=== PATIENT | female | born 1975 | race Caucasian/White ===

== ENCOUNTER 2016-08-11 12:37 | Emergency (ER) | payer MEDICAID ==
[2016-08-11] MEDS ORDERED: ACETAMINOPHEN 325 MG TABLET PO STA (14:15)
[2016-08-11] MEDS ORDERED: IBUPROFEN 600 MG TABLET PO STA (14:15)
[2016-08-11] MEDS ORDERED: IBUPROFEN 600 MG TABLET PO ONE (14:29)
[2016-08-11] MEDS ORDERED: ACETAMINOPHEN 325 MG TABLET PO ONE (14:30)
== END 2016-08-11 15:07 | disposition home or self-care (01) ==
DX: S63.502A Unspecified sprain of left wrist, initial encounter (principal); W01.0XXA Fall on same level from slipping, tripping and stumbling without subsequent striking against object, initial encounter; Y92.410 Unspecified street and highway as the place of occurrence of the external cause; M06.9 Rheumatoid arthritis, unspecified
CPT/HCPCS: 73110; 81025; 99283; A9270

== ENCOUNTER 2016-10-05 17:31 | Emergency (ER) | payer MEDICAID ==
[2016-10-05 18:01] LABS: BILIRUBIN,URINE NEGATIVE (NEGATIVE); PH,URINE 5.5 PH (5.0-7.5)
[2016-10-05 18:06] LABS: HCG UR QUAL POSITIVE; UA CHARGE (STRIP ONLY) YES; UR CULTURE IF IND NOT INDICATED
--- NOTE | 2016-10-05 18:50 | ED Physician Documentation ---
PD HPI FEMALE - Stated complaint Stated Complaint: ABD PX - Chief complaint Chief Complaint: Abd Pain - History obtained from History obtained from: Patient - History of Present Illness Timing - onset: Today Timing - duration: Days Timing - details: Abrupt onset, Still present, Waxing and waning Associated symptoms: Pelvic pain (left sided, sharp and aching) Contributing factors: (new diagnosed with home test today.) OB-[employer] History: G (3), P (2) Similar symptoms before: Has not had sx before Recently seen: Not recently seen Review of Systems Constitutional: denies: Fever, Chills Nose: denies: Rhinorrhea / runny nose, Congestion Throat: denies: Sore throat Respiratory: denies: Cough GI: denies: Nausea, Vomiting, Diarrhea : reports: Irregular menses (last normal period was July, then very light in end of August. Usually regular.). denies: Dysuria, Frequency, Discharge Neurologic: denies: Generalized weakness, Focal weakness, Numbness, Near syncope PD PAST MEDICAL HISTORY - Past Medical History Cardiovascular: None Respiratory: None Neuro: None Endocrine/Autoimmune: None Psych: Anxiety, Post traumatic stress disorder Musculoskeletal: Rheumatoid arthritis - Past Surgical History Past Surgical History: Yes General: Cholecystectomy /[employer]: section - Present Medications Home Medications: Ambulatory Orders Medication Instructions Recorded Confirmed Clonazepam [Klonopin] 1 mg BID 02/26/16 08/11/16 Gabapentin 600 mg QID 02/26/16 08/11/16 Acetaminophen [Tylenol] 650 mg PO Q6H PRN #100 tablet 08/11/16 Ibuprofen [Motrin] 600 mg PO TID #30 tab 08/11/16 - Allergies Allergies/Adverse Reactions: Allergies Allergy/AdvReac Type Severity Reaction Status Date / Time ketorolac tromethamine * Allergy Itching Verified 02/26/16 19:01 [From Toradol] prednisone Allergy Respiratory Verified 02/26/16 19:01 acetaminophen [From Vicodin] AdvReac Itching Verified 02/26/16 19:01 hydrocodone bitartrate * AdvReac Itching Verified 02/26/16 19:01 [From Vicodin] - Social History Does the pt smoke?: No Smoking Status: Never smoker Does the pt drink ETOH?: No Does the pt have substance abuse?: No - Immunizations Immunizations are current?: Yes - POLST Patient has POLST: No PD ED PE NORMAL - Vitals Vital signs reviewed: Yes - General General: Alert and oriented X 3, No acute distress, Well developed/nourished - Neck Neck: Supple, no meningeal sign, No adenopathy - Cardiac Cardiac: RRR, No murmur - Respiratory Respiratory: Clear bilaterally - Abdomen Abdomen: Normal bowel sounds, Soft, Non distended, No organomegaly, Other (mild tenderness left lower abdomen without guarding nor percussion tenderness. ) - Female Female : Deferred - Back Back: No CVA TTP - Derm Derm: Normal color, Warm and dry - Extremities Extremities: No edema, No calf tenderness / cord - Neuro Neuro: Alert and oriented X 3, No motor deficit, Normal speech Results - Vitals Vitals: Oxygen O2 Source Room air - Labs Labs: Laboratory Tests 10/05/16 10/05/16 10/05/16 17:41 19:30 19:30 WBC 8.3 RBC 3.96 L Hgb 9.0 L Hct 29.4 L MCV 74.2 L MCH 22.7 L MCHC 30.6 L RDW 18.1 H Plt Count 203 MPV 10.9 H Neut # 5.1 Lymph # 2.6 [place] # 0.5 Eos # 0.1 Baso # 0.0 Absolute Nucleated RBC 0.00 Nucleated RBCs 0.0 HCG, Quant 95.66 Urine Color YELLOW Urine Clarity CLEAR Urine pH 5.5 Ur Specific [place] 1.025 Urine Protein NEGATIVE Urine Glucose (UA) NEGATIVE Urine Ketones NEGATIVE Urine Occult Blood NEGATIVE Urine Nitrite NEGATIVE Urine Bilirubin NEGATIVE Urine Urobilinogen 0.2 (NORMAL) Ur Leukocyte Esterase NEGATIVE Ur Microscopic Review NOT INDICATED Urine Culture Comments NOT INDICATED Urine HCG, Qual POSITIVE Blood Type 10/05/16 19:30 WBC RBC Hgb Hct MCV MCH MCHC RDW Plt Count MPV Neut # Lymph # [place] # Eos # Baso # Absolute Nucleated RBC Nucleated RBCs HCG, Quant Urine Color Urine Clarity Urine pH Ur Specific [place] Urine Protein Urine Glucose (UA) Urine Ketones Urine Occult Blood Urine Nitrite Urine Bilirubin Urine Urobilinogen Ur Leukocyte Esterase Ur Microscopic Review Urine Culture Comments Urine HCG, Qual Blood Type O POSITIVE - Rads (name of study) OB U/S with transvaginal Radiology: Prelim report reviewed, Discussed with rads (2 cm cystic structure left ovary, consider corpus luteal cyst vs ectopic, trace simple free fluid in pelvis.) PD MEDICAL DECISION MAKING - ED course Complexity details: reviewed results, considered differential (very low quant without IUP, so could be just early or misplaced. There is cystic structure left ovary - corpus luteum maybe but ectopic could not be excluded. ), d/w patient, d/w life consultant (Dr. Bucio - repeat quant and exam in 2-3 days, call for appt. ) Departure - Departure Disposition: Home, Self Care Clinical Impression: Pelvic pain, Early stage of Condition: Stable Record reviewed to determine appropriate education?: Yes Instructions: ED Abdominal Pain Rule Out Ectopic Follow-Up: Katie Hernandez, [Provider Admit Priv/Credential] - Comments: [facility], call tomorrow for appt for or Thu. Ibuprofen or Naproxen twice daily and add Tylenol or pain med as needed. Drink lots of fluids. Recheck in 2-3 days for exam and repeat blood test for the HCG. There is concern for tubal but not clear at this time due to too early on in the . Discharge Date/Time: 10/05/16 22:00
[2016-10-05] MEDS ORDERED: ACETAMINOPHEN 325 MG TABLET PO ONE (19:16)
[2016-10-05] MEDS: ACETAMINOPHEN 325 MG TABLET PO STA (19:18)
[2016-10-05 19:47] LABS: BASOPHILS % (AUTO) 0.6 %; EOSINOPHILS # (AUTO) 0.1 10^3/uL (0.0-0.7); EOSINOPHILS % (AUTO) 1.5 %; HCT - HEMATOCRIT 29.4 % (37.0-47.0); LYMPHOCYTES # (AUTO) 2.6 10^3/uL (1.5-3.5); LYMPHOCYTES % (AUTO) 30.9 %; MEAN CORPUSCULAR HEMOGLOBIN 22.7 pg (27.0-31.0); MEAN CORPUSCULAR HGB CONC 30.6 g/dL (32.0-36.0); MEAN CORPUSCULAR VOLUME 74.2 fL (81.0-99.0); MEAN PLATELET VOLUME 10.9 fL (7.9-10.8); MONOCYTES # (AUTO) 0.5 10^3/uL (0.0-1.0); MONOCYTES % (AUTO) 6.4 %; NEUTROPHILS # (AUTO) 5.1 10^3/uL (1.5-6.6); NEUTROPHILS % (AUTO) 60.6 %; RED BLOOD COUNT 3.96 10^6/uL (4.20-5.40); RED CELL DISTRIBUTION WIDTH 18.1 % (12.0-15.0); UNCORRECTED WHITE BLOOD COUNT 8.3 x10^3/uL; WHITE BLOOD COUNT 8.3 x10^3/uL (4.8-10.8)
--- NOTE | 2016-10-05 21:30 | Ultrasound Preliminary Report ---
Exam: US OB First Trimester IMPRESSION: 1. There is no evidence of intrauterine gestation. 2. At the lateral margin of the left ovary, there is a rounded hypoechoic focus measuring 2.0 cm in d iameter. Differential considerations include ectopic or corpus luteal cyst. Short-term inte rval repeat beta-hCG and close follow-up recommended as indicated. 3. There is a small amount of simple appearing free fluid within the pelvis. [facility] The above findings were discussed with Dr. Woods by Dr. Richie Araya at 21:26 hrs on 10/05/16. SITE ID: [id number]
--- NOTE | 2016-10-05 21:32 | Ultrasound Report ---
REVISED: THIS REPORT WAS ORIGINALLY SIGNED ON 10/05/2016 @ 2132 ORDERS LINKED ON 10/22/2016 EXAM: FIRST TRIMESTER OBSTETRIC ULTRASOUND (Less than 11 weeks) EXAM DATE: 10/05/2016 08:49 PM. CLINICAL HISTORY: LLQ pain and early . LMP: Unknown. COMPARISONS: None. TECHNIQUE: Transvaginal ultrasound examination with static image documentation. CLINICAL DATES: ASSESSMENT: Gestational Sac: No evidence of intrauterine gestational sac. MATERNAL STRUCTURES: Uterus: Anteverted. Unremarkable. Cervix: Closed. Right Ovary: 2.7 x 1.5 x 2.1 cm, volume 5 cc. Unremarkable. Left Ovary: 3.4 x 2.1 x 2.6 cm, volume 9 cc. The lateral margin of the left ovary, there is a rounded hypoechoic focus measuring 2.0 cm in diameter. It demonstrates peripheral vascularity. Free Fluid: There is a small amount of simple-appearing free fluid within the pelvis.. Other: None. IMPRESSION: 1. There is no evidence of intrauterine gestation. 2. At the lateral margin of the left ovary, there is a rounded hypoechoic focus measuring 2.0 cm in diameter. Differential considerations include ectopic or corpus luteal cyst. Short-term interval repeat beta-hCG and close follow-up recommended as indicated. 3. There is a small amount of simple appearing free fluid within the pelvis. [facility] The above findings were discussed with Dr. Woods by Dr. Richie Araya at 21:26 hrs on 10/05/16. Referring Provider Line: [phone] SITE ID: [id number]
[2016-10-05 21:41] VITALS: BP 136/77
[2016-10-05] MEDS ORDERED: oxyCOD/ACETAMIN 5 MG/325 MG TABLET PO ONE (21:42)
[2016-10-05] MEDS ORDERED: IBUPROFEN 600 MG TABLET PO ONE (21:42)
[2016-10-05] MEDS ORDERED: oxyCODONE/ACET 5/325 Prepack 4 PO ONE (21:42)
[2016-10-05] MEDS: oxyCOD/ACETAMIN 5 MG/325 MG TABLET PO STA (21:49)
[2016-10-05] MEDS: IBUPROFEN 600 MG TABLET PO STA (21:49)
[2016-10-05] MEDS: oxyCODONE/ACET 5/325 Prepack 4 PO STA (22:06)
== END 2016-10-05 22:00 | disposition home or self-care (01) ==
LOC: ED 17:31
DX: R10.2 Pelvic and perineal pain (principal); O26.891 Other specified pregnancy related conditions, first trimester; Z3A.00 Weeks of gestation of pregnancy not specified; M06.9 Rheumatoid arthritis, unspecified
CPT/HCPCS: 36415; 76801; 76817; 81001; 81003; 81025; 84144; 84702; 85025; 86900; 86901; 87086; 99283

== ENCOUNTER 2016-10-09 14:35 | Outpatient (CLI) | payer MEDICAID ==
[2016-10-09 15:38] LABS: HEMOGLOBIN A1C 0.47 g/dL
[2016-10-09 16:24] LABS: THYROID STIMULATING HORMONE 1.27 uIU/mL (0.34-5.60)
== END 2016-10-09 14:36 | disposition home or self-care (01) ==
LOC: LAB 14:35
PROVIDERS: ATTEND Obstetrics & Gynecology
DX: O24.011 Pre-existing type 1 diabetes mellitus, in pregnancy, first trimester (principal); Z32.01 Encounter for pregnancy test, result positive
CPT/HCPCS: 36415; 82947; 83036; 84439; 84443; 84481; 84702

== ENCOUNTER 2016-10-16 09:21 | Outpatient (CLI) | payer MEDICAID | END 2016-10-16 09:22 | disposition home or self-care (01) | DX: Z32.01 Encounter for pregnancy test, result positive (principal) ==

== ENCOUNTER 2016-10-21 20:15 | Emergency (ER) | payer MEDICAID ==
[2016-10-21] MEDS ORDERED: SODIUM CHLORIDE 0.9% 1,000 ML IV ONE (20:23)
[2016-10-21] MEDS ORDERED: diphenhydrAMINE INJ 50 MG/ML VIAL IVP STA (20:23)
[2016-10-21 20:30] LABS: BILIRUBIN,URINE NEGATIVE (NEGATIVE)
[2016-10-21 20:31] LABS: UA w/ MICROSCOPIC CHARGE YES
[2016-10-21] MEDS ORDERED: diphenhydrAMINE INJ 50 MG/ML VIAL ONE (20:31)
--- NOTE | 2016-10-21 20:43 | ED Physician Documentation ---
PD HPI NVD - Stated complaint Stated Complaint: FEELS SICK - Chief complaint Chief Complaint: Abd Pain - History of Present Illness Timing - onset: How many hours ago (2) Timing - details: Abrupt onset Associated symptoms: Abdominal pain. No: Hematuria, Vaginal bleeding, Vaginal dc Contributing factors: Other () Worsened by: Eating Similar symptoms before: Work up / diagnostics, Treatment, Follow up Recently seen: Clinic - Additonal information Additional information: Patient is a 41 year old female, approximately 6 weeks by dates who is presenting to the emergency department for nausea and vomiting. Patient states that she had not been feeling well for the last few days, but for the last two hours patient has not been able to keep anything down. patient was seen in the emergency department on 10/05/16 and at that time she was found to have a beta of 95, and no IUP, but a possible ovarian cyst. Patient has been trending her beta as an outpatient but has not had a follow up ultrasound. Patient states that she has mild left sided continual pain. Review of Systems Constitutional: denies: Fever, Chills Eyes: denies: Loss of vision, Photophobia Ears: denies: Ear pain, Drainage/discharge Throat: denies: Dental pain / toothache, Sore throat Cardiac: denies: Chest pain / pressure Respiratory: denies: Dyspnea, Cough GI: reports: Abdominal Pain, Nausea, Vomiting : denies: Dysuria, Frequency, Hesitancy Skin: denies: Rash, Lesions, Abrasion (s) Musculoskeletal: denies: Neck pain, Back pain, Extremity pain, Joint pain Neurologic: denies: Generalized weakness, Focal weakness, Numbness Immunocompromised: denies: Immunocompromised PD PAST MEDICAL HISTORY - Past Medical History Cardiovascular: None Respiratory: None Neuro: None Endocrine/Autoimmune: None Psych: Anxiety, Post traumatic stress disorder Musculoskeletal: Rheumatoid arthritis - Past Surgical History Past Surgical History: Yes General: Cholecystectomy /[employer]: section - Present Medications Home Medications: Ambulatory Orders Medication Instructions Recorded Confirmed Clonazepam [Klonopin] 1 mg BID 02/26/16 08/11/16 Gabapentin 600 mg QID 02/26/16 08/11/16 Acetaminophen [Tylenol] 650 mg PO Q6H PRN #100 tablet 08/11/16 Ibuprofen [Motrin] 600 mg PO TID #30 tab 08/11/16 Doxylamine/Pyridoxine HCl 1 each PO TID #15 tab 10/21/16 [Oh Dr 10-10 mg Tablet] Nitrofurantoin Monohyd/M-Cryst 100 mg PO BID 5 Days 10/21/16 [Macrobid 100 mg Capsule] - Allergies Allergies/Adverse Reactions: Allergies Allergy/AdvReac Type Severity Reaction Status Date / Time ketorolac tromethamine * Allergy Itching Verified 02/26/16 19:01 [From Toradol] prednisone Allergy Respiratory Verified 02/26/16 19:01 acetaminophen [From Vicodin] AdvReac Itching Verified 02/26/16 19:01 hydrocodone bitartrate * AdvReac Itching Verified 02/26/16 19:01 [From Vicodin] - Social History Does the pt smoke?: No Smoking Status: Never smoker Does the pt drink ETOH?: No Does the pt have substance abuse?: No - Immunizations Immunizations are current?: Yes - POLST Patient has POLST: No PD ED PE NORMAL - Vitals Vital signs reviewed: Yes - General General: Alert and oriented X 3, No acute distress - HEENT HEENT: Atraumatic, PERRL, Pharynx benign - Neck Neck: Supple, no meningeal sign, No JVD - Cardiac Cardiac: RRR, No murmur - Respiratory Respiratory: No respiratory distress - Derm Derm: Normal color, Warm and dry - Extremities Extremities: No deformity, No tenderness to palpate, No edema, No calf tenderness / cord - Neuro Neuro: No motor deficit, No sensory deficit, Normal speech - Psych Psych: Normal mood, Normal affect PD ED PE EXPANDED - HEENT HEENT: Dry mucous membranes - Abdomen Abdomen: Tender to palpation, LLQ. No: Distended, Rebound, Guarding Results - Vitals Vitals: Vital Signs - 24 hr 10/21/16 10/21/16 10/21/16 20:17 21:36 22:51 Temperature 36.7 C Heart Rate 78 73 74 Respiratory 17 20 16 Rate Blood Pressure 129/79 111/61 118/60 O2 Saturation 100 100 98 Oxygen O2 Source Room air - Labs Labs: Laboratory Tests 10/21/16 10/21/16 10/21/16 20:24 20:40 20:40 WBC 7.9 RBC 3.89 L Hgb 9.0 L Hct 28.4 L MCV 73.1 L MCH 23.1 L MCHC 31.6 L RDW 18.4 H Plt Count 209 MPV 9.9 Neut # 5.1 Lymph # 2.1 [place] # 0.6 Eos # 0.1 Baso # 0.0 Absolute Nucleated RBC 0.00 Nucleated RBCs 0.0 Sodium 137 Potassium 3.8 Chloride 106 Carbon Dioxide 23 Anion Gap 8.0 BUN 12 Creatinine 0.7 Estimated GFR (MDRD) 93 Glucose 128 H Calcium 9.4 Total Bilirubin 0.3 AST 16 ALT 13 Alkaline Phosphatase 54 Total Protein 7.4 Albumin 4.1 Globulin 3.3 Albumin/Globulin Ratio 1.2 Lipase 30 HCG, Quant Urine Color YELLOW Urine Clarity HAZY Urine pH 6.0 Ur Specific [place] >=1.030 H Urine Protein NEGATIVE Urine Glucose (UA) NEGATIVE Urine Ketones TRACE Urine Occult Blood NEGATIVE Urine Nitrite NEGATIVE Urine Bilirubin NEGATIVE Urine Urobilinogen 1 (NORMAL) Ur Leukocyte Esterase NEGATIVE Urine RBC 0-5 Urine WBC 0-3 Ur Squamous Epith Cells MANY Squamous H Urine Bacteria Moderate H Ur Microscopic Review INDICATED Urine Culture Comments NOT INDICATED 10/21/16 20:40 WBC RBC Hgb Hct MCV MCH MCHC RDW Plt Count MPV Neut # Lymph # [place] # Eos # Baso # Absolute Nucleated RBC Nucleated RBCs Sodium Potassium Chloride Carbon Dioxide Anion Gap BUN Creatinine Estimated GFR (MDRD) Glucose Calcium Total Bilirubin AST ALT Alkaline Phosphatase Total Protein Albumin Globulin Albumin/Globulin Ratio Lipase HCG, Quant 98034.00 Urine Color Urine Clarity Urine pH Ur Specific [place] Urine Protein Urine Glucose (UA) Urine Ketones Urine Occult Blood Urine Nitrite Urine Bilirubin Urine Urobilinogen Ur Leukocyte Esterase Urine RBC Urine WBC Ur Squamous Epith Cells Urine Bacteria Ur Microscopic Review Urine Culture Comments - Rads (name of study) pelvic ultrasound Radiology: Final report received (viable IUP, cyst or free fluid in left adenexa ) PD MEDICAL DECISION MAKING - ED course Complexity details: reviewed old records, reviewed results, re-evaluated patient , considered differential, d/w patient ED course: Patient was seen and examined at bedside. IV access was gained and labs were drawn. Urine was collected. Imaging was ordered. Patient was treated with ns bolus and benadryl. Patient was sent for imaging. When patient returned she was treated with tylenol for pain. Imaging was reviewed and showed a intrauterine gestational tract. Patient was also found to have bacteria in her urine so was treated with macrobid. patient was made aware of her findings and given detailed discharge and return instructions. Patient required no further work up and was stable for discharge with outpatient follow up. Departure - Departure Disposition: 01 Home, Self Care Clinical Impression: Vomiting affecting Condition: Good Instructions: ED Diet Vomiting Diarrhea Follow-Up: Katie Hernandez DO [Primary Care Provider] - Tomorrow Prescriptions: Doxylamine/Pyridoxine HCl [Diclegis Dr 10-10 mg Tablet] 1 each PO TID #15 tab Nitrofurantoin Monohyd/M-Cryst [Macrobid 100 mg Capsule] 100 mg PO BID 5 Days Comments: Your ultrasound today revealed an intrauterine . there is still a small fluid collection or cyst near your left ovary. While it is unlikely that it is a heterotrophic it is a possibility. You should continue to follow up with Dr. Hernandez. You were found to have some bacteria in the urine so you will be treated with macrobid twice a day for five days. For the nausea and vomiting you should try gingers, a smiple diet and dicliges. If that doesn' t work you can also take benadryl. You should return to the emergency department for vaginal bleeding, syncope, new worsening or uncontrollable symptoms. Discharge Date/Time: 10/21/16 22:53
[2016-10-21 20:57] LABS: UR CULTURE IF IND NOT INDICATED; WBC,URINE 0-3 /HPF (0-5)
[2016-10-21 21:24] LABS: BASOPHILS % (AUTO) 0.5 %; EOSINOPHILS # (AUTO) 0.1 10^3/uL (0.0-0.7); EOSINOPHILS % (AUTO) 1.1 %; HCT - HEMATOCRIT 28.4 % (37.0-47.0); LYMPHOCYTES # (AUTO) 2.1 10^3/uL (1.5-3.5); LYMPHOCYTES % (AUTO) 26.5 %; MEAN CORPUSCULAR HEMOGLOBIN 23.1 pg (27.0-31.0); MEAN CORPUSCULAR HGB CONC 31.6 g/dL (32.0-36.0); MEAN CORPUSCULAR VOLUME 73.1 fL (81.0-99.0); MEAN PLATELET VOLUME 9.9 fL (7.9-10.8); MONOCYTES # (AUTO) 0.6 10^3/uL (0.0-1.0); MONOCYTES % (AUTO) 7.2 %; NEUTROPHILS # (AUTO) 5.1 10^3/uL (1.5-6.6); NEUTROPHILS % (AUTO) 64.7 %; RED BLOOD COUNT 3.89 10^6/uL (4.20-5.40); RED CELL DISTRIBUTION WIDTH 18.4 % (12.0-15.0); UNCORRECTED WHITE BLOOD COUNT 7.9 x10^3/uL; WHITE BLOOD COUNT 7.9 x10^3/uL (4.8-10.8)
[2016-10-21] MEDS ORDERED: ACETAMINOPHEN 500 MG TABLET PO STA (21:39)
[2016-10-21] MEDS ORDERED: ACETAMINOPHEN 500 MG TABLET PO ONE (21:45)
[2016-10-21 22:23] LABS: ALBUMIN/GLOBULIN RATIO 1.2 (1.0-2.2); BILIRUBIN,TOTAL 0.3 mg/dL (0.2-1.0); CALCIUM 9.4 mg/dL (8.5-10.3); CREATININE 0.7 mg/dL (0.4-1.0); POTASSIUM 3.8 mmol/L (3.5-5.0); TOTAL PROTEIN 7.4 g/dL (6.7-8.2)
--- NOTE | 2016-10-21 22:24 | Ultrasound Preliminary Report ---
Exam: US OB First Trimester IMPRESSION: 1. Single viable intrauterine at EGA 6 weeks 3 days with MONY 06/13/2017 based on crown-rump length. Small linda-gestational bleed measuring 5 x 2 mm. 2. The bilateral ovaries are not well seen. Cystic structure in the left adnexa measuring 2.2 x 1.2 x 1.4 cm, could represent a dominant follicle in the left ovary versus small free fluid. [facility] SITE ID: [id number]
--- NOTE | 2016-10-21 22:26 | Ultrasound Report ---
EXAM: FIRST TRIMESTER OBSTETRIC ULTRASOUND (Less than 11 weeks) EXAM DATE: 10/21/2016 09:46 PM. CLINICAL HISTORY: Prior ultrasound showed mass, no intrauterine . LMP: Unknown. COMPARISONS: Pelvic ultrasound 10/05/2016. TECHNIQUE: Transabdominal and transvaginal ultrasound examination with static image documentation. Li mited transvaginal exam. Patient refused long-term through the exam. ASSESSMENT: Gestational Sac: Single intrauterine. Mean gestational sac diameter: 15 mm = 6 weeks 2 days, MONY 05/19. Embryo: CRL (crown-rump length) 5 mm = 6 weeks 3 days. Cardiac activity: 121 beats per minute. Yolk sac: 3.3 mm. There appears to be a perigestational bleed measuring 5 x 2 mm. MATERNAL STRUCTURES: Uterus: Anteverted. Unremarkable. Cervix: Closed. The ovaries are not well seen. Cystic structure in the left adnexa measuring 2.2 x 1.2 x 1.4 cm , cou ld represent a dominant follicle in the left ovary versus small free fluid. Other: None. IMPRESSION: 1. Single viable intrauterine at EGA 6 weeks 3 days with MONY 06/13/2017 based on crown-rump length. Small linda-gestational bleed measuring 5 x 2 mm. 2. The bilateral ovaries are not well seen. Cystic structure in the left adnexa measuring 2.2 x 1.2 x 1.4 cm, could represent a dominant follicle in the left ovary versus small free fluid. [facility] Referring Provider Line: [phone] SITE ID: [id number]
--- NOTE | 2016-10-21 22:26 | Ultrasound Report ---
EXAM: FIRST TRIMESTER OBSTETRIC ULTRASOUND (Less than 11 weeks) EXAM DATE: 10/21/2016 09:46 PM. CLINICAL HISTORY: Prior ultrasound showed mass, no intrauterine . LMP: Unknown. COMPARISONS: Pelvic ultrasound 10/05/2016. TECHNIQUE: Transabdominal and transvaginal ultrasound examination with static image documentation. Li mited transvaginal exam. Patient refused half-way through the exam. ASSESSMENT: Gestational Sac: Single intrauterine. Mean gestational sac diameter: 15 mm = 6 weeks 2 days, MONY 05/19. Embryo: CRL (crown-rump length) 5 mm = 6 weeks 3 days. Cardiac activity: 121 beats per minute. Yolk sac: 3.3 mm. There appears to be a perigestational bleed measuring 5 x 2 mm. MATERNAL STRUCTURES: Uterus: Anteverted. Unremarkable. Cervix: Closed. The ovaries are not well seen. Cystic structure in the left adnexa measuring 2.2 x 1.2 x 1.4 cm , cou ld represent a dominant follicle in the left ovary versus small free fluid. Other: None. IMPRESSION: 1. Single viable intrauterine at EGA 6 weeks 3 days with MONY 06/13/2017 based on crown-rump length. Small linda-gestational bleed measuring 5 x 2 mm. 2. The bilateral ovaries are not well seen. Cystic structure in the left adnexa measuring 2.2 x 1.2 x 1.4 cm, could represent a dominant follicle in the left ovary versus small free fluid. [facility] Referring Provider Line: [phone] SITE ID: [id number]
[2016-10-21] MEDS ORDERED: NITROFURANTOIN MACRO 100 MG CAPSULE PO STA (22:29)
[2016-10-21] MEDS ORDERED: NITROFURANTOIN MACRO 100 MG CAPSULE PO ONE (22:39)
[2016-10-21 22:52] VITALS: BP 118/60
== END 2016-10-21 22:53 | disposition home or self-care (01) ==
LOC: ED 20:15
DX: O21.0 Mild hyperemesis gravidarum (principal); Z3A.01 Less than 8 weeks gestation of pregnancy
CPT/HCPCS: 36415; 76801; 76830; 80053; 81001; 83690; 84702; 85025; 96361; 96374; 99284; A9270; 81003; 87086

== ENCOUNTER 2016-10-24 08:00 | Outpatient (CLI) | payer MEDICAID | END 2016-10-24 08:01 | disposition home or self-care (01) | LOC: LAB.R 08:00 | PROVIDERS: ATTEND Obstetrics & Gynecology | DX: Z36 Encounter for antenatal screening of mother (principal) | CPT/HCPCS: 80306 ==

== ENCOUNTER 2016-11-06 13:02 | Outpatient (CLI) | payer MEDICAID ==
--- NOTE | 2016-11-06 16:34 | Ultrasound Report ---
FOLLOWUP OBSTETRICAL ULTRASOUND FIRST TRIMESTER: 11/06/2016 CLINICAL HISTORY: Only a transabdominal ultrasound was ordered. The patient had pain previously with a transvaginal scan. TECHNIQUE: Transabdominal pelvic ultrasound performed for global evaluation. Real-time scanning perfo rmed and static images obtained. FINDINGS: The preceding ultrasound was done on 10/21/2016. There was a single viable intrauterine pr egnancy at that time measuring 6 weeks 3 days with an EDC of 06/13/2017. Also, on the preceding ultra sound, was a small perigestational sac hematoma. Transabdominal ultrasound demonstrates a single gestational sac within the uterus with a crown-rump l ength of 19.8 mm indicating a gestational age of 8 weeks 3 days. EDC today by ultrasound is 8. The present gestational age is only 2 days less than expected as calculated from preceding ultraso und exam. This degree of growth is within normal limits. The gestational sac has a mean sac diameter of 31 mm. This is consistent with an 8 week 1 day gestati onal age. The embryo shows normal cardiac activity with a heart rate of 169 beats per minute. A normal yolk sac is seen in association with the fetus measuring 4 mm. On the transabdominal scan, fe mimi anatomy cannot be seen optimally. Recommend patient be followed carefully. Suggest a repeat ultra sound at 12-13 weeks for nuchal measurements. Tiny subchorionic hematomas are seen adjacent to the gestational sac. The inferior one measures 1.6 c m by 0.4 cm by 1.7 cm. The right lateral one measures 0.5 cm by 1.1 cm by 0.3 cm. The maternal right ovary measures 2.1 cm by 1.6 cm by 1.7 cm for a volume of 2.9 cubic centimeters. T he maternal left ovary measures 3.8 cm by 1.9 cm by 2.3 cm for a volume of 8.6 cubic centimeters. The re is a small cyst within the left ovary measuring 1.3 cm by 1.3 cm by 1.7 cm. IMPRESSION: 1. SINGLE GESTATIONAL SAC IS NOTED WITHIN THE UTERUS WITH A SINGLE VIABLE FETUS WITHIN IT. GEST ATIONAL AGE TODAY IS 8 WEEKS 3 DAYS. THIS IS 2 DAYS LESS ADVANCED THAN EXPECTED CALCULATED FROM [facility] ECEDING ULTRASOUND. THIS IS WITHIN NORMAL LIMITS IN REGARDS TO GROWTH. 2. ANATOMY CANNOT BE SEEN OPTIMALLY TODAY BECAUSE ONLY A TRANSABDOMINAL SCAN WAS DONE PER PATIE NT'S REQUEST. RECOMMEND A REPEAT ULTRASOUND IN APPROXIMATELY 4-5 WEEKS FOR FURTHER EVALUATION INCLUDI NG NUCHAL MEASUREMENTS. 3. TWO TINY SUBCHORIONIC BLEEDS ARE NOTED. 4. SMALL MATERNAL LEFT OVARIAN CYST IS SEEN WITH A MAXIMUM DIAMETER OF 1.7 CM. JOB #: [id number] EXT JOB #:[id number]
== END 2016-11-06 13:03 | disposition home or self-care (01) ==
LOC: DI 13:02
PROVIDERS: ATTEND Obstetrics & Gynecology
DX: O36.5110 Maternal care for known or suspected placental insufficiency, first trimester, not applicable or unspecified (principal); O20.9 Hemorrhage in early pregnancy, unspecified; Z3A.08 8 weeks gestation of pregnancy
CPT/HCPCS: 76801

== ENCOUNTER 2017-02-14 10:00 | Outpatient (CLI) | payer MEDICAID ==
[2017-02-14 10:19] VITALS: BP 114/74
[2017-02-14 11:48] LABS: HEMOGLOBIN A1C 0.35 g/dL
[2017-02-14 11:57] LABS: BILIRUBIN,URINE NEGATIVE (NEGATIVE)
[2017-02-14 11:59] LABS: UA CHARGE (STRIP ONLY) YES; UR CULTURE IF IND NOT INDICATED
== END 2017-02-14 12:05 | disposition home or self-care (01) ==
LOC: WFO 10:00 → FBP 10:06 → WFO 12:05
PROVIDERS: ATTEND Obstetrics & Gynecology
DX: O99.89 Other specified diseases and conditions complicating pregnancy, childbirth and the puerperium (principal); R10.9 Unspecified abdominal pain; Z3A.23 23 weeks gestation of pregnancy
CPT/HCPCS: 80306; 81001; 81003; 82731; 82947; 83036; 87086; 99215

== ENCOUNTER 2017-03-01 15:59 | Outpatient (CLI) | payer MEDICAID | END 2017-03-01 16:00 | disposition critical access hospital (66) | LOC: EMS 15:59 | PROVIDERS: ATTEND Surgery | DX: O99.89 Other specified diseases and conditions complicating pregnancy, childbirth and the puerperium (principal); R10.9 Unspecified abdominal pain; R11.2 Nausea with vomiting, unspecified | CPT/HCPCS: A0425; A0427 ==

== ENCOUNTER 2017-03-01 16:31 | Outpatient (CLI) | payer MEDICAID ==
[2017-03-01] MEDS ORDERED: LACTATED RINGERS 1,000 ML IV ONE (16:43)
[2017-03-01] MEDS ORDERED: SODIUM CHLORIDE FLUSH 0.9% 10 ML SYRINGE IVP ONE ×2 (16:49→17:21)
[2017-03-01] MEDS ORDERED: ONDANSETRON 4 MG/2 ML VIAL IVP PRN (16:57)
[2017-03-01] MEDS ORDERED: SODIUM CHLORIDE FLUSH 0.9% 10 ML SYRINGE IVP PRN (16:58)
[2017-03-01] MEDS ORDERED: LACTATED RINGERS 1,000 ML IV SCH (17:00)
[2017-03-01] MEDS ORDERED: LACTATED RINGERS 500 ML IV ONE (17:00)
[2017-03-01 17:16] LABS: BILIRUBIN,URINE NEGATIVE (NEGATIVE)
[2017-03-01 17:24] LABS: UR CULTURE IF IND NOT INDICATED; WBC,URINE 0-3 /HPF (0-5)
[2017-03-01] MEDS ORDERED: NIFEdipine ER 30 MG TABLET PO ONE (17:37)
[2017-03-01] MEDS ORDERED: raNITIdine INJ 50 MG in SODIUM CHLORIDE 0.9% 50 ML IV SCH (18:00)
[2017-03-01] MEDS ORDERED: HYDROcod/ACETAM 5/325 MG TABLET PO PRN (18:15)
[2017-03-01 18:34] VITALS: BP 118/67
[2017-03-01 18:37] LABS: BASOPHILS % (AUTO) 0.4 %; EOSINOPHILS % (AUTO) 0.4 %; HCT - HEMATOCRIT 29.5 % (37.0-47.0); HGB - HEMOGLOBIN 9.2 g/dL (12.0-16.0); LYMPHOCYTES # (AUTO) 2.3 10^3/uL (1.5-3.5); LYMPHOCYTES % (AUTO) 18.9 %; MEAN CORPUSCULAR HEMOGLOBIN 26.9 pg (27.0-31.0); MEAN CORPUSCULAR HGB CONC 31.1 g/dL (32.0-36.0); MEAN CORPUSCULAR VOLUME 86.3 fL (81.0-99.0); MEAN PLATELET VOLUME 10.5 fL (7.9-10.8); MONOCYTES # (AUTO) 0.5 10^3/uL (0.0-1.0); MONOCYTES % (AUTO) 4.2 %; NEUTROPHILS # (AUTO) 9.1 10^3/uL (1.5-6.6); NEUTROPHILS % (AUTO) 76.1 %; RED BLOOD COUNT 3.42 10^6/uL (4.20-5.40); RED CELL DISTRIBUTION WIDTH 18.7 % (12.0-15.0)
[2017-03-01 18:48] LABS: ALBUMIN/GLOBULIN RATIO 0.8 (1.0-2.2); BILIRUBIN,TOTAL 0.2 mg/dL (0.2-1.0); CALCIUM 8.9 mg/dL (8.5-10.3); CREATININE 0.7 mg/dL (0.4-1.0)
[2017-03-01 19:00] LABS: HEMOGLOBIN A1C 0.33 g/dL
[2017-03-01] MEDS ORDERED: FLU VACCINE TS 2017-2018 45 MCG/0.5 ML SYRINGE IM ONE (19:00)
[2017-03-01] MEDS ORDERED: SODIUM CHLORIDE FLUSH 0.9% 10 ML SYRINGE IVP SCH (22:00)
== END 2017-03-01 19:25 | disposition home or self-care (01) ==
LOC: WFO 16:31 → FBP 16:31 → WFO 19:25
PROVIDERS: ATTEND Obstetrics & Gynecology
DX: O47.02 False labor before 37 completed weeks of gestation, second trimester (principal); Z3A.25 25 weeks gestation of pregnancy
CPT/HCPCS: 36415; 80053; 81001; 82731; 83036; 85025; 86762; 86780; 86900; 86901; 87340; 87389; 87491; 87591; 96374; 96375; 99214; A9270; J7120; 87086

== ENCOUNTER 2017-03-30 03:34 | Outpatient (CLI) | payer MEDICAID ==
[2017-03-30 04:03] VITALS: BP 136/68
[2017-03-30 04:26] LABS: BILIRUBIN,URINE NEGATIVE (NEGATIVE)
[2017-03-30 04:38] LABS: UA CHARGE (STRIP ONLY) YES; UR CULTURE IF IND NOT INDICATED
== END 2017-03-30 05:35 | disposition home or self-care (01) ==
LOC: WFO 03:34 → FBP 03:35 → WFO 05:35
PROVIDERS: ATTEND Obstetrics & Gynecology
DX: O47.03 False labor before 37 completed weeks of gestation, third trimester (principal); Z3A.29 29 weeks gestation of pregnancy; O24.419 Gestational diabetes mellitus in pregnancy, unspecified control; O09.523 Supervision of elderly multigravida, third trimester
CPT/HCPCS: 81001; 81003; 82731; 87086; 99213

== ENCOUNTER 2017-04-16 12:48 | Outpatient (CLI) | payer MEDICAID ==
[2017-04-16] MEDS ORDERED: ONDANSETRON ODT 4 MG TABLET TL PRN (14:06)
[2017-04-16 15:01] LABS: ALBUMIN/GLOBULIN RATIO 0.8 (1.0-2.2); BILIRUBIN,TOTAL 0.5 mg/dL (0.2-1.0); CREATININE 0.8 mg/dL (0.4-1.0); POTASSIUM 4.5 mmol/L (3.5-5.0); TOTAL PROTEIN 7.2 g/dL (6.7-8.2)
[2017-04-16] MEDS ORDERED: SODIUM CHLORIDE FLUSH 0.9% 10 ML SYRINGE IVP ONE (15:16)
[2017-04-16 15:36] LABS: BILIRUBIN,URINE NEGATIVE (NEGATIVE)
[2017-04-16 15:56] LABS: WBC,URINE 0-3 /HPF (0-5)
[2017-04-16 15:57] LABS: UR CULTURE IF IND NOT INDICATED
[2017-04-16 17:18] VITALS: BP 117/66
--- NOTE | 2017-04-16 18:06 | HISTORY & PHYSICAL EXAMINATION ---
DATE OF ADMISSION: 04/16/2017 DIAGNOSES: 1. Abrupt onset of Upper abdominal Midline / Uterine pain. 2. Vaginal bleeding. 3. Type 2 diabetes. 4. Prior sections x2. 5. Status post Suzette-en-Y gastric bypass w additional surgeries due to bowel obstruction. 6. History of preeclampsia The patient is a 41-year-old 4, para 2-0-1-2 woman who is now cared for at [facility] high risk clinic with Dr. Stone. At roughly 10 o'clock this morning she had an abrupt onset of fundal uterine pain accompanied by vaginal bleeding. She called [facility] and was instructed her to go immediately to the closest facility. She reports a periodic severe spastic pain in the upper abdomen that she interpreted as uterine contractions. The pain was accompanied by nausea but no emesis. She underwent gastric bypass surgery, Suzette-en-Y in 2004 at the [facility]. Post surgery she is had several bouts of bowel obstruction and secondary surgeries. During 1 of these bouts she became septic. She notes a hard mass under her midline bypass scar. She had a bowel movement at 8 AM Prior to The onset of upper abdominal pain. Currently she reports no flatus. She reports A small amount of vaginal bleeding. . She does not suspect leakage of membranes. She reports no foul discharge or pelvic pressure. She states the baby was thought to be transverse. The patient originally began care at the [facility] and transferred due to a higher risk status to [facility]. Dating is confirmed by 6-week, 3-day crown rump length that was measured on 21 October to yield a delivery date of 13 June. The patient had 2 sections, 1 at 36 weeks and another repeat at 36 weeks, both to produce female . Indications for was severe preeclampsia. Obstetrical Problems include Type 2 diabetes, Severe anemia and mild growth restricted fetus fetus. She states that her diabetes is in good control with her last hemoglobin A1c at 5.5 three weeks ago. Ultrasound on 20 March showed the fetus at the 12th percentile growth. She has a history of preeclampsia and on oral nifedipine. Currently she does not have symptoms suggestive of preeclampsia. She does have profound anemia and is been recommended to have iron infusion therapy. PAST SURGICAL HISTORY: 1. as noted above. 2. Bariatric surgery -- Patient had a Suzette-en-Y gastric bypass in 2004 that led to 2 other surgeries for bowel obstruction. During 1 of these surgeries she became septic. Original surgery occurred at [facility]. 3. Abdominal wall hernia repairs. ALLERGIES: SENSITIVE TO PREDNISONE AND LOVENOX. MEDICATIONS: vitamins with iron. Nifedipine. SOCIAL HISTORY: Single mom, unemployed. Daughter at home. Denies drug, tobacco or alcohol use. FAMILY HISTORY: Breast cancer, colon cancer, easy bleeding tendencies. REVIEW OF SYSTEMS: CONSTITUTIONAL: The patient denies recent fevers, chills, or illness. HEENT: Negative. CARDIAC: Negative. LUNGS: Negative; no recent asthma attacks. GI: gastric bypass surgery As noted above. GENITOURINARY: Reference HPI and records, [facility] records on request. MUSCULOSKELETAL: Negative. NEUROLOGIC: Negative. PSYCHIATRIC: The patient has prior history of drug use. Currently denies and willing to undergo urine toxicology. PHYSICAL EXAMINATION: GENERAL: Patient lying on stretcher, alert, oriented, uncomfortable. VITAL SIGNS: Posted. HEENT: Poor dentition, multiple missing teeth and decay. Supple neck. No thyromegaly. LUNGS: Clear to Auscultation in all lobes. CARDIAC: Regular rapid beat, 2/6 systolic flow murmur. ABDOMEN: Minimal distention No organomegaly. No CVA tenderness. Midline upper abdominal laparotomy scar with a 4 x 5 x 6 cm mass underlying it, Tenderness noted under the laparotomy scar and at the apex of the uterus UTERUS: Appropriate for dates. Tense. Tenderness towards the fundus. EXTERNAL GENITALIA: No lesions, VAGINA: No blood or discharge. CERVIX: 1 cm noneffaced -2 station. No cervical motion tenderness EXTREMITIES: Nonedematous. Moves all 4 extremities well. NEUROLOGIC: Check grossly intact. Patellar reflexes 2+ and equal. Ultrasound preliminary reportsingle viable intrauterine with heart rate of 144. Posterior placenta without evidence of abruption or previa. Estimated weight 1447 g. Cervix long and 3.6 cm and closed. HEENA 11.5 Laboratory data Urine toxicology negative for drugs of abuse. Unable to obtain appropriate blood samples for CBC due to sclerotic veins. 4 attempts were made including attempts by anesthesia. ASSESSMENT: This is a that has symptoms suspect for abruption and/or labor. Extended observation does not record any cervical change and therefore labor was ruled out. delivery with a cervical length of 3.6 is unlikely. Suspect that the fetus is falling off the growth curve secondary to poor nutritional status due to gastric bypass, severe maternal anemia, poor dentition and advanced maternal age. Patient lives on [address] with meager personal resources and there is a transportation barrier to [place]. Critical Aspects of her care have been personally neglected. Patient may want to consider relocation to the [facility] where the appropriate levels of care are more accessible. Her upper abdominal pain most likely represents a GI event such as intermittent torsion, incarceration or bowel spasm. She is at high risk for obstruction and some of her symptoms are suggestive. Patient has mild abdominal bloating a palpable mass under the bypass scar and absense of flatus. Flat plate x-ray and CT scan are not recommended in . Patient should have an MRI to investigate the status of her small bowel and bypass. If obstruction is found we cannot operate to relieve it on [facility]. Patient is best served by evaluation at a tertiary center that includes GI subspecialty surgeons, Maternal - medicine and Level 3 care. PLAN: Discussed situation with Dr. Stone her maternal- medicine physician and it is concluded that she requires a surgical evaluation. Discussed case with Dr. Mireles, general surgeon on-call and we both conclude that evaluation is best done at a tertiary center for patient safety. Currently we cannot draw labs start an IV or resuscitate this patient because of the status of her veins cut down or central line would be necessary. Patient is in stable condition and will drive in a friend's POV to [place] emergency room for further evaluation. Dr. Stone is on-call at [facility] for obstetrics and was apprised of the patient's intentions. Prior to leaving patient received a single dose of betamethasone 12.5 mg IM. Regardless of outcome she is advised to see Dr. Stone next week in the office to continue discussions for IV iron therapy. Patient is very interested in tubal ligation given that this is an unintended And a great deal more difficult than she anticipated. Please send copies of this dictation to Dr. Stone at [facility], Dr. Iqbal, Dr. Katie Bello. [facility] emergency room And Dia Sharpe Note to Jass: This was a very high risk and complex patient. 65 minutes of [id number] time in critical patient evaluation and examination was spent, An additional 45 minutes was spent in patient education and counseling, an additional 15 minutes was spent in coordinating care. JOB #: [id number] EXT JOB #:[id number] JESSICA
[2017-04-16] MEDS ORDERED: SIMETHICONE CHEW 80 MG TABLET PO SCH (19:00)
--- NOTE | 2017-04-17 12:42 | Ultrasound Report ---
OB FOLLOWUP: 04/16/2017 CLINICAL INDICATION: Bleeding, pain. TECHNIQUE: Real-time scanning was performed with patient registration representative static images obtained. LAST MENSTRUAL PERIOD 09/08/2016 Clinical Age 31 weeks 3 days US Age 30 weeks 0 days EFW Hadlock 1447 EFW% Hadlock -- Heart Rate 144 bpm EDC 06/15/2017 US EDC 06/25/2017 BPD Hadlock 30 weeks 0 days; Mean mm 75 HC Hadlock 31 weeks 2 days; Mean mm 285 AC Hadlock 29 weeks 5 days; Mean mm 255 FL Hadlock 29 weeks 3 days; Mean mm 56 Presentation breech Placental Location posterior Cervical Length 3.6 cm Amniotic Fluid 11.5 cm FINDINGS: There is a single viable intrauterine gestation, in breech presentation. heart rate is 144 BPM. The placenta is posterior, without evidence of previa or abruption. Amniotic fluid volume is normal, with an HEENA of 11.5. By size, the fetus measures 30 weeks 0 days (31 weeks 3 days by initial sonogram). Estimated weight by Hadlock method is 1447 grams. The cervix measures 3.6 cm, and is closed. IMPRESSION: SINGLE VIABLE INTRAUTERINE GESTATION, WITH EXPECTED GROWTH FROM INITIAL SONOGRAM. NO EVIDENCE OF PLACENTA PREVIA OR PLACENTAL ABRUPTION. NORMAL HEENA. ESTIMATED WEIGHT OF 1447 GRAMS. MTDD
== END 2017-04-16 20:30 | disposition home or self-care (01) ==
LOC: WFO 12:48 → FBP 12:49 → WFO 20:30
PROVIDERS: ATTEND Obstetrics & Gynecology
DX: O99.89 Other specified diseases and conditions complicating pregnancy, childbirth and the puerperium (principal); R10.10 Upper abdominal pain, unspecified; R14.0 Abdominal distension (gaseous); R22.2 Localized swelling, mass and lump, trunk; O46.93 Antepartum hemorrhage, unspecified, third trimester; O99.013 Anemia complicating pregnancy, third trimester; D64.9 Anemia, unspecified; O36.5930 Maternal care for other known or suspected poor fetal growth, third trimester, not applicable or unspecified; O99.413 Diseases of the circulatory system complicating pregnancy, third trimester; I87.8 Other specified disorders of veins; O09.523 Supervision of elderly multigravida, third trimester; O99.613 Diseases of the digestive system complicating pregnancy, third trimester; K02.9 Dental caries, unspecified; O26.893 Other specified pregnancy related conditions, third trimester; O24.113 Pre-existing type 2 diabetes mellitus, in pregnancy, third trimester; E11.9 Type 2 diabetes mellitus without complications; O34.219 Maternal care for unspecified type scar from previous cesarean delivery; Z98.84 Bariatric surgery status; Z3A.31 31 weeks gestation of pregnancy; Z87.898 Personal history of other specified conditions
CPT/HCPCS: 76816; 80053; 80306; 81001; 96372; 99214; A9270; Q0162; 80048; 85025; 87086

== ENCOUNTER 2017-04-20 08:00 | Outpatient (CLI) | payer MEDICAID | END 2017-04-20 23:59 | disposition home or self-care (01) | LOC: LAB.R 08:00 | PROVIDERS: ATTEND Obstetrics & Gynecology | DX: O09.299 Supervision of pregnancy with other poor reproductive or obstetric history, unspecified trimester (principal); O26.893 Other specified pregnancy related conditions, third trimester | CPT/HCPCS: 84156 ==

== ENCOUNTER 2017-04-21 16:05 | Outpatient (CLI) | payer MEDICAID ==
[2017-04-21 17:09] VITALS: BP 125/81
[2017-04-21] MEDS ORDERED: BETAMETHASONE 30 MG/5 ML VIAL IM SCH (18:03)
[2017-04-21] MEDS ORDERED: ACETAMINOPHEN 500 MG TABLET PO PRN (18:04)
== END 2017-04-21 18:33 | disposition home or self-care (01) ==
LOC: WFO 16:05 → FBP 16:12 → WFO 18:33
PROVIDERS: ATTEND Obstetrics & Gynecology
DX: O24.419 Gestational diabetes mellitus in pregnancy, unspecified control (principal); Z3A.32 32 weeks gestation of pregnancy; O34.219 Maternal care for unspecified type scar from previous cesarean delivery; Z98.84 Bariatric surgery status
CPT/HCPCS: 59025; 96372; A9270

== ENCOUNTER 2017-05-18 21:07 | Outpatient (CLI) | payer MEDICAID | END 2017-05-18 21:08 | disposition short-term general hospital (02) | LOC: EMS 21:07 | PROVIDERS: ATTEND Surgery | DX: O26.93 Pregnancy related conditions, unspecified, third trimester (principal) | CPT/HCPCS: A0425; A0429 ==

== ENCOUNTER 2017-08-14 20:46 | Outpatient (CLI) | payer MEDICAID | END 2017-08-14 20:47 | disposition home or self-care (01) | LOC: EMS 20:46 | PROVIDERS: ATTEND Surgery | DX: F41.9 Anxiety disorder, unspecified (principal) | CPT/HCPCS: A0425; A0429 ==

== ENCOUNTER 2017-08-14 21:04 | Emergency (ER) | payer MEDICAID ==
--- NOTE | 2017-08-14 21:21 | ED Physician Documentation ---
History of Present Illness - Stated complaint Stated Complaint: NAUSEA/ANXIETY - Chief complaint Chief Complaint: Heent - History obtained from History obtained from: Patient - History of Present Illness Timing: How many hours ago (2) Improved by: no ameliorating factors Worsened by: no exacerbating factors - Additonal information Additional information: c/o nausea, vomiting, anxiety, "I'm freaking out" (per patient). this started 2 hours ago. She had all of her teeth extracted 2 days ago and has been taking pain medication for this, also has zofran at home. Tonight she developed nausea and vomiting, and she says she typically gets anxious when she has n/v. took zofran without adequate relief Review of Systems Constitutional: denies: Fever Throat: reports: Other (post-operative pain related to all teeth extracted 2 days ago, but this has not been worsening) GI: reports: Nausea, Vomiting. 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 - Present Medications Home Medications: Ambulatory Orders Medication Instructions Recorded Confirmed Clindamycin [Cleocin] 300 mg PO Q6H 08/14/17 08/14/17 Ibuprofen [Motrin] 800 mg PO TID 08/14/17 08/14/17 Sertraline [Zoloft] 50 mg PO DAILY 08/14/17 08/14/17 oxyCODONE/ACET 5/325 [Percocet 5 1 each PO Q4-6H 08/14/17 08/14/17 mg/325 mg] Amox/Clav 875/125 [Augmentin] 1 each PO Q12H #14 tablet 08/15/17 Lorazepam [Ativan] 1 mg PO Q6HR PRN #14 tablet 08/15/17 Promethazine [Phenergan] 25 mg PO Q6H PRN #14 tablet 08/15/17 - Allergies Allergies/Adverse Reactions: Allergies Allergy/AdvReac Type Severity Reaction Status Date / Time ketorolac tromethamine * Allergy Itching Verified 08/14/17 21:09 [From Toradol] prednisone Allergy Respiratory Verified 08/14/17 21:09 hydrocodone bitartrate * AdvReac Itching Verified 08/14/17 21:09 [From Vicodin] - Social History Does the pt smoke?: No Smoking Status: Never smoker Does the pt drink ETOH?: No Does the pt have substance abuse?: No - Immunizations Immunizations are current?: Yes - POLST Patient has POLST: No PD ED PE NORMAL - Vitals Vital signs reviewed: Yes - General General: Alert and oriented X 3, Well developed/nourished, Other (very anxious and vomiting at times during H+P) - HEENT HEENT: Moist mucous membranes, Other (edentulous. there are gingival sutures in place that are intact and without discharge or erythema) - Neck Neck: Supple, no meningeal sign - Cardiac Cardiac: RRR, No murmur - Abdomen Abdomen: Soft, Non tender PD ED PE EXPANDED - Psych Psych: Tearful, Anxious Results - Vitals Vitals: Oxygen O2 Source Room air - Labs Labs: Laboratory Tests 08/14/17 08/14/17 23:25 23:25 WBC 11.0 H RBC 3.99 L Hgb 12.6 Hct 36.7 L MCV 91.9 MCH 31.6 H MCHC 34.3 RDW 13.3 Plt Count 162 MPV 10.3 Neut # 9.0 H Lymph # 1.4 L [place] # 0.4 Eos # 0.1 Baso # 0.0 Absolute Nucleated RBC 0.01 Nucleated RBC % 0.1 Sodium 135 Potassium 4.6 Chloride 103 Carbon Dioxide 22 Anion Gap 10.0 BUN 28 H Creatinine 0.9 Estimated GFR (MDRD) 69 L Glucose 108 H Calcium 9.2 Total Bilirubin 0.8 AST 24 ALT 22 Alkaline Phosphatase 40 L Total Protein 7.5 Albumin 4.4 Globulin 3.1 Albumin/Globulin Ratio 1.4 Lipase 14 L PD MEDICAL DECISION MAKING - ED course Complexity details: reviewed results, re-evaluated patient, considered differential, d/w patient ED course: reported improvement in symptoms after IV fluids, IV ativan, and IV zofran, although still some anxiety and nausea. Given another dose of IV ativan and a dose of IV phenergan with good results. Departure - Departure Disposition: 01 Home, Self Care Clinical Impression: Anxiety Vomiting Qualifiers: Vomiting type: unspecified Vomiting Intractability: non-intractable Nausea presence: with nausea Qualified Code(s): R11.2 - Nausea with vomiting, unspecified Condition: Good Instructions: ED Panic Attack, ED Nausea Vomiting Prescriptions: Lorazepam [Ativan] 1 mg PO Q6HR PRN #14 tablet PRN Reason: Anxiety Amox/Clav 875/125 [Augmentin] 1 each PO Q12H #14 tablet Promethazine [Phenergan] 25 mg PO Q6H PRN #14 tablet PRN Reason: Nausea / Vomiting Comments: Take the augmentin (antibiotic) INSTEAD of the Clindamycin. Contact your oral surgeon in the next 1-2 days to discuss follow-up recommendations Discharge Date/Time: 08/15/17 00:59
[2017-08-14] MEDS ORDERED: ONDANSETRON 4 MG/2 ML VIAL IVP STA (21:30)
[2017-08-14] MEDS ORDERED: LORazepam 2 MG/ML VIAL IVP STA ×2 (21:30→21:56)
[2017-08-14] MEDS ORDERED: SODIUM CHLORIDE 0.9% 1,000 ML IV STA (21:30)
[2017-08-14 23:32] LABS: BASOPHILS % (AUTO) 0.2 %; EOSINOPHILS # (AUTO) 0.1 10^3/uL (0.0-0.7); EOSINOPHILS % (AUTO) 0.5 %; HGB - HEMOGLOBIN 12.6 g/dL (12.0-16.0); LYMPHOCYTES # (AUTO) 1.4 10^3/uL (1.5-3.5); MEAN CORPUSCULAR HEMOGLOBIN 31.6 pg (27.0-31.0); MEAN CORPUSCULAR HGB CONC 34.3 g/dL (32.0-36.0); MEAN CORPUSCULAR VOLUME 91.9 fL (81.0-99.0); MEAN PLATELET VOLUME 10.3 fL (7.9-10.8); MONOCYTES # (AUTO) 0.4 10^3/uL (0.0-1.0); NEUTROPHILS % (AUTO) 82.3 %; PLT - PLATELET COUNT 162 10^3/uL (130-450); RED BLOOD COUNT 3.99 10^6/uL (4.20-5.40); RED CELL DISTRIBUTION WIDTH 13.3 % (12.0-15.0)
[2017-08-14 23:47] VITALS: BP 135/76
[2017-08-14 23:47] LABS: ALBUMIN 4.4 g/dL (3.2-5.5); ALBUMIN/GLOBULIN RATIO 1.4 (1.0-2.2); BILIRUBIN,TOTAL 0.8 mg/dL (0.2-1.0); CALCIUM 9.2 mg/dL (8.5-10.3); CREATININE 0.9 mg/dL (0.4-1.0); TOTAL PROTEIN 7.5 g/dL (6.7-8.2)
[2017-08-15] MEDS ORDERED: oxyCODONE 5 MG TABLET PO STA (00:03)
[2017-08-15] MEDS ORDERED: PROMETHAZINE INJ 12.5 MG in SODIUM CHLORIDE 0.9% 50 ML IV STA (00:03)
[2017-08-15] MEDS ORDERED: LORazepam 2 MG/ML VIAL IVP STA (00:03)
== END 2017-08-15 00:59 | disposition home or self-care (01) ==
LOC: EDUNIT# → ED 21:04
DX: F41.9 Anxiety disorder, unspecified (principal); R11.2 Nausea with vomiting, unspecified
CPT/HCPCS: 36415; 80053; 83690; 85025; 96361; 96365; 96375; 96376; 99283; 99284; A9270; J2060; J7040

== ENCOUNTER 2018-01-03 18:08 | Outpatient (CLI) | payer MEDICAID | END 2018-01-03 18:09 | disposition critical access hospital (66) | LOC: EMS 18:08 | PROVIDERS: ATTEND Surgery | DX: R11.2 Nausea with vomiting, unspecified (principal); R10.9 Unspecified abdominal pain | CPT/HCPCS: A0425; A0427; A0999 ==

== ENCOUNTER 2018-01-03 18:26 | Emergency (ER) | payer MEDICAID, OTHER ==
[2018-01-03] MEDS ORDERED: SODIUM CHLORIDE 0.9% 1,000 ML IV ONE ×2 (19:05)
[2018-01-03] MEDS ORDERED: PROMETHAZINE INJ 25 MG in SODIUM CHLORIDE 0.9% 50 ML IV STA (19:06)
--- NOTE | 2018-01-03 19:09 | ED Physician Documentation ---
History of Present Illness - Stated complaint Stated Complaint: N/V/FLANK PAIN - Chief complaint Chief Complaint: Abd Pain - History obtained from History obtained from: Patient, EMS - History of Present Illness Timing: Yesterday Pain level max: 9 Pain level now: 8 - Additonal information Additional information: Patient is a 42-year-old female who presents to the emergency department after falling off of a stepladder in her kitchen yesterday falling backwards striking her head on the countertop. No loss of consciousness but has had continued vomiting since that time. Is also complaining of neck and back pain. Worse with movement, better with rest. Tried to take Phenergan at home but threw it up. Unable to tolerate any pain medication secondary to vomiting. An IV was started with EMS and IV fluids as well as Zofran are given. Nausea improved. No numbness or tingling. Denies any possibility of Review of Systems Ten Systems: 10 systems reviewed and negative Constitutional: denies: Fever, Chills Ears: denies: Ear pain Nose: denies: Rhinorrhea / runny nose, Congestion Throat: denies: Sore throat Cardiac: denies: Chest pain / pressure Respiratory: denies: Cough GI: reports: Nausea, Vomiting. denies: Abdominal Pain, Diarrhea Skin: denies: Rash Musculoskeletal: reports: Neck pain, Back pain (L flank) Neurologic: reports: Headache. 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 - Present Medications Home Medications: Ambulatory Orders Medication Instructions Recorded Confirmed Promethazine [Phenergan] 25 mg PO Q6H PRN #14 tablet 08/15/17 Ondansetron Odt [Zofran] 4 mg TL Q6H PRN #10 tablet 01/03/18 Oxycodone HCl/Acetaminophen 1 - 2 each PO Q6H PRN #14 tablet 01/03/18 [Percocet 5-325 mg Tablet] - Allergies Allergies/Adverse Reactions: Allergies Allergy/AdvReac Type Severity Reaction Status Date / Time ketorolac tromethamine * Allergy Itching Verified 01/03/18 18:31 [From Toradol] prednisone Allergy Respiratory Verified 01/03/18 18:31 hydrocodone bitartrate * AdvReac Itching Verified 01/03/18 18:31 [From Vicodin] - Social History Does the pt smoke?: No Smoking Status: Never smoker Does the pt drink ETOH?: No Does the pt have substance abuse?: No - Immunizations Immunizations are current?: Yes - POLST Patient has POLST: No PD ED PE NORMAL - Vitals Vital signs reviewed: Yes - General General: Alert and oriented X 3, No acute distress, Well developed/nourished - HEENT HEENT: Atraumatic (No scalp hematomas or palpable skull fractures), PERRL, Ears normal, Moist mucous membranes, Pharynx benign, Dentition benign - Neck Neck: Supple, no meningeal sign, Other (No step-off or deformity. Mild mid cervical spine tenderness) - Cardiac Cardiac: RRR, Strong equal pulses - Respiratory Respiratory: No respiratory distress, Clear bilaterally - Abdomen Abdomen: Soft, Non tender, Non distended - Back Back: No spinal TTP, Other (Tender palpation paraspinal left low lumbar. No midline tenderness palpation or percussion. No step-off or deformity) - Derm Derm: Warm and dry - Extremities Extremities: No edema, No calf tenderness / cord - Neuro Neuro: Alert and oriented X 3, rehabilitation tech 2-12 intact, No motor deficit, No sensory deficit, Normal speech Eye Opening: Spontaneous Motor: Obeys Commands Verbal: Oriented GCS Score: 15 - Psych Psych: Normal mood, Normal affect Results - Vitals Vitals: Vital Signs - 24 hr 01/03/18 01/03/18 18:28 20:07 Temperature 36.6 C Heart Rate 79 63 Respiratory 16 16 Rate Blood Pressure 116/85 H 113/75 O2 Saturation 96 99 Oxygen O2 Source Room air - Labs Labs: Laboratory Tests 01/03/18 01/03/18 01/03/18 14:30 14:30 19:10 WBC 6.4 RBC 4.09 L Hgb 12.7 Hct 36.9 L MCV 90.3 MCH 31.0 MCHC 34.4 RDW 12.9 Plt Count 161 MPV 11.4 H Neut # (Auto) 3.9 Lymph # (Auto) 2.0 [place] # (Auto) 0.4 Eos # (Auto) 0.1 Baso # (Auto) 0.0 Absolute Nucleated RBC 0.00 Nucleated RBC % 0.0 Sodium 138 Potassium 4.1 Chloride 110 Carbon Dioxide 20 L Anion Gap 8.0 BUN 23 H Creatinine 0.8 Estimated GFR (MDRD) 79 L Glucose 143 H Calcium 8.7 Total Bilirubin 0.4 AST 16 ALT 16 Alkaline Phosphatase 36 L Total Protein 6.8 Albumin 3.9 Globulin 2.9 Albumin/Globulin Ratio 1.3 Lipase 55 H Urine Color YELLOW Urine Clarity CLEAR Urine pH 6.0 Ur Specific [place] 1.025 Urine Protein NEGATIVE Urine Glucose (UA) NEGATIVE Urine Ketones NEGATIVE Urine Occult Blood NEGATIVE Urine Nitrite NEGATIVE Urine Bilirubin NEGATIVE Urine Urobilinogen 0.2 (NORMAL) Ur Leukocyte Esterase NEGATIVE Ur Microscopic Review NOT INDICATED Urine Culture Comments NOT INDICATED Urine HCG, Qual NEGATIVE - Rads (name of study) Head CT Radiology: Prelim report reviewed, EMP read contemporaneously, See rad report ( No acute abnormality) Cervical spine CT Radiology: Prelim report reviewed, EMP read contemporaneously, See rad report ( Normal) PD MEDICAL DECISION MAKING - ED course Complexity details: reviewed results, re-evaluated patient, considered differential, d/w patient ED course: Patient is seen in the emergency department has continued vomiting after head injury. Nausea and vomiting controlled with medication. Given IV fluids. Pain well controlled as well. No evidence of spinal injury. No intracranial hemorrhage or skull fracture. Patient counseled regarding signs and symptoms for which I believe and urgent re-evaluation would be necessary. Patient with good understanding of and agreement to plan and is comfortable going home at this time This document was made in part using voice recognition software. While efforts are made to proofread this document, sound alike and grammatical errors may occur. Tolerating p.o. without difficulty and ambulating well - Sepsis Event Vital Signs: Vital Signs - 24 hr 01/03/18 01/03/18 18:28 20:07 Temperature 36.6 C Heart Rate 79 63 Respiratory 16 16 Rate Blood Pressure 116/85 H 113/75 O2 Saturation 96 99 Oxygen O2 Source Room air Departure - Departure Disposition: 01 Home, Self Care Clinical Impression: Closed head injury Qualifiers: Encounter type: initial encounter Qualified Code(s): S09.90XA - Unspecified injury of head, initial encounter Lumbar strain Qualifiers: Encounter type: initial encounter Qualified Code(s): S39.012A - Strain of muscle, fascia and tendon of lower back, initial encounter Condition: Good Instructions: ED Head Injury Closed Follow-Up: your,doctor in 3 days. [Other] Prescriptions: Ondansetron Odt [Zofran] 4 mg TL Q6H PRN #10 tablet PRN Reason: Nausea / Vomiting Oxycodone HCl/Acetaminophen [Percocet 5-325 mg Tablet] 1 - 2 each PO Q6H PRN # 14 tablet PRN Reason: pain Comments: Return if you worsen. This should improve over the next 2-3 days. Follow-up with your doctor for further care. Do not drink alcohol or drive while on narcotic pain medicine. Note that many narcotic pain relievers also contain tylenol/acetaminophen. Please ensure that your total dose of acetaminophen from all sources does not exceed 3 grams (3000mg) per day. You may constipated on this medication, take a stool softener such as "Colace" twice a day while you are on it. Also recommend a mxqm-avg-qwaegnr laxative such as senna or MiraLAX any day that you do not have a bowel movement. If you received narcotic pain medication in the emergency department, do not drive or operate machinery for the next 24 hours. Discharge Date/Time: 01/03/18 21:07
[2018-01-03 19:17] LABS: BILIRUBIN,URINE NEGATIVE (NEGATIVE); GLUCOSE, URINE (UA) NEGATIVE (NEGATIVE); KETONES,URINE (UA) NEGATIVE (NEGATIVE); LEUKOCYTE ESTERASE, URINE NEGATIVE (NEGATIVE); NITRITE,URINE NEGATIVE (NEGATIVE); OCCULT BLOOD,URINE NEGATIVE (NEGATIVE); PROTEIN,URINE NEGATIVE (NEGATIVE); UROBILINOGEN,URINE 0.2 (NORMAL) E.U./dL (NORMAL)
[2018-01-03 19:20] LABS: CLARITY,URINE CLEAR (CLEAR); HCG UR QUAL NEGATIVE
[2018-01-03] MEDS ORDERED: MORPHINE 2 MG/ML SYRINGE IVP STA (19:25)
[2018-01-03 19:36] LABS: BASOPHILS % (AUTO) 0.4 %; EOSINOPHILS # (AUTO) 0.1 10^3/uL (0.0-0.7); EOSINOPHILS % (AUTO) 1.2 %; HGB - HEMOGLOBIN 12.7 g/dL (12.0-16.0); LYMPHOCYTES % (AUTO) 31.6 %; MEAN CORPUSCULAR HGB CONC 34.4 g/dL (32.0-36.0); MEAN CORPUSCULAR VOLUME 90.3 fL (81.0-99.0); MEAN PLATELET VOLUME 11.4 fL (7.9-10.8); MONOCYTES # (AUTO) 0.4 10^3/uL (0.0-1.0); MONOCYTES % (AUTO) 6.1 %; NEUTROPHILS # (AUTO) 3.9 10^3/uL (1.5-6.6); NEUTROPHILS % (AUTO) 60.7 %; PLT - PLATELET COUNT 161 10^3/uL (130-450); RED BLOOD COUNT 4.09 10^6/uL (4.20-5.40); RED CELL DISTRIBUTION WIDTH 12.9 % (12.0-15.0); WHITE BLOOD COUNT 6.4 x10^3/uL (4.8-10.8)
[2018-01-03 19:46] LABS: ALBUMIN 3.9 g/dL (3.2-5.5); ALBUMIN/GLOBULIN RATIO 1.3 (1.0-2.2); BILIRUBIN,TOTAL 0.4 mg/dL (0.2-1.0); CALCIUM 8.7 mg/dL (8.5-10.3); CREATININE 0.8 mg/dL (0.4-1.0); TOTAL PROTEIN 6.8 g/dL (6.7-8.2)
[2018-01-03 20:09] VITALS: BP 113/75
--- NOTE | 2018-01-03 20:14 | CT Report ---
Procedure Date: 01/03/2018 Accession Number: [id number] / [id number] Procedure: CT - Head W/O CPT Code: FULL RESULT: EXAM: CT HEAD EXAM DATE: 01/03/2018 07:47 PM. CLINICAL HISTORY: Fall yesterday. Headache. Vomiting. COMPARISON: None. TECHNIQUE: Multiaxial CT images were obtained from the foramen magnum to the vertex. Reformats: Coronal. IV contrast: None. In accordance with CT protocol optimization, one or more of the following dose reduction techniques were utilized for this exam: automated exposure control, adjustment of mA and/or KV based on patient size, or use of iterative reconstructive technique. FINDINGS: Parenchyma: No intraparenchymal hemorrhage. No evidence of mass, midline shift, or CT findings of infarction. Mueller-white differentiation is distinct. Extraaxial Spaces: Normal for age. No subdural or epidural collections identified. Ventricles: Normal in size and position. Sinuses and Orbits: Imaged paranasal sinuses, orbits, and mastoids show no significant abnormality. Bones: No evidence of fracture or calvarial defect. Other: None. IMPRESSION: Normal head CT. RADIA
--- NOTE | 2018-01-03 20:17 | CT Report ---
Procedure Date: 01/03/2018 Accession Number: [id number] / [id number] Procedure: CT - Cervical Spine W/O CPT Code: FULL RESULT: EXAM: CT CERVICAL SPINE WITHOUT CONTRAST DATE: 01/03/2018 07:48 PM. HISTORY: Fall yesterday. Headache. Neck pain. COMPARISONS: None. TECHNIQUE: Thin-section axial images were acquired of the cervical spine without contrast. Post-processing: Coronal and sagittal reformats. Other: None. In accordance with CT protocol optimization, one or more of the following dose reduction techniques were utilized for this exam: automated exposure control, adjustment of mA and/or KV based on patient size, or use of iterative reconstructive technique. FINDINGS: Alignment: No scoliosis or spondylolisthesis. Bones: No traumatic or destructive bony abnormalities. Incomplete posterior ring of C1, a normal variant. Interspace Levels/Facets: C1-C2: Unremarkable. C2-C3: Unremarkable. C3-C4: Unremarkable. C4-C5: Unremarkable. C5-C6: Unremarkable. C6-C7: Unremarkable. C7-T1: Unremarkable. Musculature: Normal. No fatty atrophy. Other: The paravertebral and prevertebral soft tissues are unremarkable. The lung apices are clear. IMPRESSION: Normal cervical spine CT. RADIA
[2018-01-03] MEDS ORDERED: oxyCODONE 5 MG TABLET PO STA (20:53)
== END 2018-01-03 21:07 | disposition home or self-care (01) ==
LOC: EDUNIT# → ED 18:26
DX: S09.90XA Unspecified injury of head, initial encounter (principal); S39.012A Strain of muscle, fascia and tendon of lower back, initial encounter; R11.2 Nausea with vomiting, unspecified; W11.XXXA Fall on and from ladder, initial encounter; Y92.000 Kitchen of unspecified non-institutional (private) residence as the place of occurrence of the external cause
CPT/HCPCS: 36415; 70450; 72125; 80053; 81003; 81025; 83690; 85025; 96361; 96365; 96375; 99283; 99284; A9270; J2270; J7040; 81001; 87086

== ENCOUNTER 2018-02-04 08:43 | Emergency (ER) | payer MEDICAID ==
--- NOTE | 2018-02-04 10:25 | XRAY Report ---
Reason: fall last night/pain Procedure Date: 02/04/2018 Accession Number: [id number] / [id number] Procedure: XR - Knee 3 View RT CPT Code: FULL RESULT: EXAM: RIGHT KNEE RADIOGRAPHY EXAM DATE: 02/04/2018 10:13 AM. CLINICAL HISTORY: Fall last night/pain. COMPARISON: None. TECHNIQUE: 3 views. FINDINGS: Bones: No fracture or focal osseous lesion. Joints: No effusion or significant degenerative change. No subluxation. Soft Tissues: No focal abnormality. IMPRESSION: Normal knee radiography for age. RADIA
--- NOTE | 2018-02-04 10:48 | ED Physician Documentation ---
PD HPI LOWER EXT INJURY - Stated complaint Stated Complaint: R LEG INJ - Chief complaint Chief Complaint: Ext Problem - History obtained from History obtained from: Patient - History of Present Illness PD HPI LOW EXT INJURY LOCATION: Right, Knee Type of injury: Fall Where injury occurred: Home Timing - onset: Last night Timing - details: Abrupt onset, Still present Improved by: Rest, Immobilization Worsened by: Moving, Palpating Associated symptoms: Swelling. 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 She has pain on the medial aspect of the knee and the posterior aspect of the knee and some swelling and abrasion. She states that the knee struck the steps directly on the upper calf on the medial aspect. Review of Systems Constitutional: denies: Fever Eyes: denies: Decreased vision Ears: denies: Ear pain Nose: denies: Congestion Respiratory: denies: Cough GI: denies: Vomiting : denies: Dysuria Musculoskeletal: reports: Extremity pain, Joint pain, Joint swelling, Pain with weight bearing. 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 - Present Medications Home Medications: Ambulatory Orders Medication Instructions Recorded Confirmed Promethazine [Phenergan] 25 mg PO Q6H PRN #14 tablet 08/15/17 Ondansetron Odt [Zofran] 4 mg TL Q6H PRN #10 tablet 01/03/18 Oxycodone HCl/Acetaminophen 1 - 2 each PO Q6H PRN #14 tablet 01/03/18 [Percocet 5-325 mg Tablet] oxyCODONE/ACET 5/325 [Percocet 5 1 - 2 each PO Q4-6H PRN #15 tablet 02/04/18 mg/325 mg] - Allergies Allergies/Adverse Reactions: Allergies Allergy/AdvReac Type Severity Reaction Status Date / Time ketorolac tromethamine * Allergy Itching Verified 01/03/18 18:31 [From Toradol] prednisone Allergy Respiratory Verified 01/03/18 18:31 hydrocodone bitartrate * AdvReac Itching Verified 01/03/18 18:31 [From Vicodin] - Social History Does the pt smoke?: No Smoking Status: Never smoker Does the pt drink ETOH?: No Does the pt have substance abuse?: No - Immunizations Immunizations are current?: Yes - POLST Patient has POLST: No PD ED PE NORMAL - Vitals Vital signs reviewed: Yes (hypertensive ) - General General: Alert and oriented X 3, No acute distress, Well developed/nourished - HEENT HEENT: Atraumatic, PERRL, EOMI - Respiratory Respiratory: No respiratory distress - Derm Derm: Normal color, Warm and dry, No rash - Extremities Extremities: No deformity, No edema, Other (There is point tenderness to the medial joint line and this opens with varus forces. The lateral joint is stable as is the ACL) - Neuro Neuro: Alert and oriented X 3, No motor deficit, No sensory deficit, Normal speech Eye Opening: Spontaneous Motor: Obeys Commands Verbal: Oriented GCS Score: 15 - Psych Psych: Normal mood, Normal affect Results - Vitals Vitals: Vital Signs - 24 hr 02/04/18 08:48 Temperature 36.4 C L Heart Rate 80 Respiratory 14 Rate Blood Pressure 144/93 H O2 Saturation 96 Oxygen O2 Source Room air - Rads (name of study) right knee Radiology: Prelim report reviewed (Impression: Normal knee radiography for age.), EMP read indepedently, See rad report PD MEDICAL DECISION MAKING - ED course Complexity details: reviewed results, re-evaluated patient, considered differential, d/w patient ED course: 42-year-old female with [place] the [place] has a medial collateral ligament sprain of the right knee. She is placed into a knee immobilizer. - Sepsis Event Vital Signs: Vital Signs - 24 hr 02/04/18 08:48 Temperature 36.4 C L Heart Rate 80 Respiratory 14 Rate Blood Pressure 144/93 H O2 Saturation 96 Oxygen O2 Source Room air Departure - Departure Disposition: 01 Home, Self Care Clinical Impression: Knee MCL sprain Qualifiers: Encounter type: initial encounter Laterality: right Qualified Code(s): S83.411A - Sprain of medial collateral ligament of right knee, initial encounter Condition: Stable Instructions: ED Sprain Knee Collateral Ligaments Follow-Up: [facility] [Provider Group] Prescriptions: oxyCODONE/ACET 5/325 [Percocet 5 mg/325 mg] 1 - 2 each PO Q4-6H PRN #15 tablet PRN Reason: Pain
[2018-02-04 11:23] VITALS: BP 141/94
== END 2018-02-04 11:23 | disposition home or self-care (01) ==
LOC: ED 08:43
DX: S83.411A Sprain of medial collateral ligament of right knee, initial encounter (principal); W10.8XXA Fall (on) (from) other stairs and steps, initial encounter; S80.211A Abrasion, right knee, initial encounter; Y93.89 Activity, other specified; Y92.39 Other specified sports and athletic area as the place of occurrence of the external cause
CPT/HCPCS: 99283

== ENCOUNTER 2018-05-21 21:10 | Emergency (ER) | payer MEDICAID ==
[2018-05-21 21:16] VITALS: BP 134/75
--- NOTE | 2018-05-21 21:31 | ED Physician Documentation ---
PD HPI LOWER EXT INJURY - Stated complaint Stated Complaint: LEG PX - Chief complaint Chief Complaint: Trauma Ext - History obtained from History obtained from: Patient - History of Present Illness PD HPI LOW EXT INJURY LOCATION: Right, Knee Type of injury: Fall Where injury occurred: Home Timing - onset: Yesterday Timing - duration: Days (1) Timing - details: Abrupt onset, Still present Improved by: Rest, Ice, Immobilization Worsened by: Moving, Palpating Associated symptoms: Swelling. No: Weakness, Numbness Contributing factors: No: Anticoagulated Similar symptoms before: Diagnosis (ACL tear) Recently seen: Not recently seen - Additional information Additional information: 42-year-old female status post gastric bypass has fallen in her home off of the stool while she was preparing a [place] for her 1-year-old son. She felt backward twisted her knee and landed directly on her kneecap. She had a knee immobilizer from a prior injury in January and she placed at the immobilizer back on. In the middle of the night she got up to go to the bathroom and found that the compression of the knee immobilizer was worsening her pain and she removed it. She has been getting around in her home by hopping and grabbing onto things. She has a lot of pain if she tries to bear weight. Enough pain to make her nauseous. Review of Systems Constitutional: denies: Fever Eyes: denies: Decreased vision Ears: denies: Ear pain Nose: denies: Congestion Throat: denies: Sore throat Respiratory: denies: Dyspnea, Cough GI: reports: Nausea. denies: Abdominal Pain, Vomiting, Constipation : denies: Dysuria, Frequency Skin: denies: Rash Musculoskeletal: reports: Extremity pain, Joint pain, Joint swelling, Pain with weight bearing. 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 - Present Medications Home Medications: Ambulatory Orders Medication Instructions Recorded Confirmed Promethazine [Phenergan] 25 mg PO Q6H PRN #14 tablet 08/15/17 Ondansetron Odt [Zofran] 4 mg TL Q6H PRN #10 tablet 01/03/18 Oxycodone HCl/Acetaminophen 1 - 2 each PO Q6H PRN #14 tablet 01/03/18 [Percocet 5-325 mg Tablet] oxyCODONE/ACET 5/325 [Percocet 5 1 - 2 each PO Q4-6H PRN #15 tablet 02/04/18 mg/325 mg] - Allergies Allergies/Adverse Reactions: Allergies Allergy/AdvReac Type Severity Reaction Status Date / Time ketorolac tromethamine * Allergy Itching Verified 05/21/18 21:16 [From Toradol] prednisone Allergy Respiratory Verified 05/21/18 21:16 hydrocodone bitartrate * AdvReac Itching Verified 05/21/18 21:16 [From Vicodin] - Social History Does the pt smoke?: No Smoking Status: Never smoker Does the pt drink ETOH?: No Does the pt have substance abuse?: No - Immunizations Immunizations are current?: Yes - POLST Patient has POLST: No PD ED PE NORMAL - Vitals Vital signs reviewed: Yes (hypertensive mild ) - General General: Alert and oriented X 3, No acute distress, Well developed/nourished - HEENT HEENT: Atraumatic, PERRL, EOMI - Respiratory Respiratory: No respiratory distress - Derm Derm: Normal color, Warm and dry, No rash - Extremities Extremities: No deformity, No edema, Other (There is marked tenderness to the right knee with any palpation. The patient is splinting and exam is not accurate for interrogation of the ligaments. ) - Neuro Neuro: Alert and oriented X 3, home aide 2-12 intact, No motor deficit, No sensory deficit, Normal speech Eye Opening: Spontaneous Motor: Obeys Commands Verbal: Oriented GCS Score: 15 - Psych Psych: Normal mood, Normal affect Results - Vitals Vitals: Vital Signs - 24 hr 05/21/18 21:13 Temperature 36.4 C L Heart Rate 66 Respiratory 16 Rate Blood Pressure 134/75 H O2 Saturation 99 Oxygen O2 Source Room air - Rads (name of study) right knee Radiology: Prelim report reviewed (Impression: 1. No acute fracture or dislocation seen.), EMP read indepedently, See rad report PD MEDICAL DECISION MAKING - ED course Complexity details: reviewed results, re-evaluated patient, considered differential, d/w patient ED course: 42-year-old female with a prior ACL tear has fallen and sprained her knee again. I am unable to perform an adequate examination secondary to splinting and the patient will need follow-up with orthopedics. She is placed back into her splint and we will provide some pain medication and crutches. Departure - Departure Disposition: 01 Home, Self Care Clinical Impression: Sprain of right knee Qualifiers: Encounter type: initial encounter Involved ligament of knee: unspecified ligament Qualified Code(s): S83.91XA - Sprain of unspecified site of right knee, initial encounter Condition: Stable Instructions: ED Sprain Knee Follow-Up: [facility] [Provider Group]
--- NOTE | 2018-05-21 22:20 | XRAY Report ---
Reason: fall patellar contusion knee pain Procedure Date: 05/21/2018 Accession Number: [id number] / [id number] Procedure: XR - Knee 4 View RT CPT Code: FULL RESULT: EXAM: RIGHT KNEE RADIOGRAPHY EXAM DATE: 05/21/2018 09:34 PM. CLINICAL HISTORY: Fall patellar contusion knee pain. COMPARISON: KNEE 3 VIEW RT 02/04/2018 9:53 AM. TECHNIQUE: 4 views. FINDINGS: Bones: No fracture seen. Joints: No dislocation. Joint spaces appear intact. No joint effusion seen. Soft Tissues: Minimal soft tissue swelling. IMPRESSION: 1. No acute fracture or dislocation seen. [facility]
[2018-05-21] MEDS ORDERED: oxyCODONE/ACET 5/325 Prepack 4 PO STA (22:35)
== END 2018-05-21 22:43 | disposition home or self-care (01) ==
LOC: ED 21:10
DX: S83.91XA Sprain of unspecified site of right knee, initial encounter (principal); W07.XXXA Fall from chair, initial encounter; Y92.009 Unspecified place in unspecified non-institutional (private) residence as the place of occurrence of the external cause
CPT/HCPCS: 99283

== ENCOUNTER 2018-06-05 23:06 | Emergency (ER) | payer MEDICAID ==
--- NOTE | 2018-06-06 00:06 | ED Physician Documentation ---
PD HPI Fall - Stated complaint Stated Complaint: GLF/COCCYX & NECK PX - Chief complaint Chief Complaint: Trauma Ch/Bk - History obtained from History obtained from: Patient - History of Present Illness Mechanism of injury: Slipped Fall distance: Standing position Where injury occurred: Home Timing - onset: How many days ago (2) Injury(ies) location: Neck, Back Pain level max: 8 Pain level now: 6 Quality of pain: Pain Associated symptoms: Neck pain. No: LOC, Weakness, Paresthesias Similar symptoms before: Has not had sx before Recently seen: Not recently seen - Additional information Additional information: fell going down stairs 2 nights ago, missed last step and fell flat on buttocks, c/o neck and low back pain that has gradually worsened Review of Systems : denies: Unable to Void, Incontinent Musculoskeletal: reports: Neck pain, Back pain Neurologic: denies: Focal weakness, Numbness PD PAST MEDICAL HISTORY - Past Medical History Cardiovascular: None Respiratory: None Neuro: None Endocrine/Autoimmune: None HEENT: None Psych: Anxiety, Post traumatic stress disorder Musculoskeletal: Rheumatoid arthritis - Past Surgical History Past Surgical History: Yes 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, 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 - Present Medications Home Medications: Ambulatory Orders Medication Instructions Recorded Confirmed Promethazine [Phenergan] 25 mg PO Q6H PRN #14 tablet 08/15/17 Ondansetron Odt [Zofran] 4 mg TL Q6H PRN #10 tablet 01/03/18 Oxycodone HCl/Acetaminophen 1 - 2 each PO Q6H PRN #14 tablet 01/03/18 [Percocet 5-325 mg Tablet] oxyCODONE/ACET 5/325 [Percocet 5 1 - 2 each PO Q4-6H PRN #15 tablet 02/04/18 mg/325 mg] Oxycodone HCl/Acetaminophen 1 - 2 each PO Q6H PRN #14 tablet 05/21/18 [Percocet 5-325 mg Tablet] Cyclobenzaprine [Flexeril] 10 mg PO TID PRN #20 tablet 06/06/18 Oxycodone HCl/Acetaminophen 1 - 2 each PO Q6H PRN #14 tablet 06/06/18 [Percocet 5-325 mg Tablet] - Allergies Allergies/Adverse Reactions: Allergies Allergy/AdvReac Type Severity Reaction Status Date / Time ketorolac tromethamine * Allergy Itching Verified 06/05/18 23:16 [From Toradol] prednisone Allergy Respiratory Verified 06/05/18 23:16 hydrocodone bitartrate * AdvReac Itching Verified 06/05/18 23:16 [From Vicodin] - Social History Does the pt smoke?: No Smoking Status: Never smoker Does the pt drink ETOH?: No Does the pt have substance abuse?: No - Immunizations Immunizations are current?: Yes - POLST Patient has POLST: No PD ED PE NORMAL - Vitals Vital signs reviewed: Yes - General General: Alert and oriented X 3, No acute distress (at rest, appears to be in pain with movement of neck, low back), Well developed/nourished - Neck Neck: Supple, no meningeal sign, Other (left paracervical tenderness without step-off) - Back Back: No spinal TTP (midline lumbar and upper sacral tenderness without deformity or step-off) - Neuro Neuro: No motor deficit, No sensory deficit Results - Vitals Vitals: Vital Signs - 24 hr 06/05/18 06/06/18 23:13 02:08 Temperature 36.2 C L Heart Rate 66 68 Respiratory 18 16 Rate Blood Pressure 119/84 H 121/77 O2 Saturation 99 99 Oxygen O2 Source Room air PD MEDICAL DECISION MAKING - ED course Complexity details: reviewed results, re-evaluated patient, considered differential, d/w patient Departure - Departure Disposition: 01 Home, Self Care Clinical Impression: Back strain Qualifiers: Encounter type: initial encounter Qualified Code(s): S39.012A - Strain of muscle, fascia and tendon of lower back, initial encounter Cervical strain Qualifiers: Encounter type: initial encounter Qualified Code(s): S16.1XXA - Strain of muscle, fascia and tendon at neck level, initial encounter Condition: Good Instructions: ED Low Back Pain Injury, ED Sprain Strain Neck Prescriptions: Cyclobenzaprine [Flexeril] 10 mg PO TID PRN #20 tablet PRN Reason: Spasms Oxycodone HCl/Acetaminophen [Percocet 5-325 mg Tablet] 1 - 2 each PO Q6H PRN #14 tablet PRN Reason: pain Discharge Date/Time: 06/06/18 02:11
[2018-06-06] MEDS ORDERED: oxyCODONE 5 MG TABLET PO STA (00:31)
--- NOTE | 2018-06-06 01:21 | XRAY Report ---
Reason: fall, low back pain Procedure Date: 06/06/2018 Accession Number: [id number] / [id number] Procedure: XR - Lumbar Spine 2 View CPT Code: FULL RESULT: EXAM: LUMBAR AND SACRAL COCCYGEAL SPINE RADIOGRAPHY EXAM DATE: 06/06/2018 12:42 AM. CLINICAL HISTORY: Fall, low back pain. COMPARISONS: SACRUM/COCCYX 06/06/2018 12:42 AM. TECHNIQUE: 3 views each of the lumbar and sacrococcygeal spine. FINDINGS: Alignment: No acute malalignment. Minimal dextroscoliosis of the mid lumbar spine. Bones: Five [id number] lumbar vertebral bodies are present. No fractures or bone lesions. Disks: Normal. Disk heights are maintained. Facets: No degenerative changes. Sacroiliac Joints: Unremarkable. Soft Tissues: Post cholecystectomy. The visualized bowel gas pattern is normal. IMPRESSION: Negative lumbar and sacrococcygeal spine radiography. [facility]
--- NOTE | 2018-06-06 01:21 | XRAY Report ---
Reason: fall, low back pain Procedure Date: 06/06/2018 Accession Number: [id number] / [id number] Procedure: XR - Sacrum/Coccyx CPT Code: FULL RESULT: EXAM: LUMBAR AND SACRAL COCCYGEAL SPINE RADIOGRAPHY EXAM DATE: 06/06/2018 12:42 AM. CLINICAL HISTORY: Fall, low back pain. COMPARISONS: SACRUM/COCCYX 06/06/2018 12:42 AM. TECHNIQUE: 3 views each of the lumbar and sacrococcygeal spine. FINDINGS: Alignment: No acute malalignment. Minimal dextroscoliosis of the mid lumbar spine. Bones: Five [id number] lumbar vertebral bodies are present. No fractures or bone lesions. Disks: Normal. Disk heights are maintained. Facets: No degenerative changes. Sacroiliac Joints: Unremarkable. Soft Tissues: Post cholecystectomy. The visualized bowel gas pattern is normal. IMPRESSION: Negative lumbar and sacrococcygeal spine radiography. [facility]
--- NOTE | 2018-06-06 01:22 | XRAY Report ---
Reason: fall, neck pain Procedure Date: 06/06/2018 Accession Number: [id number] / [id number] Procedure: XR - Cervical Spine 2 View CPT Code: FULL RESULT: EXAM: CERVICAL SPINE RADIOGRAPHY EXAM DATE: 06/06/2018 12:42 AM. CLINICAL HISTORY: Fall, neck pain. COMPARISONS: CERVICAL SPINE W/O 01/03/2018 7:36 PM. TECHNIQUE: 3 views. FINDINGS: Alignment: Normal. No spondylolisthesis or scoliosis. Bones: The cervical vertebral bodies and posterior elements are well visualized from the skull base through C7-T1. No fractures or bone lesions. Disks: Normal. Disk heights are maintained. Facets: No degenerative disease. Soft Tissues: Normal. No prevertebral soft tissue swelling. The visualized lung apices are clear. IMPRESSION: Normal cervical spine radiography. [facility]
[2018-06-06] MEDS ORDERED: CYCLOBENZAPRINE 10 MG TABLET PO STA (02:01)
[2018-06-06 02:09] VITALS: BP 121/77
== END 2018-06-06 02:11 | disposition home or self-care (01) ==
LOC: ED 23:06
DX: S39.012A Strain of muscle, fascia and tendon of lower back, initial encounter (principal); S16.1XXA Strain of muscle, fascia and tendon at neck level, initial encounter; W10.9XXA Fall (on) (from) unspecified stairs and steps, initial encounter; Y92.009 Unspecified place in unspecified non-institutional (private) residence as the place of occurrence of the external cause
CPT/HCPCS: 72040; 72100; 72220; 99283; A9270

== ENCOUNTER 2020-01-12 11:45 | Outpatient (CLI) | payer MEDICAID | END 2020-01-12 11:46 | disposition critical access hospital (66) | LOC: EMS 11:45 | PROVIDERS: ATTEND Surgery | DX: R29.810 Facial weakness (principal); R53.1 Weakness; R20.0 Anesthesia of skin; R47.9 Unspecified speech disturbances; H53.8 Other visual disturbances; R07.9 Chest pain, unspecified | CPT/HCPCS: A0425; A0427; A0999 ==

== ENCOUNTER 2020-01-12 11:57 | Observation (INO) | payer MEDICAID ==
--- NOTE | 2020-01-12 12:21 | ED Physician Documentation ---
PD HPI FOCAL NEURO - Stated complaint Stated Complaint: CODE STROKE - History obtained from History obtained from: Patient, EMS - History of Present Illness Timing - onset: Enter time (1114), Today Timing - duration: Minutes Timing - details: Abrupt onset, Still present Severity of deficit: Severe Weakness: Face, Arm, Hand, Leg, Foot, Left Numbness: Face, Arm, Hand, Leg, Foot, Left Associated symptoms: Nausea / vomiting Baseline status: positive: A&OX3, ambulatory, indep Similar symptoms before: Diagnosis (complicated migraine) Recently seen: Not recently seen - Additional information Additional information: 44-year-old female was at home on a video chat with her mother in the line when she was noticed to have a left facial droop. Her symptoms progressed she developed left hemiparesis and difficulty speaking 911 was called and the patient is brought to the emergency department as a code stroke. Her last normal was 11:15 AM today. The patient indicates he has had this happen to her previously she recalls a 3- day stay at [facility] where she had undulation of her symptoms for 3 days and was treated for complicated migraine. Review of Systems Constitutional: reports: Sweats. denies: Fever, Chills, Myalgias Eyes: reports: Decreased vision Ears: denies: Ear pain Nose: denies: Rhinorrhea / runny nose, Reviewed and negative Throat: denies: Sore throat Cardiac: denies: Chest pain / pressure, Palpitations Respiratory: denies: Dyspnea, Cough GI: reports: Nausea, Vomiting. denies: Abdominal Pain : denies: Dysuria, Frequency Skin: denies: Rash Musculoskeletal: reports: Neck pain. denies: Back pain, Extremity pain Neurologic: reports: Focal weakness, Numbness, Difficulty speaking, Headache. 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, 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 - Present Medications Home Medications: Ambulatory Orders Medication Instructions Recorded Confirmed Clonazepam 0 mg 01/12/20 Gabapentin 0 mg 01/12/20 Ibuprofen [Motrin] 0 mg 01/12/20 Mirtazapine 0 mg 01/12/20 - Allergies Allergies/Adverse Reactions: Allergies Allergy/AdvReac Type Severity Reaction Status Date / Time ketorolac tromethamine * Allergy Itching Verified 01/12/20 12:42 [From Toradol] prednisone Allergy Respiratory Verified 01/12/20 12:42 hydrocodone bitartrate * AdvReac Itching Verified 01/12/20 12:42 [From Vicodin] - Social History Does the pt smoke?: No Smoking Status: Never smoker Does the pt drink ETOH?: No Does the pt have substance abuse?: No - Immunizations Immunizations are current?: Yes - POLST Patient has POLST: No PD ED PE NORMAL - Vitals Vital signs reviewed: Yes (hypertensive ) - General General: Well developed/nourished, Other (dysarthric female with left facial droop is emotional on arrival. ) - HEENT HEENT: Atraumatic, PERRL, EOMI, Other (There is facial asymetry and dry mucous membranes ) - Neck Neck: Supple, no meningeal sign, No bony TTP - Cardiac Cardiac: RRR, No murmur - Respiratory Respiratory: No respiratory distress, Clear bilaterally - Abdomen Abdomen: Soft, Non tender - Back Back: No CVA TTP, No spinal TTP - Derm Derm: Normal color, Warm and dry, No rash - Extremities Extremities: No deformity, No edema, Other (There is spasm of the left upper and lower ext and she is not able to hold ext in extension) - Neuro Neuro: Alert and oriented X 3, Other (Speech is dysarthric and there is a left hemiparesis with a left visual field defect.) Eye Opening: Spontaneous Motor: Obeys Commands Verbal: Oriented GCS Score: 15 - Psych Psych: Normal affect, Other (Mood is anxious) NIHSS - Time Time: 12:00 - Level of Consciousness Level of consciousness: (0) Alert, Keenly responsive LOC Questions: (0) Answers both Q's correct LOC Commands: (0) Performs both correctly - Gaze Best Gaze: (0) Normal - Visual Visual: (2) Complete Hemianopia - Facial Palsy Facial Palsy: (1) Minor paralysis - Motor Arms (both separate) Motor Arm (right): (0) No drift Motor Arm (left): (2) Some effort against gravity - Motor Legs (both separate) Motor Leg (right): (0) No drift Motor Leg (left): (2) Some effort against gravity - Limb Ataxia Limb Ataxia: (2) Present in 2 limbs - Sensory Sensory: (1) Lrdg-mf-duytqnqx loss - Best Language Best Language: (0) No aphasia - Dysarthria Dysarthria: (1) Hjzm-to-ukipncaq dysarthria - Extinction and Inattention (formally neg Extinction and inattention: (0) No abnormality - Total Score/Results Total Score/Result: 11 Results - Vitals Vitals: Vital Signs - 24 hr 01/12/20 01/12/20 01/12/20 11:57 13:33 14:00 Temperature 37.6 C H Heart Rate 91 119 H 80 Respiratory 16 13 15 Rate Blood Pressure 135/110 H 153/90 H 102/65 O2 Saturation 97 100 100 01/12/20 16:10 Temperature Heart Rate 86 Respiratory 16 Rate Blood Pressure 108/78 O2 Saturation 100 Oxygen O2 Source Room air - EKG (time done) 1216 Rate: Rate (enter#) (92) Rhythm: NSR Ischemia: Q waves Compare to prior EKG: Old EKG unavailable Computer interpretation: Agree with computer - Labs Labs: Laboratory Tests 01/12/20 01/12/20 12:25 12:25 WBC 6.4 RBC 4.00 L Hgb 10.5 L Hct 33.5 L MCV 83.8 MCH 26.3 L MCHC 31.3 L RDW 14.8 Plt Count 212 MPV 11.1 H Neut # (Auto) 4.4 Lymph # (Auto) 1.3 L Warrick # (Auto) 0.5 Eos # (Auto) 0.2 Baso # (Auto) 0.0 Absolute Nucleated RBC 0.00 Nucleated RBC % 0.0 Sodium 136 Potassium 4.2 Chloride 103 Carbon Dioxide 28 Anion Gap 5.0 L BUN 14 Creatinine 0.8 Estimated GFR (MDRD) 79 L Glucose 151 H Calcium 8.5 Total Bilirubin 0.5 AST 14 ALT 13 Alkaline Phosphatase 131 H Total Protein 7.0 Albumin 3.3 Globulin 3.7 Albumin/Globulin Ratio 0.9 L Lipase 30 - Rads (name of study) CT angio head Radiology: Prelim report reviewed (Impression: No acute intracranial finding. No branch occlusion or hemodynamically significant stenosis of the major intracranial circulation.), EMP read indepedently, See rad report CT angio neck Radiology: Prelim report reviewed (Impression: No large vessel occlusion, vascular stenosis, vascular dissection or aneurysm.), EMP read indepedently, See rad report PD MEDICAL DECISION MAKING - ED course Complexity details: reviewed old records, reviewed results, re-evaluated patient, considered differential, d/w patient, d/w operations consultant (Dr. Flowers Neurology at [facility] recommends admission to observation and repeat treatment for migraine. ) ED course: 44-year-old female with a prior history of complicated migraine has had another complicated migraine today she presented as a stroke to the left side. She had visual field cut she had weakness and numbness densely. She was administered Compazine and Benadryl as well as saline and she had improvement. She was able to talk normally and get up to the bedside camode. Hours later symptoms have returned less than prior. The patient has not had resolution of her symptoms and she recalls this is similar to what happened to her in June 2018 at [facility] when she was admitted for 3 days. She states that she had improvement in her symptoms and the symptoms worsened again and then improved again e ventually she resolved. She has had MRI done and she does not recall specifics of any of the medications that helped but he does state that she has had Compazine she is had Reglan previously she has a problem with restless legs and takes 900 mg of gabapentin for this. I have consulted Dr. Mcguire at the [facility] neuropsych incidences and he is recommended admission to the observation and repeat treatment of migraine and potentially MRI. He welcomes further consultation as needed. Dr. Coley is consulted in the case and graciously agrees to admit the patient to the hospital for observation and continued treatment Departure - Departure Disposition: ED Place in Observation Clinical Impression: Migraine, hemiplegic, intractable Qualifiers: Status migrainosus presence: without status migrainosus Qualified Code(s): G43.419 - Hemiplegic migraine, intractable, without status migrainosus
[2020-01-12 12:31] LABS: BASOPHILS % (AUTO) 0.5 %; EOSINOPHILS # (AUTO) 0.2 10^3/uL (0.0-0.7); EOSINOPHILS % (AUTO) 2.3 %; HGB - HEMOGLOBIN 10.5 g/dL (12.0-16.0); LYMPHOCYTES # (AUTO) 1.3 10^3/uL (1.5-3.5); LYMPHOCYTES % (AUTO) 20.7 %; MEAN CORPUSCULAR HEMOGLOBIN 26.3 pg (27.0-31.0); MEAN CORPUSCULAR HGB CONC 31.3 g/dL (32.0-36.0); MEAN CORPUSCULAR VOLUME 83.8 fL (81.0-99.0); MEAN PLATELET VOLUME 11.1 fL (7.9-10.8); MONOCYTES # (AUTO) 0.5 10^3/uL (0.0-1.0); MONOCYTES % (AUTO) 7.8 %; NEUTROPHILS # (AUTO) 4.4 10^3/uL (1.5-6.6); NEUTROPHILS % (AUTO) 68.2 %; PLT - PLATELET COUNT 212 10^3/uL (130-450); RED CELL DISTRIBUTION WIDTH 14.8 % (12.0-15.0); WHITE BLOOD COUNT 6.4 x10^3/uL (4.8-10.8)
--- NOTE | 2020-01-12 12:32 | CT Report ---
PROCEDURE: ANGIO HEAD W/WO INDICATIONS: Left-sided weakness CONTRAST: IV CONTRAST: Optiray 320 ml: 80 PO CONTRAST: *NO PO CONTRAST TECHNIQUE: Precontrast 4.5 mm thick angled axial sections acquired from the foramen magnum to the vertex. Afte r the administration of intravenous contrast, 1 mm thick sections acquired through the [place] of [place] is. Postcontrast 4.5 mm thick sections then re-acquired from the foramen magnum to the vertex. 3-di mensional ncvzuol-nbhrqjuux-aeinlscxmi (MIP) and/or volume rendering reformats were acquired of the c entral intracranial vasculature. For radiation dose reduction, the following was used: automated ex posure control, adjustment of mA and/or kV according to patient size. COMPARISON: Head CT 01/03/2018 FINDINGS: Image quality: Excellent. No acute intracranial hemorrhage, abnormal extra axial fluid collection, mass effect, or midline shif t. Normal ventricular caliber position. The basilar cisterns are patent. No loss of ortiz-white matter differentiation to serve as CT evidence of acute large territory infarct. The intracranial internal carotid arteries are normal in size and flow. The flow within the paired a nterior cerebral arteries is normal and symmetric. The flow within the middle cerebral arteries is n ormal and symmetric. The anterior communicating artery is seen. No aneurysms are seen. Visualized portions of the vertebral arteries demonstrate normal caliber, and join to form a normal a ppearing basilar artery. Flow within the posterior cerebral arteries is normal and symmetric. No an eurysms are seen. IMPRESSION: No acute intracranial finding. No branch occlusion or hemodynamically significant stenosis of the major intracranial circulation. Findings were discussed with Dr. Romero Nelson at 12:25 PM PST on January 12, 2020. Reviewed by: David Michelle MD on 01/12/2020 12:31 PM PDT Approved by: David Michlele MD on 01/12/2020 12:31 PM PDT Station ID: [id number]
--- NOTE | 2020-01-12 12:34 | CT Report ---
PROCEDURE: ANGIO NECK W INDICATIONS: L sided facial droop, L neck pain CONTRAST: IV CONTRAST: Optiray 320 ml: 80 PO CONTRAST: *NO PO CONTRAST TECHNIQUE: After the administration of intravenous contrast, 1.5 mm axial sections acquired from the aortic arch to the [place] of [place]. Coronal 3-D maximum intensity projection (MIP) and/or volume rendering ref ormats were then performed. For radiation dose reduction, the following was used: automated exposur e control, adjustment of mA and/or kV according to patient size. COMPARISON: None. FINDINGS: Image quality: Limited by motion artifact. Carotid system: The great vessels demonstrate a conventional anatomy as they arise from the aortic a rch. The origins of the common carotid arteries appear patent. The common carotid arteries demonstr ate normal calibers and courses. The bifurcation regions appear normal bilaterally. The internal ca rotid arteries demonstrate normal caliber and course. Posterior circulation: The origins of the vertebral arteries appear patent. The more superior porti ons of the vertebral arteries demonstrate normal course and caliber. They join to form a normal appe aring basilar artery. Soft tissues: Visualized neck soft tissues demonstrate no suspicious abnormalities. Prominent bilate ral level 5 and right level 1 lymph nodes are noted which do not meet pathologic size criteria. The t hyroid gland is normal in size. Bones: No suspicious bony lesions. Visualized cervical spine appears normally aligned. IMPRESSION: No large vessel occlusion, vascular stenosis, vascular dissection or aneurysm. The estimate of stenosis included in the report of the imaging study was calculated using the NASCET method Reviewed by: Idania Cifuentes MD, PhD on 01/12/2020 12:33 PM PDT Approved by: Idania Cifuentes MD, PhD on 01/12/2020 12:33 PM PDT Station ID: [id number]
[2020-01-12] MEDS ORDERED: ONDANSETRON 4 MG/2 ML VIAL ONE (12:35)
[2020-01-12] MEDS ORDERED: SODIUM CHLORIDE 0.9% 1,000 ML IV STA ×3 (12:40→17:33)
[2020-01-12] MEDS ORDERED: PROCHLORPERAZINE 10 MG/2 ML VIAL IVP STA ×2 (12:42→17:32)
[2020-01-12] MEDS ORDERED: diphenhydrAMINE INJ 50 MG/ML VIAL IVP STA ×2 (12:42→17:33)
[2020-01-12 12:44] LABS: ALBUMIN 3.3 g/dL (3.2-5.5); ALBUMIN/GLOBULIN RATIO 0.9 (1.0-2.2); BILIRUBIN,TOTAL 0.5 mg/dL (0.2-1.0); CALCIUM 8.5 mg/dL (8.5-10.3); CREATININE 0.8 mg/dL (0.4-1.0)
[2020-01-12] MEDS ORDERED: ONDANSETRON 4 MG/2 ML VIAL IVP STA (12:45)
[2020-01-12] MEDS ORDERED: IOVERSOL 320 100 ML VIAL IVP ONE (12:52)
[2020-01-12] MEDS ORDERED: METOCLOPRAMIDE 10 MG/2 ML VIAL IVP STA (17:33)
[2020-01-12] MEDS ORDERED: GABAPENTIN 100 MG CAPSULE PO STA (17:35)
[2020-01-12] MEDS ORDERED: GABAPENTIN 300 MG CAPSULE PO STA (17:48)
[2020-01-12 18:08] LABS: BILIRUBIN,URINE NEGATIVE (NEGATIVE); GLUCOSE, URINE (UA) NEGATIVE (NEGATIVE); KETONES,URINE (UA) NEGATIVE (NEGATIVE); LEUKOCYTE ESTERASE, URINE NEGATIVE (NEGATIVE); NITRITE,URINE NEGATIVE (NEGATIVE); OCCULT BLOOD,URINE NEGATIVE (NEGATIVE); PH,URINE 5.5 PH (5.0-7.5); PROTEIN,URINE NEGATIVE (NEGATIVE); UROBILINOGEN,URINE 0.2 (NORMAL) E.U./dL (NORMAL)
[2020-01-12 18:45] LABS: CLARITY,URINE CLEAR (CLEAR)
[2020-01-12 18:46] LABS: HCG UR QUAL NEGATIVE
--- NOTE | 2020-01-12 19:31 | HISTORY & PHYSICAL EXAMINATION ---
Chief Complaint - Chief Complaint Chief Complaint: left-sided numbness History of Present Illness - Admitted From Admitted From:: [facility] ED - History Obtained From Records Reviewed: yes History obtained from: patient - History of Present Illness HPI Comment/Other: Patient is a 44-year-old female who presented to the ED with complaint of left- sided numbness, weakness and dysarthria. Her symptoms started around 11 AM. She reports a prior occurrence about 2 years ago. She also complains of left- sided headache and photophobia. She denied chest pain, dyspnea, abdominal pain, fever or chills. She was nauseous but no vomiting. She has history of complicated migraines which in the past have presented with stroke-like symptoms including numbness, weakness and visual field cuts. Last episode she recalls was in June 2018 during which she was admitted to [facility] for 3-day stay. She was given Compazine and Benadryl as well as IV hydration in the ED and has symptoms improved. However a few hours later they returned. They then subsequently improved and resolved completely. The skin of the head and neck were unremarkable. Dr. Mcguire at the [facility] was consulted by the ED physician Dr. Nelson. He advised observation and repeat treatment of migraine. Consequently the patient is being admitted. At bedside the patient is alert and oriented x3. She does not seem to be in any significant discomfort but complains of being anxious. Rest of her history is unremarkable. 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 paternal uncle: pancreatic cancer Living arrangement: At home Social History Notes: She denies using tobacco products, alcohol or illicit substances. - POLST Patient has POLST: No POLST Status: Full Code Meds/Allgy - Home Medications Home Medications: Ambulatory Orders Medication Instructions Recorded Confirmed Clonazepam 0 mg 01/12/20 Gabapentin 0 mg 01/12/20 Ibuprofen [Motrin] 0 mg 01/12/20 Mirtazapine 0 mg 01/12/20 - Allergies Allergies/Adverse Reactions: Allergies Allergy/AdvReac Type Severity Reaction Status Date / Time ketorolac tromethamine * Allergy Itching Verified 01/12/20 12:42 [From Toradol] prednisone Allergy Respiratory Verified 01/12/20 12:42 hydrocodone bitartrate * AdvReac Itching Verified 01/12/20 12:42 [From Vicodin] Review of Systems - Constitutional Constitutional: denies: Fatigue, Fever - Eyes Eyes: denies: Pain, Vision loss, Dipolpia - Ears, Nose & Throat Ears, Nose & Throat: denies: Ear pain - Cardiovascular Cariovascular: denies: Irregular heart rate, Palpitations, Chest pain, Edema, Lightheadedness - Respiratory Respiratory: denies: Cough, Sputum production, SOB at rest - Gastrointestinal Gastrointestinal: reports: Nausea. denies: Abdominal pain, Abdominal distention, Constipation, Vomiting - Genitourinary Genitourinary: denies: Dysuria, Frequency, Urgency, Hematuria - Musculoskeletal Musculoskeletal: denies: Muscle pain, Back pain, Muscle aches - Integumentary Integumentary: denies: Rash, Pruritis - Neurological Neurological: reports: Headache. denies: General weakness, Focal weakness, Numbness - Psychiatric Psychiatric: reports: Anxiety - Endocrine Endocrine: denies: Polyuria, Polydypsia - Hematologic/Lymphatic Hematologic/Lymphatic: denies: Anemia, Bruising, Petechiae Prior Level of Functionality: Patient is independent of activities of daily living Exam - Vital Signs Vital Signs: Vital Signs x48h Temp Pulse Pulse Resp BP BP Pulse Ox 01/12/20 18:39 37.1 C 79 16 108/65 100 01/12/20 17:30 82 16 112/72 01/12/20 17:00 84 19 109/74 01/12/20 16:30 86 18 106/70 100 01/12/20 16:10 86 16 108/78 01/12/20 14:00 80 15 102/65 01/12/20 13:33 119 H 13 153/90 H 01/12/20 11:57 37.6 C H 91 16 135/110 H 97 - Physical Exam General Appearance: positive: Alert, Mild distress Eyes Bilateral: positive: PERRL, EOMI ENT: positive: No signs of dehydration Neck: positive: No JVD, Trachea midline Respiratory: positive: No respiratory distress, Breath sounds nml Cardiovascular: positive: Regular rate & rhythm, No murmur Abdomen: positive: Non-tender, No organomegaly, Nml bowel sounds, No distention. negative: Guarding, Rebound Back: positive: Nml inspection Skin: positive: Color nml, Warm, Dry. negative: Diaphoresis Extremities: positive: Non-tender, Full ROM, Nml appearance, No pedal edema Neurologic/Psychiatric: positive: Oriented x3, Mood/affect nml Conclusion/Plan - Problem List (1) Migraine, hemiplegic, intractable Conclusion/Plan: Patient given gabapentin 900 mg p.o. in the afternoon. Will give another 300 at midnight. Zofran, Benadryl, ibuprofen ordered PRN. Patient declined Imitrex. Qualifiers: Status migrainosus presence: without status migrainosus Qualified Code(s): G43.419 - Hemiplegic migraine, intractable, without status migrainosus (2) Anxiety Conclusion/Plan: Ativan ordered PRN. - Lab Results Fish Bones: 01/12/20 12:25 01/12/20 12:25 Core Measures - Anticipated LOS I expect patient to be DC'd or transferred within 96 hours.: Yes - DVT/VTE - Prophylaxis VTE/DVT Device ordered at admit?: Yes
[2020-01-12] MEDS ORDERED: SODIUM CHLORIDE FLUSH 0.9% 10 ML SYRINGE IVP PRN (19:57)
[2020-01-12] MEDS ORDERED: LORazepam 2 MG/ML VIAL IVP PRN (20:06)
[2020-01-12] MEDS ORDERED: METOCLOPRAMIDE 10 MG/2 ML VIAL IVP PRN (20:09)
[2020-01-12] MEDS ORDERED: diphenhydrAMINE INJ 50 MG/ML VIAL IVP PRN (20:29)
[2020-01-12] MEDS ORDERED: GABAPENTIN 100 MG CAPSULE PO ONE (23:45)
[2020-01-13] MEDS: ONDANSETRON 4 MG/2 ML VIAL IVP PRN ×2 (00:15→13:57)
[2020-01-13] MEDS: SODIUM CHLORIDE FLUSH 0.9% 10 ML SYRINGE IVP SCH ×3 (00:16→16:38)
[2020-01-13] MEDS ORDERED: GABAPENTIN 100 MG CAPSULE PO ONE (00:20)
[2020-01-13] MEDS: IBUPROFEN 400 MG TABLET PO PRN ×2 (00:23→16:37)
[2020-01-13 05:02] LABS: BASOPHILS % (AUTO) 0.5 %; EOSINOPHILS # (AUTO) 0.1 10^3/uL (0.0-0.7); EOSINOPHILS % (AUTO) 3.2 %; LYMPHOCYTES # (AUTO) 1.2 10^3/uL (1.5-3.5); LYMPHOCYTES % (AUTO) 31.1 %; MEAN CORPUSCULAR HEMOGLOBIN 25.5 pg (27.0-31.0); MEAN PLATELET VOLUME 11.8 fL (7.9-10.8); MONOCYTES # (AUTO) 0.4 10^3/uL (0.0-1.0); MONOCYTES % (AUTO) 9.5 %; NEUTROPHILS # (AUTO) 2.1 10^3/uL (1.5-6.6); NEUTROPHILS % (AUTO) 55.4 %; PLT - PLATELET COUNT 194 10^3/uL (130-450); RED BLOOD COUNT 3.53 10^6/uL (4.20-5.40); RED CELL DISTRIBUTION WIDTH 14.9 % (12.0-15.0); WHITE BLOOD COUNT 3.8 x10^3/uL (4.8-10.8)
[2020-01-13 05:09] LABS: CALCIUM 8.5 mg/dL (8.5-10.3); CREATININE 0.7 mg/dL (0.4-1.0)
--- NOTE | 2020-01-13 13:34 | PHARMACY PROGRESS NOTE ---
- Best Possible Medication History Admit Date and Time: 01/12/20 1749 Processed by: Pharmacy Medication History completed: Yes Patient Interview: Pt unable to participate Secondary Source(s): Pharmacy records, Insurance records As the person ultimately responsible for medication therapy, providers are able to order a medication from an existing home medication list in [facility] via the "Reconcile Routine" prior to Confirmation of that medication by support technician. Such practice is discouraged except when the physician, in their clinical judgment, deems that a medical need exists for a medication without regard to previous use.
[2020-01-13] MEDS ORDERED: clonazePAM 0.5 MG TABLET PO PRN (15:01)
--- NOTE | 2020-01-13 15:07 | PROVIDER PROGRESS NOTE ---
Subjective - Prog Note Date Prog Note Date: 01/13/20 Prog Note Time: 15:03 (late entry , seen x 2 earlier) - Subjective Subjective: early this morning patient groggy having received IV benadryl, No dysarthria, tired appearing no word finding difficulty, Eyes tracked evenly during conversation, but when EOMs formally checked she did not follow Had eaten breakfast and conversed but could not protrude aguila, barely puffed cheeks Rechecked later in day, articulate and fluid in covnversation, eyes track evenly, does not follow EoM;s for fomal exam, barely shows teeth to check symetry, barely pffs chheks, Rapid alternating moviements Very slowly does accoumplish on left. L grep 2/5 Assisted to commode. On E stengt exam, dorseflex 2/5, hip flex 2/5, yet was able to change position to sitting, transferred to commode and could pull her own underpants up using left hand (inconsistent exam Current Medications - Current Medications Current Medications: Active Medications Generic Name Dose Route Start Last Admin Trade Name Freq PRN Reason Stop Dose Admin Clonazepam 0.5 mg 01/13/20 15:01 Klonopin PO BID PRN Anxiety Diphenhydramine HCl 25 mg 01/12/20 20:29 Benadryl Inj IVP Q6H PRN Allergy Symptoms Ibuprofen 400 mg 01/12/20 20:10 01/13/20 00:23 Motrin PO 400 mg Q6HR PRN Administration PAIN Metoclopramide HCl 5 mg 01/12/20 20:09 Reglan Inj IVP Q6HR PRN Nausea / Vomiting Ondansetron HCl 4 mg 01/12/20 19:57 01/13/20 13:57 Zofran Inj IVP 4 mg Q4HR PRN Administration Nausea / Vomiting Sodium Chloride 10 ml 01/12/20 19:57 01/13/20 14:07 Normal Saline Flush 0.9% IVP 10 ml PRN PRN Administration NEEDED PER PROVIDER ORDERS Sodium Chloride 10 ml 01/13/20 01:00 01/13/20 13:57 Normal Saline Flush 0.9% IVP 10 ml 0100,0900,1700 KENDAL Administration Gabapentin 600 mg PO TID 01/12/20 Ibuprofen [Motrin] 0 mg 01/12/20 Mirtazapine 15 mg PO DAILY 01/12/20 clonazePAM [Clonazepam] 0.5 - 1 mg PO BID PRN 01/13/20 Objective - Vital Signs/Intake & Output Vital Signs: Vital Signs x48h Temp Pulse BP Pulse Ox 01/13/20 13:00 86 113/72 100 01/13/20 08:29 36.7 C 75 104/73 96 Intake & Output: Intake & Output 01/10/20 01/11/20 01/12/20 01/13/20 23:59 23:59 23:59 23:59 Intake Total 3000 620 Balance 3000 620 - Lab Results Fish Bones: 01/13/20 04:30 01/13/20 04:30 Other Labs: Lab Results x24hrs 01/13/20 01/13/20 01/12/20 Range/Units 04:30 04:30 17:55 WBC 3.8 L (4.8-10.8) x10^3/uL RBC 3.53 L (4.20-5.40) 10^6/uL Hgb 9.0 L (12.0-16.0) g/dL Hct 30.0 L (37.0-47.0) % MCV 85.0 (81.0-99.0) fL MCH 25.5 L (27.0-31.0) pg MCHC 30.0 L (32.0-36.0) g/dL RDW 14.9 (12.0-15.0) % Plt Count 194 (130-450) 10^3/uL MPV 11.8 H (7.9-10.8) fL Neut # (Auto) 2.1 (1.5-6.6) 10^3/uL Lymph # (Auto) 1.2 L (1.5-3.5) 10^3/uL Stark # (Auto) 0.4 (0.0-1.0) 10^3/uL Eos # (Auto) 0.1 (0.0-0.7) 10^3/uL Baso # (Auto) 0.0 (0.0-0.1) 10^3/uL Absolute Nucleated RBC 0.00 x10^3/uL Nucleated RBC % 0.0 /100WBC Sodium 138 (135-145) mmol/L Potassium 3.9 (3.5-5.0) mmol/L Chloride 105 (101-111) mmol/L Carbon Dioxide 24 (21-32) mmol/L Anion Gap 9.0 (6-13) BUN 15 (6-20) mg/dL Creatinine 0.7 (0.4-1.0) mg/dL Estimated GFR (MDRD) 92 (>89) Glucose 112 H (70-100) mg/dL Calcium 8.5 (8.5-10.3) mg/dL Urine Color YELLOW Urine Clarity CLEAR (CLEAR) Urine pH 5.5 (5.0-7.5) PH Ur Specific [place] 1.015 (1.002-1.030) Urine Protein NEGATIVE (NEGATIVE) mg/dL Urine Glucose (UA) NEGATIVE (NEGATIVE) mg/dL Urine Ketones NEGATIVE (NEGATIVE) mg/dL Urine Occult Blood NEGATIVE (NEGATIVE) Urine Nitrite NEGATIVE (NEGATIVE) Urine Bilirubin NEGATIVE (NEGATIVE) Urine Urobilinogen 0.2 (NORMAL) (NORMAL) E.U./dL Ur Leukocyte Esterase NEGATIVE (NEGATIVE) Ur Microscopic Review NOT INDICATED Urine Culture Comments NOT INDICATED Urine HCG, Qual NEGATIVE Assessment/Plan - Problem List (1) Migraine, hemiplegic Impression: Conclusion/Plan: Patient neuro exam inconsistent as noted will d/c iv ativan resume home oral prn clonazepam 0.5 bid contacting the [facility] neurolog[facility]; (per Uptodate, triptans not recommended for aborting, ? verapamil rec'd (but her base BP is too low); checking w/ neuro as typical time course, Patient given gabapentin 900 mg p.o. in the afternoon. Will give another 300 at midnight. Zofran, Benadryl, ibuprofen ordered PRN. Patient declined Imitrex. Qualifiers: Status migrainosus presence: without status migrainosus Qualified Code(s): G43.419 - Hemiplegic migraine, intractable, without status migrainosus (2) Anxiety Conclusion/Plan: Pt notes she sees her primary provider in [facility] monthly for anxiety sedate w/ iv ativan, could not work with PT change to po home clonzaepam
--- NOTE | 2020-01-13 15:55 | Discharge Plan ---
Discharge Plan Problem Reviewed?: Yes Disposition: Home, Self Care Diet: Regular Activity Restrictions: take it easy a few days Shower Restrictions: No Driving Restrictions: No Health Concerns: Likely complex migraine You came to the ED with the onset of Left sided numbness, dysfunction, weakness Left facial droop and difficult speech (dysarthria) You do not have risk factors for stroke, but due to symptoms you had a CT angiogram of head and neck which showed no concerning findings. YOur vital signs were unremarkable Your labs were unremarkable In the ED after discussion with [facility] neurology, there was suspician this could be hemiplegic migraine which you were diagnosed with at [facility] 3 yrs ago, and you were admitted for observation and management of migraine symptoms Those symptoms were much improved today with articulate speech, and return of normal use and movement of your left side The neurologist today at [facility] noted that the diagnosis of hemiplegic migraine is very uncommon, and more often starts in youth, that "complex migraine" is more likely diagnosis Routine medical management for migraine ok Low dose NSAID if needed, if needed zofran which you have at home, can continue your if needed caffeine / ergot combination if needed continue your home dose of clonazepam and your outpatient visits with your primary provider in [facility] for anxiety Continue your home dose of Mirtazapine if you were taking it for mood/sleep (it did not come up on the medication list Imaging CTA head No acute intracranial finding, No branch occlusion no hemodynamically significant stenosis of the major intracranial circulation CTA Neck; No large vessel occclusion, no vascular stenosis, no vascular dissection or aneurysm No Smoking: If you smoke, Please STOP! Call for help.
[2020-01-13 17:28] VITALS: BP 115/70
--- NOTE | 2020-01-13 20:20 | DISCHARGE SUMMARY ---
Physician: ABELINO Madrigal DATE OF ADMISSION: 01/12/2020 DATE OF DISCHARGE: 01/13/2020 PRIMARY CARE PROVIDER: Marylou Lu in [place]. PROCEDURES THIS ADMISSION: None. CONSULTATIONS: None. PRIMARY ADMISSION DIAGNOSES 1. Hemiplegic migraine. 2. Anxiety. DISCHARGE DIAGNOSES 1. Likely complex migraine. 2. Anxiety. 3. Possible panic attack. DIAGNOSTIC STUDIES 1. CTA of the neck on 01/12. Impression: No large vessel occlusion, vascular stenosis, vascular dissection or aneurysm. 2. CTA of the brain 01/12. Impression: No acute intracranial findings. No branch occlusion or hemodynamically significant stenosis of the major intracranial circulation. LABORATORY DIAGNOSTICS: Unremarkable BMP. Unremarkable CBC, urinalysis also unremarkable. BRIEF HOSPITAL COURSE BY PROBLEM: Complex migraine. Patient is a 44-year-old female who presented to the emergency room late at night on 01/11; She developed a left facial droop while on a video chat and the symptoms progressed to a left hemiparesis and dysarthria along with what she described as a deep inner burning sensation. She notes that she had a similar event 3 years ago at [facility] where symptoms were ultimately attributed to what she reports was diagnosed a hemiplegic migraine. She does not have DM, hypertension, tobacco use or known hyperlipidemia as stroke risk factors. There was low suspician for TIA when discussed with neurology. She does have a migraine history and usually uses caffeine/ergot combination. MRI was not pursued during this presentation. In the emergency room, a CTA of the head and neck demonstrated no acute vascular stenosis or other acute problem. The ER spoke with Neurology at [facility] who suggested this was a hemiplegic migraine. Patient was managed conservatively with treatment for migraine with Benadryl and NSAIDs. The next morning, she did have significant improvement in her symptoms. She was articulate and fluid in conversation. There was some inconsistency in her exam the morning of discharge (e.g. left lower extremity dorsi/plantar flexion, hip flexion 1-2/5 but was able to use the lower extremity and bear weight to get up to the commode, with minimal assist and although she demonstrated weakness and inability to use her upper extremity on the left 1-2/5 on formal exam, once she was lying on her right side, she had free movement of her LUE when talking/ gesticulating. There were some other exam components which were also inconsistent/that she could not perform when asked in formal exam, but was doing without difficulty with ADL's. She does note that she has significant stressors in the home right now (e.g. one child's father is recently out of incarceration). Patient was discharged home with symptoms completely resolved. Before discharge, discussed with neurology at [facility] again who indicated hemiplegic migraine is actually quite rare, with genetic predisposition and that this more likley represented complex migraine. DISCHARGE MEDICATIONS The patient will continue on her home medications of: 1. Mirtazapine 15 mg once daily at bedtime. 2. Gabapentin 300 mg 3 times daily. 3. Clonazepam 1 mg twice daily as needed for anxiety 4. She also can use p.r.n. ibuprofen 200 mg every 6 hours if needed for headache. 5. prn Zofran 4 mg if needed q 6 hrs (has at home.) DISCHARGE PHYSICAL EXAMINATION VITAL SIGNS: Afebrile, heart rate 77 to 84; blood pressure 101-115 over 55-70, that is her baseline; 100% on room air with normal respirations 18-20. GENERAL: She is a very pleasant woman who at the time of discharge is articulate in conversation with no word-finding difficulty, animated and forthcoming with her history. NEUROLOGIC: Cranial nerves 2-12 are intact. Extraocular movements are intact. Neurologically her strength is equal bilaterally. She moves freely. She is up to commode without difficulty. There is no motor deficit. CHEST: Clear to auscultation. HEART: Regular S1, S2, with no appreciable extra sounds. ABDOMEN: Soft and benign. EXTREMITIES: Free of edema. SKIN: Warm and dry with no bruising or bleeding. cc requested for Marylou Lu NP, of [place] TD: 01/13/2020 19:26 MTDSanam
== END 2020-01-13 17:45 | disposition home or self-care (01) ==
LOC: EDUNIT# → ED 11:57 → SUATTDRO 11:57 → MS2 17:49
PROVIDERS: ADMIT Internal Medicine; ATTEND Nurse Practitioner
DX: G43.819 Other migraine, intractable, without status migrainosus (principal); F41.9 Anxiety disorder, unspecified; F43.10 Post-traumatic stress disorder, unspecified
CPT/HCPCS: 36415; 70496; 70498; 80048; 80053; 81003; 81025; 83690; 85025; 93005; 96361; 96374; 96375; 96376; 97161; 99284; 99285; A9270; G0378; J1200; J2060; J2765; Q9967; 81001; 87086

== ENCOUNTER 2021-02-18 02:17 | Outpatient (CLI) | payer MEDICAID | END 2021-02-18 02:18 | disposition critical access hospital (66) | LOC: EMS 02:17 | DX: R40.4 Transient alteration of awareness (principal) | CPT/HCPCS: A0425; A0433; A0999 ==

== ENCOUNTER 2021-02-18 02:30 | Inpatient (IN) | payer MEDICAID ==
--- NOTE | 2021-02-18 02:47 | ED Physician Documentation ---
PD HPI ALTERED MENTAL STATUS - Stated complaint Stated Complaint: UNRESPONSIVE - Chief complaint Chief Complaint: Neuro - History obtained from History obtained from: EMS - History of Present Illness Timing - onset: Today Timing - details: Abrupt onset, Still present, Still present in ED Quality / character: Unresponsive Associated symptoms: Other (last seen normal about one hour prior to being found unresponsive). No: Fever, Headache, Stiff neck, Dyspnea, Cough, NVD, Urinary sx, General weakness, Focal weakness, Seizure activity, Syncope Contributing factors: Diabetic (diet controlled) Basline status: Alert and oriented X 3, Ambulatory, Independent Treatment CAT HOOKER: Accucheck (495) Similar symptoms before: Diagnosis (code stroke with complicated migraine.) Recently seen: Not recently seen - Additional information Additional information: 45-year-old female found on her couch by her daughter unresponsive had been seen about an hour previously acting normally. When the daughter was unable to get her to respond she went to the neighbors the neighbor was unable to get the patient to respond and they called 911. Medics arrived to find the pouch patie nt unresponsive and she was intubated and transported to the emergency department. Review of Systems Unable to obtain: Unresponsive, Intubated PD PAST MEDICAL HISTORY - Past Medical History Cardiovascular: None Respiratory: None Neuro: Migraines Endocrine/Autoimmune: Type 2 diabetes HEENT: None Psych: Anxiety, Post traumatic stress disorder Musculoskeletal: Rheumatoid arthritis - Past Surgical History Past Surgical History: Yes General: Cholecystectomy, Gastric surgery /HEALTH INFORMATION MANAGEMENT DIRECTOR: section, 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 - Present Medications Home Medications: Ambulatory Orders Medication Instructions Recorded Confirmed clonazePAM [Clonazepam] 0.5 - 1 mg PO BID PRN 01/13/20 02/18/21 Gabapentin 600 mg PO TID 02/18/21 - Allergies Allergies/Adverse Reactions: Allergies Allergy/AdvReac Type Severity Reaction Status Date / Time ketorolac tromethamine * Allergy Itching Verified 02/18/21 02:37 [From Toradol] prednisone Allergy Respiratory Verified 02/18/21 02:37 hydrocodone bitartrate * AdvReac Itching Verified 02/18/21 02:37 [From Vicodin] - Social History Does the pt smoke?: No Smoking Status: Never smoker Does the pt drink ETOH?: No Does the pt have substance abuse?: No - Immunizations Immunizations are current?: Yes - POLST Patient has POLST: No POLST Status: Full Code PD ED PE NORMAL - Vitals Vital signs reviewed: Yes - General General: No acute distress, Well developed/nourished, Other (motionless and unresponsive to painful stimuli) - HEENT HEENT: Atraumatic, PERRL, EOMI - Neck Neck: Supple, no meningeal sign, No bony TTP - Cardiac Cardiac: No murmur, Other (tachy) - Respiratory Respiratory: Clear bilaterally, Other (equal breath sounds bilat with bag valve through ET. ) - Abdomen Abdomen: Soft, Non distended, No organomegaly - Derm Derm: Normal color, Warm and dry, No rash - Extremities Extremities: No deformity, No edema - Neuro Neuro: Other (unresponsive to painful stimuli. pupils constricted and minimally reactive. ) Eye Opening: None Motor: None Verbal: None GCS Score: 3 Results - Vitals Vitals: Vital Signs - 24 hr 02/18/21 02/18/21 02/18/21 02:38 02:42 02:48 Temperature 34.7 C L 32.7 C L Heart Rate 122 H 73 73 Respiratory 20 20 Rate Blood Pressure 136/112 H 100/84 H 98/76 O2 Saturation 100 99 100 02/18/21 02/18/21 02/18/21 02:55 02:56 03:35 Temperature 33.6 C L 33.4 C L Heart Rate 74 80 Respiratory 20 18 Rate Blood Pressure 102/73 103/74 112/78 O2 Saturation 98 99 02/18/21 02/18/21 02/18/21 03:37 03:55 03:56 Temperature 33.2 C L Heart Rate 84 79 Respiratory 16 Rate Blood Pressure 111/79 O2 Saturation 100 02/18/21 02/18/21 04:15 04:30 Temperature 33.1 C L 33.2 C L Heart Rate 94 Respiratory 18 26 H Rate Blood Pressure 112/76 141/109 H O2 Saturation 98 100 Oxygen O2 Source Mechanical ventilator - Labs Labs: Laboratory Tests 02/18/21 02/18/21 02/18/21 02:42 02:42 02:42 WBC 7.8 RBC 3.71 L Hgb 9.5 L Hct 31.8 L MCV 85.7 MCH 25.6 L MCHC 29.9 L RDW 15.3 H Plt Count 241 MPV 12.0 H Neut # (Auto) 5.3 Lymph # (Auto) 2.1 Adams # (Auto) 0.2 Eos # (Auto) 0.1 Baso # (Auto) 0.0 Absolute Nucleated RBC 0.00 Nucleated RBC % 0.0 Bld Gas Analysis Time Sample Site ABG pH ABG pCO2 ABG pO2 ABG HCO3 ABG Total CO2 ABG O2 Saturation ABG Base Excess Alejandro Test Respiration Rate O2 Delivery Device Vent Mode FiO2 Tidal Volume PEEP Sodium Potassium Chloride Carbon Dioxide Anion Gap BUN Creatinine Estimated GFR (MDRD) Glucose Lactic Acid 4.3 H* Calcium Iron TIBC % Saturation Transferrin Total Bilirubin AST ALT Alkaline Phosphatase Total Creatine Kinase Total Protein Albumin Globulin Albumin/Globulin Ratio Lipase Urine Color Urine Clarity Urine pH Ur Specific [place] Urine Protein Urine Glucose (UA) Urine Ketones Urine Occult Blood Urine Nitrite Urine Bilirubin Urine Urobilinogen Ur Leukocyte Esterase Urine RBC Urine WBC Ur Squamous Epith Cells Amorphous Sediment Urine Bacteria Ur Microscopic Review Urine Culture Comments Urine HCG, Qual Nasal Adenovirus (PCR) Nasal B. parapertussis DNA (PCR) Nasal Coronavir 229E PCR Nasal Coronavir HKU1 PCR Nasal Coronavir NL63 PCR Nasal Coronavir OC43 PCR Nasal Enterovir/Rhinovir PCR Nasal Influenza B PCR Nasal Influenza A PCR Nasal Parainfluen 1 PCR Nasal Parainfluen 2 PCR Nasal Parainfluen 3 PCR Nasal Parainfluen 4 PCR Nasal RSV (PCR) Nasal B.pertussis DNA PCR Nasal C.pneumoniae (PCR) Jamie Human Metapneumo PCR Nasal M.pneumoniae (PCR) Nasal SARS-CoV-2 (PCR) Urine Opiates Screen Ur Oxycodone Screen Urine Methadone Screen Ur Propoxyphene Screen Ur Barbiturates Screen Ur Tricyclics Screen Ur Phencyclidine Scrn Ur Amphetamine Screen U Methamphetamines Scrn U Benzodiazepines Scrn Urine Cocaine Screen U Cannabinoids Screen Ethyl Alcohol < 5.0 02/18/21 02/18/21 02/18/21 02:42 02:42 02:45 WBC RBC Hgb Hct MCV MCH MCHC RDW Plt Count MPV Neut # (Auto) Lymph # (Auto) Adams # (Auto) Eos # (Auto) Baso # (Auto) Absolute Nucleated RBC Nucleated RBC % Bld Gas Analysis Time Sample Site ABG pH ABG pCO2 ABG pO2 ABG HCO3 ABG Total CO2 ABG O2 Saturation ABG Base Excess Alejandro Test Respiration Rate O2 Delivery Device Vent Mode FiO2 Tidal Volume PEEP Sodium 134 L Potassium 4.3 Chloride 99 L Carbon Dioxide 21 Anion Gap 14.0 H BUN 17 Creatinine 1.3 H Estimated GFR (MDRD) 45 L Glucose 424 H Lactic Acid Calcium 8.5 Iron 35 TIBC 519 H % Saturation 7 L Transferrin 371 Total Bilirubin 0.5 AST 103 H ALT 33 Alkaline Phosphatase 74 Total Creatine Kinase 120 Total Protein 6.9 Albumin 3.6 Globulin 3.3 Albumin/Globulin Ratio 1.1 Lipase 41 Urine Color YELLOW Urine Clarity SL. CLOUDY Urine pH 5.5 Ur Specific [place] >=1.030 H Urine Protein 100 H Urine Glucose (UA) >=1000 H Urine Ketones NEGATIVE Urine Occult Blood TRACE-INTA Urine Nitrite NEGATIVE Urine Bilirubin NEGATIVE Urine Urobilinogen 2 H Ur Leukocyte Esterase SMALL H Urine RBC 6-10 H Urine WBC >25 H Ur Squamous Epith Cells MOD Squamous H Amorphous Sediment Few Urine Bacteria Few Ur Microscopic Review INDICATED Urine Culture Comments NOT INDICATED Urine HCG, Qual NEGATIVE Nasal Adenovirus (PCR) Nasal B. parapertussis DNA (PCR) Nasal Coronavir 229E PCR Nasal Coronavir HKU1 PCR Nasal Coronavir NL63 PCR Nasal Coronavir OC43 PCR Nasal Enterovir/Rhinovir PCR Nasal Influenza B PCR Nasal Influenza A PCR Nasal Parainfluen 1 PCR Nasal Parainfluen 2 PCR Nasal Parainfluen 3 PCR Nasal Parainfluen 4 PCR Nasal RSV (PCR) Nasal B.pertussis DNA PCR Nasal C.pneumoniae (PCR) Jamie Human Metapneumo PCR Nasal M.pneumoniae (PCR) Nasal SARS-CoV-2 (PCR) Urine Opiates Screen NEGATIVE Ur Oxycodone Screen NEGATIVE Urine Methadone Screen NEGATIVE Ur Propoxyphene Screen NEGATIVE Ur Barbiturates Screen NEGATIVE Ur Tricyclics Screen NEGATIVE Ur Phencyclidine Scrn NEGATIVE Ur Amphetamine Screen POSITIVE H U Methamphetamines Scrn POSITIVE H U Benzodiazepines Scrn NEGATIVE Urine Cocaine Screen NEGATIVE U Cannabinoids Screen POSITIVE H Ethyl Alcohol 02/18/21 02/18/21 02:47 03:25 WBC RBC Hgb Hct MCV MCH MCHC RDW Plt Count MPV Neut # (Auto) Lymph # (Auto) Adams # (Auto) Eos # (Auto) Baso # (Auto) Absolute Nucleated RBC Nucleated RBC % Bld Gas Analysis Time 0330 Sample Site LEFT RADIAL ABG pH 7.32 L ABG pCO2 45 ABG pO2 163 H* ABG HCO3 22.8 ABG Total CO2 24.2 ABG O2 Saturation 99 H ABG Base Excess -3.2 L Alejandro Test POSITIVE Respiration Rate 20 O2 Delivery Device VENTILATOR Vent Mode SIMV FiO2 50.00 Tidal Volume 370 PEEP 5 Sodium Potassium Chloride Carbon Dioxide Anion Gap BUN Creatinine Estimated GFR (MDRD) Glucose Lactic Acid Calcium Iron TIBC % Saturation Transferrin Total Bilirubin AST ALT Alkaline Phosphatase Total Creatine Kinase Total Protein Albumin Globulin Albumin/Globulin Ratio Lipase Urine Color Urine Clarity Urine pH Ur Specific [place] Urine Protein Urine Glucose (UA) Urine Ketones Urine Occult Blood Urine Nitrite Urine Bilirubin Urine Urobilinogen Ur Leukocyte Esterase Urine RBC Urine WBC Ur Squamous Epith Cells Amorphous Sediment Urine Bacteria Ur Microscopic Review Urine Culture Comments Urine HCG, Qual Nasal Adenovirus (PCR) NOT DETECTED Nasal B. parapertussis DNA (PCR) NOT DETECTED Nasal Coronavir 229E PCR NOT DETECTED Nasal Coronavir HKU1 PCR NOT DETECTED Nasal Coronavir NL63 PCR NOT DETECTED Nasal Coronavir OC43 PCR NOT DETECTED Nasal Enterovir/Rhinovir PCR NOT DETECTED Nasal Influenza B PCR NOT DETECTED Nasal Influenza A PCR NOT DETECTED Nasal Parainfluen 1 PCR NOT DETECTED Nasal Parainfluen 2 PCR NOT DETECTED Nasal Parainfluen 3 PCR NOT DETECTED Nasal Parainfluen 4 PCR NOT DETECTED Nasal RSV (PCR) NOT DETECTED Nasal B.pertussis DNA PCR NOT DETECTED Nasal C.pneumoniae (PCR) NOT DETECTED Jamie Human Metapneumo PCR NOT DETECTED Nasal M.pneumoniae (PCR) NOT DETECTED Nasal SARS-CoV-2 (PCR) NOT DETECTED Urine Opiates Screen Ur Oxycodone Screen Urine Methadone Screen Ur Propoxyphene Screen Ur Barbiturates Screen Ur Tricyclics Screen Ur Phencyclidine Scrn Ur Amphetamine Screen U Methamphetamines Scrn U Benzodiazepines Scrn Urine Cocaine Screen U Cannabinoids Screen Ethyl Alcohol - Rads (name of study) head Radiology: Prelim report reviewed (Impression: 1. There is no acute intracranial abnormality.), EMP read indepedently, See rad report chest Radiology: Prelim report reviewed, EMP read indepedently, See rad report CTA head Radiology: Prelim report reviewed (Impression: 1. Stable CT angiography of the head without anatomic variants as described above.), EMP read indepedently, See rad report CTAneck Radiology: Prelim report reviewed (Impression: 1. There is no significant stenosis or vascular occlusion in the neck.), EMP read indepedently, See rad report Procedures - IVC sono (time) 0245 Bedside IVC sono: Other (unable to image IVC) PD MEDICAL DECISION MAKING - ED course Complexity details: reviewed results, re-evaluated patient, considered tipe clarke, d/w taxation consultant (Dr. Chiang recomends CTA head and neck and fluids. ) ED course: 45-year-old female with a history of diet-controlled diabetes was found unconscious by her daughter and unresponsive. She is unresponsive enough that paramedics intubated her in route to the hospital. She arrives to the hospital intubated and unresponsive. She has a prior history of complicated migraine and the thought was possible strokelike symptoms and a CT of the head was obtained the neurologist was consulted and CTA of the head and neck were obtained at his request. While we are waiting for this the patient is administered a 2 mg dose of Narcan and she responds to this with eye-opening and bucking on the tube.She did have a urine tox screen which was positive for amphetamine and methamphetamine and the presumption is she has obtained tainted methamphetamine tainted potentially with fentanyl.The patient was making no effort to breathe on her own prior to administration of Narcan and I have consulted our hospitalist who recommends that we sedate the patient and keep her on the ventilator for potential extubation in the morning. Departure - Departure Disposition: [facility] DC/Xfer Clinical Impression: Overdose of opiate or related narcotic Qualifiers: Encounter type: initial encounter Injury intent: undetermined intent Qualified Code(s): T40.604A - Poisoning by unspecified narcotics, undetermined, initial encounter
[2021-02-18 02:50] LABS: BASOPHILS % (AUTO) 0.4 %; EOSINOPHILS # (AUTO) 0.1 10^3/uL (0.0-0.7); EOSINOPHILS % (AUTO) 0.8 %; HCT - HEMATOCRIT 31.8 % (37.0-47.0); HGB - HEMOGLOBIN 9.5 g/dL (12.0-16.0); LYMPHOCYTES # (AUTO) 2.1 10^3/uL (1.5-3.5); LYMPHOCYTES % (AUTO) 26.6 %; MEAN CORPUSCULAR HEMOGLOBIN 25.6 pg (27.0-31.0); MEAN CORPUSCULAR HGB CONC 29.9 g/dL (32.0-36.0); MEAN CORPUSCULAR VOLUME 85.7 fL (81.0-99.0); MONOCYTES # (AUTO) 0.2 10^3/uL (0.0-1.0); MONOCYTES % (AUTO) 3.1 %; NEUTROPHILS # (AUTO) 5.3 10^3/uL (1.5-6.6); NEUTROPHILS % (AUTO) 68.3 %; PLT - PLATELET COUNT 241 10^3/uL (130-450); RED BLOOD COUNT 3.71 10^6/uL (4.20-5.40); RED CELL DISTRIBUTION WIDTH 15.3 % (12.0-15.0); WHITE BLOOD COUNT 7.8 x10^3/uL (4.8-10.8)
[2021-02-18 02:50] LABS: MUDS CUTOFF CONCENTRATIONS CUTOFF CONC BELOW:
[2021-02-18 02:52] LABS: BILIRUBIN,URINE NEGATIVE (NEGATIVE); GLUCOSE, URINE (UA) >=1000 mg/dL (NEGATIVE); KETONES,URINE (UA) NEGATIVE (NEGATIVE); LEUKOCYTE ESTERASE, URINE SMALL (NEGATIVE); NITRITE,URINE NEGATIVE (NEGATIVE); OCCULT BLOOD,URINE TRACE-INTA (NEGATIVE); PH,URINE 5.5 PH (5.0-7.5); PROTEIN,URINE 100 mg/dL (NEGATIVE); UROBILINOGEN,URINE 2 E.U./dL (NORMAL)
[2021-02-18 02:56] LABS: CLARITY,URINE SL. CLOUDY (CLEAR); HCG UR QUAL NEGATIVE
[2021-02-18] MEDS ORDERED: PROCHLORPERAZINE 10 MG/2 ML VIAL IVP STA (03:04)
[2021-02-18] MEDS ORDERED: diphenhydrAMINE INJ 50 MG/ML VIAL IVP STA (03:05)
[2021-02-18 03:07] LABS: WBC,URINE >25 /HPF (0-5)
[2021-02-18 03:08] LABS: AMORPHOUS SEDIMENT,UR Few /LPF; BACTERIA,URINE Few /HPF (None Seen); COCAINE SCREEN URINE NEGATIVE (NEGATIVE); METHAMPHETAMINES SCREEN, URINE POSITIVE (NEGATIVE); OPIATE SCREEN, URINE NEGATIVE (NEGATIVE); SQUAMOUS EPITHELIAL CELL,UR MOD Squamous (<= Few); THC CANNABINOID SCREEN, URINE POSITIVE (NEGATIVE)
[2021-02-18 03:09] LABS: AMPHETAMINE SCREEN,URINE POSITIVE (NEGATIVE); BARBITURATE SCREEN,UR NEGATIVE (NEGATIVE); BENZODIAZEPINES SCREEN, URINE NEGATIVE (NEGATIVE); METHADONE SCREEN, URINE NEGATIVE (NEGATIVE); OXYCODONE SCREEN, URINE NEGATIVE (NEGATIVE); PROPOXYPHENE SCREEN, URINE NEGATIVE (NEGATIVE); TRICYCLIC ANTIDEPRESSANT,URINE NEGATIVE (NEGATIVE)
[2021-02-18] MEDS ORDERED: cefTRIAXone 1 GM in SODIUM CHLORIDE 0.9% MINIBAG 100 ML IV STA (03:29)
[2021-02-18 03:30] LABS: ABG HCO3 22.8 mmol/L (22.0-26.0); ABG PCO2 45 mmHg (34-45); ABG PH 7.32 (7.35-7.45)
[2021-02-18 03:31] LABS: ABG BASE EXCESS -3.2 mmol/L (-2.0-3.0); ABG OXYGEN SATURATION 99 % (94-98); ABG TCO2 24.2 MMOL/L (21.0-29.0); ALLEN TEST POSITIVE
[2021-02-18 03:33] LABS: ABG MODE OF VENTILATION SIMV; ABG PO2 163 mmHg (80-100); ABG RESPIRATORY RATE 20 b/min
[2021-02-18] MEDS ORDERED: SODIUM CHLORIDE 0.9% 1,000 ML IV STA ×2 (03:41)
[2021-02-18] MEDS ORDERED: cefTRIAXone 1 GM VIAL ONE (03:48)
[2021-02-18] MEDS ORDERED: IOVERSOL 320 100 ML VIAL IVP ONE ×2 (03:48→04:18)
[2021-02-18 03:55] LABS: B. PARAPERTUSSIS- RESP PCR PAN NOT DETECTED; B. PERTUSSIS- RESP PCR PANEL NOT DETECTED; C. PNEUMONIAE- RESP PCR PANEL NOT DETECTED; CORONAVIRUS 229E-RESP PCR NOT DETECTED; CORONAVIRUS HKU1-RESP PCR NOT DETECTED; CORONAVIRUS NL63-RESP PCR NOT DETECTED; CORONAVIRUS OC43-RESP PCR NOT DETECTED; HUMAN METAPNEUMOVIRUS NOT DETECTED; INFLUENZA A- RESP PCR PANEL NOT DETECTED; INFLUENZA B - RESP PCR PANEL NOT DETECTED; M. PNEUMONIAE- RESP PCR PANEL NOT DETECTED; PARAINFLUENZA VIRUS 1 NOT DETECTED; PARAINFLUENZA VIRUS 2 NOT DETECTED; PARAINFLUENZA VIRUS 3 NOT DETECTED; PARAINFLUENZA VIRUS 4 NOT DETECTED; RHINOVIRUS/ENTEROVIRUS NOT DETECTED; RSV- RESP PCR PANEL NOT DETECTED; SARS-CoV-2 -RESP PCR PANEL NOT DETECTED
[2021-02-18] MEDS ORDERED: NALOXONE 0.4 MG/ML VIAL IVP ONE (03:57)
[2021-02-18] MEDS ORDERED: ACETAMINOPHEN 325 MG TABLET PO PRN (04:34)
[2021-02-18] MEDS ORDERED: ONDANSETRON 4 MG/2 ML VIAL IVP PRN (04:34)
[2021-02-18] MEDS ORDERED: PROPOFOL 500 MG/50 ML 500 MG/50 ML VIAL IV STA (04:37)
--- NOTE | 2021-02-18 04:39 | HISTORY & PHYSICAL EXAMINATION ---
Chief Complaint - Chief Complaint Chief Complaint: Found down History of Present Illness - Admitted From Admitted From:: Home - History Obtained From Records Reviewed: Yes History obtained from: ER Physician, EMR Exam Limitations: Patient is intubated and unable to provide a history. - History of Present Illness HPI Comment/Other: This is a 45-year-old female with a past medical history significant for diabetes, and complicated migraine who presents today after being found down at home. History is obtained from the emergency department physician as the patient is unable to provide a history due to her being intubated. The patient was reportedly in her usual state of health yesterday evening when her daughter tried to get a hold of her but she was unable to the daughter contacted the patient's neighbors who were unable to get to her and so they called 911 for further evaluation. Upon EMS arrival, they found the patient unresponsive and she was intubated for airway protection. A blood glucose was checked and it was elevated at 495. The patient is reportedly not on insulin. In the emergency department, she was noted to be hypothermic with a temperature of 32.7 C. Her heart rates were in the 70s and she was normotensive. Labs were significant for a lactic acid of 4.3 and a creatinine of 1.3. Her urine toxicology was positive for amphetamines, methamphetamines, and cannabinoids. Her alcohol level was less than 5. She underwent a CT of the head as well as a CTA of the head and neck which showed no acute abnormalities. She was given a dose of Narcan and it appeared that she responded to this as she she became a little more alert and was bucking the vent. She was ultimately sedated further for her safety and medicine was consulted for admission. 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 I am unable to update this given she is intubated. Social History Notes: Review of prior records state that she denies tobacco use, alcohol, illicit drugs. Her urine toxicology today is positive for amphetamines, methamphetamines, cannabinoids. - POLST Patient has POLST: No POLST Status: Full Code Meds/Allgy - Home Medications Home Medications: Ambulatory Orders Medication Instructions Recorded Confirmed clonazePAM [Clonazepam] 0.5 - 1 mg PO BID PRN 01/13/20 02/18/21 Gabapentin 600 mg PO TID 02/18/21 - Allergies Allergies/Adverse Reactions: Allergies Allergy/AdvReac Type Severity Reaction Status Date / Time ketorolac tromethamine * Allergy Itching Verified 02/18/21 02:37 [From Toradol] prednisone Allergy Respiratory Verified 02/18/21 02:37 hydrocodone bitartrate * AdvReac Itching Verified 02/18/21 02:37 [From Vicodin] Review of Systems - All Other Systems All Other Systems: reports: Other (Unable to obtain as she is intubated.) Prior Level of Functionality: It appears that she is independent with ADLs at baseline. Exam - Vital Signs Reviewed Vital Signs: Yes Vital Signs: Vital Signs x48h Temp Pulse Resp BP Pulse Ox 02/18/21 04:30 33.2 C L 94 26 H 141/109 H 100 02/18/21 04:15 33.1 C L 18 112/76 98 02/18/21 03:56 79 16 111/79 100 02/18/21 03:55 33.2 C L 02/18/21 03:37 84 02/18/21 03:35 33.4 C L 80 18 112/78 99 02/18/21 02:56 103/74 02/18/21 02:55 33.6 C L 74 20 102/73 98 02/18/21 02:48 32.7 C L 73 20 98/76 100 02/18/21 02:42 73 20 100/84 H 99 02/18/21 02:38 34.7 C L 122 H 136/112 H 100 - Physical Exam General Appearance: positive: Other (She appears comfortable and sedated on the ventilator.) Eyes Bilateral: positive: Conjunctivae nml, Other (Pupils dilated about 3 mm and sluggishly reactive to light.) ENT: positive: ENT inspection nml, Other (ET tube in place.) Neck: positive: Nml inspection Respiratory: positive: No respiratory distress, Rhonchi. negative: Wheezes, Rales Cardiovascular: positive: Regular rate & rhythm. negative: Tachycardia, Systolic murmur Abdomen: positive: Non-tender, No distention. negative: Tenderness Skin: positive: Warm, Dry Extremities: positive: No pedal edema Neurologic/Psychiatric: positive: Other (Unable to assess neurologic status as she is sedated.) Conclusion/Plan - Problem List (1) Drug overdose Conclusion/Plan: Suspect this is the cause of her unresponsiveness. Her urine toxicology is positive for amphetamines, methamphetamines, and cannabinoids. She did appear to respond to Narcan in the emergency department which would suggest opiates. The concern is if the methamphetamine may have been laced with opiates. At this time, we will keep her on propofol overnight with the plan to wean in the a.m. to assess her neurologic status. We will trial another dose of Narcan at that time if she is still not back to her baseline. I am hopeful that she will be able to be extubated at some point today. Social work consult has been placed. Qualifiers: Encounter type: initial encounter (2) On mechanically assisted ventilation Conclusion/Plan: She is intubated for airway protection alone. Her vent settings are minimal. Continue ventilator management as per protocol. I am hopeful she can be extubated later today. We will keep her on propofol for sedation. (3) Elevated lactic acid level Conclusion/Plan: Her lactic acid was elevated at 4.3 which I suspect is likely due to hypovolemia. There currently is no evidence of infection. Her x-ray shows no infiltrate and the initial urinalysis we have was a dirty catch. We will recheck lactic acid after she received IV fluids and continue IV hydration with lactated Ringer's. (4) Hypothermia Conclusion/Plan: She was hypothermic on her arrival to the emergency department. The etiology of this is not clear. She was not hypoglycemic. This may potentially be related to the overdose or environmental exposure as it is not clear where she was found. TSH has been ordered to evaluate for hypothyroidism. We will place her on a azam hugger for rewarming. Qualifiers: Encounter type: initial encounter Qualified Code(s): T68.XXXA - Hypothermia, initial encounter (5) Type 2 diabetes mellitus with hyperglycemia Conclusion/Plan: Her blood glucose initially over 400 but is now decreased to 188. She is reportedly not on insulin at home. We will check an A1c and keep her n.p.o. We will check a blood glucose every [address] her on sliding scale. We will add Lantus if necessary. 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 Do not believe that this is the cause of her acute presentation. CTA head and neck have been unremarkable. Qualifiers: Status migrainosus presence: without status migrainosus - Lab Results Lab results reviewed: Yes Fish Bones: 02/18/21 02:42 02/18/21 02:42 - Diagnostic Imaging Results Diagnostic Imaging Results: positive: Prelim report reviewed Core Measures - Anticipated LOS I expect patient to be DC'd or transferred within 96 hours.: Yes - Issues Hospital Issues and Management Plan: 45-year-old female found down suspect secondary to drug overdose who is now intubated. She will be placed in intensive care unit and monitored until she can be extubated. - DVT/VTE - Prophylaxis VTE/DVT Device ordered at admit?: Yes VTE/DVT Prophylaxis med ordered at admit?: Yes
[2021-02-18] MEDS: PROPOFOL 500 MG/50 ML 500 MG/50 ML VIAL IV SCH ×3 (04:52→21:12)
[2021-02-18 05:38] LABS: ALBUMIN 3.6 g/dL (3.2-5.5); ALBUMIN/GLOBULIN RATIO 1.1 (1.0-2.2); BILIRUBIN,TOTAL 0.5 mg/dL (0.2-1.0); CALCIUM 8.5 mg/dL (8.5-10.3); CREATININE 1.3 mg/dL (0.4-1.0); POTASSIUM 4.3 mmol/L (3.5-5.0); TOTAL PROTEIN 6.9 g/dL (6.7-8.2)
[2021-02-18 05:43] LABS: % IRON SATURATION 7 % (20-50); CK- CREATINE KINASE 120 IU/L (22-269); IRON 35 ug/dL (28-170); TOTAL IRON BINDING CAPACITY 519 ug/dL (250-450); TRANSFERRIN 371 mg/dL (192-382)
[2021-02-18 05:51] LABS: THYROID STIMULATING HORMONE 5.65 uIU/mL (0.34-5.60)
[2021-02-18 06:02] LABS: FOLATE 16.41 ng/mL (5.90 - >24.8)
[2021-02-18] MEDS: LACTATED RINGERS 1,000 ML IV SCH ×2 (06:13→18:09)
[2021-02-18] MEDS: SODIUM CHLORIDE FLUSH 0.9% 10 ML SYRINGE IVP PRN ×2 (06:15→21:12)
--- NOTE | 2021-02-18 08:08 | CT Report ---
PROCEDURE: HEAD WO INDICATIONS: Unresponsive TECHNIQUE: Noncontrast 4.5 mm thick angled axial sections acquired from the foramen magnum to the vertex. For r adiation dose reduction, the following was used: automated exposure control, adjustment of mA and/or kV according to patient size. COMPARISON: 01/12/2020 CTA head and neck FINDINGS: Image quality: Excellent. CSF spaces: Basal cisterns are patent. No extra-axial fluid collections. Ventricles are normal in size and shape. Brain: No midline shift. No intracranial masses or hemorrhage. Mueller-white matter interface is norm al. Skull and face: Calvarium and visualized facial bones are intact, without suspicious lesions. Sinuses: Visualized sinuses and mastoids are clear. IMPRESSION: No acute intracranial abnormality. No significant change from preliminary report. Reviewed by: David Michelle MD on 02/18/2021 8:07 AM PDT Approved by: David Michelle MD on 02/18/2021 8:07 AM PDT Station ID: [id number]
--- NOTE | 2021-02-18 08:09 | XRAY Report ---
PROCEDURE: Chest 1 View X-Ray INDICATIONS: Unresponsive; intubation TECHNIQUE: One view of the chest was acquired. COMPARISON: None FINDINGS: Surgical changes and devices: Endotracheal tube is in low position extending into the proximal right mainstem bronchus. Lungs and pleura: No pleural effusions or pneumothorax. Increased pulmonary vascular congestion. Min imal streaky linear opacity at the left lung base likely due to subsegmental atelectasis. Mediastinum: Mediastinal contours appear normal. Heart size is normal. Bones and chest wall: No suspicious bony lesions. Overlying soft tissues appear unremarkable. IMPRESSION: Low position of endotracheal tube. Retraction recommended, by approximately 2-3 cm. No significant ch batsheav from pulmonary report. Reviewed by: David Michelle MD on 02/18/2021 8:08 AM PDT Approved by: David Michelle MD on 02/18/2021 8:08 AM PDT Station ID: [id number]
[2021-02-18] MEDS: ENOXAPARIN 40 MG/0.4 ML SYRINGE SUBQ SCH (08:14)
--- NOTE | 2021-02-18 08:14 | CT Report ---
PROCEDURE: ANGIO HEAD W/WO INDICATIONS: Unresponsive CONTRAST: IV CONTRAST: Optiray 320 ml: 100 PO CONTRAST: *NO PO CONTRAST TECHNIQUE: Precontrast 4.5 mm thick angled axial sections acquired from the foramen magnum to the vertex. Afte r the administration of intravenous contrast, 1 mm thick sections acquired through the [place] is. Postcontrast 4.5 mm thick sections then re-acquired from the foramen magnum to the vertex. 3-di mensional sjsfujq-rpijxbvzs-dpniqugtws (MIP) and/or volume rendering reformats were acquired of the c entral intracranial vasculature. For radiation dose reduction, the following was used: automated ex posure control, adjustment of mA and/or kV according to patient size. COMPARISON: 01/12/2020 CT angiogram FINDINGS: Image quality: Excellent. Anterior circulation: Intracranial internal carotid arteries are normal in size and flow. Hypoplasti c left anterior cerebral artery as seen on prior study. The flow within the middle cerebral arteries is normal and symmetric. The anterior communicating artery is seen. No aneurysms are seen. Posterior circulation: Visualized portions of the vertebral arteries demonstrate normal caliber, and join to form a normal appearing basilar artery. Normal variant origin of the right SENIOR INTERNAL AUDITOR again noted. Flow within the posterior cerebral arteries is otherwise normal and symmetric. No aneurysms ar e seen. CSF spaces: Ventricles are normal in size and shape. Basal cisterns are patent. No extra-axial flu id collections. Brain: No midline shift. No intracranial bleeds or masses. Mueller-white matter interface appears int act. Skull and face: Calvarium and facial bones appear intact, without suspicious lesions. Sinuses: Visualized sinuses and mastoids are clear. IMPRESSION: No hemodynamically significant stenosis or occlusion of the major intracranial arterial circulation. No findings of intracranial aneurysm. Anatomic variants as described above. No significant change from pulmonary report. Reviewed by: David Michelle MD on 02/18/2021 8:12 AM PDT Approved by: David Michelle MD on 02/18/2021 8:12 AM PDT Station ID: [id number]
[2021-02-18] MEDS: SODIUM CHLORIDE FLUSH 0.9% 10 ML SYRINGE IVP SCH ×2 (08:15→18:32)
--- NOTE | 2021-02-18 08:16 | CT Report ---
PROCEDURE: ANGIO NECK W INDICATIONS: Unresponsive CONTRAST: IV CONTRAST: Optiray 320 ml: 100 PO CONTRAST: *NO PO CONTRAST TECHNIQUE: After the administration of intravenous contrast, 1.5 mm axial sections acquired from the aortic arch to the [place]. Coronal 3-D maximum intensity projection (MIP) and/or volume rendering ref ormats were then performed. For radiation dose reduction, the following was used: automated exposur e control, adjustment of mA and/or kV according to patient size. COMPARISON: CT angiogram of the neck 01/12/2020 FINDINGS: Image quality: Excellent. Carotid system: The great vessels demonstrate a conventional anatomy as they arise from the aortic a rch. The origins of the common carotid arteries appear patent. The common carotid arteries demonstr ate normal calibers and courses. The bifurcation regions appear normal bilaterally. The internal ca rotid arteries demonstrate normal caliber and course. Posterior circulation: The origins of the vertebral arteries appear patent. The more superior porti ons of the vertebral arteries demonstrate normal course and caliber. They join to form a normal appe aring basilar artery. Soft tissues: Endotracheal tube extends into the right mainstem bronchus. This finding was seen on pr eceding chest radiograph. Subsegmental bilateral atelectasis in the posterior/dependent lungs. Bones: No suspicious bony lesions. Visualized cervical spine appears normally aligned. IMPRESSION: No significant stenosis or vascular occlusion in the neck. No significant change from preliminary report. The estimate of stenosis included in the report of the imaging study was calculated using the NASCET method. CLINICAL RECOMMENDATION STATEMENTS: In patients <35 years with an ITN detected on CT, MRI, or extrathyroidal ultrasound, the Committee re commends further evaluation with dedicated thyroid ultrasound if the nodule is "e1 cm and has no susp icious imaging features, and if the patient has normal life expectancy. In patients "e35 years with an ITN detected on CT, MRI, or extrathyroidal ultrasound, the Committee r ecommends further evaluation with dedicated thyroid ultrasound if the nodule is "e1.5 cm and has no s uspicious imaging features, and if the patient has normal life expectancy. (ACR, 2014) Reviewed by: David Michelle MD on 02/18/2021 8:15 AM PDT Approved by: David Michelle MD on 02/18/2021 8:15 AM PDT Station ID: [id number]
[2021-02-18] MEDS ORDERED: CYANOCOBALAMIN 1,000 MCG/ML VIAL IM ONE (11:15)
[2021-02-18] MEDS: INSULIN REGULAR HUMAN 300 UNIT/3 ML VIAL SUBQ SCH ×2 (11:28→18:32)
[2021-02-18 13:14] LABS: ESTIMATED AVERAGE GLUCOSE 143 mg/dL (70-100); HEMOGLOBIN A1c% 6.6 % (4.27-6.07)
--- NOTE | 2021-02-18 14:28 | PROVIDER PROGRESS NOTE ---
Hospitalist Cross-cover Note - Cross-Cover Note Cross-Cover Note: Patient admitted by my colleague earlier this morning with suspected drug overdose and respiratory suppression intubated in the field for airway protection. Patient has been off propofol since this morning, but still continues to be overly lethargic and with bradypnea. Unable to extubate this afternoon, continue to follow.
[2021-02-18] MEDS ORDERED: DEXTROSE 50% ABBOJECT 25 GM/50 ML SYRINGE IVP ONE (18:14)
[2021-02-18] MEDS: DEXTROSE 5% 1,000 ML IV SCH (20:20)
--- NOTE | 2021-02-18 22:38 | XRAY Report ---
PROCEDURE: Chest 1 View X-Ray INDICATIONS: fever, on vent, eval for aspiration pneumonia TECHNIQUE: One view of the chest was acquired. COMPARISON: CXR and lung apices on CT angiogram neck earlier today. FINDINGS: Surgical changes and devices: Tracheal tube in the mid trachea. This has been pulled back compared ea rlier today. Cystectomy clips. Lungs and pleura: No pleural effusions or pneumothorax. Lungs appear clear. No consolidation. Lung volumes are within normal limits. Mediastinum: Mediastinal contours appear normal. Heart size is at the upper limits of normal. There is decreased but likely due to technique. Bones and chest wall: No suspicious bony lesions. Overlying soft tissues appear unremarkable. IMPRESSION: No consolidation demonstrated. Endotracheal tube in the mid trachea is in the expected position. Reviewed by: Nelson Patterson MD on 02/18/2021 10:37 PM PDT Approved by: Nelson Patterson MD on 02/18/2021 10:37 PM PDT Station ID: [id number]
[2021-02-18 23:34] LABS: BILIRUBIN,URINE NEGATIVE (NEGATIVE); GLUCOSE, URINE (UA) NEGATIVE (NEGATIVE); KETONES,URINE (UA) >=80 mg/dL (NEGATIVE); LEUKOCYTE ESTERASE, URINE TRACE (NEGATIVE); NITRITE,URINE NEGATIVE (NEGATIVE); OCCULT BLOOD,URINE TRACE-INTA (NEGATIVE); PROTEIN,URINE NEGATIVE (NEGATIVE); UROBILINOGEN,URINE 1 (NORMAL) E.U./dL (NORMAL)
[2021-02-18 23:38] LABS: CLARITY,URINE CLEAR (CLEAR)
[2021-02-18 23:41] LABS: BACTERIA,URINE Rare /HPF (None Seen); RBC,URINE 0-5 /HPF (0-5); SQUAMOUS EPITHELIAL CELL,UR FEW Squamous (<= Few)
[2021-02-19] MEDS: DEXTROSE 5% 1,000 ML IV SCH ×3 (00:13→21:51)
[2021-02-19] MEDS: INSULIN REGULAR HUMAN 300 UNIT/3 ML VIAL SUBQ SCH ×4 (00:13→19:56)
[2021-02-19] MEDS: SODIUM CHLORIDE FLUSH 0.9% 10 ML SYRINGE IVP SCH ×3 (00:16→19:57)
[2021-02-19] MEDS: LACTATED RINGERS 1,000 ML IV SCH (01:30)
[2021-02-19] MEDS: PROPOFOL 500 MG/50 ML 500 MG/50 ML VIAL IV SCH ×5 (02:10→14:18)
[2021-02-19] MEDS: ACETAMINOPHEN 1,000 MG/100 ML 100 ML IV PRN ×2 (02:14→20:47)
[2021-02-19 05:24] LABS: BASOPHILS % (AUTO) 0.3 %; EOSINOPHILS % (AUTO) 0.4 %; HGB - HEMOGLOBIN 9.3 g/dL (12.0-16.0); LYMPHOCYTES % (AUTO) 27.8 %; MEAN CORPUSCULAR HEMOGLOBIN 25.7 pg (27.0-31.0); MEAN CORPUSCULAR VOLUME 82.9 fL (81.0-99.0); MEAN PLATELET VOLUME 12.1 fL (7.9-10.8); MONOCYTES # (AUTO) 0.5 10^3/uL (0.0-1.0); MONOCYTES % (AUTO) 7.5 %; NEUTROPHILS # (AUTO) 4.6 10^3/uL (1.5-6.6); NEUTROPHILS % (AUTO) 63.7 %; PLT - PLATELET COUNT 204 10^3/uL (130-450); RED BLOOD COUNT 3.62 10^6/uL (4.20-5.40); RED CELL DISTRIBUTION WIDTH 15.8 % (12.0-15.0); WHITE BLOOD COUNT 7.2 x10^3/uL (4.8-10.8)
[2021-02-19 05:43] LABS: CALCIUM 8.5 mg/dL (8.5-10.3); CREATININE 0.7 mg/dL (0.4-1.0); MAGNESIUM 1.5 mg/dL (1.7-2.8); PHOSPHORUS 3.3 mg/dL (2.5-4.6); POTASSIUM 3.1 mmol/L (3.5-5.0)
[2021-02-19] MEDS: POTASSIUM CHLOR 10 MEQ/100 ML 10 MEQ/100 ML BAG IV SCH ×4 (06:58→11:23)
[2021-02-19] MEDS ORDERED: MAGNESIUM SULFATE 2 GRAM 2 GM/50 ML BAG IV ONE (07:00)
[2021-02-19] MEDS: ENOXAPARIN 40 MG/0.4 ML SYRINGE SUBQ SCH (09:01)
--- NOTE | 2021-02-19 18:20 | PHARMACY PROGRESS NOTE ---
- Best Possible Medication History Admit Date and Time: 02/18/21 0434 Processed by: Pharmacy Medication History completed: Yes Patient Interview: Completed Secondary Source(s): Pharmacy records, Insurance records As the person ultimately responsible for medication therapy, providers are able to order a medication from an existing home medication list in [facility] via the "Reconcile Routine" prior to Confirmation of that medication by youth support worker. Such practice is discouraged except when the physician, in their clinical judgment, deems that a medical need exists for a medication without regard to previous use.
--- NOTE | 2021-02-19 18:24 | PROVIDER PROGRESS NOTE ---
Assessment/Plan - Problem List (1) Acute respiratory failure Assessment/Plan: Patient intubated prior to admission with suspected drug overdose but not certain as only methamphetamines and marijuana found in U tox, neither of which would typically explain these symptoms. Patient was intubated up until approximately 4 PM this afternoon at which point she was awake and alert and showed good signs of tolerating extubation. Patient was extubated under controlled environment and responded well, able to speak and follow commands and maintain good airway with good oxygen saturation and normal vitals. Continue observation and consider suicidality risk screening tomorrow and if cleared then possible discharge tomorrow - Current Meds Current Meds: Current Medications Generic Name Dose Route Start Last Admin Trade Name Freq PRN Reason Stop Dose Admin Enoxaparin Sodium 40 mg 02/18/21 09:00 02/19/21 09:01 Enoxaparin 40 Mg/0.4 Ml Syringe SUBQ 40 mg DAILY KENDAL Administration Propofol 500 mg in 50 mls @ 6.102 mls/hr 02/18/21 05:00 02/19/21 16:01 Diprivan IV 0 mcg/kg/min .Q8H12M KENDAL 0 mls/hr Titration Protocol 10 MCG/KG/MIN Dextrose 1,000 mls @ 100 mls/hr 02/18/21 19:00 02/19/21 10:35 D5w IV 100 mls/hr .Q10H KENDAL Administration Acetaminophen 100 mls @ 400 mls/hr 02/18/21 22:06 02/19/21 03:10 Ofirmev IV Infused Q6HR PRN Infusion Pain or Fever > 38C (100.4F) Insulin Human Regular 1 - 9 unit 02/18/21 12:00 02/19/21 14:19 Insulin Regular Human 300 Unit/3 Ml Vial SUBQ Not Given Q6HR KENDAL Protocol Sodium Chloride 10 ml 02/18/21 09:00 02/19/21 09:01 Sodium Chloride Flush 0.9% 10 Ml Syringe IVP 10 ml 0100,0900,1700 KENDAL Administration Sodium Chloride 10 ml 02/18/21 04:34 02/18/21 21:12 Sodium Chloride Flush 0.9% 10 Ml Syringe IVP 10 ml PRN PRN Administration NEEDED PER PROVIDER ORDERS - Lab Result Fish Bone Diagrams: 02/19/21 04:50 02/19/21 04:50 - Additional Planning Condition/Complexity: Improved My Orders: My Active Orders 02/19/21 12:13 Initiate NonViolent Restraint [RC] .PerProtocol Plan Discussed with:: Patient, Family Time Spent: 31-60 minutes Subjective - Subjective Patient Reports: Feeling Better Objective Vital Signs: Vital Signs - 24 hr 02/18/21 02/18/21 02/18/21 19:00 19:20 20:00 Temperature 38.2 C H Heart Rate 74 Heart Rate [ 81 67 Monitoring electrodes] Respiratory 16 16 Rate Blood Pressure 130/79 112/76 [Right Brachial artery] O2 Saturation 100 100 02/18/21 02/18/21 02/18/21 21:00 21:45 22:00 Temperature Heart Rate 73 Heart Rate [ 66 74 Monitoring electrodes] Respiratory 16 16 Rate Blood Pressure 132/86 H 145/85 H [Right Brachial artery] O2 Saturation 100 100 02/18/21 02/18/21 02/19/21 23:00 23:40 00:00 Temperature 38.1 C H Heart Rate 79 Heart Rate [ 93 80 Monitoring electrodes] Respiratory 18 15 Rate Blood Pressure 144/81 H 142/95 H [Right Brachial artery] O2 Saturation 100 100 02/19/21 02/19/21 02/19/21 01:00 01:40 02:00 Temperature Heart Rate 67 Heart Rate [ 70 70 Monitoring electrodes] Respiratory 16 16 Rate Blood Pressure 146/89 H 137/92 H [Right Brachial artery] O2 Saturation 100 100 02/19/21 02/19/21 02/19/21 03:00 03:40 04:00 Temperature 37.8 C Heart Rate 67 Heart Rate [ 69 68 Monitoring electrodes] Respiratory 16 16 Rate Blood Pressure 128/83 H 142/72 H [Right Brachial artery] O2 Saturation 100 100 02/19/21 02/19/21 02/19/21 05:00 05:45 06:00 Temperature 37.4 C 37.6 C Heart Rate 69 Heart Rate [ 58 L 67 Monitoring electrodes] Respiratory 16 16 Rate Blood Pressure 154/91 H 135/87 H [Right Brachial artery] O2 Saturation 100 100 02/19/21 02/19/21 02/19/21 07:00 08:00 09:00 Temperature 37.6 C 37.5 C Heart Rate Heart Rate [ 70 60 66 Monitoring electrodes] Respiratory 16 16 15 Rate Blood Pressure 158/87 H 158/87 H 147/73 H [Right Brachial artery] O2 Saturation 100 100 100 02/19/21 02/19/21 02/19/21 10:00 11:00 12:00 Temperature 37.5 C 37.5 C Heart Rate Heart Rate [ 66 69 63 Monitoring electrodes] Respiratory 15 16 16 Rate Blood Pressure 147/73 H 117/77 135/78 H [Right Brachial artery] O2 Saturation 100 100 100 02/19/21 02/19/21 02/19/21 13:00 14:00 15:00 Temperature 37.6 C 37.5 C 37.4 C Heart Rate Heart Rate [ 69 65 69 Monitoring electrodes] Respiratory 16 16 26 H Rate Blood Pressure 127/78 130/88 H 126/80 [Right Brachial artery] O2 Saturation 100 100 100 02/19/21 02/19/21 02/19/21 15:35 16:00 17:00 Temperature 37.5 C 37.6 C Heart Rate 84 Heart Rate [ 65 77 Monitoring electrodes] Respiratory 16 18 Rate Blood Pressure 141/87 H 131/95 H [Right Brachial artery] O2 Saturation 100 100 02/19/21 18:00 Temperature 37.4 C Heart Rate Heart Rate [ 80 Monitoring electrodes] Respiratory 12 Rate Blood Pressure 139/91 H [Right Brachial artery] O2 Saturation Oxygen O2 Source Nasal cannula I&O (Last 24 Hrs): Intake and Output Totals x24h 02/17/21 02/18/21 02/19/21 23:59 23:59 23:59 Intake Total 3152.295 2479.500 Output Total 1879 5745 Balance 1273.295 -3265.500 General: Alert HEENT: Atraumatic Neck: Supple Lymphatic: no adenopathy Neuro: Alert, CN 2-12 Grossly Intact Cardiovascular: Regular rate, Normal S1, Normal S2 Respiratory: No respiratory distress, Breath sounds nml - Results Results: Laboratory Results WBC 7.2 x10^3/uL (4.8-10.8) 02/19/21 04:50 RBC 3.62 10^6/uL (4.20-5.40) L 02/19/21 04:50 Hgb 9.3 g/dL (12.0-16.0) L 02/19/21 04:50 Hct 30.0 % (37.0-47.0) L 02/19/21 04:50 MCV 82.9 fL (81.0-99.0) 02/19/21 04:50 MCH 25.7 pg (27.0-31.0) L 02/19/21 04:50 MCHC 31.0 g/dL (32.0-36.0) L 02/19/21 04:50 RDW 15.8 % (12.0-15.0) H 02/19/21 04:50 Plt Count 204 10^3/uL (130-450) 02/19/21 04:50 MPV 12.1 fL (7.9-10.8) H 02/19/21 04:50 Neut # (Auto) 4.6 10^3/uL (1.5-6.6) 02/19/21 04:50 Lymph # (Auto) 2.0 10^3/uL (1.5-3.5) 02/19/21 04:50 Schuyler # (Auto) 0.5 10^3/uL (0.0-1.0) 02/19/21 04:50 Eos # (Auto) 0.0 10^3/uL (0.0-0.7) 02/19/21 04:50 Baso # (Auto) 0.0 10^3/uL (0.0-0.1) 02/19/21 04:50 Absolute Nucleated RBC 0.00 x10^3/uL 02/19/21 04:50 Nucleated RBC % 0.0 /100WBC 02/19/21 04:50 Bld Gas Analysis Time 0330 02/18/21 03:25 Sample Site LEFT RADIAL 02/18/21 03:25 ABG pH 7.32 (7.35-7.45) L 02/18/21 03:25 ABG pCO2 45 mmHg (34-45) 02/18/21 03:25 ABG pO2 163 mmHg (80-100) H* 02/18/21 03:25 ABG HCO3 22.8 mmol/L (22.0-26.0) 02/18/21 03:25 ABG Total CO2 24.2 MMOL/L (21.0-29.0) 02/18/21 03:25 ABG O2 Saturation 99 % (94-98) H 02/18/21 03:25 ABG Base Excess -3.2 mmol/L (-2.0-3.0) L 02/18/21 03:25 Alejandro Test POSITIVE 02/18/21 03:25 Respiration Rate 20 b/min 02/18/21 03:25 O2 Delivery Device VENTILATOR 02/18/21 03:25 Vent Mode SIMV 02/18/21 03:25 FiO2 50.00 02/18/21 03:25 Tidal Volume 370 mL 02/18/21 03:25 PEEP 5 cmH2O 02/18/21 03:25 Sodium 137 mmol/L (135-145) 02/19/21 04:50 Potassium 3.1 mmol/L (3.5-5.0) L 02/19/21 04:50 Chloride 103 mmol/L (101-111) 02/19/21 04:50 Carbon Dioxide 23 mmol/L (21-32) 02/19/21 04:50 Anion Gap 11.0 (6-13) 02/19/21 04:50 BUN 8 mg/dL (6-20) 02/19/21 04:50 Creatinine 0.7 mg/dL (0.4-1.0) 02/19/21 04:50 Estimated GFR (MDRD) 91 (>89) 02/19/21 04:50 Glucose 128 mg/dL (70-100) H 02/19/21 04:50 Estimat Average Glucose 143 mg/dL (70-100) H 02/18/21 02:42 Hemoglobin A1c % 6.6 % (4.27-6.07) H 02/18/21 02:42 Lactic Acid 2.4 mmol/L (0.5-2.2) H 02/18/21 07:46 Calcium 8.5 mg/dL (8.5-10.3) 02/19/21 04:50 Phosphorus 3.3 mg/dL (2.5-4.6) 02/19/21 04:50 Magnesium 1.5 mg/dL (1.7-2.8) L 02/19/21 04:50 Iron 35 ug/dL (28-170) 02/18/21 02:42 TIBC 519 ug/dL (250-450) H 02/18/21 02:42 % Saturation 7 % (20-50) L 02/18/21 02:42 Transferrin 371 mg/dL (192-382) 02/18/21 02:42 Ferritin 7.0 ng/mL (11.0-306.8) L 02/18/21 02:42 Total Bilirubin 0.5 mg/dL (0.2-1.0) 02/18/21 02:42 AST 103 IU/L (10-42) H 02/18/21 02:42 ALT 33 IU/L (10-60) 02/18/21 02:42 Alkaline Phosphatase 74 IU/L (42-121) 02/18/21 02:42 Ammonia 30.0 umol/L (7-35) 02/18/21 07:46 Total Creatine Kinase 120 IU/L (22-269) 02/18/21 02:42 Total Protein 6.9 g/dL (6.7-8.2) 02/18/21 02:42 Albumin 3.6 g/dL (3.2-5.5) 02/18/21 02:42 Globulin 3.3 g/dL (2.1-4.2) 02/18/21 02:42 Albumin/Globulin Ratio 1.1 (1.0-2.2) 02/18/21 02:42 Lipase 41 U/L (22-51) 02/18/21 02:42 Vitamin B12 185 pg/mL (180-914) 02/18/21 02:42 Folate 16.41 ng/mL (5.90 - >24.8) 02/18/21 02:42 TSH 5.65 uIU/mL (0.34-5.60) H 02/18/21 02:42 Urine Color YELLOW 02/18/21 23:20 Urine Clarity CLEAR (CLEAR) 02/18/21 23:20 Urine pH 6.0 PH (5.0-7.5) 02/18/21 23:20 Ur Specific [place] 1.020 (1.002-1.030) 02/18/21 23:20 Urine Protein NEGATIVE mg/dL (NEGATIVE) 02/18/21 23:20 Urine Glucose (UA) NEGATIVE mg/dL (NEGATIVE) 02/18/21 23:20 Urine Ketones >=80 mg/dL (NEGATIVE) H 02/18/21 23:20 Urine Occult Blood TRACE-INTA (NEGATIVE) 02/18/21 23:20 Urine Nitrite NEGATIVE (NEGATIVE) 02/18/21 23:20 Urine Bilirubin NEGATIVE (NEGATIVE) 02/18/21 23:20 Urine Urobilinogen 1 (NORMAL) E.U./dL (NORMAL) 02/18/21 23:20 Ur Leukocyte Esterase TRACE (NEGATIVE) H 02/18/21 23:20 Urine RBC 0-5 /HPF (0-5) 02/18/21 23:20 Urine WBC 6-10 /HPF (0-5) H 02/18/21 23:20 Ur Squamous Epith Cells FEW Squamous (<= Few) 02/18/21 23:20 Amorphous Sediment Few /LPF 02/18/21 02:45 Urine Bacteria Rare /HPF (None Seen) 02/18/21 23:20 Ur Microscopic Review INDICATED 02/18/21 02:45 Urine Culture Comments INDICATED 02/18/21 23:20 Urine HCG, Qual NEGATIVE 02/18/21 02:45 Nasal Adenovirus (PCR) NOT DETECTED 02/18/21 02:47 Nasal B. parapertussis DNA (PCR) NOT DETECTED 02/18/21 02:47 Nasal Coronavir 229E PCR NOT DETECTED 02/18/21 02:47 Nasal Coronavir HKU1 PCR NOT DETECTED 02/18/21 02:47 Nasal Coronavir NL63 PCR NOT DETECTED 02/18/21 02:47 Nasal Coronavir OC43 PCR NOT DETECTED 02/18/21 02:47 Nasal Enterovir/Rhinovir PCR NOT DETECTED 02/18/21 02:47 Nasal Influenza B PCR NOT DETECTED 02/18/21 02:47 Nasal Influenza A PCR NOT DETECTED 02/18/21 02:47 Nasal Parainfluen 1 PCR NOT DETECTED 02/18/21 02:47 Nasal Parainfluen 2 PCR NOT DETECTED 02/18/21 02:47 Nasal Parainfluen 3 PCR NOT DETECTED 02/18/21 02:47 Nasal Parainfluen 4 PCR NOT DETECTED 02/18/21 02:47 Nasal RSV (PCR) NOT DETECTED 02/18/21 02:47 Nasal Screen MRSA (PCR) NEGATIVE (NEGATIVE) 02/18/21 06:00 Nasal B.pertussis DNA PCR NOT DETECTED 02/18/21 02:47 Nasal C.pneumoniae (PCR) NOT DETECTED 02/18/21 02:47 Jamie Human Metapneumo PCR NOT DETECTED 02/18/21 02:47 Nasal M.pneumoniae (PCR) NOT DETECTED 02/18/21 02:47 Nasal SARS-CoV-2 (PCR) NOT DETECTED 02/18/21 02:47 Urine Opiates Screen NEGATIVE (NEGATIVE) 02/18/21 02:45 Ur Oxycodone Screen NEGATIVE (NEGATIVE) 02/18/21 02:45 Urine Methadone Screen NEGATIVE (NEGATIVE) 02/18/21 02:45 Ur Propoxyphene Screen NEGATIVE (NEGATIVE) 02/18/21 02:45 Ur Barbiturates Screen NEGATIVE (NEGATIVE) 02/18/21 02:45 Ur Tricyclics Screen NEGATIVE (NEGATIVE) 02/18/21 02:45 Ur Phencyclidine Scrn NEGATIVE (NEGATIVE) 02/18/21 02:45 Ur Amphetamine Screen POSITIVE (NEGATIVE) H 02/18/21 02:45 U Methamphetamines Scrn POSITIVE (NEGATIVE) H 02/18/21 02:45 U Benzodiazepines Scrn NEGATIVE (NEGATIVE) 02/18/21 02:45 Urine Cocaine Screen NEGATIVE (NEGATIVE) 02/18/21 02:45 U Cannabinoids Screen POSITIVE (NEGATIVE) H 02/18/21 02:45 Ethyl Alcohol < 5.0 mg/dL 02/18/21 02:42 ABX Reporting Has patient been on IV antibiotics over the past 48 hours?: No Current Medications - Current Medications Current Medications: Current Medications Generic Name Dose Route Start Last Admin Trade Name Freq PRN Reason Stop Dose Admin Enoxaparin Sodium 40 mg 02/18/21 09:00 02/19/21 09:01 Enoxaparin 40 Mg/0.4 Ml Syringe SUBQ 40 mg DAILY KENDAL Administration Propofol 500 mg in 50 mls @ 6.102 mls/hr 02/18/21 05:00 02/19/21 16:01 Diprivan IV 0 mcg/kg/min .Q8H12M KENDAL 0 mls/hr Titration Protocol 10 MCG/KG/MIN Dextrose 1,000 mls @ 100 mls/hr 02/18/21 19:00 02/19/21 10:35 D5w IV 100 mls/hr .Q10H KENDAL Administration Acetaminophen 100 mls @ 400 mls/hr 02/18/21 22:06 02/19/21 03:10 Ofirmev IV Infused Q6HR PRN Infusion Pain or Fever > 38C (100.4F) Insulin Human Regular 1 - 9 unit 02/18/21 12:00 02/19/21 14:19 Insulin Regular Human 300 Unit/3 Ml Vial SUBQ Not Given Q6HR KENDAL Protocol Sodium Chloride 10 ml 02/18/21 09:00 02/19/21 09:01 Sodium Chloride Flush 0.9% 10 Ml Syringe IVP 10 ml 0100,0900,1700 KENDAL Administration Sodium Chloride 10 ml 02/18/21 04:34 02/18/21 21:12 Sodium Chloride Flush 0.9% 10 Ml Syringe IVP 10 ml PRN PRN Administration NEEDED PER PROVIDER ORDERS
[2021-02-19] MEDS: LORazepam 0.5 MG TABLET PO PRN (21:51)
[2021-02-19] MEDS: GABAPENTIN 300 MG CAPSULE PO SCH (21:51)
[2021-02-20] MEDS ORDERED: DEXTROSE 5% 1,000 ML IV SCH (00:15)
[2021-02-20] MEDS: INSULIN REGULAR HUMAN 300 UNIT/3 ML VIAL SUBQ SCH (00:32)
[2021-02-20] MEDS: SODIUM CHLORIDE FLUSH 0.9% 10 ML SYRINGE IVP SCH ×2 (00:33→09:00)
[2021-02-20 05:01] LABS: CALCIUM, IONIZED 1.1 mmol/L (1.15-1.33); VBG PH 7.37 (7.31-7.41)
[2021-02-20 05:14] LABS: CALCIUM 8.5 mg/dL (8.5-10.3); CREATININE 0.9 mg/dL (0.4-1.0); PHOSPHORUS 4.5 mg/dL (2.5-4.6); POTASSIUM 3.6 mmol/L (3.5-5.0)
[2021-02-20] MEDS: LORazepam 0.5 MG TABLET PO PRN ×2 (05:31→12:00)
[2021-02-20] MEDS: GABAPENTIN 300 MG CAPSULE PO SCH (05:31)
[2021-02-20] MEDS: INSULIN ASPART 300 UNIT/3 ML PEN SUBQ SCH ×2 (08:46→11:45)
[2021-02-20] MEDS: ENOXAPARIN 40 MG/0.4 ML SYRINGE SUBQ SCH (08:48)
--- NOTE | 2021-02-20 10:49 | Discharge Plan ---
Discharge Plan Problem Reviewed?: Yes Disposition: Home, Self Care Condition: Good Diet: Regular Activity Restrictions: No Restrictions Shower Restrictions: No Driving Restrictions: No Instruction Topics: ED Overdose Accidental Health Concerns: Please remember, do not take any drugs or pills that did not come from a pharmacy. Always discuss with your doctor before making changes to your medications. Additional Instructions or Follow Up instructions: Please follow-up with your PCP. It may be worth reviewing your gabapentin dosing, as this can sometimes cause periods of oversedation. No Smoking: If you smoke, Please STOP! Call for help.
--- NOTE | 2021-02-20 11:00 | DISCHARGE SUMMARY ---
Discharge Summary Admit Date: 02/18/21 Discharge Date: 02/20/21 Discharging Provider: Hayden Cárdenas MD Code Status: Attempt Resuscitation Condition at Discharge: Good Discharge Disposition: 01 Home, Self Care - DIAGNOSES Admission Diagnoses: Drug overdose Mechanically assisted ventilation Elevated lactic acid level Hypothermia Type 2 diabetes mellitus with hyperglycemia Migraine, hemiplegic Discharge Diagnoses with Status of Each Condition: Drug overdose - resolved Mechanically assisted ventilation - resolved Elevated lactic acid level - resolved Hypothermia - resolved Type 2 diabetes mellitus with hyperglycemia - stable Migraine, hemiplegic - resolved - HPI History of Present Illness: This is a 45-year-old female with a past medical history significant for diabetes, and complicated migraine who presents today after being found down at home. History is obtained from the emergency department physician as the patient is unable to provide a history due to her being intubated. The patient was reportedly in her usual state of health yesterday evening when her daughter tried to get a hold of her but she was unable to the daughter contacted the patient's neighbors who were unable to get to her and so they called 911 for further evaluation. Upon EMS arrival, they found the patient unresponsive and she was intubated for airway protection. A blood glucose was checked and it was elevated at 495. The patient is reportedly not on insulin. In the emergency department, she was noted to be hypothermic with a temperature of 32.7 C. Her heart rates were in the 70s and she was normotensive. Labs were significant for a lactic acid of 4.3 and a creatinine of 1.3. Her urine toxicology was positive for amphetamines, methamphetamines, and cannabinoids. Her alcohol level was less than 5. She underwent a CT of the head as well as a CTA of the head and neck which showed no acute abnormalities. She was given a dose of Narcan and it appeared that she responded to this as she she became a little more alert and was bucking the vent. She was ultimately sedated further for her safety and medicine was consulted for admission. - HOSPITAL COURSE Hospital Course: Patient was intubated on admission. She was maintained on mechanical ventilation for approximately 36 hours. Attempts were made to wean her off the ventilator with CPAP mode however for several hours the day after admission she continued to be lethargic and off and with low enough respiratory rate to make extubation uncertain. By 02/19/2021 around 4 PM she was awake, following commands, and tolerated extubation very well. No significant metabolic abnormalities were identified during the hospital stay. Urine drug screen was positive only for methamphetamines, amphetamines, and marijuana. Once awake, further history was reviewed with the patient. She denied any suicidal intention or ideation. She states that she had recently injured her left shoulder at home. To manage the pain, she borrowed a friend's pill that she thought was a Percocet 10 mg tablet. Her friend gave her 2 tabl ets, she took 1 and 1 with her. When she was awakened in the hospital, she showed our pharmacist the second tablet to see if it could be identified. Apparently our pharmacist identified this is a counterfeit pill. Suspicion is that she may have had an overdose on fentanyl from the illicit narcotic pill epidemic that we are currently experiencing. Interestingly however, this did not show up on the urine tox. Given when she was awake, eating her breakfast, and essentially back at her baseline mental status with no evidence of suicidal behavior or thoughts she was deemed to be medically safe for discharge. She was encouraged strongly to avoid any pills that were not specifically prescribed by her doctor and from a pharmacy. - ALLERGIES Allergies/Adverse Reactions: Allergies Allergy/AdvReac Type Severity Reaction Status Date / Time ketorolac tromethamine * Allergy Itching Verified 02/18/21 02:37 [From Toradol] prednisone Allergy Respiratory Verified 02/18/21 02:37 hydrocodone bitartrate * AdvReac Itching Verified 02/18/21 02:37 [From Vicodin] - MEDICATIONS Home Medications: Ambulatory Orders Medication Instructions Recorded Confirmed clonazePAM [Clonazepam] 0.5 - 1 mg PO BID PRN 01/13/20 02/18/21 Gabapentin 600 mg PO TID 02/18/21 02/19/21 - PHYSICAL EXAM AT DISCHARGE General Appearance: positive: No acute distress Eyes Bilateral: positive: Normal inspection ENT: positive: ENT inspection nml Neck: positive: Nml inspection Respiratory: positive: Chest non-tender Cardiovascular: positive: Regular rate & rhythm, No murmur, No gallop Abdomen: positive: Non-tender, No organomegaly, Nml bowel sounds Skin: positive: Color nml, No rash Extremities: positive: No pedal edema Neurologic/Psychiatric: positive: Oriented x3, CN's nml (2-12), Motor nml, Mood/affect nml. negative: Depressed mood/affect - LABS Result Diagrams: 02/19/21 04:50 02/20/21 04:48 - DIAGNOSTIC IMAGING Diagnostic Imaging Results: Final report reviewed - FOLLOW UP Follow Up: Follow-up with PCP when established (she wants to switch to her neighbors PCP). - TIME SPENT Time Spent in Discharge (Minutes): 33
[2021-02-20 13:15] VITALS: BP 95/64
== END 2021-02-20 13:35 | disposition home or self-care (01) | DRG 918 ==
LOC: EDUNIT# → ED 02:30 → ICU 04:34
PROVIDERS: ADMIT Internal Medicine; ATTEND Family Medicine Sports Medicine
DX: T43.621A Poisoning by amphetamines, accidental (unintentional), initial encounter (principal); Y92.009 Unspecified place in unspecified non-institutional (private) residence as the place of occurrence of the external cause; E86.1 Hypovolemia; R74.02 Elevation of levels of lactic acid dehydrogenase [LDH]; T68.XXXA Hypothermia, initial encounter; E11.65 Type 2 diabetes mellitus with hyperglycemia; G43.409 Hemiplegic migraine, not intractable, without status migrainosus; Z20.822 Contact with and (suspected) exposure to COVID-19
CPT/HCPCS: 0202U; 36415; 36600; 70450; 70496; 70498; 71045; 80048; 80053; 80306; 80320; 81001; 81025; 82140; 82330; 82550; 82607; 82728; 82746; 82803; 83036; 83540; 83605; 83690; 83735; 84100; 84443; 84466; 85025; 87040; 87086; 87150; 94002; 94003; 96365; 96375; 99285; A9270; J0131; J1200; J1650; J7120; Q9967; 81003; 94770

== ENCOUNTER 2021-03-03 16:21 | Outpatient (CLI) | payer MEDICAID | END 2021-03-03 16:22 | disposition critical access hospital (66) | LOC: EMS 16:21 | DX: R05.9 Cough, unspecified (principal); R44.8 Other symptoms and signs involving general sensations and perceptions; R53.1 Weakness; R43.9 Unspecified disturbances of smell and taste; Z20.822 Contact with and (suspected) exposure to COVID-19 | CPT/HCPCS: A0425; A0429; A0999 ==

== ENCOUNTER 2021-03-03 16:38 | Emergency (ER) | payer MEDICAID ==
[2021-03-03] MEDS ORDERED: BENZONATATE 100 MG CAPSULE PO STA (17:15)
--- NOTE | 2021-03-03 17:53 | XRAY Report ---
PROCEDURE: Chest 1 View X-Ray INDICATIONS: chest pain TECHNIQUE: One view of the chest was acquired. COMPARISON: 02/18/2021 FINDINGS: Surgical changes and devices: Cholecystectomy clips.. Lungs and pleura: No pleural effusions or pneumothorax. Lungs are clear. Mediastinum: Mediastinal contours appear normal. Heart size is normal. Bones and chest wall: No suspicious bony lesions. No suspicious soft tissue abnormality. IMPRESSION: No evidence of an acute cardiopulmonary abnormality. Reviewed by: Domenico Spencer DO on 03/03/2021 4:52 PM NARESH Approved by: Domenico Spencer DO on 03/03/2021 4:52 PM NARESH Station ID: [id number]
--- NOTE | 2021-03-03 18:00 | ED Physician Documentation ---
PD HPI URI - Stated complaint Stated Complaint: COUGH W/PX - Chief complaint Chief Complaint: Resp - History obtained from History obtained from: Patient - Additional information Additional information: Patient presents to the emergency department with chief complaints of cough, congestion, body aches, loss of taste sense of smell. Past medical significant for recent hospitalization requiring intubation for accidental drug overdose. Reports immediately upon getting home on the seventh of this month a close family member, her mother, reported being Covid positive. Her symptoms have been ongoing for the last 3-4 days. Review of Systems Ten Systems: 10 systems reviewed and negative Constitutional: reports: Fever, Myalgias. denies: Chills Eyes: denies: Loss of vision Ears: denies: Loss of hearing Nose: reports: Rhinorrhea / runny nose, Congestion Cardiac: denies: Chest pain / pressure Respiratory: reports: Cough GI: reports: Nausea. 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, 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 - Present Medications Home Medications: Ambulatory Orders Medication Instructions Recorded Confirmed clonazePAM [Clonazepam] 0.5 - 1 mg PO BID PRN 01/13/20 02/18/21 Gabapentin 600 mg PO TID 02/18/21 02/19/21 Benzonatate [Tessalon] 200 mg PO TID PRN #30 cap 03/03/21 - Allergies Allergies/Adverse Reactions: Allergies Allergy/AdvReac Type Severity Reaction Status Date / Time ketorolac tromethamine * Allergy Itching Verified 03/03/21 16:49 [From Toradol] prednisone Allergy Respiratory Verified 03/03/21 16:49 hydrocodone bitartrate * AdvReac Itching Verified 03/03/21 16:49 [From Vicodin] - Social History Does the pt smoke?: No Smoking Status: Never smoker Does the pt drink ETOH?: No Does the pt have substance abuse?: No - Immunizations Immunizations are current?: Yes - POLST Patient has POLST: No POLST Status: Full Code PD ED PE NORMAL - General General: Alert and oriented X 3, Other - HEENT HEENT: Atraumatic, Pharynx benign - Neck Neck: Supple, no meningeal sign, No JVD - Cardiac Cardiac: RRR, No gallop, Strong equal pulses - Respiratory Respiratory: No respiratory distress, Clear bilaterally, Other (Positive for nonproductive cough) - Abdomen Abdomen: Normal bowel sounds, Soft, Non tender - Female Female : No: Deferred - Rectal Rectal: No: Deferred - Back Back: No CVA TTP - Derm Derm: Normal color - Extremities Extremities: No deformity - Neuro Neuro: Alert and oriented X 3, phlebotomy manager 2-12 intact, No motor deficit Results - Vitals Vitals: Vital Signs - 24 hr 03/03/21 03/03/21 16:49 17:03 Temperature 36.6 C Heart Rate 88 91 Respiratory 18 12 Rate Blood Pressure 122/86 H 122/86 H O2 Saturation 100 100 Oxygen O2 Source Room air PD MEDICAL DECISION MAKING - ED course Complexity details: reviewed results, re-evaluated patient, d/w patient ED course: Presents with signs and symptoms consistent with upper respiratory tract style infection in setting of recent close contact with an individual known to be Covid positive. Presented to the emergency room with dry nonproductive cough but was otherwise afebrile, hemodynamically stable and respirating well on room air. Chest x-ray obtained in the emergency department negative for abnormality. Covid swab is pending at this time. At this time will discharge with Amelia Del Castillo. Encourage follow-up with primary care or return to the emergency department for new or worsening symptoms. Departure - Departure Disposition: 01 Home, Self Care Clinical Impression: Bronchitis, Exposure to COVID-19 virus Condition: Stable Instructions: ED Viral Syndrome Prescriptions: Benzonatate [Tessalon] 200 mg PO TID PRN #30 cap PRN Reason: Cough Comments: Thank you for allowing us to care for you today at [facility] In the emergency department you were evaluated for any possible life threatening injuries or illness. The chest x-ray performed today did not show any acute pneumonia. Your Covid swab is pending at this time and will take 48 to 72 hours to result. Follow-up with your primary care doctor soon as you are able. Please drink plenty of fluids and get plenty of rest over the course of the next few days. If it anytime you have any new or worsening symptoms please not hesitate to return to the emergency department. Your prescription was [facility] to [facility]
[2021-03-03 18:38] VITALS: BP 118/90
== END 2021-03-03 18:36 | disposition home or self-care (01) ==
LOC: EDUNIT# → ED 16:38
DX: U07.1 COVID-19 (principal); J40 Bronchitis, not specified as acute or chronic
CPT/HCPCS: 71045; 87635; 99282; 99284; A9270

== ENCOUNTER 2022-02-09 18:27 | Emergency (ER) | payer MEDICAID ==
--- OUTSIDE RECORDS SUMMARY | 2022-02-09 18:34 | EXTERNAL MEDICAL SUMMARY RPT | Continuity of Care Document ---
:1975 Author Organization [facility] Address [address] [place] [address] Phone Allergies and Intolerances date description facility type (no date) acetaminophen [facility] (unknown) (no date) ceftriaxone [facility] (unknown) (no date) enoxaparin [facility] (unknown) (no date) hydrocodone [facility] (unknown) (no date) ketorolac [facility] (unknown) (no date) prednisone [facility] (unknown) Encounters No information. Functional Status No information. Immunizations No information. Medications No information. Problems No information. Procedures No information. Results/Labs test date author facility value unit interpret ation Result panel 1 (unknown) (no (unknown) (unknown) (no value) (units (unk nown) date) unknown) (unknown) (no (unknown) (unknown) [id number] (units (unkn own) date) unknown) (unknown) (no (unknown) (unknown) 02/06/22 (units (unkno wn) date) unknown) (unknown) (no (unknown) (unknown) [address] [place] [address] (units (unknown) date) unknown) (unknown) (no (unknown) (unknown) 07/01/2018, 9:41. (units (unknown) date) unknown) (unknown) (no (unknown) (unknown) Accession Number: (units (unknown) date) [id number] unknown) (unknown) (no (unknown) (unknown) Age/Sex: 46 / F (units (unknown) date) Date of Service: unknown) (unknown) (no (unknown) (unknown) [place], [place] (units ( unknown) date) [id number] unknown) (unknown) (no (unknown) (unknown) Anterior (units (unkno wn) date) circulation: unknown) Intracranial internal carotid arteries are normal in (unknown) (no (unknown) (unknown) Any quantitative (units (unknown) date) measurements of unknown) stenosis were performed using NASCET criteria. (unknown) (no (unknown) (unknown) Approved by: (units (u nknown) date) len Roger M.D. on 02/06/2022 at 13:13 (unknown) (no (unknown) (unknown) BRAIN: (units (unkno wn) date) unknown) (unknown) (no (unknown) (unknown) Bones: No (units (unkn own) date) suspicious bony unknown) lesions. Visualized cervical spine appears normally (unknown) (no (unknown) (unknown) Brain: No midline (units (unknown) date) shift. No unknown) intracranial bleeds or masses. Mueller-white matter (unknown) (no (unknown) (unknown) COMPARISON: (units (un known) date) [facility], unknown) MR, MR STROKE, 07/01/2018, 11:00. [facility] (unknown) (no (unknown) (unknown) CONTRAST, (units (unkn own) date) 05/11/2012, 20:59. unknown) [facility], CT, CT HEAD/BRAIN WO CON, (unknown) (no (unknown) (unknown) CSF spaces: (units (un known) date) Ventricles are unknown) normal in size and shape. Basal cisterns are (unknown) (no (unknown) (unknown) CT Scan Report (units (unknown) date) unknown) (unknown) (no (unknown) (unknown) CT, BRAIN W/O (units ( unknown) date) CONTRAST, unknown) 06/14/2011, 17:18. [facility], CT, BRAIN (unknown) (no (unknown) (unknown) Carotid system: (units (unknown) date) The great vessels unknown) demonstrate a conventional anatomy as they (unknown) (no (unknown) (unknown) : 1975 (units (unknown) date) Acct:[id number] unknown) (unknown) (no (unknown) (unknown) Dictated by: (units (u nknown) date) len Roger M.D. on 02/06/2022 at 13:09 (unknown) (no (unknown) (unknown) FINDINGS: (units (unkn own) date) unknown) (unknown) (no (unknown) (unknown) Flow within the (units (unknown) date) posterior cerebral unknown) arteries is normal and symmetric. No (unknown) (no (unknown) (unknown) HEAD CT (units (unkno wn) date) ANGIOGRAPHY: unknown) (unknown) (no (unknown) (unknown) Hospital, (units (unkn own) date) unknown) (unknown) (no (unknown) (unknown) IMPRESSION: No (units (unknown) date) acute intracranial unknown) hemorrhage is seen. (unknown) (no (unknown) (unknown) INDICATIONS: (units (u nknown) date) Slurred unknown) speech/altered mental status (unknown) (no (unknown) (unknown) Image quality: (units (unknown) date) Mild streak unknown) artifact can be seen through the skull base. (unknown) (no (unknown) (unknown) [facility] (units (unknown) date) unknown) (unknown) (no (unknown) (unknown) [facility], (units (unknown) date) MR, MR HEAD/BRAIN unknown) WO GABRIELA, 2018, 15:17. (unknown) (no (unknown) (unknown) Loc: ED (units (unkno wn) date) unknown) (unknown) (no (unknown) (unknown) NECK CT (units (unkno wn) date) ANGIOGRAPHY: unknown) (unknown) (no (unknown) (unknown) No acute (units (unkno wn) date) intracranial unknown) process is seen. (unknown) (no (unknown) (unknown) No findings neck (units (unknown) date) artery dissection unknown) can be seen. (unknown) (no (unknown) (unknown) No significant (units (unknown) date) intracranial unknown) arterial abnormality is seen. (unknown) (no (unknown) (unknown) Orbits appear (units ( unknown) date) normal. Incidental unknown) note is made of hyperostosis frontalis. This (unknown) (no (unknown) (unknown) Ordering (units (unkno wn) date) Provider: unknown) Demond Ruiz MD (unknown) (no (unknown) (unknown) PROCEDURE: CT (units ( unknown) date) ANGIO HEAD AND unknown) NECK (unknown) (no (unknown) (unknown) Patient: (units (unkno wn) date) Caitie Muhammad A unknown) MR#: M (unknown) (no (unknown) (unknown) Posterior (units (unkn own) date) circulation: The unknown) origins of the vertebral arteries both appear (unknown) (no (unknown) (unknown) Posterior (units (unkn own) date) circulation: unknown) Visualized portions of the vertebral arteries (unknown) (no (unknown) (unknown) Pre-contrast 4.5 (units (unknown) date) mm thick sections unknown) acquired from the foramen magnum to the (unknown) (no (unknown) (unknown) Procedure: CT (units ( unknown) date) angio head and unknown) neck (unknown) (no (unknown) (unknown) Signed (units (unkno wn) date) unknown) (unknown) (no (unknown) (unknown) Sinuses: Sinuses (units (unknown) date) and mastoids are unknown) clear. (unknown) (no (unknown) (unknown) Skull and face: (units (unknown) date) Calvarium and unknown) facial bones appear intact, without suspicious (unknown) (no (unknown) (unknown) Soft tissues: (units ( unknown) date) Visualized neck unknown) soft tissues demonstrate no suspicious (unknown) (no (unknown) (unknown) TECHNIQUE: (units (unk nown) date) unknown) (unknown) (no (unknown) (unknown) The common (units (unk nown) date) unknown) (unknown) (no (unknown) (unknown) The flow within (units (unknown) date) the middle unknown) cerebral arteries is normal and symmetric. The (unknown) (no (unknown) (unknown) The more superior (units (unknown) date) extracranial unknown) portions of both vertebral arteries also (unknown) (no (unknown) (unknown) This is (units (unkno wn) date) attributed to a unknown) type origin of the right posterior cerebral (unknown) (no (unknown) (unknown) W/O (units (unkno wn) date) unknown) (unknown) (no (unknown) (unknown) Within the (units (unk nown) date) arteries of the unknown) neck, no hemodynamically significant stenosis can be (unknown) (no (unknown) (unknown) abnormalities. (units (unknown) date) unknown) (unknown) (no (unknown) (unknown) aligned. (units (unkno wn) date) unknown) (unknown) (no (unknown) (unknown) and neck (units (unkno wn) date) separately. For unknown) radiation dose reduction, the following was used: (unknown) (no (unknown) (unknown) and (units (unkno wn) date) unknown) (unknown) (no (unknown) (unknown) and/or volume (units ( unknown) date) rendering unknown) reformats were acquired of the central intracranial (unknown) (no (unknown) (unknown) aneurysms are (units ( unknown) date) unknown) (unknown) (no (unknown) (unknown) anterior (units (unkno wn) date) unknown) (unknown) (no (unknown) (unknown) appears intact. (units (unknown) date) unknown) (unknown) (no (unknown) (unknown) arch through the (units (unknown) date) [place]. unknown) Post-contrast 4.5 mm thick sections then (unknown) (no (unknown) (unknown) arise from (units (unk nown) date) unknown) (unknown) (no (unknown) (unknown) artery, which (units ( unknown) date) unknown) (unknown) (no (unknown) (unknown) artery. (units (unkno wn) date) unknown) (unknown) (no (unknown) (unknown) automated (units (unkn own) date) unknown) (unknown) (no (unknown) (unknown) both widely (units (un known) date) patent. The unknown) internal carotid arteries demonstrate normal calibers (unknown) (no (unknown) (unknown) caliber, and join (units (unknown) date) to form a normal unknown) appearing basilar artery. There is a (unknown) (no (unknown) (unknown) carotid arteries (units (unknown) date) demonstrate normal unknown) caliber and courses. The bifurcation (unknown) (no (unknown) (unknown) communicating (units ( unknown) date) artery is seen. No unknown) aneurysms are seen. (unknown) (no (unknown) (unknown) consequence. (units (u nknown) date) unknown) (unknown) (no (unknown) (unknown) considered to be (units (unknown) date) pathologic in a unknown) woman of this age. In this patient with a (unknown) (no (unknown) (unknown) courses. (units (unkno wn) date) unknown) (unknown) (no (unknown) (unknown) demonstrate (units (un known) date) normal unknown) (unknown) (no (unknown) (unknown) demonstrate (units (un known) date) unknown) (unknown) (no (unknown) (unknown) exposure control, (units (unknown) date) adjustment of mA unknown) and/or kV according to patient size. (unknown) (no (unknown) (unknown) extra-axial fluid (units (unknown) date) collections. unknown) (unknown) (no (unknown) (unknown) flow. The flow (units (unknown) date) within the paired unknown) anterior cerebral arteries is normal and (unknown) (no (unknown) (unknown) from the foramen (units (unknown) date) magnum to the unknown) vertex. 3-dimensional (unknown) (no (unknown) (unknown) given history (units ( unknown) date) unknown) (unknown) (no (unknown) (unknown) including (units (unkn own) date) unknown) (unknown) (no (unknown) (unknown) interface (units (unkn own) date) unknown) (unknown) (no (unknown) (unknown) is considered to (units (unknown) date) be a normal unknown) developmental variant of typically no clinical (unknown) (no (unknown) (unknown) is not (units (unkno wn) date) unknown) (unknown) (no (unknown) (unknown) lesions. (units (unkno wn) date) unknown) (unknown) (no (unknown) (unknown) maximum-intensity (units (unknown) date) -projection (MIP) unknown) (unknown) (no (unknown) (unknown) normal courses (units (unknown) date) and calibers. They unknown) join to form a normal appearing basilar (unknown) (no (unknown) (unknown) patent. No (units (unk nown) date) unknown) (unknown) (no (unknown) (unknown) posterior (units (unkn own) date) communicating unknown) artery seen, with an accompanying diminutive right P1 (unknown) (no (unknown) (unknown) prominent right (units (unknown) date) unknown) (unknown) (no (unknown) (unknown) re-acquired (units (un known) date) unknown) (unknown) (no (unknown) (unknown) regions are (units (un known) date) unknown) (unknown) (no (unknown) (unknown) right facial (units (u nknown) date) droop, scrutiny is unknown) given to the course of the right facial nerve, (unknown) (no (unknown) (unknown) seen, to (units (unkno wn) date) unknown) (unknown) (no (unknown) (unknown) seen. (units (unkno wn) date) unknown) (unknown) (no (unknown) (unknown) segment. (units (unkno wn) date) unknown) (unknown) (no (unknown) (unknown) size and (units (unkno wn) date) unknown) (unknown) (no (unknown) (unknown) symmetric. (units (unk nown) date) unknown) (unknown) (no (unknown) (unknown) the (units (unkno wn) date) administration of unknown) intravenous contrast, 1 mm thick sections acquired from (unknown) (no (unknown) (unknown) the aortic arch. (units (unknown) date) The origins of the unknown) common carotid arteries appear patent. (unknown) (no (unknown) (unknown) the aortic (units (unk nown) date) unknown) (unknown) (no (unknown) (unknown) the limits of CT. (units (unknown) date) unknown) (unknown) (no (unknown) (unknown) vasculature (units (un known) date) unknown) (unknown) (no (unknown) (unknown) vertex. After (units ( unknown) date) unknown) (unknown) (no (unknown) (unknown) widely patent. (units (unknown) date) unknown) (unknown) (no (unknown) (unknown) within the right (units (unknown) date) parotid gland. No unknown) ghazal masses or abnormal enhancement can be Result panel 2 (unknown) (no date) (unknown) (unknown) 0 /ul (unkn own) (unknown) (no date) (unknown) (unknown) 0.4 % (unkn own) (unknown) (no date) (unknown) (unknown) 1.5 % (unkn own) (unknown) (no date) (unknown) (unknown) 100 /ul (unkn own) (unknown) (no date) (unknown) (unknown) 1600 /ul (unkn own) (unknown) (no date) (unknown) (unknown) 18.2 % (unkn own) (unknown) (no date) (unknown) (unknown) 223 x10 3/ul (unkn own) (unknown) (no date) (unknown) (unknown) 23.4 pg (unkn own) (unknown) (no date) (unknown) (unknown) 25.8 % (unkn own) (unknown) (no date) (unknown) (unknown) 300 /ul (unkn own) (unknown) (no date) (unknown) (unknown) 31.2 % (unkn own) (unknown) (no date) (unknown) (unknown) 31.7 % (unkn own) (unknown) (no date) (unknown) (unknown) 4.22 x10 6/ul (unkn own) (unknown) (no date) (unknown) (unknown) 4.8 % (unkn own) (unknown) (no date) (unknown) (unknown) 4300 /ul (unkn own) (unknown) (no date) (unknown) (unknown) 6.4 x10 3/ul (unkn own) (unknown) (no date) (unknown) (unknown) 67.5 % (unkn own) (unknown) (no date) (unknown) (unknown) 73.9 fl (unkn own) (unknown) (no date) (unknown) (unknown) 9.9 g/dl (unkn own) Result panel 3 (unknown) (no date) (unknown) (unknown) > 60 ml/min (unkn own) (unknown) (no date) (unknown) (unknown) > 60 ml/min (unkn own) (unknown) (no date) (unknown) (unknown) 0.3 mg/dl (unkn own) (unknown) (no date) (unknown) (unknown) 0.91 mg/dl (unkn own) (unknown) (no date) (unknown) (unknown) 1.1 (units unknown) (unknown) (unknown) (no date) (unknown) (unknown) 10 mg/dl (unkn own) (unknown) (no date) (unknown) (unknown) 104 mmol/l (unkn own) (unknown) (no date) (unknown) (unknown) 11.0 (units unknown) (unknown) (unknown) (no date) (unknown) (unknown) 132 u/l (unkn own) (unknown) (no date) (unknown) (unknown) 139 mmol/l (unkn own) (unknown) (no date) (unknown) (unknown) 16 iu/l (unkn own) (unknown) (no date) (unknown) (unknown) 189 mg/dl (unkn own) (unknown) (no date) (unknown) (unknown) 189 mg/dl (unkn own) (unknown) (no date) (unknown) (unknown) 24 iu/l (unkn own) (unknown) (no date) (unknown) (unknown) 24 mmol/l (unkn own) (unknown) (no date) (unknown) (unknown) 3.5 g/dl (unkn own) (unknown) (no date) (unknown) (unknown) 3.7 mmol/l (unkn own) (unknown) (no date) (unknown) (unknown) 4.0 g/dl (unkn own) (unknown) (no date) (unknown) (unknown) 7.5 g/dl (unkn own) (unknown) (no date) (unknown) (unknown) 8.7 mg/dl (unkn own) (unknown) (no date) (unknown) (unknown) 94 u/l (unkn own) Result panel 4 (unknown) (no date) (unknown) (unknown) Negative (units (unkn own) unknown) Result panel 5 (unknown) (no date) (unknown) (unknown) > 60 ml/min (unkn own) (unknown) (no date) (unknown) (unknown) > 60 ml/min (unkn own) (unknown) (no date) (unknown) (unknown) < 0.012 ng/ml (unkn own) (unknown) (no date) (unknown) (unknown) < 0.012 ng/ml (unkn own) (unknown) (no date) (unknown) (unknown) 0.3 mg/dl (unkn own) (unknown) (no date) (unknown) (unknown) 0.91 mg/dl (unkn own) (unknown) (no date) (unknown) (unknown) 1.1 (units (unkn own) unknown) (unknown) (no date) (unknown) (unknown) 10 mg/dl (unkn own) (unknown) (no date) (unknown) (unknown) 104 mmol/l (unkn own) (unknown) (no date) (unknown) (unknown) 11.0 (units (unkn own) unknown) (unknown) (no date) (unknown) (unknown) 132 u/l (unkn own) (unknown) (no date) (unknown) (unknown) 139 mmol/l (unkn own) (unknown) (no date) (unknown) (unknown) 16 iu/l (unkn own) (unknown) (no date) (unknown) (unknown) 189 mg/dl (unkn own) (unknown) (no date) (unknown) (unknown) 189 mg/dl (unkn own) (unknown) (no date) (unknown) (unknown) 2.6 % (unkn own) (unknown) (no date) (unknown) (unknown) 24 iu/l (unkn own) (unknown) (no date) (unknown) (unknown) 24 mmol/l (unkn own) (unknown) (no date) (unknown) (unknown) 3.49 ng/ml (unkn own) (unknown) (no date) (unknown) (unknown) 3.5 g/dl (unkn own) (unknown) (no date) (unknown) (unknown) 3.7 mmol/l (unkn own) (unknown) (no date) (unknown) (unknown) 4.0 g/dl (unkn own) (unknown) (no date) (unknown) (unknown) 7.5 g/dl (unkn own) (unknown) (no date) (unknown) (unknown) 8.7 mg/dl (unkn own) (unknown) (no date) (unknown) (unknown) 94 u/l (unkn own) Result panel 6 (unknown) (no date) (unknown) (unknown) (no value) (units (un known) unknown) (unknown) (no date) (unknown) (unknown) [id number] (units (unk nown) unknown) (unknown) (no date) (unknown) (unknown) 02/06/22 (units (unkn own) unknown) (unknown) (no date) (unknown) (unknown) [address] (units (unk nown) [address] unknown) (unknown) (no date) (unknown) (unknown) Accession (units (unk nown) Number: unknown) [id number] (unknown) (no date) (unknown) (unknown) Accession (units (unk nown) Number: unknown) [id number] (unknown) (no date) (unknown) (unknown) Age/Sex: 46 / (units (unknown) F Date of unknown) Service: (unknown) (no date) (unknown) (unknown) [place] (units (unknown) [address] unknown) (unknown) (no date) (unknown) (unknown) Approved by: (units ( unknown) [place] unknown) Jacob Castro on 02/06/2022 at 15:30 (unknown) (no date) (unknown) (unknown) Approved by: (units ( unknown) [place] unknown) Jacob Castro on 02/06/2022 at 15:33 (unknown) (no date) (unknown) (unknown) Bones: No (units (unk nown) fracture or unknown) dislocation. No focal osseous lesions. (unknown) (no date) (unknown) (unknown) Bones: No (units (unk nown) fractures or unknown) dislocations. No suspicious bony lesions. Visualized (unknown) (no date) (unknown) (unknown) COMPARISON: (units (u nknown) None. unknown) (unknown) (no date) (unknown) (unknown) CT Scan Report (units (unknown) unknown) (unknown) (no date) (unknown) (unknown) : (units (unkn own) 1975 unknown) Acct:[id number] (unknown) (no date) (unknown) (unknown) Dictated by: (units ( unknown) [place] unknown) Jacob Castro on 02/06/2022 at 15:30 (unknown) (no date) (unknown) (unknown) FINDINGS: (units (unk nown) unknown) (unknown) (no date) (unknown) (unknown) IMPRESSION: No (units (unknown) fracture of the unknown) pelvis. (unknown) (no date) (unknown) (unknown) IMPRESSION: (units (u nknown) Normal left unknown) shoulder (unknown) (no date) (unknown) (unknown) INDICATIONS: (units ( unknown) Fall/left-sided unknown) pain (unknown) (no date) (unknown) (unknown) INDICATIONS: (units ( unknown) pain/injury unknown) (unknown) (no date) (unknown) (unknown) Image quality: (units (unknown) Excellent. unknown) (unknown) (no date) (unknown) (unknown) [facility] (unknown) (no date) (unknown) (unknown) Loc: ED (units (unkn own) unknown) (unknown) (no date) (unknown) (unknown) Noncontrast 3 (units (unknown) mm axial unknown) sections acquired through the bony pelvis, with coronal (unknown) (no date) (unknown) (unknown) Ordering (units (unkn own) Provider: unknown) Demond Ruiz MD (unknown) (no date) (unknown) (unknown) PROCEDURE: CT (units (unknown) PEL WO CON unknown) (unknown) (no date) (unknown) (unknown) PROCEDURE: XR (units (unknown) SHOULDER LT MIN unknown) 2V (unknown) (no date) (unknown) (unknown) Patient: (units (unkn own) Caitie Muhammad unknown) A MR#: M (unknown) (no date) (unknown) (unknown) Procedure: CT (units (unknown) pelvis wo con unknown) (unknown) (no date) (unknown) (unknown) Procedure: XR (units (unknown) shoulder LT min unknown) 2V (unknown) (no date) (unknown) (unknown) Signed (units (unkn own) unknown) (unknown) (no date) (unknown) (unknown) Soft tissues: (units (unknown) No suspicious unknown) soft tissue calcifications. (unknown) (no date) (unknown) (unknown) Soft tissues: (units (unknown) Visualized unknown) bowel in the pelvis is normal. No hematoma, free (unknown) (no date) (unknown) (unknown) TECHNIQUE: 3 (units ( unknown) views of the unknown) shoulder were acquired. (unknown) (no date) (unknown) (unknown) TECHNIQUE: (units (un known) unknown) (unknown) (no date) (unknown) (unknown) XRay Report (units (u nknown) unknown) (unknown) (no date) (unknown) (unknown) air, free (units (unk nown) unknown) (unknown) (no date) (unknown) (unknown) and (units (unkn own) unknown) (unknown) (no date) (unknown) (unknown) appear intact. (units (unknown) unknown) (unknown) (no date) (unknown) (unknown) fluid, or (units (unk nown) evidence of unknown) hemorrhage. (unknown) (no date) (unknown) (unknown) ribs (units (unkn own) unknown) (unknown) (no date) (unknown) (unknown) sagittal (units (unkn own) reformatting. unknown) Result panel 7 (unknown) (no (unknown) (unknown) (no value) (units (unk nown) date) unknown) (unknown) (no (unknown) (unknown) (Hair,Skin and (units (unknown) date) Nails tablet) unknown) (unknown) (no (unknown) (unknown) [id number] (units (unkno wn) date) unknown) (unknown) (no (unknown) (unknown) 02/06/22 02/06/22 (units (unknown) date) 02/06/22 unknown) Range/Units (unknown) (no (unknown) (unknown) 02/06/22 13:21 (units (unknown) date) unknown) (unknown) (no (unknown) (unknown) 02/06/22 13:30 (units (unknown) date) unknown) (unknown) (no (unknown) (unknown) 02/06/22 14:17 (units (unknown) date) unknown) (unknown) (no (unknown) (unknown) 02/06/22 (units (unkno wn) date) unknown) (unknown) (no (unknown) (unknown) 1 dose PO (units (u nknown) date) DIRECTED unknown) (unknown) (no (unknown) (unknown) 1 tab PO DAILY (units (unknown) date) unknown) (unknown) (no (unknown) (unknown) 13:13 (units (unkno wn) date) unknown) (unknown) (no (unknown) (unknown) 13:30 13:30 13:30 (units (unknown) date) unknown) (unknown) (no (unknown) (unknown) ALT 16 (<35) IU/L (units (unknown) date) unknown) (unknown) (no (unknown) (unknown) AST 24 (14-36) (units (unknown) date) IU/L unknown) (unknown) (no (unknown) (unknown) Able to flex (units (u nknown) date) fully at the elbow unknown) but has pain at the shoulder. Able to flex and (unknown) (no (unknown) (unknown) Age/Sex: 46 / F (units (unknown) date) unknown) (unknown) (no (unknown) (unknown) Albumin 4.0 (units (un known) date) (3.5-5.0) g/dL unknown) (unknown) (no (unknown) (unknown) Albumin/Globulin (units (unknown) date) Ratio 1.1 unknown) (1.0-2.8) (unknown) (no (unknown) (unknown) Alkaline (units (unkno wn) date) Phosphatase 94 unknown) (38-126) U/L (unknown) (no (unknown) (unknown) Allergies (units (unkn own) date) unknown) (unknown) (no (unknown) (unknown) Allergy/AdvReac (units (unknown) date) Type Severity unknown) Reaction Status Date / Time (unknown) (no (unknown) (unknown) Ask month/age: (units (unknown) date) Answers both unknown) questions correctly. (unknown) (no (unknown) (unknown) BACK: No flank (units (unknown) date) tenderness. unknown) (unknown) (no (unknown) (unknown) BUN 10 (7-17) (units ( unknown) date) mg/dL unknown) (unknown) (no (unknown) (unknown) BUN/Creatinine (units (unknown) date) Ratio 11.0 (6-22) unknown) (unknown) (no (unknown) (unknown) Baso # (Auto) 0 (units (unknown) date) (0-100) /uL unknown) (unknown) (no (unknown) (unknown) Baso % (Auto) 0.4 (units (unknown) date) (0-2) % unknown) (unknown) (no (unknown) (unknown) Best gaze (units (unkn own) date) horizontal: Normal unknown) (unknown) (no (unknown) (unknown) Best language: No (units (unknown) date) aphasia, normal unknown) (unknown) (no (unknown) (unknown) Blood Pressure (units (unknown) date) 142/82 H 02/06/22 unknown) 13:13 (unknown) (no (unknown) (unknown) Blood Pressure (units (unknown) date) 142/82 H unknown) (unknown) (no (unknown) (unknown) CARDIOVASCULAR: (units (unknown) date) Denies chest pain, unknown) palpitations (unknown) (no (unknown) (unknown) CARDIOVASCULAR: (units (unknown) date) Regular rate and unknown) rhythm without murmurs (unknown) (no (unknown) (unknown) CK-MB (CK-2) 3.49 (units (unknown) date) H (<2.37) ng/mL unknown) (unknown) (no (unknown) (unknown) CK-MB (CK-2) Rel (units (unknown) date) Index 2.6 unknown) (1.5-5.0) % (unknown) (no (unknown) (unknown) CT angio head and (units (unknown) date) neck Stat unknown) (unknown) (no (unknown) (unknown) CT pelvis wo con (units (unknown) date) Stat unknown) (unknown) (no (unknown) (unknown) Calcium 8.7 (units (un known) date) (8.4-10.2) mg/dL unknown) (unknown) (no (unknown) (unknown) Carbon Dioxide 24 (units (unknown) date) (22-32) mmol/L unknown) (unknown) (no (unknown) (unknown) delivery (units (unknown) date) delivered unknown) (unknown) (no (unknown) (unknown) Chief Complaint: (units (unknown) date) Neuro unknown) Symptoms/Deficit (unknown) (no (unknown) (unknown) Chloride 104 (units (u nknown) date) (98-107) mmol/L unknown) (unknown) (no (unknown) (unknown) Complete Blood (units (unknown) date) Count AUTO DIFF unknown) Stat (unknown) (no (unknown) (unknown) Comprehensive (units ( unknown) date) Metabolic Panel unknown) Stat (unknown) (no (unknown) (unknown) Course (units (unkno wn) date) unknown) (unknown) (no (unknown) (unknown) Creatinine 0.91 (units (unknown) date) (0.52-1.04) mg/dL unknown) (unknown) (no (unknown) (unknown) : 1975 (units (unknown) date) Acct:[id number] unknown) (unknown) (no (unknown) (unknown) Date of Service: (units (unknown) date) 02/06/22 unknown) (unknown) (no (unknown) (unknown) Departure (units (unkn own) date) unknown) (unknown) (no (unknown) (unknown) Diabetes (units (unkno wn) date) unknown) (unknown) (no (unknown) (unknown) Discharge Plan (units (unknown) date) unknown) (unknown) (no (unknown) (unknown) Discontinued (units (u nknown) date) Medications unknown) (unknown) (no (unknown) (unknown) Dysarthria: Mild (units (unknown) date) to mod,some unknown) slurring (unknown) (no (unknown) (unknown) ED Orders (units (unkn own) date) unknown) (unknown) (no (unknown) (unknown) EKG-12 Lead Stat (units (unknown) date) unknown) (unknown) (no (unknown) (unknown) ENT: Mucous (units (un known) date) membranes moist. unknown) (unknown) (no (unknown) (unknown) ER Physician: (units ( unknown) date) Demond Ruiz MD unknown) (unknown) (no (unknown) (unknown) EXTREMITIES: No (units (unknown) date) gross deformities. unknown) Mild tenderness to the left shoulder but no (unknown) (no (unknown) (unknown) EYES: Pupils (units (u nknown) date) equal round No unknown) scleral icterus. (unknown) (no (unknown) (unknown) Emergency Report (units (unknown) date) unknown) (unknown) (no (unknown) (unknown) Eos # (Auto) 100 (units (unknown) date) (0-450) /uL unknown) (unknown) (no (unknown) (unknown) Eos % (Auto) 1.5 (units (unknown) date) L (2-4) % unknown) (unknown) (no (unknown) (unknown) Estimated GFR > (units (unknown) date) 60 (>60) mL/min unknown) (unknown) (no (unknown) (unknown) Exam Narrative: (units (unknown) date) unknown) (unknown) (no (unknown) (unknown) Exam (units (unkno wn) date) unknown) (unknown) (no (unknown) (unknown) Extinction or (units ( unknown) date) inattention: No unknown) abnormality (unknown) (no (unknown) (unknown) Facial palsy: (units ( unknown) date) Normal symetrical unknown) movement (unknown) (no (unknown) (unknown) GASTROINTESTINAL: (units (unknown) date) Abdomen soft, unknown) non-tender (unknown) (no (unknown) (unknown) GASTROINTESTINAL: (units (unknown) date) Denies nausea, unknown) vomiting, abdominal pain (unknown) (no (unknown) (unknown) GENERAL: Denies (units (unknown) date) chills, fatigue, unknown) malaise, fever, sweats. (unknown) (no (unknown) (unknown) GENERAL: in no (units (unknown) date) distress, not unknown) toxic not dyspneic (unknown) (no (unknown) (unknown) : Denies (units (unk nown) date) dysuria, unknown) frequency, hematuria (unknown) (no (unknown) (unknown) General (units (unkno wn) date) unknown) (unknown) (no (unknown) (unknown) Globulin 3.5 (units (u nknown) date) (1.7-4.1) g/dL unknown) (unknown) (no (unknown) (unknown) Glucose 189 H (units ( unknown) date) (70-100) mg/dL unknown) (unknown) (no (unknown) (unknown) HEAD: (units (unkno wn) date) Normocephalic. unknown) Nontender scalp and face. (unknown) (no (unknown) (unknown) HEENT: Denies (units ( unknown) date) sinus pain, ear unknown) pain, sore throat (unknown) (no (unknown) (unknown) HPI - Neuro (units (un known) date) Symptoms/Deficit unknown) (unknown) (no (unknown) (unknown) HPI Narrative: (units (unknown) date) unknown) (unknown) (no (unknown) (unknown) Hct 31.2 L (units (unk nown) date) (36-46) % unknown) (unknown) (no (unknown) (unknown) Hematologic/Lymph (units (unknown) date) atic unknown) (unknown) (no (unknown) (unknown) Hgb 9.9 L (units (unkn own) date) (12.0-16.0) g/dL unknown) (unknown) (no (unknown) (unknown) History of (units (unk nown) date) Present Illness unknown) (unknown) (no (unknown) (unknown) Home Medications (units (unknown) date) unknown) (unknown) (no (unknown) (unknown) Hx of (units (unkno wn) date) cholecystectomy unknown) (unknown) (no (unknown) (unknown) Initial Vital (units ( unknown) date) Signs unknown) (unknown) (no (unknown) (unknown) Initial Vital (units ( unknown) date) Signs: unknown) (unknown) (no (unknown) (unknown) [facility] (units (unknown) date) [address] [place] [address] unknown) [place] [address] (unknown) (no (unknown) (unknown) Lab Data (units (unkno wn) date) unknown) (unknown) (no (unknown) (unknown) Lab Results (units (un known) date) unknown) (unknown) (no (unknown) (unknown) Labs: (units (unkno wn) date) unknown) (unknown) (no (unknown) (unknown) Left arm drift: (units (unknown) date) Some effort unknown) against gravity, cannot maintain, drifts down to bed (unknown) (no (unknown) (unknown) Left leg drift: (units (unknown) date) Some effort unknown) against gravity, cannot maintain, drifts down to bed (unknown) (no (unknown) (unknown) Level of (units (unkno wn) date) Conciousness: unknown) Alert, keenly responsive (unknown) (no (unknown) (unknown) Limb ataxia: (units (u nknown) date) Absent unknown) (unknown) (no (unknown) (unknown) Liver Cleanse 1 (units (unknown) date) dose PO unknown) DIRECTED 07/01/18 07/01/18 (unknown) (no (unknown) (unknown) Liver Cleanse (units ( unknown) date) unknown) (unknown) (no (unknown) (unknown) Lymph # (Auto) (units (unknown) date) 1600 (4420-2611) unknown) /uL (unknown) (no (unknown) (unknown) Lymph % (Auto) (units (unknown) date) 25.8 (25-40) % unknown) (unknown) (no (unknown) (unknown) MCH 23.4 L (units (unk nown) date) (26-34) PG unknown) (unknown) (no (unknown) (unknown) MCHC 31.7 (30-36) (units (unknown) date) % unknown) (unknown) (no (unknown) (unknown) MCV 73.9 L (units (unk nown) date) (80-100) fL unknown) (unknown) (no (unknown) (unknown) MDM - Neuro (units (un known) date) Symptoms/Deficit unknown) (unknown) (no (unknown) (unknown) MEDICATION FOR (units (unknown) date) BLOOD CLOTS unknown) Allergy Intermediate Uncoded 07/01/18 09:44 (unknown) (no (unknown) (unknown) MUSCULOSKELETAL: (units (unknown) date) Positive for unknown) muscle or bony pain (unknown) (no (unknown) (unknown) Medical History (units (unknown) date) (Reviewed 02/06/22 unknown) @ 14:21 by Demond Ruiz MD) (unknown) (no (unknown) (unknown) Medication (units (unk nown) date) Instructions unknown) Recorded Confirmed (unknown) (no (unknown) (unknown) Mode of arrival: (units (unknown) date) Ambulatory unknown) (unknown) (no (unknown) (unknown) [place] # (Auto) 300 (units (unknown) date) (0-900) /uL unknown) (unknown) (no (unknown) (unknown) [place] % (Auto) 4.8 (units (unknown) date) (3-14) % unknown) (unknown) (no (unknown) (unknown) NECK: Trachea (units ( unknown) date) midline. No unknown) midline tenderness or step-off. (unknown) (no (unknown) (unknown) NEURO: AOx4. (units (u nknown) date) Slightly slurred unknown) speech, no facial droop, light touch left face (unknown) (no (unknown) (unknown) NEUROLOGIC: (units (un known) date) Positive for unknown) slurred speech/confusion/w eakness, numbness (unknown) (no (unknown) (unknown) NIH Stroke Scale (units (unknown) date) unknown) (unknown) (no (unknown) (unknown) Narrative (units (unkn own) date) unknown) (unknown) (no (unknown) (unknown) Narrative: (units (unk nown) date) unknown) (unknown) (no (unknown) (unknown) Neut # (Auto) (units ( unknown) date) 4300 (1959-5847) unknown) /uL (unknown) (no (unknown) (unknown) Neut % (Auto) (units ( unknown) date) 67.5 (50-75) % unknown) (unknown) (no (unknown) (unknown) No Action (units (unkn own) date) unknown) (unknown) (no (unknown) (unknown) Obesity (BMI (units (u nknown) date) 30.0-34.9) unknown) (unknown) (no (unknown) (unknown) On (units (unkno wn) date) Anticoagulants: No unknown) (unknown) (no (unknown) (unknown) Open/close eyes, (units (unknown) date) close hand: unknown) Performs both tasks correctly (unknown) (no (unknown) (unknown) Ordered: (units (unkno wn) date) unknown) (unknown) (no (unknown) (unknown) Orders (units (unkno wn) date) unknown) (unknown) (no (unknown) (unknown) Oxygen Delivery (units (unknown) date) Method 02/06/22 unknown) 13:13 (unknown) (no (unknown) (unknown) Oxygen Delivery (units (unknown) date) Method Room Air unknown) (unknown) (no (unknown) (unknown) PSYCH: Not (units (unk nown) date) anxious, is unknown) cooperative (unknown) (no (unknown) (unknown) Patient History (units (unknown) date) unknown) (unknown) (no (unknown) (unknown) Patient here with (units (unknown) date) a friend. Brought unknown) here by her friend. Complains slurred (unknown) (no (unknown) (unknown) Patient: (units (unkno wn) date) Muhammad,Caitie A unknown) MR#: [id number] (unknown) (no (unknown) (unknown) Peptic ulcer (units (u nknown) date) unknown) (unknown) (no (unknown) (unknown) Plt Count 223 (units ( unknown) date) (150-400) X103/uL unknown) (unknown) (no (unknown) (unknown) Potassium 3.7 (units ( unknown) date) (3.4-5.1) mmol/L unknown) (unknown) (no (unknown) (unknown) Test (units (unknown) date) Serum,Qual Stat unknown) (unknown) (no (unknown) (unknown) Prescriptions: (units (unknown) date) unknown) (unknown) (no (unknown) (unknown) Pulse Oximetry (units (unknown) date) 100 02/06/22 13:13 unknown) (unknown) (no (unknown) (unknown) Pulse Oximetry (units (unknown) date) 100 unknown) (unknown) (no (unknown) (unknown) Pulse Rate 106 H (units (unknown) date) 02/06/22 13:13 unknown) (unknown) (no (unknown) (unknown) Pulse Rate 106 H (units (unknown) date) unknown) (unknown) (no (unknown) (unknown) RBC 4.22 (units (unkno wn) date) (4.0-5.2) X106/uL unknown) (unknown) (no (unknown) (unknown) RDW 18.2 H (units (unk nown) date) (11.6-14.8) % unknown) (unknown) (no (unknown) (unknown) RESPIRATORY: Clear (units (unknown) date) to auscultation. unknown) Breath sounds equal bilaterally. No wheezes, (unknown) (no (unknown) (unknown) RESPIRATORY: (units (u nknown) date) Denies dyspnea, unknown) cough (unknown) (no (unknown) (unknown) ROS Unobtainable: (units (unknown) date) All systems unknown) reviewed + are unremarkable except as noted in HPI (unknown) (no (unknown) (unknown) Referrals: (units (unk nown) date) unknown) (unknown) (no (unknown) (unknown) Related Data (units (u nknown) date) unknown) (unknown) (no (unknown) (unknown) Respiratory Rate (units (unknown) date) 15 02/06/22 13:13 unknown) (unknown) (no (unknown) (unknown) Respiratory Rate (units (unknown) date) 15 unknown) (unknown) (no (unknown) (unknown) Restless leg (units (u nknown) date) syndrome unknown) (unknown) (no (unknown) (unknown) Result diagrams: (units (unknown) date) unknown) (unknown) (no (unknown) (unknown) Review of Systems (units (unknown) date) unknown) (unknown) (no (unknown) (unknown) Right arm drift: (units (unknown) date) No drift for full unknown) 10 sec (unknown) (no (unknown) (unknown) Right leg drift: (units (unknown) date) No drift for full unknown) 5 sec (unknown) (no (unknown) (unknown) SKIN: Denies (units (u nknown) date) rash, skin lesions unknown) (unknown) (no (unknown) (unknown) SKIN: Warm and (units (unknown) date) dry unknown) (unknown) (no (unknown) (unknown) Scores (units (unkno wn) date) unknown) (unknown) (no (unknown) (unknown) Sensory on (units (unk nown) date) face/arms/legs: unknown) Mild to moderate sensory loss, can tell touch (unknown) (no (unknown) (unknown) Serum , (units (unknown) date) Qual Negative unknown) (Negative) (unknown) (no (unknown) (unknown) Signed By: (units (unk nown) date) unknown) (unknown) (no (unknown) (unknown) Smoking Status: (units (unknown) date) Never smoker unknown) (unknown) (no (unknown) (unknown) Social History (units (unknown) date) (Reviewed 02/06/22 unknown) @ 14:21 by Demond Ruiz MD) (unknown) (no (unknown) (unknown) Sodium 139 (units (unk nown) date) (137-145) mmol/L unknown) (unknown) (no (unknown) (unknown) Sodium Chloride (units (unknown) date) (Normal Saline unknown) 0.9%) 500 mls @ 1,000 mls/hr IV BOLUS ONE (unknown) (no (unknown) (unknown) Source: patient (units (unknown) date) unknown) (unknown) (no (unknown) (unknown) Stated Complaint: (units (unknown) date) PT. unknown) fell/confused/hx of stroke/lt. side drooping (unknown) (no (unknown) (unknown) Status post (units (un known) date) gastric bypass for unknown) obesity (unknown) (no (unknown) (unknown) Stop: 02/06/22 (units (unknown) date) 13:51 unknown) (unknown) (no (unknown) (unknown) Substance Use (units ( unknown) date) Type: does not use unknown) (unknown) (no (unknown) (unknown) Surgical History (units (unknown) date) (Reviewed 02/06/22 unknown) @ 14:21 by Demond Ruiz MD) (unknown) (no (unknown) (unknown) Temperature 98.5 (units (unknown) date) F 02/06/22 13:13 unknown) (unknown) (no (unknown) (unknown) Temperature 98.5 (units (unknown) date) F unknown) (unknown) (no (unknown) (unknown) Bravo Schmitz (units (unknown) date) MD Demond [Primary unknown) Care Provider] (unknown) (no (unknown) (unknown) Time Seen by (units (u nknown) date) Provider: 02/06/22 unknown) 13:20 (unknown) (no (unknown) (unknown) Total Bilirubin (units (unknown) date) 0.3 (0.2-1.3) unknown) mg/dL (unknown) (no (unknown) (unknown) Total Creatine (units (unknown) date) Kinase 132 unknown) (30-135) U/L (unknown) (no (unknown) (unknown) Total NIH Stroke (units (unknown) date) scale score: 6 unknown) (unknown) (no (unknown) (unknown) Total Protein 7.5 (units (unknown) date) (6.3-8.2) g/dL unknown) (unknown) (no (unknown) (unknown) Troponin + CK (units ( unknown) date) Cardiac Panel Stat unknown) (unknown) (no (unknown) (unknown) Troponin I < (units (u nknown) date) 0.012 (0.01-0.034) unknown) ng/mL (unknown) (no (unknown) (unknown) Visual francis: No (units (unknown) date) visual loss unknown) (unknown) (no (unknown) (unknown) Vital Signs - 8 (units (unknown) date) hr unknown) (unknown) (no (unknown) (unknown) Vital Signs (units (un known) date) unknown) (unknown) (no (unknown) (unknown) Vital signs: (units (u nknown) date) unknown) (unknown) (no (unknown) (unknown) WBC 6.4 (units (unkno wn) date) (4.5-11.0) X103/uL unknown) (unknown) (no (unknown) (unknown) XR shoulder LT (units (unknown) date) min 2V Stat unknown) (unknown) (no (unknown) (unknown) [Embedded Image (units (unknown) date) Not Available] unknown) (unknown) (no (unknown) (unknown) acetaminophen (units ( unknown) date) [From VICODIN] unknown) Allergy Unknown Verified 02/06/22 13:13 (unknown) (no (unknown) (unknown) alcohol intake (units (unknown) date) frequency: unknown) holidays/special occasions only (unknown) (no (unknown) (unknown) and below (units (unkn own) date) unknown) (unknown) (no (unknown) (unknown) and helped her (units (unknown) date) down to her unknown) bedroom to lay down and she went to sleep. At 11:00 (unknown) (no (unknown) (unknown) causes pain. (units (u nknown) date) unknown) (unknown) (no (unknown) (unknown) ceftriaxone (units (un known) date) [CEFTRIAXONE] unknown) Allergy Intermediate Verified 02/06/22 13:13 (unknown) (no (unknown) (unknown) complaints. (units (un known) date) Patient states unknown) last night she felt very dizzy and she passed out in (unknown) (no (unknown) (unknown) enoxaparin [From (units (unknown) date) LOVENOX] Allergy unknown) Unknown Verified 02/06/22 13:13 (unknown) (no (unknown) (unknown) extend at the (units ( unknown) date) wrist. Strong unknown) radial pulse. Examination of the left lower (unknown) (no (unknown) (unknown) extremity. (units (unk nown) date) Nontender knee and unknown) ankle. However attempts to flex the left hip (unknown) (no (unknown) (unknown) fall in the (units (un known) date) bathroom. Did not unknown) hit her head. Her daughter heard her fall down (unknown) (no (unknown) (unknown) feels different (units (unknown) date) from the right. unknown) Left telephone ad taker slightly weaker than right. Light (unknown) (no (unknown) (unknown) gross deformity. (units (unknown) date) Limited range of unknown) motion due to pain as well as weakness. (unknown) (no (unknown) (unknown) household (units (unkn own) date) members: children unknown) (unknown) (no (unknown) (unknown) hydrocodone [From (units (unknown) date) VICODIN] Allergy unknown) Unknown Verified 02/06/22 13:13 (unknown) (no (unknown) (unknown) in the past/TIA (units (unknown) date) with the similar unknown) symptoms slurred speech and slow speech. (unknown) (no (unknown) (unknown) ketorolac (units (unkn own) date) [KETOROLAC] unknown) Allergy Intermediate Verified 02/06/22 13:13 (unknown) (no (unknown) (unknown) multivitamin 1 (units (unknown) date) tab PO DAILY unknown) 07/01/18 07/01/18 (unknown) (no (unknown) (unknown) multivitamin (units (u nknown) date) Tablet unknown) (unknown) (no (unknown) (unknown) multivitamin with (units (unknown) date) minerals 1 tab PO unknown) DAILY 07/01/18 07/01/18 (unknown) (no (unknown) (unknown) multivitamin with (units (unknown) date) minerals unknown) [Hair,Skin and Nails] Tablet (unknown) (no (unknown) (unknown) night. Over 12 (units (unknown) date) hours ago. Awoke unknown) at 10:00 a.m. this morning with these (unknown) (no (unknown) (unknown) or bloody stools. (units (unknown) date) No cough cold or unknown) congestion. Patient states has had a stroke (unknown) (no (unknown) (unknown) p.m.. Patient (units ( unknown) date) denies any recent unknown) illness. No nausea vomiting diarrhea no black (unknown) (no (unknown) (unknown) prednisone (units (unk nown) date) [PREDNISONE] unknown) Allergy Unknown Verified 02/06/22 13:13 (unknown) (no (unknown) (unknown) rales, or (units (unkn own) date) rhonchi. unknown) (unknown) (no (unknown) (unknown) speech confusion (units (unknown) date) and left-sided unknown) weakness. Last well-known 11:00 p.m. last (unknown) (no (unknown) (unknown) the bathroom. She (units (unknown) date) states she hurt unknown) her left shoulder and left hip during the (unknown) (no (unknown) (unknown) touch intact to (units (unknown) date) left hand and unknown) foot. Result panel 8 (unknown) (no (unknown) (unknown) (no value) (units (unk nown) date) unknown) (unknown) (no (unknown) (unknown) (Hair,Skin and (units (unknown) date) Nails tablet) unknown) (unknown) (no (unknown) (unknown) [id number] (units (unkno wn) date) unknown) (unknown) (no (unknown) (unknown) 02/06/22 02/06/22 (units (unknown) date) 02/06/22 unknown) Range/Units (unknown) (no (unknown) (unknown) 02/06/22 13:21 (units (unknown) date) unknown) (unknown) (no (unknown) (unknown) 02/06/22 13:30 (units (unknown) date) unknown) (unknown) (no (unknown) (unknown) 02/06/22 14:17 (units (unknown) date) unknown) (unknown) (no (unknown) (unknown) 02/06/22 (units (unkno wn) date) unknown) (unknown) (no (unknown) (unknown) 1 dose PO (units (u nknown) date) DIRECTED unknown) (unknown) (no (unknown) (unknown) 1 tab PO DAILY (units (unknown) date) unknown) (unknown) (no (unknown) (unknown) [address] [place] [address] (units (unknown) date) unknown) (unknown) (no (unknown) (unknown) 13:13 (units (unkno wn) date) unknown) (unknown) (no (unknown) (unknown) 13:30 13:30 13:30 (units (unknown) date) unknown) (unknown) (no (unknown) (unknown) 07/01/2018, 9:41. (units (unknown) date) unknown) (unknown) (no (unknown) (unknown) ? (units (unkno wn) date) unknown) (unknown) (no (unknown) (unknown) ?[facility], (units (unknown) date) MR, MR HEAD/BRAIN unknown) WO CON, 2018, 15:17. (unknown) (no (unknown) (unknown) ALT 16 (<35) IU/L (units (unknown) date) unknown) (unknown) (no (unknown) (unknown) AST 24 (14-36) (units (unknown) date) IU/L unknown) (unknown) (no (unknown) (unknown) Able to flex (units (u nknown) date) fully at the elbow unknown) but has pain at the shoulder. Able to flex and (unknown) (no (unknown) (unknown) Accession Number: (units (unknown) date) [id number] ?? unknown) (unknown) (no (unknown) (unknown) Acct:[id number] (units (unknown) date) unknown) (unknown) (no (unknown) (unknown) Age/Sex: 46 / F (units (unknown) date) unknown) (unknown) (no (unknown) (unknown) Albumin 4.0 (units (un known) date) (3.5-5.0) g/dL unknown) (unknown) (no (unknown) (unknown) Albumin/Globulin (units (unknown) date) Ratio 1.1 unknown) (1.0-2.8) (unknown) (no (unknown) (unknown) Alkaline (units (unkno wn) date) Phosphatase 94 unknown) (38-126) U/L (unknown) (no (unknown) (unknown) Allergies (units (unkn own) date) unknown) (unknown) (no (unknown) (unknown) Allergy/AdvReac (units (unknown) date) Type Severity unknown) Reaction Status Date / Time (unknown) (no (unknown) (unknown) [place], [place] (units ( unknown) date) [address] unknown) (unknown) (no (unknown) (unknown) Anterior (units (unkno wn) date) circulation:? unknown) Intracranial internal carotid arteries are normal in size (unknown) (no (unknown) (unknown) Any quantitative (units (unknown) date) measurements of unknown) stenosis were performed using NASCET criteria.? (unknown) (no (unknown) (unknown) Approved by: (units (u nknown) date) Remington Ordonez, unknownAaron James on 02/06/2022 at 13:13 ? (unknown) (no (unknown) (unknown) Ask month/age: (units (unknown) date) Answers both unknown) questions correctly. (unknown) (no (unknown) (unknown) BACK: No flank (units (unknown) date) tenderness. unknown) (unknown) (no (unknown) (unknown) BRAIN:? (units (unkno wn) date) unknown) (unknown) (no (unknown) (unknown) BUN 10 (7-17) (units ( unknown) date) mg/dL unknown) (unknown) (no (unknown) (unknown) BUN/Creatinine (units (unknown) date) Ratio 11.0 (6-22) unknown) (unknown) (no (unknown) (unknown) Baso # (Auto) 0 (units (unknown) date) (0-100) /uL unknown) (unknown) (no (unknown) (unknown) Baso % (Auto) 0.4 (units (unknown) date) (0-2) % unknown) (unknown) (no (unknown) (unknown) Best gaze (units (unkn own) date) horizontal: Normal unknown) (unknown) (no (unknown) (unknown) Best language: No (units (unknown) date) aphasia, normal unknown) (unknown) (no (unknown) (unknown) Blood Pressure (units (unknown) date) 142/82 H 02/06/22 unknown) 13:13 (unknown) (no (unknown) (unknown) Blood Pressure (units (unknown) date) 142/82 H unknown) (unknown) (no (unknown) (unknown) Bones:? No (units (unk nown) date) suspicious bony unknown) lesions.? Visualized cervical spine appears normally (unknown) (no (unknown) (unknown) Brain:? No (units (unk nown) date) midline shift.? No unknown) intracranial bleeds or masses.? Mueller-white matter (unknown) (no (unknown) (unknown) CARDIOVASCULAR: (units (unknown) date) Denies chest pain, unknown) palpitations (unknown) (no (unknown) (unknown) CARDIOVASCULAR: (units (unknown) date) Regular rate and unknown) rhythm without murmurs (unknown) (no (unknown) (unknown) CK-MB (CK-2) 3.49 (units (unknown) date) H (<2.37) ng/mL unknown) (unknown) (no (unknown) (unknown) CK-MB (CK-2) Rel (units (unknown) date) Index 2.6 unknown) (1.5-5.0) % (unknown) (no (unknown) (unknown) COMPARISON:? (units (u nknown) date) [facility], unknown) MR, MR STROKE, 07/01/2018, 11:00.? [facility] (unknown) (no (unknown) (unknown) CONTRAST, (units (unkn own) date) 05/11/2012, unknown) 20:59.? [facility], CT, CT HEAD/BRAIN WO CON, (unknown) (no (unknown) (unknown) CSF spaces:? (units (u nknown) date) Ventricles are unknown) normal in size and shape.? Basal cisterns are (unknown) (no (unknown) (unknown) CT Scan Report (units (unknown) date) unknown) (unknown) (no (unknown) (unknown) CT angio head and (units (unknown) date) neck Stat unknown) (unknown) (no (unknown) (unknown) CT pelvis wo con (units (unknown) date) Stat unknown) (unknown) (no (unknown) (unknown) CT, BRAIN W/O (units (u nknown) date) CONTRAST, unknown) 06/14/2011, 17:18.? [facility], CT, BRAIN W/O (unknown) (no (unknown) (unknown) CTA - brain/neck: (units (unknown) date) unknown) (unknown) (no (unknown) (unknown) Calcium 8.7 (units (un known) date) (8.4-10.2) mg/dL unknown) (unknown) (no (unknown) (unknown) Carbon Dioxide 24 (units (unknown) date) (22-32) mmol/L unknown) (unknown) (no (unknown) (unknown) Carotid system:? (units (unknown) date) The great vessels unknown) demonstrate a conventional anatomy as they (unknown) (no (unknown) (unknown) delivery (units (unknown) date) delivered unknown) (unknown) (no (unknown) (unknown) Chief Complaint: (units (unknown) date) Neuro unknown) Symptoms/Deficit (unknown) (no (unknown) (unknown) Chloride 104 (units (u nknown) date) (98-107) mmol/L unknown) (unknown) (no (unknown) (unknown) Complete Blood (units (unknown) date) Count AUTO DIFF unknown) Stat (unknown) (no (unknown) (unknown) Comprehensive (units ( unknown) date) Metabolic Panel unknown) Stat (unknown) (no (unknown) (unknown) Course (units (unkno wn) date) unknown) (unknown) (no (unknown) (unknown) Creatinine 0.91 (units (unknown) date) (0.52-1.04) mg/dL unknown) (unknown) (no (unknown) (unknown) : 1975 (units (unknown) date) Acct:[id number] unknown) (unknown) (no (unknown) (unknown) : 1975 (units (unknown) date) unknown) (unknown) (no (unknown) (unknown) Date of Service: (units (unknown) date) 02/06/22 unknown) (unknown) (no (unknown) (unknown) Departure (units (unkn own) date) unknown) (unknown) (no (unknown) (unknown) Diabetes (units (unkno wn) date) unknown) (unknown) (no (unknown) (unknown) Dictated by: (units (u nknown) date) len Roger M.D. on 02/06/2022 at 13:09 ? ? (unknown) (no (unknown) (unknown) Discharge Plan (units (unknown) date) unknown) (unknown) (no (unknown) (unknown) Discontinued (units (u nknown) date) Medications unknown) (unknown) (no (unknown) (unknown) Dysarthria: Mild (units (unknown) date) to mod,some unknown) slurring (unknown) (no (unknown) (unknown) ECG Data (units (unkno wn) date) unknown) (unknown) (no (unknown) (unknown) ED Orders (units (unkn own) date) unknown) (unknown) (no (unknown) (unknown) EKG-12 Lead Stat (units (unknown) date) unknown) (unknown) (no (unknown) (unknown) ENT: Mucous (units (un known) date) membranes moist. unknown) (unknown) (no (unknown) (unknown) ER Physician: (units ( unknown) date) Demond Ruiz MD unknown) (unknown) (no (unknown) (unknown) EXTREMITIES: No (units (unknown) date) gross deformities. unknown) Mild tenderness to the left shoulder but no (unknown) (no (unknown) (unknown) EYES: Pupils (units (u nknown) date) equal round No unknown) scleral icterus. (unknown) (no (unknown) (unknown) Emergency Report (units (unknown) date) unknown) (unknown) (no (unknown) (unknown) Eos # (Auto) 100 (units (unknown) date) (0-450) /uL unknown) (unknown) (no (unknown) (unknown) Eos % (Auto) 1.5 (units (unknown) date) L (2-4) % unknown) (unknown) (no (unknown) (unknown) Estimated GFR > (units (unknown) date) 60 (>60) mL/min unknown) (unknown) (no (unknown) (unknown) Exam Narrative: (units (unknown) date) unknown) (unknown) (no (unknown) (unknown) Exam (units (unkno wn) date) unknown) (unknown) (no (unknown) (unknown) Extinction or (units ( unknown) date) inattention: No unknown) abnormality (unknown) (no (unknown) (unknown) FINDINGS:? (units (unk nown) date) unknown) (unknown) (no (unknown) (unknown) Facial palsy: (units ( unknown) date) Normal symetrical unknown) movement (unknown) (no (unknown) (unknown) Flow within the (units (unknown) date) posterior cerebral unknown) arteries is normal and symmetric.? No (unknown) (no (unknown) (unknown) GASTROINTESTINAL: (units (unknown) date) Abdomen soft, unknown) non-tender (unknown) (no (unknown) (unknown) GASTROINTESTINAL: (units (unknown) date) Denies nausea, unknown) vomiting, abdominal pain (unknown) (no (unknown) (unknown) GENERAL: Denies (units (unknown) date) chills, fatigue, unknown) malaise, fever, sweats. (unknown) (no (unknown) (unknown) GENERAL: in no (units (unknown) date) distress, not unknown) toxic not dyspneic (unknown) (no (unknown) (unknown) : Denies (units (unk nown) date) dysuria, unknown) frequency, hematuria (unknown) (no (unknown) (unknown) General (units (unkno wn) date) unknown) (unknown) (no (unknown) (unknown) Globulin 3.5 (units (u nknown) date) (1.7-4.1) g/dL unknown) (unknown) (no (unknown) (unknown) Glucose 189 H (units ( unknown) date) (70-100) mg/dL unknown) (unknown) (no (unknown) (unknown) HEAD CT (units (unkno wn) date) ANGIOGRAPHY:? unknown) (unknown) (no (unknown) (unknown) HEAD: (units (unkno wn) date) Normocephalic. unknown) Nontender scalp and face. (unknown) (no (unknown) (unknown) HEENT: Denies (units ( unknown) date) sinus pain, ear unknown) pain, sore throat (unknown) (no (unknown) (unknown) HPI - Neuro (units (un known) date) Symptoms/Deficit unknown) (unknown) (no (unknown) (unknown) HPI Narrative: (units (unknown) date) unknown) (unknown) (no (unknown) (unknown) Hct 31.2 L (units (unk nown) date) (36-46) % unknown) (unknown) (no (unknown) (unknown) Hematologic/Lymph (units (unknown) date) atic unknown) (unknown) (no (unknown) (unknown) Hgb 9.9 L (units (unkn own) date) (12.0-16.0) g/dL unknown) (unknown) (no (unknown) (unknown) History of (units (unk nown) date) Present Illness unknown) (unknown) (no (unknown) (unknown) Home Medications (units (unknown) date) unknown) (unknown) (no (unknown) (unknown) Hospital, (units (unkn own) date) unknown) (unknown) (no (unknown) (unknown) Hx of (units (unkno wn) date) cholecystectomy unknown) (unknown) (no (unknown) (unknown) IMPRESSION:? No (units (unknown) date) acute intracranial unknown) hemorrhage is seen.? (unknown) (no (unknown) (unknown) INDICATIONS:? (units ( unknown) date) Slurred unknown) speech/altered mental status (unknown) (no (unknown) (unknown) Image quality:? (units (unknown) date) Mild streak unknown) artifact can be seen through the skull base. (unknown) (no (unknown) (unknown) Imaging Data (units (u nknown) date) unknown) (unknown) (no (unknown) (unknown) Initial Vital (units ( unknown) date) Signs unknown) (unknown) (no (unknown) (unknown) Initial Vital (units ( unknown) date) Signs: unknown) (unknown) (no (unknown) (unknown) Interpretation: (units (unknown) date) unknown) (unknown) (no (unknown) (unknown) [facility] (units (unknown) date) [address] unknown) [place] [address] (unknown) (no (unknown) (unknown) [facility] (units (unknown) date) unknown) (unknown) (no (unknown) (unknown) Lab Data (units (unkno wn) date) unknown) (unknown) (no (unknown) (unknown) Lab Results (units (un known) date) unknown) (unknown) (no (unknown) (unknown) Labs: (units (unkno wn) date) unknown) (unknown) (no (unknown) (unknown) Left arm drift: (units (unknown) date) Some effort unknown) against gravity, cannot maintain, drifts down to bed (unknown) (no (unknown) (unknown) Left leg drift: (units (unknown) date) Some effort unknown) against gravity, cannot maintain, drifts down to bed (unknown) (no (unknown) (unknown) Level of (units (unkno wn) date) Conciousness: unknown) Alert, keenly responsive (unknown) (no (unknown) (unknown) Limb ataxia: (units (u nknown) date) Absent unknown) (unknown) (no (unknown) (unknown) Liver Cleanse 1 (units (unknown) date) dose PO unknown) DIRECTED 07/01/18 07/01/18 (unknown) (no (unknown) (unknown) Liver Cleanse (units ( unknown) date) unknown) (unknown) (no (unknown) (unknown) Loc: ED (units (unkno wn) date) unknown) (unknown) (no (unknown) (unknown) Lymph # (Auto) (units (unknown) date) 1600 (3047-1247) unknown) /uL (unknown) (no (unknown) (unknown) Lymph % (Auto) (units (unknown) date) 25.8 (25-40) % unknown) (unknown) (no (unknown) (unknown) MCH 23.4 L (units (unk nown) date) (26-34) PG unknown) (unknown) (no (unknown) (unknown) MCHC 31.7 (30-36) (units (unknown) date) % unknown) (unknown) (no (unknown) (unknown) MCV 73.9 L (units (unk nown) date) (80-100) fL unknown) (unknown) (no (unknown) (unknown) MDM - Neuro (units (un known) date) Symptoms/Deficit unknown) (unknown) (no (unknown) (unknown) MEDICATION FOR (units (unknown) date) BLOOD CLOTS unknown) Allergy Intermediate Uncoded 07/01/18 09:44 (unknown) (no (unknown) (unknown) MR#: [id number] (units (unknown) date) unknown) (unknown) (no (unknown) (unknown) MUSCULOSKELETAL: (units (unknown) date) Positive for unknown) muscle or bony pain (unknown) (no (unknown) (unknown) Medical History (units (unknown) date) (Reviewed 02/06/22 unknown) @ 14:21 by Demond Ruiz MD) (unknown) (no (unknown) (unknown) Medication (units (unk nown) date) Instructions unknown) Recorded Confirmed (unknown) (no (unknown) (unknown) Mode of arrival: (units (unknown) date) Ambulatory unknown) (unknown) (no (unknown) (unknown) [place] # (Auto) 300 (units (unknown) date) (0-900) /uL unknown) (unknown) (no (unknown) (unknown) [place] % (Auto) 4.8 (units (unknown) date) (3-14) % unknown) (unknown) (no (unknown) (unknown) NECK CT (units (unkno wn) date) ANGIOGRAPHY:? unknown) (unknown) (no (unknown) (unknown) NECK: Trachea (units ( unknown) date) midline. No unknown) midline tenderness or step-off. (unknown) (no (unknown) (unknown) NEURO: AOx4. (units (u nknown) date) Slightly slurred unknown) speech, no facial droop, light touch left face (unknown) (no (unknown) (unknown) NEUROLOGIC: (units (un known) date) Positive for unknown) slurred speech/confusion/w eakness, numbness (unknown) (no (unknown) (unknown) NIH Stroke Scale (units (unknown) date) unknown) (unknown) (no (unknown) (unknown) Narrative (units (unkn own) date) unknown) (unknown) (no (unknown) (unknown) Narrative: (units (unk nown) date) unknown) (unknown) (no (unknown) (unknown) Neut # (Auto) (units ( unknown) date) 4300 (8234-7108) unknown) /uL (unknown) (no (unknown) (unknown) Neut % (Auto) (units ( unknown) date) 67.5 (50-75) % unknown) (unknown) (no (unknown) (unknown) No Action (units (unkn own) date) unknown) (unknown) (no (unknown) (unknown) No acute (units (unkno wn) date) intracranial unknown) process is seen.? (unknown) (no (unknown) (unknown) No findings neck (units (unknown) date) artery dissection unknown) can be seen. (unknown) (no (unknown) (unknown) No significant (units (unknown) date) intracranial unknown) arterial abnormality is seen.? (unknown) (no (unknown) (unknown) Normal sinus (units (u nknown) date) rhythm rate 86 no unknown) ST elevation or depression (unknown) (no (unknown) (unknown) Obesity (BMI (units (u nknown) date) 30.0-34.9) unknown) (unknown) (no (unknown) (unknown) On (units (unkno wn) date) Anticoagulants: No unknown) (unknown) (no (unknown) (unknown) Open/close eyes, (units (unknown) date) close hand: unknown) Performs both tasks correctly (unknown) (no (unknown) (unknown) Orbits appear (units ( unknown) date) normal.? unknown) Incidental note is made of hyperostosis frontalis. This (unknown) (no (unknown) (unknown) Ordered: (units (unkno wn) date) unknown) (unknown) (no (unknown) (unknown) Ordering (units (unkno wn) date) Provider: unknown) Demond Ruiz MD (unknown) (no (unknown) (unknown) Orders (units (unkno wn) date) unknown) (unknown) (no (unknown) (unknown) Oxygen Delivery (units (unknown) date) Method 02/06/22 unknown) 13:13 (unknown) (no (unknown) (unknown) Oxygen Delivery (units (unknown) date) Method Room Air unknown) (unknown) (no (unknown) (unknown) PROCEDURE:? CT (units (unknown) date) ANGIO HEAD AND unknown) NECK (unknown) (no (unknown) (unknown) PSYCH: Not (units (unk nown) date) anxious, is unknown) cooperative (unknown) (no (unknown) (unknown) Patient History (units (unknown) date) unknown) (unknown) (no (unknown) (unknown) Patient here with (units (unknown) date) a friend. Brought unknown) here by her friend. Complains slurred (unknown) (no (unknown) (unknown) Patient: (units (unkno wn) date) Caitie Muhammad A unknown) MR#: [id number] (unknown) (no (unknown) (unknown) Patient: (units (unkno wn) date) JbCaitie A unknown) (unknown) (no (unknown) (unknown) Peptic ulcer (units (u nknown) date) unknown) (unknown) (no (unknown) (unknown) Plt Count 223 (units ( unknown) date) (150-400) X103/uL unknown) (unknown) (no (unknown) (unknown) Posterior (units (unkno wn) date) circulation:? The unknown) origins of the vertebral arteries both appear widely (unknown) (no (unknown) (unknown) Posterior (units (unkn own) date) circulation:? unknown) Visualized portions of the vertebral arteries (unknown) (no (unknown) (unknown) Potassium 3.7 (units ( unknown) date) (3.4-5.1) mmol/L unknown) (unknown) (no (unknown) (unknown) Pre-contrast 4.5 (units (unknown) date) mm thick sections unknown) acquired from the foramen magnum to the (unknown) (no (unknown) (unknown) Test (units (unknown) date) Serum,Qual Stat unknown) (unknown) (no (unknown) (unknown) Prescriptions: (units (unknown) date) unknown) (unknown) (no (unknown) (unknown) Procedure: CT (units ( unknown) date) angio head and unknown) neck (unknown) (no (unknown) (unknown) Pulse Oximetry (units (unknown) date) 100 02/06/22 13:13 unknown) (unknown) (no (unknown) (unknown) Pulse Oximetry (units (unknown) date) 100 unknown) (unknown) (no (unknown) (unknown) Pulse Rate 106 H (units (unknown) date) 02/06/22 13:13 unknown) (unknown) (no (unknown) (unknown) Pulse Rate 106 H (units (unknown) date) unknown) (unknown) (no (unknown) (unknown) RBC 4.22 (units (unkno wn) date) (4.0-5.2) X106/uL unknown) (unknown) (no (unknown) (unknown) RDW 18.2 H (units (unk nown) date) (11.6-14.8) % unknown) (unknown) (no (unknown) (unknown) RESPIRATORY: Clear (units (unknown) date) to auscultation. unknown) Breath sounds equal bilaterally. No wheezes, (unknown) (no (unknown) (unknown) RESPIRATORY: (units (u nknown) date) Denies dyspnea, unknown) cough (unknown) (no (unknown) (unknown) ROS Unobtainable: (units (unknown) date) All systems unknown) reviewed + are unremarkable except as noted in HPI (unknown) (no (unknown) (unknown) Radiologist's (units ( unknown) date) Impression: unknown) (unknown) (no (unknown) (unknown) Referrals: (units (unk nown) date) unknown) (unknown) (no (unknown) (unknown) Related Data (units (u nknown) date) unknown) (unknown) (no (unknown) (unknown) Respiratory Rate (units (unknown) date) 15 02/06/22 13:13 unknown) (unknown) (no (unknown) (unknown) Respiratory Rate (units (unknown) date) 15 unknown) (unknown) (no (unknown) (unknown) Restless leg (units (u nknown) date) syndrome unknown) (unknown) (no (unknown) (unknown) Result diagrams: (units (unknown) date) unknown) (unknown) (no (unknown) (unknown) Review of Systems (units (unknown) date) unknown) (unknown) (no (unknown) (unknown) Right arm drift: (units (unknown) date) No drift for full unknown) 10 sec (unknown) (no (unknown) (unknown) Right leg drift: (units (unknown) date) No drift for full unknown) 5 sec (unknown) (no (unknown) (unknown) SKIN: Denies (units (u nknown) date) rash, skin lesions unknown) (unknown) (no (unknown) (unknown) SKIN: Warm and (units (unknown) date) dry unknown) (unknown) (no (unknown) (unknown) Scores (units (unkno wn) date) unknown) (unknown) (no (unknown) (unknown) Sensory on (units (unk nown) date) face/arms/legs: unknown) Mild to moderate sensory loss, can tell touch (unknown) (no (unknown) (unknown) Serum , (units (unknown) date) Qual Negative unknown) (Negative) (unknown) (no (unknown) (unknown) Signed By: (units (unk nown) date) unknown) (unknown) (no (unknown) (unknown) Signed (units (unkno wn) date) unknown) (unknown) (no (unknown) (unknown) Sinuses:? Sinuses (units (unknown) date) and mastoids are unknown) clear.? (unknown) (no (unknown) (unknown) Skull and face:? (units (unknown) date) Calvarium and unknown) facial bones appear intact, without suspicious (unknown) (no (unknown) (unknown) Smoking Status: (units (unknown) date) Never smoker unknown) (unknown) (no (unknown) (unknown) Social History (units (unknown) date) (Reviewed 02/06/22 unknown) @ 14:21 by Demond Ruiz MD) (unknown) (no (unknown) (unknown) Sodium 139 (units (unk nown) date) (137-145) mmol/L unknown) (unknown) (no (unknown) (unknown) Sodium Chloride (units (unknown) date) (Normal Saline unknown) 0.9%) 500 mls @ 1,000 mls/hr IV BOLUS ONE (unknown) (no (unknown) (unknown) Soft tissues:? (units (unknown) date) Visualized neck unknown) soft tissues demonstrate no suspicious (unknown) (no (unknown) (unknown) Source: patient (units (unknown) date) unknown) (unknown) (no (unknown) (unknown) Stated Complaint: (units (unknown) date) PT. unknown) fell/confused/hx of stroke/lt. side drooping (unknown) (no (unknown) (unknown) Status post (units (un known) date) gastric bypass for unknown) obesity (unknown) (no (unknown) (unknown) Stop: 02/06/22 (units (unknown) date) 13:51 unknown) (unknown) (no (unknown) (unknown) Substance Use (units ( unknown) date) Type: does not use unknown) (unknown) (no (unknown) (unknown) Surgical History (units (unknown) date) (Reviewed 02/06/22 unknown) @ 14:21 by Demond Ruiz MD) (unknown) (no (unknown) (unknown) TECHNIQUE:? (units (un known) date) unknown) (unknown) (no (unknown) (unknown) Temperature 98.5 (units (unknown) date) F 02/06/22 13:13 unknown) (unknown) (no (unknown) (unknown) Temperature 98.5 (units (unknown) date) F unknown) (unknown) (no (unknown) (unknown) The flow within (units (unknown) date) the middle unknown) cerebral arteries is normal and symmetric.? The (unknown) (no (unknown) (unknown) The more superior (units (unknown) date) extracranial unknown) portions of both vertebral arteries also (unknown) (no (unknown) (unknown) This is (units (unkno wn) date) attributed to a unknown) type origin of the right posterior cerebral (unknown) (no (unknown) (unknown) Bravo Schmitz (units (unknown) date) MD Demond [Primary unknown) Care Provider] (unknown) (no (unknown) (unknown) Time Seen by (units (u nknown) date) Provider: 02/06/22 unknown) 13:20 (unknown) (no (unknown) (unknown) Total Bilirubin (units (unknown) date) 0.3 (0.2-1.3) unknown) mg/dL (unknown) (no (unknown) (unknown) Total Creatine (units (unknown) date) Kinase 132 unknown) (30-135) U/L (unknown) (no (unknown) (unknown) Total NIH Stroke (units (unknown) date) scale score: 6 unknown) (unknown) (no (unknown) (unknown) Total Protein 7.5 (units (unknown) date) (6.3-8.2) g/dL unknown) (unknown) (no (unknown) (unknown) Troponin + CK (units ( unknown) date) Cardiac Panel Stat unknown) (unknown) (no (unknown) (unknown) Troponin I < (units (u nknown) date) 0.012 (0.01-0.034) unknown) ng/mL (unknown) (no (unknown) (unknown) Visual francis: No (units (unknown) date) visual loss unknown) (unknown) (no (unknown) (unknown) Vital Signs - 8 (units (unknown) date) hr unknown) (unknown) (no (unknown) (unknown) Vital Signs (units (un known) date) unknown) (unknown) (no (unknown) (unknown) Vital signs: (units (u nknown) date) unknown) (unknown) (no (unknown) (unknown) WBC 6.4 (units (unkno wn) date) (4.5-11.0) X103/uL unknown) (unknown) (no (unknown) (unknown) Within the (units (unk nown) date) arteries of the unknown) neck, no hemodynamically significant stenosis can be (unknown) (no (unknown) (unknown) XR shoulder LT (units (unknown) date) min 2V Stat unknown) (unknown) (no (unknown) (unknown) [Embedded Image (units (unknown) date) Not Available] unknown) (unknown) (no (unknown) (unknown) abnormalities.? (units (unknown) date) unknown) (unknown) (no (unknown) (unknown) acetaminophen (units ( unknown) date) [From VICODIN] unknown) Allergy Unknown Verified 02/06/22 13:13 (unknown) (no (unknown) (unknown) acquired (units (unkno wn) date) unknown) (unknown) (no (unknown) (unknown) alcohol intake (units (unknown) date) frequency: unknown) holidays/special occasions only (unknown) (no (unknown) (unknown) aligned.? (units (unkn own) date) unknown) (unknown) (no (unknown) (unknown) and below (units (unkn own) date) unknown) (unknown) (no (unknown) (unknown) and helped her (units (unknown) date) down to her unknown) bedroom to lay down and she went to sleep. At 11:00 (unknown) (no (unknown) (unknown) and neck (units (unkno wn) date) separately. For unknown) radiation dose reduction, the following was used:? (unknown) (no (unknown) (unknown) and (units (unkno wn) date) unknown) (unknown) (no (unknown) (unknown) and/or volume (units ( unknown) date) rendering unknown) reformats were acquired of the central intracranial (unknown) (no (unknown) (unknown) aneurysms are (units ( unknown) date) unknown) (unknown) (no (unknown) (unknown) anterior (units (unkno wn) date) unknown) (unknown) (no (unknown) (unknown) appears intact.? (units (unknown) date) unknown) (unknown) (no (unknown) (unknown) arch through the (units (unknown) date) [place].? unknown) Post-contrast 4.5 mm thick sections then re (unknown) (no (unknown) (unknown) arise from (units (unk nown) date) unknown) (unknown) (no (unknown) (unknown) artery, which (units ( unknown) date) unknown) (unknown) (no (unknown) (unknown) artery.? (units (unkno wn) date) unknown) (unknown) (no (unknown) (unknown) automated (units (unkn own) date) unknown) (unknown) (no (unknown) (unknown) both widely (units (un known) date) patent.? The unknown) internal carotid arteries demonstrate normal calibers (unknown) (no (unknown) (unknown) caliber, and join (units (unknown) date) to form a normal unknown) appearing basilar artery. There is a (unknown) (no (unknown) (unknown) carotid arteries (units (unknown) date) demonstrate normal unknown) caliber and courses.? The bifurcation (unknown) (no (unknown) (unknown) causes pain. (units (u nknown) date) unknown) (unknown) (no (unknown) (unknown) ceftriaxone (units (un known) date) [CEFTRIAXONE] unknown) Allergy Intermediate Verified 02/06/22 13:13 (unknown) (no (unknown) (unknown) common (units (unkno wn) date) unknown) (unknown) (no (unknown) (unknown) communicating (units ( unknown) date) artery is seen.? unknown) No aneurysms are seen.? (unknown) (no (unknown) (unknown) complaints. (units (un known) date) Patient states unknown) last night she felt very dizzy and she passed out in (unknown) (no (unknown) (unknown) consequence.? (units ( unknown) date) unknown) (unknown) (no (unknown) (unknown) considered to be (units (unknown) date) pathologic in a unknown) woman of this age.? In this patient with a (unknown) (no (unknown) (unknown) courses.? (units (unkn own) date) unknown) (unknown) (no (unknown) (unknown) demonstrate (units (un known) date) normal unknown) (unknown) (no (unknown) (unknown) demonstrate (units (un known) date) unknown) (unknown) (no (unknown) (unknown) enoxaparin [From (units (unknown) date) LOVENOX] Allergy unknown) Unknown Verified 02/06/22 13:13 (unknown) (no (unknown) (unknown) exposure control, (units (unknown) date) adjustment of mA unknown) and/or kV according to patient size.? (unknown) (no (unknown) (unknown) extend at the (units ( unknown) date) wrist. Strong unknown) radial pulse. Examination of the left lower (unknown) (no (unknown) (unknown) extra-axial fluid (units (unknown) date) collections.? unknown) (unknown) (no (unknown) (unknown) extremity. (units (unk nown) date) Nontender knee and unknown) ankle. However attempts to flex the left hip (unknown) (no (unknown) (unknown) fall in the (units (un known) date) bathroom. Did not unknown) hit her head. Her daughter heard her fall down (unknown) (no (unknown) (unknown) feels different (units (unknown) date) from the right. unknown) Left telephone ad taker slightly weaker than right. Light (unknown) (no (unknown) (unknown) flow.? The flow (units (unknown) date) within the paired unknown) anterior cerebral arteries is normal and (unknown) (no (unknown) (unknown) from the foramen (units (unknown) date) magnum to the unknown) vertex.? 3-dimensional (unknown) (no (unknown) (unknown) given history (units ( unknown) date) unknown) (unknown) (no (unknown) (unknown) gross deformity. (units (unknown) date) Limited range of unknown) motion due to pain as well as weakness. (unknown) (no (unknown) (unknown) household (units (unkn own) date) members: children unknown) (unknown) (no (unknown) (unknown) hydrocodone [From (units (unknown) date) VICODIN] Allergy unknown) Unknown Verified 02/06/22 13:13 (unknown) (no (unknown) (unknown) in the past/TIA (units (unknown) date) with the similar unknown) symptoms slurred speech and slow speech. (unknown) (no (unknown) (unknown) including (units (unkn own) date) unknown) (unknown) (no (unknown) (unknown) interface (units (unkn own) date) unknown) (unknown) (no (unknown) (unknown) is considered to (units (unknown) date) be a normal unknown) developmental variant of typically no clinical (unknown) (no (unknown) (unknown) is not (units (unkno wn) date) unknown) (unknown) (no (unknown) (unknown) ketorolac (units (unkn own) date) [KETOROLAC] unknown) Allergy Intermediate Verified 02/06/22 13:13 (unknown) (no (unknown) (unknown) lesions.? (units (unkn own) date) unknown) (unknown) (no (unknown) (unknown) maximum-intensity (units (unknown) date) -projection (MIP) unknown) (unknown) (no (unknown) (unknown) multivitamin 1 (units (unknown) date) tab PO DAILY unknown) 07/01/18 07/01/18 (unknown) (no (unknown) (unknown) multivitamin (units (u nknown) date) Tablet unknown) (unknown) (no (unknown) (unknown) multivitamin with (units (unknown) date) minerals 1 tab PO unknown) DAILY 07/01/18 07/01/18 (unknown) (no (unknown) (unknown) multivitamin with (units (unknown) date) minerals unknown) [Hair,Skin and Nails] Tablet (unknown) (no (unknown) (unknown) night. Over 12 (units (unknown) date) hours ago. Awoke unknown) at 10:00 a.m. this morning with these (unknown) (no (unknown) (unknown) normal courses (units (unknown) date) and calibers.? unknown) They join to form a normal appearing basilar (unknown) (no (unknown) (unknown) or bloody stools. (units (unknown) date) No cough cold or unknown) congestion. Patient states has had a stroke (unknown) (no (unknown) (unknown) p.m.. Patient (units ( unknown) date) denies any recent unknown) illness. No nausea vomiting diarrhea no black (unknown) (no (unknown) (unknown) patent.? No (units (un known) date) unknown) (unknown) (no (unknown) (unknown) patent.? (units (unkno wn) date) unknown) (unknown) (no (unknown) (unknown) posterior (units (unkn own) date) communicating unknown) artery seen, with an accompanying diminutive right P1 (unknown) (no (unknown) (unknown) prednisone (units (unk nown) date) [PREDNISONE] unknown) Allergy Unknown Verified 02/06/22 13:13 (unknown) (no (unknown) (unknown) prominent right (units (unknown) date) unknown) (unknown) (no (unknown) (unknown) rales, or (units (unkn own) date) rhonchi. unknown) (unknown) (no (unknown) (unknown) regions are (units (un known) date) unknown) (unknown) (no (unknown) (unknown) right facial (units (u nknown) date) droop, scrutiny is unknown) given to the course of the right facial nerve, (unknown) (no (unknown) (unknown) seen, to (units (unkno wn) date) unknown) (unknown) (no (unknown) (unknown) seen. ? (units (unkno wn) date) unknown) (unknown) (no (unknown) (unknown) seen.? (units (unkno wn) date) unknown) (unknown) (no (unknown) (unknown) segment. (units (unkno wn) date) unknown) (unknown) (no (unknown) (unknown) speech confusion (units (unknown) date) and left-sided unknown) weakness. Last well-known 11:00 p.m. last (unknown) (no (unknown) (unknown) symmetric.? (units (un known) date) unknown) (unknown) (no (unknown) (unknown) the (units (unkno wn) date) administration of unknown) intravenous contrast, 1 mm thick sections acquired from (unknown) (no (unknown) (unknown) the aortic arch.? (units (unknown) date) The origins of the unknown) common carotid arteries appear patent.? The (unknown) (no (unknown) (unknown) the aortic (units (unk nown) date) unknown) (unknown) (no (unknown) (unknown) the bathroom. She (units (unknown) date) states she hurt unknown) her left shoulder and left hip during the (unknown) (no (unknown) (unknown) the limits of CT. (units (unknown) date) unknown) (unknown) (no (unknown) (unknown) touch intact to (units (unknown) date) left hand and unknown) foot. (unknown) (no (unknown) (unknown) vasculature (units (un known) date) unknown) (unknown) (no (unknown) (unknown) vertex.? After (units (unknown) date) unknown) (unknown) (no (unknown) (unknown) within the right (units (unknown) date) parotid gland.? No unknown) ghazal masses or abnormal enhancement can be Result panel 9 (unknown) (no (unknown) (unknown) (no value) (units (unk nown) date) unknown) (unknown) (no (unknown) (unknown) (Hair,Skin and (units (unknown) date) Nails tablet) unknown) (unknown) (no (unknown) (unknown) [id number] (units (unkno wn) date) unknown) (unknown) (no (unknown) (unknown) 02/06/22 02/06/22 (units (unknown) date) 02/06/22 unknown) Range/Units (unknown) (no (unknown) (unknown) 02/06/22 13:21 (units (unknown) date) unknown) (unknown) (no (unknown) (unknown) 02/06/22 13:30 (units (unknown) date) unknown) (unknown) (no (unknown) (unknown) 02/06/22 14:17 (units (unknown) date) unknown) (unknown) (no (unknown) (unknown) 02/06/22 (units (unkno wn) date) unknown) (unknown) (no (unknown) (unknown) 1 dose PO (units (u nknown) date) DIRECTED unknown) (unknown) (no (unknown) (unknown) 1 tab PO DAILY (units (unknown) date) unknown) (unknown) (no (unknown) (unknown) [address] [place] [address] (units (unknown) date) unknown) (unknown) (no (unknown) (unknown) 13:13 (units (unkno wn) date) unknown) (unknown) (no (unknown) (unknown) 13:30 13:30 13:30 (units (unknown) date) unknown) (unknown) (no (unknown) (unknown) 07/01/2018, 9:41. (units (unknown) date) unknown) (unknown) (no (unknown) (unknown) ? (units (unkno wn) date) unknown) (unknown) (no (unknown) (unknown) ?[facility], (units (unknown) date) MR, MR HEAD/BRAIN unknown) WO CON, 2018, 15:17. (unknown) (no (unknown) (unknown) ALT 16 (<35) IU/L (units (unknown) date) unknown) (unknown) (no (unknown) (unknown) AST 24 (14-36) (units (unknown) date) IU/L unknown) (unknown) (no (unknown) (unknown) Able to flex (units (u nknown) date) fully at the elbow unknown) but has pain at the shoulder. Able to flex and (unknown) (no (unknown) (unknown) Accession Number: (units (unknown) date) [id number] ?? unknown) (unknown) (no (unknown) (unknown) Acct:[id number] (units (unknown) date) unknown) (unknown) (no (unknown) (unknown) Age/Sex: 46 / F (units (unknown) date) unknown) (unknown) (no (unknown) (unknown) Albumin 4.0 (units (un known) date) (3.5-5.0) g/dL unknown) (unknown) (no (unknown) (unknown) Albumin/Globulin (units (unknown) date) Ratio 1.1 unknown) (1.0-2.8) (unknown) (no (unknown) (unknown) Alkaline (units (unkno wn) date) Phosphatase 94 unknown) (38-126) U/L (unknown) (no (unknown) (unknown) Allergies (units (unkn own) date) unknown) (unknown) (no (unknown) (unknown) Allergy/AdvReac (units (unknown) date) Type Severity unknown) Reaction Status Date / Time (unknown) (no (unknown) (unknown) [place], [place] (units ( unknown) date) [id number] unknown) (unknown) (no (unknown) (unknown) Anterior (units (unkno wn) date) circulation:? unknown) Intracranial internal carotid arteries are normal in size (unknown) (no (unknown) (unknown) Any quantitative (units (unknown) date) measurements of unknown) stenosis were performed using NASCET criteria.? (unknown) (no (unknown) (unknown) Approved by: (units (u nknown) date) Remington Ordonez, len James on 02/06/2022 at 13:13 ? (unknown) (no (unknown) (unknown) Ask month/age: (units (unknown) date) Answers both unknown) questions correctly. (unknown) (no (unknown) (unknown) BACK: No flank (units (unknown) date) tenderness. unknown) (unknown) (no (unknown) (unknown) BRAIN:? (units (unkno wn) date) unknown) (unknown) (no (unknown) (unknown) BUN 10 (7-17) (units ( unknown) date) mg/dL unknown) (unknown) (no (unknown) (unknown) BUN/Creatinine (units (unknown) date) Ratio 11.0 (6-22) unknown) (unknown) (no (unknown) (unknown) Baso # (Auto) 0 (units (unknown) date) (0-100) /uL unknown) (unknown) (no (unknown) (unknown) Baso % (Auto) 0.4 (units (unknown) date) (0-2) % unknown) (unknown) (no (unknown) (unknown) Best gaze (units (unkn own) date) horizontal: Normal unknown) (unknown) (no (unknown) (unknown) Best language: No (units (unknown) date) aphasia, normal unknown) (unknown) (no (unknown) (unknown) Blood Pressure (units (unknown) date) 142/82 H 02/06/22 unknown) 13:13 (unknown) (no (unknown) (unknown) Blood Pressure (units (unknown) date) 142/82 H unknown) (unknown) (no (unknown) (unknown) Bones:? No (units (unk nown) date) suspicious bony unknown) lesions.? Visualized cervical spine appears normally (unknown) (no (unknown) (unknown) Brain:? No (units (unk nown) date) midline shift.? No unknown) intracranial bleeds or masses.? Mueller-white matter (unknown) (no (unknown) (unknown) CARDIOVASCULAR: (units (unknown) date) Denies chest pain, unknown) palpitations (unknown) (no (unknown) (unknown) CARDIOVASCULAR: (units (unknown) date) Regular rate and unknown) rhythm without murmurs (unknown) (no (unknown) (unknown) CK-MB (CK-2) 3.49 (units (unknown) date) H (<2.37) ng/mL unknown) (unknown) (no (unknown) (unknown) CK-MB (CK-2) Rel (units (unknown) date) Index 2.6 unknown) (1.5-5.0) % (unknown) (no (unknown) (unknown) COMPARISON:? (units (u nknown) date) [facility], unknown) MR, MR STROKE, 07/01/2018, 11:00.? [facility] (unknown) (no (unknown) (unknown) CONTRAST, (units (unkn own) date) 05/11/2012, unknown) 20:59.? [facility], CT, CT HEAD/BRAIN WO CON, (unknown) (no (unknown) (unknown) CSF spaces:? (units (u nknown) date) Ventricles are unknown) normal in size and shape.? Basal cisterns are (unknown) (no (unknown) (unknown) CT Scan Report (units (unknown) date) unknown) (unknown) (no (unknown) (unknown) CT angio head and (units (unknown) date) neck Stat unknown) (unknown) (no (unknown) (unknown) CT pelvis wo con (units (unknown) date) Stat unknown) (unknown) (no (unknown) (unknown) CT, BRAIN W/O (units (u nknown) date) CONTRAST, unknown) 06/14/2011, 17:18.? [facility], CT, BRAIN W/O (unknown) (no (unknown) (unknown) CTA - brain/neck: (units (unknown) date) unknown) (unknown) (no (unknown) (unknown) Calcium 8.7 (units (un known) date) (8.4-10.2) mg/dL unknown) (unknown) (no (unknown) (unknown) Carbon Dioxide 24 (units (unknown) date) (22-32) mmol/L unknown) (unknown) (no (unknown) (unknown) Carotid system:? (units (unknown) date) The great vessels unknown) demonstrate a conventional anatomy as they (unknown) (no (unknown) (unknown) delivery (units (unknown) date) delivered unknown) (unknown) (no (unknown) (unknown) Chief Complaint: (units (unknown) date) Neuro unknown) Symptoms/Deficit (unknown) (no (unknown) (unknown) Chloride 104 (units (u nknown) date) (98-107) mmol/L unknown) (unknown) (no (unknown) (unknown) Complete Blood (units (unknown) date) Count AUTO DIFF unknown) Stat (unknown) (no (unknown) (unknown) Comprehensive (units ( unknown) date) Metabolic Panel unknown) Stat (unknown) (no (unknown) (unknown) Course (units (unkno wn) date) unknown) (unknown) (no (unknown) (unknown) Creatinine 0.91 (units (unknown) date) (0.52-1.04) mg/dL unknown) (unknown) (no (unknown) (unknown) : 1975 (units (unknown) date) Acct:[id number] unknown) (unknown) (no (unknown) (unknown) : 1975 (units (unknown) date) unknown) (unknown) (no (unknown) (unknown) Date of Service: (units (unknown) date) 02/06/22 unknown) (unknown) (no (unknown) (unknown) Departure (units (unkn own) date) unknown) (unknown) (no (unknown) (unknown) Diabetes (units (unkno wn) date) unknown) (unknown) (no (unknown) (unknown) Dictated by: (units (u nknown) date) Remintgon Ordonez unknownAaron James on 02/06/2022 at 13:09 ? ? (unknown) (no (unknown) (unknown) Discharge Plan (units (unknown) date) unknown) (unknown) (no (unknown) (unknown) Discontinued (units (u nknown) date) Medications unknown) (unknown) (no (unknown) (unknown) Dysarthria: Mild (units (unknown) date) to mod,some unknown) slurring (unknown) (no (unknown) (unknown) ECG Data (units (unkno wn) date) unknown) (unknown) (no (unknown) (unknown) ED Orders (units (unkn own) date) unknown) (unknown) (no (unknown) (unknown) EKG-12 Lead Stat (units (unknown) date) unknown) (unknown) (no (unknown) (unknown) ENT: Mucous (units (un known) date) membranes moist. unknown) (unknown) (no (unknown) (unknown) ER Physician: (units ( unknown) date) Demond Ruiz MD unknown) (unknown) (no (unknown) (unknown) EXTREMITIES: No (units (unknown) date) gross deformities. unknown) Mild tenderness to the left shoulder but no (unknown) (no (unknown) (unknown) EYES: Pupils (units (u nknown) date) equal round No unknown) scleral icterus. (unknown) (no (unknown) (unknown) Emergency Report (units (unknown) date) unknown) (unknown) (no (unknown) (unknown) Eos # (Auto) 100 (units (unknown) date) (0-450) /uL unknown) (unknown) (no (unknown) (unknown) Eos % (Auto) 1.5 (units (unknown) date) L (2-4) % unknown) (unknown) (no (unknown) (unknown) Estimated GFR > (units (unknown) date) 60 (>60) mL/min unknown) (unknown) (no (unknown) (unknown) Exam Narrative: (units (unknown) date) unknown) (unknown) (no (unknown) (unknown) Exam (units (unkno wn) date) unknown) (unknown) (no (unknown) (unknown) Extinction or (units ( unknown) date) inattention: No unknown) abnormality (unknown) (no (unknown) (unknown) FINDINGS:? (units (unk nown) date) unknown) (unknown) (no (unknown) (unknown) Facial palsy: (units ( unknown) date) Normal symetrical unknown) movement (unknown) (no (unknown) (unknown) Flow within the (units (unknown) date) posterior cerebral unknown) arteries is normal and symmetric.? No (unknown) (no (unknown) (unknown) GASTROINTESTINAL: (units (unknown) date) Abdomen soft, unknown) non-tender (unknown) (no (unknown) (unknown) GASTROINTESTINAL: (units (unknown) date) Denies nausea, unknown) vomiting, abdominal pain (unknown) (no (unknown) (unknown) GENERAL: Denies (units (unknown) date) chills, fatigue, unknown) malaise, fever, sweats. (unknown) (no (unknown) (unknown) GENERAL: in no (units (unknown) date) distress, not unknown) toxic not dyspneic (unknown) (no (unknown) (unknown) : Denies (units (unk nown) date) dysuria, unknown) frequency, hematuria (unknown) (no (unknown) (unknown) General (units (unkno wn) date) unknown) (unknown) (no (unknown) (unknown) Globulin 3.5 (units (u nknown) date) (1.7-4.1) g/dL unknown) (unknown) (no (unknown) (unknown) Glucose 189 H (units ( unknown) date) (70-100) mg/dL unknown) (unknown) (no (unknown) (unknown) HEAD CT (units (unkno wn) date) ANGIOGRAPHY:? unknown) (unknown) (no (unknown) (unknown) HEAD: (units (unkno wn) date) Normocephalic. unknown) Nontender scalp and face. (unknown) (no (unknown) (unknown) HEENT: Denies (units ( unknown) date) sinus pain, ear unknown) pain, sore throat (unknown) (no (unknown) (unknown) HPI - Neuro (units (un known) date) Symptoms/Deficit unknown) (unknown) (no (unknown) (unknown) HPI Narrative: (units (unknown) date) unknown) (unknown) (no (unknown) (unknown) Hct 31.2 L (units (unk nown) date) (36-46) % unknown) (unknown) (no (unknown) (unknown) Hematologic/Lymph (units (unknown) date) atic unknown) (unknown) (no (unknown) (unknown) Hgb 9.9 L (units (unkn own) date) (12.0-16.0) g/dL unknown) (unknown) (no (unknown) (unknown) History of (units (unk nown) date) Present Illness unknown) (unknown) (no (unknown) (unknown) Home Medications (units (unknown) date) unknown) (unknown) (no (unknown) (unknown) Hospital, (units (unkn own) date) unknown) (unknown) (no (unknown) (unknown) Hx of (units (unkno wn) date) cholecystectomy unknown) (unknown) (no (unknown) (unknown) IMPRESSION:? No (units (unknown) date) acute intracranial unknown) hemorrhage is seen.? (unknown) (no (unknown) (unknown) INDICATIONS:? (units ( unknown) date) Slurred unknown) speech/altered mental status (unknown) (no (unknown) (unknown) Image quality:? (units (unknown) date) Mild streak unknown) artifact can be seen through the skull base. (unknown) (no (unknown) (unknown) Imaging Data (units (u nknown) date) unknown) (unknown) (no (unknown) (unknown) Initial Vital (units ( unknown) date) Signs unknown) (unknown) (no (unknown) (unknown) Initial Vital (units ( unknown) date) Signs: unknown) (unknown) (no (unknown) (unknown) Interpretation: (units (unknown) date) unknown) (unknown) (no (unknown) (unknown) [facility] (units (unknown) date) [address] unknown) [place] [address] (unknown) (no (unknown) (unknown) [facility] (units (unknown) date) unknown) (unknown) (no (unknown) (unknown) Lab Data (units (unkno wn) date) unknown) (unknown) (no (unknown) (unknown) Lab Results (units (un known) date) unknown) (unknown) (no (unknown) (unknown) Labs: (units (unkno wn) date) unknown) (unknown) (no (unknown) (unknown) Left arm drift: (units (unknown) date) Some effort unknown) against gravity, cannot maintain, drifts down to bed (unknown) (no (unknown) (unknown) Left leg drift: (units (unknown) date) Some effort unknown) against gravity, cannot maintain, drifts down to bed (unknown) (no (unknown) (unknown) Level of (units (unkno wn) date) Conciousness: unknown) Alert, keenly responsive (unknown) (no (unknown) (unknown) Limb ataxia: (units (u nknown) date) Absent unknown) (unknown) (no (unknown) (unknown) Liver Cleanse 1 (units (unknown) date) dose PO unknown) DIRECTED 07/01/18 07/01/18 (unknown) (no (unknown) (unknown) Liver Cleanse (units ( unknown) date) unknown) (unknown) (no (unknown) (unknown) Loc: ED (units (unkno wn) date) unknown) (unknown) (no (unknown) (unknown) Lymph # (Auto) (units (unknown) date) 1600 (6405-2025) unknown) /uL (unknown) (no (unknown) (unknown) Lymph % (Auto) (units (unknown) date) 25.8 (25-40) % unknown) (unknown) (no (unknown) (unknown) MCH 23.4 L (units (unk nown) date) (26-34) PG unknown) (unknown) (no (unknown) (unknown) MCHC 31.7 (30-36) (units (unknown) date) % unknown) (unknown) (no (unknown) (unknown) MCV 73.9 L (units (unk nown) date) (80-100) fL unknown) (unknown) (no (unknown) (unknown) MDM - Neuro (units (un known) date) Symptoms/Deficit unknown) (unknown) (no (unknown) (unknown) MEDICATION FOR (units (unknown) date) BLOOD CLOTS unknown) Allergy Intermediate Uncoded 07/01/18 09:44 (unknown) (no (unknown) (unknown) MR#: [id number] (units (unknown) date) unknown) (unknown) (no (unknown) (unknown) MUSCULOSKELETAL: (units (unknown) date) Positive for unknown) muscle or bony pain (unknown) (no (unknown) (unknown) Medical History (units (unknown) date) (Reviewed 02/06/22 unknown) @ 14:21 by Demond Ruiz MD) (unknown) (no (unknown) (unknown) Medication (units (unk nown) date) Instructions unknown) Recorded Confirmed (unknown) (no (unknown) (unknown) Mode of arrival: (units (unknown) date) Ambulatory unknown) (unknown) (no (unknown) (unknown) [place] # (Auto) 300 (units (unknown) date) (0-900) /uL unknown) (unknown) (no (unknown) (unknown) [place] % (Auto) 4.8 (units (unknown) date) (3-14) % unknown) (unknown) (no (unknown) (unknown) NECK CT (units (unkno wn) date) ANGIOGRAPHY:? unknown) (unknown) (no (unknown) (unknown) NECK: Trachea (units ( unknown) date) midline. No unknown) midline tenderness or step-off. (unknown) (no (unknown) (unknown) NEURO: AOx4. (units (u nknown) date) Slightly slurred unknown) speech, no facial droop, light touch left face (unknown) (no (unknown) (unknown) NEUROLOGIC: (units (un known) date) Positive for unknown) slurred speech/confusion/w eakness, numbness (unknown) (no (unknown) (unknown) NIH Stroke Scale (units (unknown) date) unknown) (unknown) (no (unknown) (unknown) Narrative (units (unkn own) date) unknown) (unknown) (no (unknown) (unknown) Narrative: (units (unk nown) date) unknown) (unknown) (no (unknown) (unknown) Neut # (Auto) (units ( unknown) date) 4300 (8739-3829) unknown) /uL (unknown) (no (unknown) (unknown) Neut % (Auto) (units ( unknown) date) 67.5 (50-75) % unknown) (unknown) (no (unknown) (unknown) No Action (units (unkn own) date) unknown) (unknown) (no (unknown) (unknown) No acute (units (unkno wn) date) intracranial unknown) process is seen.? (unknown) (no (unknown) (unknown) No findings neck (units (unknown) date) artery dissection unknown) can be seen. (unknown) (no (unknown) (unknown) No significant (units (unknown) date) intracranial unknown) arterial abnormality is seen.? (unknown) (no (unknown) (unknown) Normal sinus (units (u nknown) date) rhythm rate 86 no unknown) ST elevation or depression (unknown) (no (unknown) (unknown) Obesity (BMI (units (u nknown) date) 30.0-34.9) unknown) (unknown) (no (unknown) (unknown) On (units (unkno wn) date) Anticoagulants: No unknown) (unknown) (no (unknown) (unknown) Open/close eyes, (units (unknown) date) close hand: unknown) Performs both tasks correctly (unknown) (no (unknown) (unknown) Orbits appear (units ( unknown) date) normal.? unknown) Incidental note is made of hyperostosis frontalis. This (unknown) (no (unknown) (unknown) Ordered: (units (unkno wn) date) unknown) (unknown) (no (unknown) (unknown) Ordering (units (unkno wn) date) Provider: unknown) Demond Ruiz MD (unknown) (no (unknown) (unknown) Orders (units (unkno wn) date) unknown) (unknown) (no (unknown) (unknown) Oxygen Delivery (units (unknown) date) Method 02/06/22 unknown) 13:13 (unknown) (no (unknown) (unknown) Oxygen Delivery (units (unknown) date) Method Room Air unknown) (unknown) (no (unknown) (unknown) PROCEDURE:? CT (units (unknown) date) ANGIO HEAD AND unknown) NECK (unknown) (no (unknown) (unknown) PSYCH: Not (units (unk nown) date) anxious, is unknown) cooperative (unknown) (no (unknown) (unknown) Patient (units (unkno wn) date) Disposition: Left unknown) Against Medical Advice (unknown) (no (unknown) (unknown) Patient History (units (unknown) date) unknown) (unknown) (no (unknown) (unknown) Patient here with (units (unknown) date) a friend. Brought unknown) here by her friend. Complains slurred (unknown) (no (unknown) (unknown) Patient: (units (unkno wn) date) Caitie Muhammad A unknown) MR#: [id number] (unknown) (no (unknown) (unknown) Patient: (units (unkno wn) date) Caitie Muhammad A unknown) (unknown) (no (unknown) (unknown) Peptic ulcer (units (u nknown) date) unknown) (unknown) (no (unknown) (unknown) Plt Count 223 (units ( unknown) date) (150-400) X103/uL unknown) (unknown) (no (unknown) (unknown) Posterior (units (unkno wn) date) circulation:? The unknown) origins of the vertebral arteries both appear widely (unknown) (no (unknown) (unknown) Posterior (units (unkn own) date) circulation:? unknown) Visualized portions of the vertebral arteries (unknown) (no (unknown) (unknown) Potassium 3.7 (units ( unknown) date) (3.4-5.1) mmol/L unknown) (unknown) (no (unknown) (unknown) Pre-contrast 4.5 (units (unknown) date) mm thick sections unknown) acquired from the foramen magnum to the (unknown) (no (unknown) (unknown) Test (units (unknown) date) Serum,Qual Stat unknown) (unknown) (no (unknown) (unknown) Prescriptions: (units (unknown) date) unknown) (unknown) (no (unknown) (unknown) Procedure: CT (units ( unknown) date) angio head and unknown) neck (unknown) (no (unknown) (unknown) Pulse Oximetry (units (unknown) date) 100 02/06/22 13:13 unknown) (unknown) (no (unknown) (unknown) Pulse Oximetry (units (unknown) date) 100 unknown) (unknown) (no (unknown) (unknown) Pulse Rate 106 H (units (unknown) date) 02/06/22 13:13 unknown) (unknown) (no (unknown) (unknown) Pulse Rate 106 H (units (unknown) date) unknown) (unknown) (no (unknown) (unknown) RBC 4.22 (units (unkno wn) date) (4.0-5.2) X106/uL unknown) (unknown) (no (unknown) (unknown) RDW 18.2 H (units (unk nown) date) (11.6-14.8) % unknown) (unknown) (no (unknown) (unknown) RESPIRATORY: Clear (units (unknown) date) to auscultation. unknown) Breath sounds equal bilaterally. No wheezes, (unknown) (no (unknown) (unknown) RESPIRATORY: (units (u nknown) date) Denies dyspnea, unknown) cough (unknown) (no (unknown) (unknown) ROS Unobtainable: (units (unknown) date) All systems unknown) reviewed + are unremarkable except as noted in HPI (unknown) (no (unknown) (unknown) Radiologist's (units ( unknown) date) Impression: unknown) (unknown) (no (unknown) (unknown) Referrals: (units (unk nown) date) unknown) (unknown) (no (unknown) (unknown) Related Data (units (u nknown) date) unknown) (unknown) (no (unknown) (unknown) Respiratory Rate (units (unknown) date) 15 02/06/22 13:13 unknown) (unknown) (no (unknown) (unknown) Respiratory Rate (units (unknown) date) 15 unknown) (unknown) (no (unknown) (unknown) Restless leg (units (u nknown) date) syndrome unknown) (unknown) (no (unknown) (unknown) Result diagrams: (units (unknown) date) unknown) (unknown) (no (unknown) (unknown) Review of Systems (units (unknown) date) unknown) (unknown) (no (unknown) (unknown) Right arm drift: (units (unknown) date) No drift for full unknown) 10 sec (unknown) (no (unknown) (unknown) Right leg drift: (units (unknown) date) No drift for full unknown) 5 sec (unknown) (no (unknown) (unknown) SKIN: Denies (units (u nknown) date) rash, skin lesions unknown) (unknown) (no (unknown) (unknown) SKIN: Warm and (units (unknown) date) dry unknown) (unknown) (no (unknown) (unknown) Scores (units (unkno wn) date) unknown) (unknown) (no (unknown) (unknown) Sensory on (units (unk nown) date) face/arms/legs: unknown) Mild to moderate sensory loss, can tell touch (unknown) (no (unknown) (unknown) Serum , (units (unknown) date) Qual Negative unknown) (Negative) (unknown) (no (unknown) (unknown) Signed By: (units (unk nown) date) unknown) (unknown) (no (unknown) (unknown) Signed (units (unkno wn) date) unknown) (unknown) (no (unknown) (unknown) Sinuses:? Sinuses (units (unknown) date) and mastoids are unknown) clear.? (unknown) (no (unknown) (unknown) Skull and face:? (units (unknown) date) Calvarium and unknown) facial bones appear intact, without suspicious (unknown) (no (unknown) (unknown) Smoking Status: (units (unknown) date) Never smoker unknown) (unknown) (no (unknown) (unknown) Social History (units (unknown) date) (Reviewed 02/06/22 unknown) @ 14:21 by Demond Ruiz MD) (unknown) (no (unknown) (unknown) Sodium 139 (units (unk nown) date) (137-145) mmol/L unknown) (unknown) (no (unknown) (unknown) Sodium Chloride (units (unknown) date) (Normal Saline unknown) 0.9%) 500 mls @ 1,000 mls/hr IV BOLUS ONE (unknown) (no (unknown) (unknown) Soft tissues:? (units (unknown) date) Visualized neck unknown) soft tissues demonstrate no suspicious (unknown) (no (unknown) (unknown) Source: patient (units (unknown) date) unknown) (unknown) (no (unknown) (unknown) Stand Alone (units (un known) date) Forms: Against unknown) Medical Advice (unknown) (no (unknown) (unknown) Stated Complaint: (units (unknown) date) PT. unknown) fell/confused/hx of stroke/lt. side drooping (unknown) (no (unknown) (unknown) Status post (units (un known) date) gastric bypass for unknown) obesity (unknown) (no (unknown) (unknown) Stop: 02/06/22 (units (unknown) date) 13:51 unknown) (unknown) (no (unknown) (unknown) Substance Use (units ( unknown) date) Type: does not use unknown) (unknown) (no (unknown) (unknown) Surgical History (units (unknown) date) (Reviewed 02/06/22 unknown) @ 14:21 by Demond Ruiz MD) (unknown) (no (unknown) (unknown) TECHNIQUE:? (units (un known) date) unknown) (unknown) (no (unknown) (unknown) Temperature 98.5 (units (unknown) date) F 02/06/22 13:13 unknown) (unknown) (no (unknown) (unknown) Temperature 98.5 (units (unknown) date) F unknown) (unknown) (no (unknown) (unknown) The flow within (units (unknown) date) the middle unknown) cerebral arteries is normal and symmetric.? The (unknown) (no (unknown) (unknown) The more superior (units (unknown) date) extracranial unknown) portions of both vertebral arteries also (unknown) (no (unknown) (unknown) This is (units (unkno wn) date) attributed to a unknown) type origin of the right posterior cerebral (unknown) (no (unknown) (unknown) Bravo Schmitz (units (unknown) date) MD Demond [Primary unknown) Care Provider] (unknown) (no (unknown) (unknown) Time Seen by (units (u nknown) date) Provider: 02/06/22 unknown) 13:20 (unknown) (no (unknown) (unknown) Total Bilirubin (units (unknown) date) 0.3 (0.2-1.3) unknown) mg/dL (unknown) (no (unknown) (unknown) Total Creatine (units (unknown) date) Kinase 132 unknown) (30-135) U/L (unknown) (no (unknown) (unknown) Total NIH Stroke (units (unknown) date) scale score: 6 unknown) (unknown) (no (unknown) (unknown) Total Protein 7.5 (units (unknown) date) (6.3-8.2) g/dL unknown) (unknown) (no (unknown) (unknown) Troponin + CK (units ( unknown) date) Cardiac Panel Stat unknown) (unknown) (no (unknown) (unknown) Troponin I < (units (u nknown) date) 0.012 (0.01-0.034) unknown) ng/mL (unknown) (no (unknown) (unknown) Visual francis: No (units (unknown) date) visual loss unknown) (unknown) (no (unknown) (unknown) Vital Signs - 8 (units (unknown) date) hr unknown) (unknown) (no (unknown) (unknown) Vital Signs (units (un known) date) unknown) (unknown) (no (unknown) (unknown) Vital signs: (units (u nknown) date) unknown) (unknown) (no (unknown) (unknown) WBC 6.4 (units (unkno wn) date) (4.5-11.0) X103/uL unknown) (unknown) (no (unknown) (unknown) Within the (units (unk nown) date) arteries of the unknown) neck, no hemodynamically significant stenosis can be (unknown) (no (unknown) (unknown) XR shoulder LT (units (unknown) date) min 2V Stat unknown) (unknown) (no (unknown) (unknown) [Embedded Image (units (unknown) date) Not Available] unknown) (unknown) (no (unknown) (unknown) abnormalities.? (units (unknown) date) unknown) (unknown) (no (unknown) (unknown) acetaminophen (units ( unknown) date) [From VICODIN] unknown) Allergy Unknown Verified 02/06/22 13:13 (unknown) (no (unknown) (unknown) acquired (units (unkno wn) date) unknown) (unknown) (no (unknown) (unknown) alcohol intake (units (unknown) date) frequency: unknown) holidays/special occasions only (unknown) (no (unknown) (unknown) aligned.? (units (unkn own) date) unknown) (unknown) (no (unknown) (unknown) and below (units (unkn own) date) unknown) (unknown) (no (unknown) (unknown) and helped her (units (unknown) date) down to her unknown) bedroom to lay down and she went to sleep. At 11:00 (unknown) (no (unknown) (unknown) and neck (units (unkno wn) date) separately. For unknown) radiation dose reduction, the following was used:? (unknown) (no (unknown) (unknown) and (units (unkno wn) date) unknown) (unknown) (no (unknown) (unknown) and/or volume (units ( unknown) date) rendering unknown) reformats were acquired of the central intracranial (unknown) (no (unknown) (unknown) aneurysms are (units ( unknown) date) unknown) (unknown) (no (unknown) (unknown) anterior (units (unkno wn) date) unknown) (unknown) (no (unknown) (unknown) appears intact.? (units (unknown) date) unknown) (unknown) (no (unknown) (unknown) arch through the (units (unknown) date) [place].? unknown) Post-contrast 4.5 mm thick sections then re (unknown) (no (unknown) (unknown) arise from (units (unk nown) date) unknown) (unknown) (no (unknown) (unknown) artery, which (units ( unknown) date) unknown) (unknown) (no (unknown) (unknown) artery.? (units (unkno wn) date) unknown) (unknown) (no (unknown) (unknown) automated (units (unkn own) date) unknown) (unknown) (no (unknown) (unknown) both widely (units (un known) date) patent.? The unknown) internal carotid arteries demonstrate normal calibers (unknown) (no (unknown) (unknown) caliber, and join (units (unknown) date) to form a normal unknown) appearing basilar artery. There is a (unknown) (no (unknown) (unknown) carotid arteries (units (unknown) date) demonstrate normal unknown) caliber and courses.? The bifurcation (unknown) (no (unknown) (unknown) causes pain. (units (u nknown) date) unknown) (unknown) (no (unknown) (unknown) ceftriaxone (units (un known) date) [CEFTRIAXONE] unknown) Allergy Intermediate Verified 02/06/22 13:13 (unknown) (no (unknown) (unknown) common (units (unkno wn) date) unknown) (unknown) (no (unknown) (unknown) communicating (units ( unknown) date) artery is seen.? unknown) No aneurysms are seen.? (unknown) (no (unknown) (unknown) complaints. (units (un known) date) Patient states unknown) last night she felt very dizzy and she passed out in (unknown) (no (unknown) (unknown) consequence.? (units ( unknown) date) unknown) (unknown) (no (unknown) (unknown) considered to be (units (unknown) date) pathologic in a unknown) woman of this age.? In this patient with a (unknown) (no (unknown) (unknown) courses.? (units (unkn own) date) unknown) (unknown) (no (unknown) (unknown) demonstrate (units (un known) date) normal unknown) (unknown) (no (unknown) (unknown) demonstrate (units (un known) date) unknown) (unknown) (no (unknown) (unknown) enoxaparin [From (units (unknown) date) LOVENOX] Allergy unknown) Unknown Verified 02/06/22 13:13 (unknown) (no (unknown) (unknown) exposure control, (units (unknown) date) adjustment of mA unknown) and/or kV according to patient size.? (unknown) (no (unknown) (unknown) extend at the (units ( unknown) date) wrist. Strong unknown) radial pulse. Examination of the left lower (unknown) (no (unknown) (unknown) extra-axial fluid (units (unknown) date) collections.? unknown) (unknown) (no (unknown) (unknown) extremity. (units (unk nown) date) Nontender knee and unknown) ankle. However attempts to flex the left hip (unknown) (no (unknown) (unknown) fall in the (units (un known) date) bathroom. Did not unknown) hit her head. Her daughter heard her fall down (unknown) (no (unknown) (unknown) feels different (units (unknown) date) from the right. unknown) Left telephone ad taker slightly weaker than right. Light (unknown) (no (unknown) (unknown) flow.? The flow (units (unknown) date) within the paired unknown) anterior cerebral arteries is normal and (unknown) (no (unknown) (unknown) from the foramen (units (unknown) date) magnum to the unknown) vertex.? 3-dimensional (unknown) (no (unknown) (unknown) given history (units ( unknown) date) unknown) (unknown) (no (unknown) (unknown) gross deformity. (units (unknown) date) Limited range of unknown) motion due to pain as well as weakness. (unknown) (no (unknown) (unknown) household (units (unkn own) date) members: children unknown) (unknown) (no (unknown) (unknown) hydrocodone [From (units (unknown) date) VICODIN] Allergy unknown) Unknown Verified 02/06/22 13:13 (unknown) (no (unknown) (unknown) in the past/TIA (units (unknown) date) with the similar unknown) symptoms slurred speech and slow speech. (unknown) (no (unknown) (unknown) including (units (unkn own) date) unknown) (unknown) (no (unknown) (unknown) interface (units (unkn own) date) unknown) (unknown) (no (unknown) (unknown) is considered to (units (unknown) date) be a normal unknown) developmental variant of typically no clinical (unknown) (no (unknown) (unknown) is not (units (unkno wn) date) unknown) (unknown) (no (unknown) (unknown) ketorolac (units (unkn own) date) [KETOROLAC] unknown) Allergy Intermediate Verified 02/06/22 13:13 (unknown) (no (unknown) (unknown) lesions.? (units (unkn own) date) unknown) (unknown) (no (unknown) (unknown) maximum-intensity (units (unknown) date) -projection (MIP) unknown) (unknown) (no (unknown) (unknown) multivitamin 1 (units (unknown) date) tab PO DAILY unknown) 07/01/18 07/01/18 (unknown) (no (unknown) (unknown) multivitamin (units (u nknown) date) Tablet unknown) (unknown) (no (unknown) (unknown) multivitamin with (units (unknown) date) minerals 1 tab PO unknown) DAILY 07/01/18 07/01/18 (unknown) (no (unknown) (unknown) multivitamin with (units (unknown) date) minerals unknown) [Hair,Skin and Nails] Tablet (unknown) (no (unknown) (unknown) night. Over 12 (units (unknown) date) hours ago. Awoke unknown) at 10:00 a.m. this morning with these (unknown) (no (unknown) (unknown) normal courses (units (unknown) date) and calibers.? unknown) They join to form a normal appearing basilar (unknown) (no (unknown) (unknown) or bloody stools. (units (unknown) date) No cough cold or unknown) congestion. Patient states has had a stroke (unknown) (no (unknown) (unknown) p.m.. Patient (units ( unknown) date) denies any recent unknown) illness. No nausea vomiting diarrhea no black (unknown) (no (unknown) (unknown) patent.? No (units (un known) date) unknown) (unknown) (no (unknown) (unknown) patent.? (units (unkno wn) date) unknown) (unknown) (no (unknown) (unknown) posterior (units (unkn own) date) communicating unknown) artery seen, with an accompanying diminutive right P1 (unknown) (no (unknown) (unknown) prednisone (units (unk nown) date) [PREDNISONE] unknown) Allergy Unknown Verified 02/06/22 13:13 (unknown) (no (unknown) (unknown) prominent right (units (unknown) date) unknown) (unknown) (no (unknown) (unknown) rales, or (units (unkn own) date) rhonchi. unknown) (unknown) (no (unknown) (unknown) regions are (units (un known) date) unknown) (unknown) (no (unknown) (unknown) right facial (units (u nknown) date) droop, scrutiny is unknown) given to the course of the right facial nerve, (unknown) (no (unknown) (unknown) seen, to (units (unkno wn) date) unknown) (unknown) (no (unknown) (unknown) seen. ? (units (unkno wn) date) unknown) (unknown) (no (unknown) (unknown) seen.? (units (unkno wn) date) unknown) (unknown) (no (unknown) (unknown) segment. (units (unkno wn) date) unknown) (unknown) (no (unknown) (unknown) speech confusion (units (unknown) date) and left-sided unknown) weakness. Last well-known 11:00 p.m. last (unknown) (no (unknown) (unknown) symmetric.? (units (un known) date) unknown) (unknown) (no (unknown) (unknown) the (units (unkno wn) date) administration of unknown) intravenous contrast, 1 mm thick sections acquired from (unknown) (no (unknown) (unknown) the aortic arch.? (units (unknown) date) The origins of the unknown) common carotid arteries appear patent.? The (unknown) (no (unknown) (unknown) the aortic (units (unk nown) date) unknown) (unknown) (no (unknown) (unknown) the bathroom. She (units (unknown) date) states she hurt unknown) her left shoulder and left hip during the (unknown) (no (unknown) (unknown) the limits of CT. (units (unknown) date) unknown) (unknown) (no (unknown) (unknown) touch intact to (units (unknown) date) left hand and unknown) foot. (unknown) (no (unknown) (unknown) vasculature (units (un known) date) unknown) (unknown) (no (unknown) (unknown) vertex.? After (units (unknown) date) unknown) (unknown) (no (unknown) (unknown) within the right (units (unknown) date) parotid gland.? No unknown) ghazal masses or abnormal enhancement can be Result panel 10 (unknown) (no (unknown) (unknown) (no value) (units (unk nown) date) unknown) (unknown) (no (unknown) (unknown) (Hair,Skin and (units (unknown) date) Nails tablet) unknown) (unknown) (no (unknown) (unknown) [id number] (units (unkno wn) date) unknown) (unknown) (no (unknown) (unknown) 02/06/22 02/06/22 (units (unknown) date) 02/06/22 unknown) Range/Units (unknown) (no (unknown) (unknown) 02/06/22 13:21 (units (unknown) date) unknown) (unknown) (no (unknown) (unknown) 02/06/22 13:30 (units (unknown) date) unknown) (unknown) (no (unknown) (unknown) 02/06/22 14:17 (units (unknown) date) unknown) (unknown) (no (unknown) (unknown) 02/06/22 (units (unkno wn) date) unknown) (unknown) (no (unknown) (unknown) 1 dose PO (units (u nknown) date) DIRECTED unknown) (unknown) (no (unknown) (unknown) 1 tab PO DAILY (units (unknown) date) unknown) (unknown) (no (unknown) (unknown) [address] [place] (units (unknown) date) unknown) (unknown) (no (unknown) (unknown) 13:13 (units (unkno wn) date) unknown) (unknown) (no (unknown) (unknown) 13:30 13:30 13:30 (units (unknown) date) unknown) (unknown) (no (unknown) (unknown) 07/01/2018, 9:41. (units (unknown) date) unknown) (unknown) (no (unknown) (unknown) ? (units (unkno wn) date) unknown) (unknown) (no (unknown) (unknown) ?[facility], (units (unknown) date) MR, MR HEAD/BRAIN unknown) WO CON, 2018, 15:17. (unknown) (no (unknown) (unknown) ALT 16 (<35) IU/L (units (unknown) date) unknown) (unknown) (no (unknown) (unknown) AST 24 (14-36) (units (unknown) date) IU/L unknown) (unknown) (no (unknown) (unknown) Able to flex (units (u nknown) date) fully at the elbow unknown) but has pain at the shoulder. Able to flex and (unknown) (no (unknown) (unknown) Accession Number: (units (unknown) date) [id number] ?? unknown) (unknown) (no (unknown) (unknown) Acct:[id number] (units (unknown) date) unknown) (unknown) (no (unknown) (unknown) Activity (units (unkno wn) date) Restrictions/Addit unknown) ional Instructions: (unknown) (no (unknown) (unknown) Age/Sex: 46 / F (units (unknown) date) unknown) (unknown) (no (unknown) (unknown) Albumin 4.0 (units (un known) date) (3.5-5.0) g/dL unknown) (unknown) (no (unknown) (unknown) Albumin/Globulin (units (unknown) date) Ratio 1.1 unknown) (1.0-2.8) (unknown) (no (unknown) (unknown) Alkaline (units (unkno wn) date) Phosphatase 94 unknown) (38-126) U/L (unknown) (no (unknown) (unknown) Allergies (units (unkn own) date) unknown) (unknown) (no (unknown) (unknown) Allergy/AdvReac (units (unknown) date) Type Severity unknown) Reaction Status Date / Time (unknown) (no (unknown) (unknown) [place], [place] (units ( unknown) date) [address] unknown) (unknown) (no (unknown) (unknown) Anterior (units (unkno wn) date) circulation:? unknown) Intracranial internal carotid arteries are normal in size (unknown) (no (unknown) (unknown) Any quantitative (units (unknown) date) measurements of unknown) stenosis were performed using NASCET criteria.? (unknown) (no (unknown) (unknown) Approved by: (units (u nknown) date) len Roger M.D. on 02/06/2022 at 13:13 ? (unknown) (no (unknown) (unknown) Ask month/age: (units (unknown) date) Answers both unknown) questions correctly. (unknown) (no (unknown) (unknown) BACK: No flank (units (unknown) date) tenderness. unknown) (unknown) (no (unknown) (unknown) BRAIN:? (units (unkno wn) date) unknown) (unknown) (no (unknown) (unknown) BUN 10 (7-17) (units ( unknown) date) mg/dL unknown) (unknown) (no (unknown) (unknown) BUN/Creatinine (units (unknown) date) Ratio 11.0 (6-22) unknown) (unknown) (no (unknown) (unknown) Baso # (Auto) 0 (units (unknown) date) (0-100) /uL unknown) (unknown) (no (unknown) (unknown) Baso % (Auto) 0.4 (units (unknown) date) (0-2) % unknown) (unknown) (no (unknown) (unknown) Best gaze (units (unkn own) date) horizontal: Normal unknown) (unknown) (no (unknown) (unknown) Best language: No (units (unknown) date) aphasia, normal unknown) (unknown) (no (unknown) (unknown) Blood Pressure (units (unknown) date) 142/82 H 02/06/22 unknown) 13:13 (unknown) (no (unknown) (unknown) Blood Pressure (units (unknown) date) 142/82 H unknown) (unknown) (no (unknown) (unknown) Bones:? No (units (unk nown) date) suspicious bony unknown) lesions.? Visualized cervical spine appears normally (unknown) (no (unknown) (unknown) Brain:? No (units (unk nown) date) midline shift.? No unknown) intracranial bleeds or masses.? Mueller-white matter (unknown) (no (unknown) (unknown) CARDIOVASCULAR: (units (unknown) date) Denies chest pain, unknown) palpitations (unknown) (no (unknown) (unknown) CARDIOVASCULAR: (units (unknown) date) Regular rate and unknown) rhythm without murmurs (unknown) (no (unknown) (unknown) CK-MB (CK-2) 3.49 (units (unknown) date) H (<2.37) ng/mL unknown) (unknown) (no (unknown) (unknown) CK-MB (CK-2) Rel (units (unknown) date) Index 2.6 unknown) (1.5-5.0) % (unknown) (no (unknown) (unknown) COMPARISON:? (units (u nknown) date) [facility], unknown) MR, MR STROKE, 07/01/2018, 11:00.? [facility] (unknown) (no (unknown) (unknown) CONTRAST, (units (unkn own) date) 05/11/2012, unknown) 20:59.? [facility], CT, CT HEAD/BRAIN WO CON, (unknown) (no (unknown) (unknown) CSF spaces:? (units (u nknown) date) Ventricles are unknown) normal in size and shape.? Basal cisterns are (unknown) (no (unknown) (unknown) CT Scan Report (units (unknown) date) unknown) (unknown) (no (unknown) (unknown) CT angio head and (units (unknown) date) neck Stat unknown) (unknown) (no (unknown) (unknown) CT pelvis wo con (units (unknown) date) Stat unknown) (unknown) (no (unknown) (unknown) CT, BRAIN W/O (units (u nknown) date) CONTRAST, unknown) 06/14/2011, 17:18.? [facility], CT, BRAIN W/O (unknown) (no (unknown) (unknown) CTA - brain/neck: (units (unknown) date) unknown) (unknown) (no (unknown) (unknown) Calcium 8.7 (units (un known) date) (8.4-10.2) mg/dL unknown) (unknown) (no (unknown) (unknown) Carbon Dioxide 24 (units (unknown) date) (22-32) mmol/L unknown) (unknown) (no (unknown) (unknown) Carotid system:? (units (unknown) date) The great vessels unknown) demonstrate a conventional anatomy as they (unknown) (no (unknown) (unknown) delivery (units (unknown) date) delivered unknown) (unknown) (no (unknown) (unknown) Chief Complaint: (units (unknown) date) Neuro unknown) Symptoms/Deficit (unknown) (no (unknown) (unknown) Chloride 104 (units (u nknown) date) (98-107) mmol/L unknown) (unknown) (no (unknown) (unknown) Complete Blood (units (unknown) date) Count AUTO DIFF unknown) Stat (unknown) (no (unknown) (unknown) Comprehensive (units ( unknown) date) Metabolic Panel unknown) Stat (unknown) (no (unknown) (unknown) Course (units (unkno wn) date) unknown) (unknown) (no (unknown) (unknown) Creatinine 0.91 (units (unknown) date) (0.52-1.04) mg/dL unknown) (unknown) (no (unknown) (unknown) : 1975 (units (unknown) date) Acct:[id number] unknown) (unknown) (no (unknown) (unknown) : 1975 (units (unknown) date) unknown) (unknown) (no (unknown) (unknown) Date of Service: (units (unknown) date) 02/06/22 unknown) (unknown) (no (unknown) (unknown) Departure (units (unkn own) date) unknown) (unknown) (no (unknown) (unknown) Diabetes (units (unkno wn) date) unknown) (unknown) (no (unknown) (unknown) Dictated by: (units (u nknown) date) len Roger M.D. on 02/06/2022 at 13:09 ? ? (unknown) (no (unknown) (unknown) Discharge Plan (units (unknown) date) unknown) (unknown) (no (unknown) (unknown) Discontinued (units (u nknown) date) Medications unknown) (unknown) (no (unknown) (unknown) Dysarthria: Mild (units (unknown) date) to mod,some unknown) slurring (unknown) (no (unknown) (unknown) ECG Data (units (unkno wn) date) unknown) (unknown) (no (unknown) (unknown) ED Orders (units (unkn own) date) unknown) (unknown) (no (unknown) (unknown) EKG-12 Lead Stat (units (unknown) date) unknown) (unknown) (no (unknown) (unknown) ENT: Mucous (units (un known) date) membranes moist. unknown) (unknown) (no (unknown) (unknown) ER Physician: (units ( unknown) date) Demond Ruiz MD unknown) (unknown) (no (unknown) (unknown) EXTREMITIES: No (units (unknown) date) gross deformities. unknown) Mild tenderness to the left shoulder but no (unknown) (no (unknown) (unknown) EYES: Pupils (units (u nknown) date) equal round No unknown) scleral icterus. (unknown) (no (unknown) (unknown) Emergency Report (units (unknown) date) unknown) (unknown) (no (unknown) (unknown) Eos # (Auto) 100 (units (unknown) date) (0-450) /uL unknown) (unknown) (no (unknown) (unknown) Eos % (Auto) 1.5 (units (unknown) date) L (2-4) % unknown) (unknown) (no (unknown) (unknown) Estimated GFR > (units (unknown) date) 60 (>60) mL/min unknown) (unknown) (no (unknown) (unknown) Exam Narrative: (units (unknown) date) unknown) (unknown) (no (unknown) (unknown) Exam (units (unkno wn) date) unknown) (unknown) (no (unknown) (unknown) Extinction or (units ( unknown) date) inattention: No unknown) abnormality (unknown) (no (unknown) (unknown) FINDINGS:? (units (unk nown) date) unknown) (unknown) (no (unknown) (unknown) Facial palsy: (units ( unknown) date) Normal symetrical unknown) movement (unknown) (no (unknown) (unknown) Flow within the (units (unknown) date) posterior cerebral unknown) arteries is normal and symmetric.? No (unknown) (no (unknown) (unknown) GASTROINTESTINAL: (units (unknown) date) Abdomen soft, unknown) non-tender (unknown) (no (unknown) (unknown) GASTROINTESTINAL: (units (unknown) date) Denies nausea, unknown) vomiting, abdominal pain (unknown) (no (unknown) (unknown) GENERAL: Denies (units (unknown) date) chills, fatigue, unknown) malaise, fever, sweats. (unknown) (no (unknown) (unknown) GENERAL: in no (units (unknown) date) distress, not unknown) toxic not dyspneic (unknown) (no (unknown) (unknown) : Denies (units (unk nown) date) dysuria, unknown) frequency, hematuria (unknown) (no (unknown) (unknown) General (units (unkno wn) date) unknown) (unknown) (no (unknown) (unknown) Globulin 3.5 (units (u nknown) date) (1.7-4.1) g/dL unknown) (unknown) (no (unknown) (unknown) Glucose 189 H (units ( unknown) date) (70-100) mg/dL unknown) (unknown) (no (unknown) (unknown) HEAD CT (units (unkno wn) date) ANGIOGRAPHY:? unknown) (unknown) (no (unknown) (unknown) HEAD: (units (unkno wn) date) Normocephalic. unknown) Nontender scalp and face. (unknown) (no (unknown) (unknown) HEENT: Denies (units ( unknown) date) sinus pain, ear unknown) pain, sore throat (unknown) (no (unknown) (unknown) HPI - Neuro (units (un known) date) Symptoms/Deficit unknown) (unknown) (no (unknown) (unknown) HPI Narrative: (units (unknown) date) unknown) (unknown) (no (unknown) (unknown) Hct 31.2 L (units (unk nown) date) (36-46) % unknown) (unknown) (no (unknown) (unknown) Hematologic/Lymph (units (unknown) date) atic unknown) (unknown) (no (unknown) (unknown) Hgb 9.9 L (units (unkn own) date) (12.0-16.0) g/dL unknown) (unknown) (no (unknown) (unknown) History of (units (unk nown) date) Present Illness unknown) (unknown) (no (unknown) (unknown) Home Medications (units (unknown) date) unknown) (unknown) (no (unknown) (unknown) Hospital, (units (unkn own) date) unknown) (unknown) (no (unknown) (unknown) Hx of (units (unkno wn) date) cholecystectomy unknown) (unknown) (no (unknown) (unknown) IMPRESSION:? No (units (unknown) date) acute intracranial unknown) hemorrhage is seen.? (unknown) (no (unknown) (unknown) INDICATIONS:? (units ( unknown) date) Slurred unknown) speech/altered mental status (unknown) (no (unknown) (unknown) Image quality:? (units (unknown) date) Mild streak unknown) artifact can be seen through the skull base. (unknown) (no (unknown) (unknown) Imaging Data (units (u nknown) date) unknown) (unknown) (no (unknown) (unknown) Initial Vital (units ( unknown) date) Signs unknown) (unknown) (no (unknown) (unknown) Initial Vital (units ( unknown) date) Signs: unknown) (unknown) (no (unknown) (unknown) Interpretation: (units (unknown) date) unknown) (unknown) (no (unknown) (unknown) [facility] (units (unknown) date) [address] unknown) [place] [address] (unknown) (no (unknown) (unknown) [facility] (units (unknown) date) unknown) (unknown) (no (unknown) (unknown) Lab Data (units (unkno wn) date) unknown) (unknown) (no (unknown) (unknown) Lab Results (units (un known) date) unknown) (unknown) (no (unknown) (unknown) Labs: (units (unkno wn) date) unknown) (unknown) (no (unknown) (unknown) Left arm drift: (units (unknown) date) Some effort unknown) against gravity, cannot maintain, drifts down to bed (unknown) (no (unknown) (unknown) Left leg drift: (units (unknown) date) Some effort unknown) against gravity, cannot maintain, drifts down to bed (unknown) (no (unknown) (unknown) Level of (units (unkno wn) date) Conciousness: unknown) Alert, keenly responsive (unknown) (no (unknown) (unknown) Limb ataxia: (units (u nknown) date) Absent unknown) (unknown) (no (unknown) (unknown) Liver Cleanse 1 (units (unknown) date) dose PO unknown) DIRECTED 07/01/18 07/01/18 (unknown) (no (unknown) (unknown) Liver Cleanse (units ( unknown) date) unknown) (unknown) (no (unknown) (unknown) Loc: ED (units (unkno wn) date) unknown) (unknown) (no (unknown) (unknown) Lymph # (Auto) (units (unknown) date) 1600 (5576-1483) unknown) /uL (unknown) (no (unknown) (unknown) Lymph % (Auto) (units (unknown) date) 25.8 (25-40) % unknown) (unknown) (no (unknown) (unknown) MCH 23.4 L (units (unk nown) date) (26-34) PG unknown) (unknown) (no (unknown) (unknown) MCHC 31.7 (30-36) (units (unknown) date) % unknown) (unknown) (no (unknown) (unknown) MCV 73.9 L (units (unk nown) date) (80-100) fL unknown) (unknown) (no (unknown) (unknown) MDM - Neuro (units (un known) date) Symptoms/Deficit unknown) (unknown) (no (unknown) (unknown) MEDICATION FOR (units (unknown) date) BLOOD CLOTS unknown) Allergy Intermediate Uncoded 07/01/18 09:44 (unknown) (no (unknown) (unknown) MR#: [id number] (units (unknown) date) unknown) (unknown) (no (unknown) (unknown) MUSCULOSKELETAL: (units (unknown) date) Positive for unknown) muscle or bony pain (unknown) (no (unknown) (unknown) Medical History (units (unknown) date) (Reviewed 02/06/22 unknown) @ 14:21 by Demond Ruiz MD) (unknown) (no (unknown) (unknown) Medication (units (unk nown) date) Instructions unknown) Recorded Confirmed (unknown) (no (unknown) (unknown) Mode of arrival: (units (unknown) date) Ambulatory unknown) (unknown) (no (unknown) (unknown) [place] # (Auto) 300 (units (unknown) date) (0-900) /uL unknown) (unknown) (no (unknown) (unknown) [place] % (Auto) 4.8 (units (unknown) date) (3-14) % unknown) (unknown) (no (unknown) (unknown) NECK CT (units (unkno wn) date) ANGIOGRAPHY:? unknown) (unknown) (no (unknown) (unknown) NECK: Trachea (units ( unknown) date) midline. No unknown) midline tenderness or step-off. (unknown) (no (unknown) (unknown) NEURO: AOx4. (units (u nknown) date) Slightly slurred unknown) speech, no facial droop, light touch left face (unknown) (no (unknown) (unknown) NEUROLOGIC: (units (un known) date) Positive for unknown) slurred speech/confusion/w eakness, numbness (unknown) (no (unknown) (unknown) NIH Stroke Scale (units (unknown) date) unknown) (unknown) (no (unknown) (unknown) Narrative (units (unkn own) date) unknown) (unknown) (no (unknown) (unknown) Narrative: (units (unk nown) date) unknown) (unknown) (no (unknown) (unknown) Neut # (Auto) (units ( unknown) date) 4300 (7912-5630) unknown) /uL (unknown) (no (unknown) (unknown) Neut % (Auto) (units ( unknown) date) 67.5 (50-75) % unknown) (unknown) (no (unknown) (unknown) No Action (units (unkn own) date) unknown) (unknown) (no (unknown) (unknown) No acute (units (unkno wn) date) intracranial unknown) process is seen.? (unknown) (no (unknown) (unknown) No findings neck (units (unknown) date) artery dissection unknown) can be seen. (unknown) (no (unknown) (unknown) No significant (units (unknown) date) intracranial unknown) arterial abnormality is seen.? (unknown) (no (unknown) (unknown) Normal sinus (units (u nknown) date) rhythm rate 86 no unknown) ST elevation or depression (unknown) (no (unknown) (unknown) Obesity (BMI (units (u nknown) date) 30.0-34.9) unknown) (unknown) (no (unknown) (unknown) On (units (unkno wn) date) Anticoagulants: No unknown) (unknown) (no (unknown) (unknown) Open/close eyes, (units (unknown) date) close hand: unknown) Performs both tasks correctly (unknown) (no (unknown) (unknown) Orbits appear (units ( unknown) date) normal.? unknown) Incidental note is made of hyperostosis frontalis. This (unknown) (no (unknown) (unknown) Ordered: (units (unkno wn) date) unknown) (unknown) (no (unknown) (unknown) Ordering (units (unkno wn) date) Provider: unknown) Demond Ruiz MD (unknown) (no (unknown) (unknown) Orders (units (unkno wn) date) unknown) (unknown) (no (unknown) (unknown) Oxygen Delivery (units (unknown) date) Method 02/06/22 unknown) 13:13 (unknown) (no (unknown) (unknown) Oxygen Delivery (units (unknown) date) Method Room Air unknown) (unknown) (no (unknown) (unknown) PROCEDURE:? CT (units (unknown) date) ANGIO HEAD AND unknown) NECK (unknown) (no (unknown) (unknown) PSYCH: Not (units (unk nown) date) anxious, is unknown) cooperative (unknown) (no (unknown) (unknown) Patient (units (unkno wn) date) Disposition: Left unknown) Against Medical Advice (unknown) (no (unknown) (unknown) Patient History (units (unknown) date) unknown) (unknown) (no (unknown) (unknown) Patient here with (units (unknown) date) a friend. Brought unknown) here by her friend. Complains slurred (unknown) (no (unknown) (unknown) Patient: (units (unkno wn) date) Muhammad,Caitie A unknown) MR#: [id number] (unknown) (no (unknown) (unknown) Patient: (units (unkno wn) date) Muhammad,Caitie A unknown) (unknown) (no (unknown) (unknown) Peptic ulcer (units (u nknown) date) unknown) (unknown) (no (unknown) (unknown) Plt Count 223 (units ( unknown) date) (150-400) X103/uL unknown) (unknown) (no (unknown) (unknown) Posterior (units (unkno wn) date) circulation:? The unknown) origins of the vertebral arteries both appear widely (unknown) (no (unknown) (unknown) Posterior (units (unkn own) date) circulation:? unknown) Visualized portions of the vertebral arteries (unknown) (no (unknown) (unknown) Potassium 3.7 (units ( unknown) date) (3.4-5.1) mmol/L unknown) (unknown) (no (unknown) (unknown) Pre-contrast 4.5 (units (unknown) date) mm thick sections unknown) acquired from the foramen magnum to the (unknown) (no (unknown) (unknown) Test (units (unknown) date) Serum,Qual Stat unknown) (unknown) (no (unknown) (unknown) Prescriptions: (units (unknown) date) unknown) (unknown) (no (unknown) (unknown) Procedure: CT (units ( unknown) date) angio head and unknown) neck (unknown) (no (unknown) (unknown) Pulse Oximetry (units (unknown) date) 100 02/06/22 13:13 unknown) (unknown) (no (unknown) (unknown) Pulse Oximetry (units (unknown) date) 100 unknown) (unknown) (no (unknown) (unknown) Pulse Rate 106 H (units (unknown) date) 02/06/22 13:13 unknown) (unknown) (no (unknown) (unknown) Pulse Rate 106 H (units (unknown) date) unknown) (unknown) (no (unknown) (unknown) RBC 4.22 (units (unkno wn) date) (4.0-5.2) X106/uL unknown) (unknown) (no (unknown) (unknown) RDW 18.2 H (units (unk nown) date) (11.6-14.8) % unknown) (unknown) (no (unknown) (unknown) RESPIRATORY: Clear (units (unknown) date) to auscultation. unknown) Breath sounds equal bilaterally. No wheezes, (unknown) (no (unknown) (unknown) RESPIRATORY: (units (u nknown) date) Denies dyspnea, unknown) cough (unknown) (no (unknown) (unknown) ROS Unobtainable: (units (unknown) date) All systems unknown) reviewed + are unremarkable except as noted in HPI (unknown) (no (unknown) (unknown) Radiologist's (units ( unknown) date) Impression: unknown) (unknown) (no (unknown) (unknown) Referrals: (units (unk nown) date) unknown) (unknown) (no (unknown) (unknown) Related Data (units (u nknown) date) unknown) (unknown) (no (unknown) (unknown) Respiratory Rate (units (unknown) date) 15 02/06/22 13:13 unknown) (unknown) (no (unknown) (unknown) Respiratory Rate (units (unknown) date) 15 unknown) (unknown) (no (unknown) (unknown) Restless leg (units (u nknown) date) syndrome unknown) (unknown) (no (unknown) (unknown) Result diagrams: (units (unknown) date) unknown) (unknown) (no (unknown) (unknown) Return immediately (units (unknown) date) if you change your unknown) mind to be admitted for further evaluation (unknown) (no (unknown) (unknown) Review of Systems (units (unknown) date) unknown) (unknown) (no (unknown) (unknown) Right arm drift: (units (unknown) date) No drift for full unknown) 10 sec (unknown) (no (unknown) (unknown) Right leg drift: (units (unknown) date) No drift for full unknown) 5 sec (unknown) (no (unknown) (unknown) SKIN: Denies (units (u nknown) date) rash, skin lesions unknown) (unknown) (no (unknown) (unknown) SKIN: Warm and (units (unknown) date) dry unknown) (unknown) (no (unknown) (unknown) Scores (units (unkno wn) date) unknown) (unknown) (no (unknown) (unknown) Sensory on (units (unk nown) date) face/arms/legs: unknown) Mild to moderate sensory loss, can tell touch (unknown) (no (unknown) (unknown) Serum , (units (unknown) date) Qual Negative unknown) (Negative) (unknown) (no (unknown) (unknown) Signed By: (units (unk nown) date) unknown) (unknown) (no (unknown) (unknown) Signed (units (unkno wn) date) unknown) (unknown) (no (unknown) (unknown) Sinuses:? Sinuses (units (unknown) date) and mastoids are unknown) clear.? (unknown) (no (unknown) (unknown) Skull and face:? (units (unknown) date) Calvarium and unknown) facial bones appear intact, without suspicious (unknown) (no (unknown) (unknown) Smoking Status: (units (unknown) date) Never smoker unknown) (unknown) (no (unknown) (unknown) Social History (units (unknown) date) (Reviewed 02/06/22 unknown) @ 14:21 by Demond Ruiz MD) (unknown) (no (unknown) (unknown) Sodium 139 (units (unk nown) date) (137-145) mmol/L unknown) (unknown) (no (unknown) (unknown) Sodium Chloride (units (unknown) date) (Normal Saline unknown) 0.9%) 500 mls @ 1,000 mls/hr IV BOLUS ONE (unknown) (no (unknown) (unknown) Soft tissues:? (units (unknown) date) Visualized neck unknown) soft tissues demonstrate no suspicious (unknown) (no (unknown) (unknown) Source: patient (units (unknown) date) unknown) (unknown) (no (unknown) (unknown) Stand Alone (units (un known) date) Forms: Against unknown) Medical Advice (unknown) (no (unknown) (unknown) Stated Complaint: (units (unknown) date) PT. unknown) fell/confused/hx of stroke/lt. side drooping (unknown) (no (unknown) (unknown) Status post (units (un known) date) gastric bypass for unknown) obesity (unknown) (no (unknown) (unknown) Stop: 02/06/22 (units (unknown) date) 13:51 unknown) (unknown) (no (unknown) (unknown) Substance Use (units ( unknown) date) Type: does not use unknown) (unknown) (no (unknown) (unknown) Surgical History (units (unknown) date) (Reviewed 02/06/22 unknown) @ 14:21 by Demond Ruiz MD) (unknown) (no (unknown) (unknown) TECHNIQUE:? (units (un known) date) unknown) (unknown) (no (unknown) (unknown) Temperature 98.5 (units (unknown) date) F 02/06/22 13:13 unknown) (unknown) (no (unknown) (unknown) Temperature 98.5 (units (unknown) date) F unknown) (unknown) (no (unknown) (unknown) The flow within (units (unknown) date) the middle unknown) cerebral arteries is normal and symmetric.? The (unknown) (no (unknown) (unknown) The more superior (units (unknown) date) extracranial unknown) portions of both vertebral arteries also (unknown) (no (unknown) (unknown) This is (units (unkno wn) date) attributed to a unknown) type origin of the right posterior cerebral (unknown) (no (unknown) (unknown) Bravo Schmitz (units (unknown) date) MD Demond [Primary unknown) Care Provider] (unknown) (no (unknown) (unknown) Time Seen by (units (u nknown) date) Provider: 02/06/22 unknown) 13:20 (unknown) (no (unknown) (unknown) Total Bilirubin (units (unknown) date) 0.3 (0.2-1.3) unknown) mg/dL (unknown) (no (unknown) (unknown) Total Creatine (units (unknown) date) Kinase 132 unknown) (30-135) U/L (unknown) (no (unknown) (unknown) Total NIH Stroke (units (unknown) date) scale score: 6 unknown) (unknown) (no (unknown) (unknown) Total Protein 7.5 (units (unknown) date) (6.3-8.2) g/dL unknown) (unknown) (no (unknown) (unknown) Troponin + CK (units ( unknown) date) Cardiac Panel Stat unknown) (unknown) (no (unknown) (unknown) Troponin I < (units (u nknown) date) 0.012 (0.01-0.034) unknown) ng/mL (unknown) (no (unknown) (unknown) Visual francis: No (units (unknown) date) visual loss unknown) (unknown) (no (unknown) (unknown) Vital Signs - 8 (units (unknown) date) hr unknown) (unknown) (no (unknown) (unknown) Vital Signs (units (un known) date) unknown) (unknown) (no (unknown) (unknown) Vital signs: (units (u nknown) date) unknown) (unknown) (no (unknown) (unknown) WBC 6.4 (units (unkno wn) date) (4.5-11.0) X103/uL unknown) (unknown) (no (unknown) (unknown) Within the (units (unk nown) date) arteries of the unknown) neck, no hemodynamically significant stenosis can be (unknown) (no (unknown) (unknown) XR shoulder LT (units (unknown) date) min 2V Stat unknown) (unknown) (no (unknown) (unknown) [Embedded Image (units (unknown) date) Not Available] unknown) (unknown) (no (unknown) (unknown) abnormalities.? (units (unknown) date) unknown) (unknown) (no (unknown) (unknown) acetaminophen (units ( unknown) date) [From VICODIN] unknown) Allergy Unknown Verified 02/06/22 13:13 (unknown) (no (unknown) (unknown) acquired (units (unkno wn) date) unknown) (unknown) (no (unknown) (unknown) alcohol intake (units (unknown) date) frequency: unknown) holidays/special occasions only (unknown) (no (unknown) (unknown) aligned.? (units (unkn own) date) unknown) (unknown) (no (unknown) (unknown) and below (units (unkn own) date) unknown) (unknown) (no (unknown) (unknown) and helped her (units (unknown) date) down to her unknown) bedroom to lay down and she went to sleep. At 11:00 (unknown) (no (unknown) (unknown) and neck (units (unkno wn) date) separately. For unknown) radiation dose reduction, the following was used:? (unknown) (no (unknown) (unknown) and testing. (units (u nknown) date) unknown) (unknown) (no (unknown) (unknown) and (units (unkno wn) date) unknown) (unknown) (no (unknown) (unknown) and/or volume (units ( unknown) date) rendering unknown) reformats were acquired of the central intracranial (unknown) (no (unknown) (unknown) aneurysms are (units ( unknown) date) unknown) (unknown) (no (unknown) (unknown) anterior (units (unkno wn) date) unknown) (unknown) (no (unknown) (unknown) appears intact.? (units (unknown) date) unknown) (unknown) (no (unknown) (unknown) arch through the (units (unknown) date) [place].? unknown) Post-contrast 4.5 mm thick sections then re (unknown) (no (unknown) (unknown) arise from (units (unk nown) date) unknown) (unknown) (no (unknown) (unknown) artery, which (units ( unknown) date) unknown) (unknown) (no (unknown) (unknown) artery.? (units (unkno wn) date) unknown) (unknown) (no (unknown) (unknown) automated (units (unkn own) date) unknown) (unknown) (no (unknown) (unknown) both widely (units (un known) date) patent.? The unknown) internal carotid arteries demonstrate normal calibers (unknown) (no (unknown) (unknown) caliber, and join (units (unknown) date) to form a normal unknown) appearing basilar artery. There is a (unknown) (no (unknown) (unknown) carotid arteries (units (unknown) date) demonstrate normal unknown) caliber and courses.? The bifurcation (unknown) (no (unknown) (unknown) causes pain. (units (u nknown) date) unknown) (unknown) (no (unknown) (unknown) ceftriaxone (units (un known) date) [CEFTRIAXONE] unknown) Allergy Intermediate Verified 02/06/22 13:13 (unknown) (no (unknown) (unknown) common (units (unkno wn) date) unknown) (unknown) (no (unknown) (unknown) communicating (units ( unknown) date) artery is seen.? unknown) No aneurysms are seen.? (unknown) (no (unknown) (unknown) complaints. (units (un known) date) Patient states unknown) last night she felt very dizzy and she passed out in (unknown) (no (unknown) (unknown) consequence.? (units ( unknown) date) unknown) (unknown) (no (unknown) (unknown) considered to be (units (unknown) date) pathologic in a unknown) woman of this age.? In this patient with a (unknown) (no (unknown) (unknown) courses.? (units (unkn own) date) unknown) (unknown) (no (unknown) (unknown) demonstrate (units (un known) date) normal unknown) (unknown) (no (unknown) (unknown) demonstrate (units (un known) date) unknown) (unknown) (no (unknown) (unknown) enoxaparin [From (units (unknown) date) LOVENOX] Allergy unknown) Unknown Verified 02/06/22 13:13 (unknown) (no (unknown) (unknown) exposure control, (units (unknown) date) adjustment of mA unknown) and/or kV according to patient size.? (unknown) (no (unknown) (unknown) extend at the (units ( unknown) date) wrist. Strong unknown) radial pulse. Examination of the left lower (unknown) (no (unknown) (unknown) extra-axial fluid (units (unknown) date) collections.? unknown) (unknown) (no (unknown) (unknown) extremity. (units (unk nown) date) Nontender knee and unknown) ankle. However attempts to flex the left hip (unknown) (no (unknown) (unknown) fall in the (units (un known) date) bathroom. Did not unknown) hit her head. Her daughter heard her fall down (unknown) (no (unknown) (unknown) feels different (units (unknown) date) from the right. unknown) Left telephone ad taker slightly weaker than right. Light (unknown) (no (unknown) (unknown) flow.? The flow (units (unknown) date) within the paired unknown) anterior cerebral arteries is normal and (unknown) (no (unknown) (unknown) from the foramen (units (unknown) date) magnum to the unknown) vertex.? 3-dimensional (unknown) (no (unknown) (unknown) given history (units ( unknown) date) unknown) (unknown) (no (unknown) (unknown) gross deformity. (units (unknown) date) Limited range of unknown) motion due to pain as well as weakness. (unknown) (no (unknown) (unknown) household (units (unkn own) date) members: children unknown) (unknown) (no (unknown) (unknown) hydrocodone [From (units (unknown) date) VICODIN] Allergy unknown) Unknown Verified 02/06/22 13:13 (unknown) (no (unknown) (unknown) in the past/TIA (units (unknown) date) with the similar unknown) symptoms slurred speech and slow speech. (unknown) (no (unknown) (unknown) including (units (unkn own) date) unknown) (unknown) (no (unknown) (unknown) interface (units (unkn own) date) unknown) (unknown) (no (unknown) (unknown) is considered to (units (unknown) date) be a normal unknown) developmental variant of typically no clinical (unknown) (no (unknown) (unknown) is not (units (unkno wn) date) unknown) (unknown) (no (unknown) (unknown) ketorolac (units (unkn own) date) [KETOROLAC] unknown) Allergy Intermediate Verified 02/06/22 13:13 (unknown) (no (unknown) (unknown) lesions.? (units (unkn own) date) unknown) (unknown) (no (unknown) (unknown) maximum-intensity (units (unknown) date) -projection (MIP) unknown) (unknown) (no (unknown) (unknown) multivitamin 1 (units (unknown) date) tab PO DAILY unknown) 07/01/18 07/01/18 (unknown) (no (unknown) (unknown) multivitamin (units (u nknown) date) Tablet unknown) (unknown) (no (unknown) (unknown) multivitamin with (units (unknown) date) minerals 1 tab PO unknown) DAILY 07/01/18 07/01/18 (unknown) (no (unknown) (unknown) multivitamin with (units (unknown) date) minerals unknown) [Hair,Skin and Nails] Tablet (unknown) (no (unknown) (unknown) night. Over 12 (units (unknown) date) hours ago. Awoke unknown) at 10:00 a.m. this morning with these (unknown) (no (unknown) (unknown) normal courses (units (unknown) date) and calibers.? unknown) They join to form a normal appearing basilar (unknown) (no (unknown) (unknown) or bloody stools. (units (unknown) date) No cough cold or unknown) congestion. Patient states has had a stroke (unknown) (no (unknown) (unknown) p.m.. Patient (units ( unknown) date) denies any recent unknown) illness. No nausea vomiting diarrhea no black (unknown) (no (unknown) (unknown) patent.? No (units (un known) date) unknown) (unknown) (no (unknown) (unknown) patent.? (units (unkno wn) date) unknown) (unknown) (no (unknown) (unknown) posterior (units (unkn own) date) communicating unknown) artery seen, with an accompanying diminutive right P1 (unknown) (no (unknown) (unknown) prednisone (units (unk nown) date) [PREDNISONE] unknown) Allergy Unknown Verified 02/06/22 13:13 (unknown) (no (unknown) (unknown) prominent right (units (unknown) date) unknown) (unknown) (no (unknown) (unknown) rales, or (units (unkn own) date) rhonchi. unknown) (unknown) (no (unknown) (unknown) regions are (units (un known) date) unknown) (unknown) (no (unknown) (unknown) right facial (units (u nknown) date) droop, scrutiny is unknown) given to the course of the right facial nerve, (unknown) (no (unknown) (unknown) seen, to (units (unkno wn) date) unknown) (unknown) (no (unknown) (unknown) seen. ? (units (unkno wn) date) unknown) (unknown) (no (unknown) (unknown) seen.? (units (unkno wn) date) unknown) (unknown) (no (unknown) (unknown) segment. (units (unkno wn) date) unknown) (unknown) (no (unknown) (unknown) speech confusion (units (unknown) date) and left-sided unknown) weakness. Last well-known 11:00 p.m. last (unknown) (no (unknown) (unknown) symmetric.? (units (un known) date) unknown) (unknown) (no (unknown) (unknown) the (units (unkno wn) date) administration of unknown) intravenous contrast, 1 mm thick sections acquired from (unknown) (no (unknown) (unknown) the aortic arch.? (units (unknown) date) The origins of the unknown) common carotid arteries appear patent.? The (unknown) (no (unknown) (unknown) the aortic (units (unk nown) date) unknown) (unknown) (no (unknown) (unknown) the bathroom. She (units (unknown) date) states she hurt unknown) her left shoulder and left hip during the (unknown) (no (unknown) (unknown) the limits of CT. (units (unknown) date) unknown) (unknown) (no (unknown) (unknown) touch intact to (units (unknown) date) left hand and unknown) foot. (unknown) (no (unknown) (unknown) vasculature (units (un known) date) unknown) (unknown) (no (unknown) (unknown) vertex.? After (units (unknown) date) unknown) (unknown) (no (unknown) (unknown) within the right (units (unknown) date) parotid gland.? No unknown) ghazla masses or abnormal enhancement can be Result panel 11 (unknown) (no (unknown) (unknown) (no value) (units (unk nown) date) unknown) (unknown) (no (unknown) (unknown) (Hair,Skin and (units (unknown) date) Nails tablet) unknown) (unknown) (no (unknown) (unknown) [id number] (units (unkno wn) date) unknown) (unknown) (no (unknown) (unknown) 02/06/22 02/06/22 (units (unknown) date) 02/06/22 unknown) Range/Units (unknown) (no (unknown) (unknown) 02/06/22 13:21 (units (unknown) date) unknown) (unknown) (no (unknown) (unknown) 02/06/22 13:30 (units (unknown) date) unknown) (unknown) (no (unknown) (unknown) 02/06/22 14:17 (units (unknown) date) unknown) (unknown) (no (unknown) (unknown) 02/06/22 (units (unkno wn) date) unknown) (unknown) (no (unknown) (unknown) 1 dose PO (units (u nknown) date) DIRECTED unknown) (unknown) (no (unknown) (unknown) 1 tab PO DAILY (units (unknown) date) unknown) (unknown) (no (unknown) (unknown) [address] [place] [address] (units (unknown) date) unknown) (unknown) (no (unknown) (unknown) 13:13 (units (unkno wn) date) unknown) (unknown) (no (unknown) (unknown) 13:30 13:30 13:30 (units (unknown) date) unknown) (unknown) (no (unknown) (unknown) 07/01/2018, 9:41. (units (unknown) date) unknown) (unknown) (no (unknown) (unknown) ? (units (unkno wn) date) unknown) (unknown) (no (unknown) (unknown) ?[facility], (units (unknown) date) MR, MR HEAD/BRAIN unknown) WO CON, 2018, 15:17. (unknown) (no (unknown) (unknown) ALT 16 (<35) IU/L (units (unknown) date) unknown) (unknown) (no (unknown) (unknown) AST 24 (14-36) (units (unknown) date) IU/L unknown) (unknown) (no (unknown) (unknown) Able to flex (units (u nknown) date) fully at the elbow unknown) but has pain at the shoulder. Able to flex and (unknown) (no (unknown) (unknown) Accession Number: (units (unknown) date) [id number] ?? unknown) (unknown) (no (unknown) (unknown) Accession Number: (units (unknown) date) [id number] ?? unknown) (unknown) (no (unknown) (unknown) Accession Number: (units (unknown) date) [id number] ?? unknown) (unknown) (no (unknown) (unknown) Acct:[id number] (units (unknown) date) unknown) (unknown) (no (unknown) (unknown) Activity (units (unkno wn) date) Restrictions/Addit unknown) ional Instructions: (unknown) (no (unknown) (unknown) Age/Sex: 46 / F (units (unknown) date) unknown) (unknown) (no (unknown) (unknown) Albumin 4.0 (units (un known) date) (3.5-5.0) g/dL unknown) (unknown) (no (unknown) (unknown) Albumin/Globulin (units (unknown) date) Ratio 1.1 unknown) (1.0-2.8) (unknown) (no (unknown) (unknown) Alkaline (units (unkno wn) date) Phosphatase 94 unknown) (38-126) U/L (unknown) (no (unknown) (unknown) Allergies (units (unkn own) date) unknown) (unknown) (no (unknown) (unknown) Allergy/AdvReac (units (unknown) date) Type Severity unknown) Reaction Status Date / Time (unknown) (no (unknown) (unknown) [place], [place] (units ( unknown) date) [address] unknown) (unknown) (no (unknown) (unknown) Anterior (units (unkno wn) date) circulation:? unknown) Intracranial internal carotid arteries are normal in size (unknown) (no (unknown) (unknown) Any quantitative (units (unknown) date) measurements of unknown) stenosis were performed using NASCET criteria.? (unknown) (no (unknown) (unknown) Approved by: (units (u nknown) date) jimena Cui) Jacob on 02/06/2022 at 15:30 ? (unknown) (no (unknown) (unknown) Approved by: (units (u nknown) date) len Cui M.D. on 02/06/2022 at 15:33 ? (unknown) (no (unknown) (unknown) Approved by: (units (u nknown) date) jimena Roger) Jacob on 02/06/2022 at 13:13 ? (unknown) (no (unknown) (unknown) Ask month/age: (units (unknown) date) Answers both unknown) questions correctly. (unknown) (no (unknown) (unknown) BACK: No flank (units (unknown) date) tenderness. unknown) (unknown) (no (unknown) (unknown) BRAIN:? (units (unkno wn) date) unknown) (unknown) (no (unknown) (unknown) BUN 10 (7-17) (units ( unknown) date) mg/dL unknown) (unknown) (no (unknown) (unknown) BUN/Creatinine (units (unknown) date) Ratio 11.0 (6-22) unknown) (unknown) (no (unknown) (unknown) Baso # (Auto) 0 (units (unknown) date) (0-100) /uL unknown) (unknown) (no (unknown) (unknown) Baso % (Auto) 0.4 (units (unknown) date) (0-2) % unknown) (unknown) (no (unknown) (unknown) Best gaze (units (unkn own) date) horizontal: Normal unknown) (unknown) (no (unknown) (unknown) Best language: No (units (unknown) date) aphasia, normal unknown) (unknown) (no (unknown) (unknown) Blood Pressure (units (unknown) date) 142/82 H 02/06/22 unknown) 13:13 (unknown) (no (unknown) (unknown) Blood Pressure (units (unknown) date) 142/82 H unknown) (unknown) (no (unknown) (unknown) Bones:? No (units (unk nown) date) fracture or unknown) dislocation.? No focal osseous lesions. (unknown) (no (unknown) (unknown) Bones:? No (units (unk nown) date) fractures or unknown) dislocations.? No suspicious bony lesions.? Visualized (unknown) (no (unknown) (unknown) Bones:? No (units (unk nown) date) suspicious bony unknown) lesions.? Visualized cervical spine appears normally (unknown) (no (unknown) (unknown) Brain:? No (units (unk nown) date) midline shift.? No unknown) intracranial bleeds or masses.? Mueller-white matter (unknown) (no (unknown) (unknown) CARDIOVASCULAR: (units (unknown) date) Denies chest pain, unknown) palpitations (unknown) (no (unknown) (unknown) CARDIOVASCULAR: (units (unknown) date) Regular rate and unknown) rhythm without murmurs (unknown) (no (unknown) (unknown) CK-MB (CK-2) 3.49 (units (unknown) date) H (<2.37) ng/mL unknown) (unknown) (no (unknown) (unknown) CK-MB (CK-2) Rel (units (unknown) date) Index 2.6 unknown) (1.5-5.0) % (unknown) (no (unknown) (unknown) COMPARISON:? (units (u nknown) date) [facility], unknown) MR, MR STROKE, 07/01/2018, 11:00.? [facility] (unknown) (no (unknown) (unknown) COMPARISON:? (units (u nknown) date) None. unknown) (unknown) (no (unknown) (unknown) CONTRAST, (units (unkn own) date) 05/11/2012, unknown) 20:59.? [facility], CT, CT HEAD/BRAIN WO CON, (unknown) (no (unknown) (unknown) CSF spaces:? (units (u nknown) date) Ventricles are unknown) normal in size and shape.? Basal cisterns are (unknown) (no (unknown) (unknown) CT Scan Report (units (unknown) date) unknown) (unknown) (no (unknown) (unknown) CT angio head and (units (unknown) date) neck Stat unknown) (unknown) (no (unknown) (unknown) CT pelvis wo con (units (unknown) date) Stat unknown) (unknown) (no (unknown) (unknown) CT, BRAIN W/O (units (u nknown) date) CONTRAST, unknown) 06/14/2011, 17:18.? [facility], CT, BRAIN W/O (unknown) (no (unknown) (unknown) CTA - brain/neck: (units (unknown) date) unknown) (unknown) (no (unknown) (unknown) Calcium 8.7 (units (un known) date) (8.4-10.2) mg/dL unknown) (unknown) (no (unknown) (unknown) Carbon Dioxide 24 (units (unknown) date) (22-32) mmol/L unknown) (unknown) (no (unknown) (unknown) Carotid system:? (units (unknown) date) The great vessels unknown) demonstrate a conventional anatomy as they (unknown) (no (unknown) (unknown) delivery (units (unknown) date) delivered unknown) (unknown) (no (unknown) (unknown) Chief Complaint: (units (unknown) date) Neuro unknown) Symptoms/Deficit (unknown) (no (unknown) (unknown) Chloride 104 (units (u nknown) date) (98-107) mmol/L unknown) (unknown) (no (unknown) (unknown) Clinical (units (unkno wn) date) Impression: unknown) (unknown) (no (unknown) (unknown) Complete Blood (units (unknown) date) Count AUTO DIFF unknown) Stat (unknown) (no (unknown) (unknown) Comprehensive (units ( unknown) date) Metabolic Panel unknown) Stat (unknown) (no (unknown) (unknown) Course (units (unkno wn) date) unknown) (unknown) (no (unknown) (unknown) Creatinine 0.91 (units (unknown) date) (0.52-1.04) mg/dL unknown) (unknown) (no (unknown) (unknown) : 1975 (units (unknown) date) Acct:[id number] unknown) (unknown) (no (unknown) (unknown) : 1975 (units (unknown) date) unknown) (unknown) (no (unknown) (unknown) Date of Service: (units (unknown) date) 02/06/22 unknown) (unknown) (no (unknown) (unknown) Decision to Admit (units (unknown) date) Date: 02/06/22 unknown) (unknown) (no (unknown) (unknown) Decision to Admit (units (unknown) date) time: 16:22 unknown) (unknown) (no (unknown) (unknown) Departure (units (unkn own) date) unknown) (unknown) (no (unknown) (unknown) Diabetes (units (unkno wn) date) unknown) (unknown) (no (unknown) (unknown) Dictated by: (units (u nknown) date) len Cui M.D. on 02/06/2022 at 15:30 ? ? (unknown) (no (unknown) (unknown) Dictated by: (units (u nknown) date) len Roger M.D. on 02/06/2022 at 13:09 ? ? (unknown) (no (unknown) (unknown) Differential (units (u nknown) date) Diagnosis unknown) (unknown) (no (unknown) (unknown) Differential (units (u nknown) date) diagnosis: Likely unknown) cerebrovascular accident (Contusion/fractur e), (unknown) (no (unknown) (unknown) Discharge Plan (units (unknown) date) unknown) (unknown) (no (unknown) (unknown) Discontinued (units (u nknown) date) Medications unknown) (unknown) (no (unknown) (unknown) Dysarthria: Mild (units (unknown) date) to mod,some unknown) slurring (unknown) (no (unknown) (unknown) ECG Data (units (unkno wn) date) unknown) (unknown) (no (unknown) (unknown) ED Orders (units (unkn own) date) unknown) (unknown) (no (unknown) (unknown) EKG-12 Lead Stat (units (unknown) date) unknown) (unknown) (no (unknown) (unknown) ENT: Mucous (units (un known) date) membranes moist. unknown) (unknown) (no (unknown) (unknown) ER Physician: (units ( unknown) date) Demond Ruiz MD unknown) (unknown) (no (unknown) (unknown) EXTREMITIES: No (units (unknown) date) gross deformities. unknown) Mild tenderness to the left shoulder but no (unknown) (no (unknown) (unknown) EYES: Pupils (units (u nknown) date) equal round No unknown) scleral icterus. (unknown) (no (unknown) (unknown) Emergency Report (units (unknown) date) unknown) (unknown) (no (unknown) (unknown) Eos # (Auto) 100 (units (unknown) date) (0-450) /uL unknown) (unknown) (no (unknown) (unknown) Eos % (Auto) 1.5 (units (unknown) date) L (2-4) % unknown) (unknown) (no (unknown) (unknown) Estimated GFR > (units (unknown) date) 60 (>60) mL/min unknown) (unknown) (no (unknown) (unknown) Exam Narrative: (units (unknown) date) unknown) (unknown) (no (unknown) (unknown) Exam (units (unkno wn) date) unknown) (unknown) (no (unknown) (unknown) Extinction or (units ( unknown) date) inattention: No unknown) abnormality (unknown) (no (unknown) (unknown) Extremity x-ray (units (unknown) date) #1: unknown) (unknown) (no (unknown) (unknown) Extremity x-ray (units (unknown) date) #2: unknown) (unknown) (no (unknown) (unknown) FINDINGS:? (units (unk nown) date) unknown) (unknown) (no (unknown) (unknown) Facial palsy: (units ( unknown) date) Normal symetrical unknown) movement (unknown) (no (unknown) (unknown) Flow within the (units (unknown) date) posterior cerebral unknown) arteries is normal and symmetric.? No (unknown) (no (unknown) (unknown) GASTROINTESTINAL: (units (unknown) date) Abdomen soft, unknown) non-tender (unknown) (no (unknown) (unknown) GASTROINTESTINAL: (units (unknown) date) Denies nausea, unknown) vomiting, abdominal pain (unknown) (no (unknown) (unknown) GENERAL: Denies (units (unknown) date) chills, fatigue, unknown) malaise, fever, sweats. (unknown) (no (unknown) (unknown) GENERAL: in no (units (unknown) date) distress, not unknown) toxic not dyspneic (unknown) (no (unknown) (unknown) : Denies (units (unk nown) date) dysuria, unknown) frequency, hematuria (unknown) (no (unknown) (unknown) General (units (unkno wn) date) unknown) (unknown) (no (unknown) (unknown) Globulin 3.5 (units (u nknown) date) (1.7-4.1) g/dL unknown) (unknown) (no (unknown) (unknown) Glucose 189 H (units ( unknown) date) (70-100) mg/dL unknown) (unknown) (no (unknown) (unknown) HEAD CT (units (unkno wn) date) ANGIOGRAPHY:? unknown) (unknown) (no (unknown) (unknown) HEAD: (units (unkno wn) date) Normocephalic. unknown) Nontender scalp and face. (unknown) (no (unknown) (unknown) HEENT: Denies (units ( unknown) date) sinus pain, ear unknown) pain, sore throat (unknown) (no (unknown) (unknown) HPI - Neuro (units (un known) date) Symptoms/Deficit unknown) (unknown) (no (unknown) (unknown) HPI Narrative: (units (unknown) date) unknown) (unknown) (no (unknown) (unknown) Hct 31.2 L (units (unk nown) date) (36-46) % unknown) (unknown) (no (unknown) (unknown) Hematologic/Lymph (units (unknown) date) atic unknown) (unknown) (no (unknown) (unknown) Hgb 9.9 L (units (unkn own) date) (12.0-16.0) g/dL unknown) (unknown) (no (unknown) (unknown) History of (units (unk nown) date) Present Illness unknown) (unknown) (no (unknown) (unknown) Home Medications (units (unknown) date) unknown) (unknown) (no (unknown) (unknown) Hospital, (units (unkn own) date) unknown) (unknown) (no (unknown) (unknown) Hx of (units (unkno wn) date) cholecystectomy unknown) (unknown) (no (unknown) (unknown) I have reviewed (units (unknown) date) results with unknown) patient. At this time patient states she does not (unknown) (no (unknown) (unknown) IMPRESSION:? No (units (unknown) date) acute intracranial unknown) hemorrhage is seen.? (unknown) (no (unknown) (unknown) IMPRESSION:? No (units (unknown) date) fracture of the unknown) pelvis. (unknown) (no (unknown) (unknown) IMPRESSION:? (units (u nknown) date) Normal left unknown) shoulder (unknown) (no (unknown) (unknown) INDICATIONS:? (units ( unknown) date) Fall/left-sided unknown) pain (unknown) (no (unknown) (unknown) INDICATIONS:? (units ( unknown) date) Slurred unknown) speech/altered mental status (unknown) (no (unknown) (unknown) INDICATIONS:? (units ( unknown) date) pain/injury unknown) (unknown) (no (unknown) (unknown) Image quality:? (units (unknown) date) Excellent.? unknown) (unknown) (no (unknown) (unknown) Image quality:? (units (unknown) date) Mild streak unknown) artifact can be seen through the skull base. (unknown) (no (unknown) (unknown) Imaging Data (units (u nknown) date) unknown) (unknown) (no (unknown) (unknown) Initial Vital (units ( unknown) date) Signs unknown) (unknown) (no (unknown) (unknown) Initial Vital (units ( unknown) date) Signs: unknown) (unknown) (no (unknown) (unknown) Interpretation: (units (unknown) date) unknown) (unknown) (no (unknown) (unknown) [facility] (units (unknown) date) [address] unknown) [place] [address] (unknown) (no (unknown) (unknown) [facility] (units (unknown) date) unknown) (unknown) (no (unknown) (unknown) Lab Data (units (unkno wn) date) unknown) (unknown) (no (unknown) (unknown) Lab Results (units (un known) date) unknown) (unknown) (no (unknown) (unknown) Labs: (units (unkno wn) date) unknown) (unknown) (no (unknown) (unknown) Left against (units (u nknown) date) medical advice, unknown) Brain TIA, Contusion of left shoulder, Contusion (unknown) (no (unknown) (unknown) Left arm drift: (units (unknown) date) Some effort unknown) against gravity, cannot maintain, drifts down to bed (unknown) (no (unknown) (unknown) Left leg drift: (units (unknown) date) Some effort unknown) against gravity, cannot maintain, drifts down to bed (unknown) (no (unknown) (unknown) Level of (units (unkno wn) date) Conciousness: unknown) Alert, keenly responsive (unknown) (no (unknown) (unknown) Limb ataxia: (units (u nknown) date) Absent unknown) (unknown) (no (unknown) (unknown) Liver Cleanse 1 (units (unknown) date) dose PO unknown) DIRECTED 07/01/18 07/01/18 (unknown) (no (unknown) (unknown) Liver Cleanse (units ( unknown) date) unknown) (unknown) (no (unknown) (unknown) Loc: ED (units (unkno wn) date) unknown) (unknown) (no (unknown) (unknown) Lymph # (Auto) (units (unknown) date) 1600 (9611-7464) unknown) /uL (unknown) (no (unknown) (unknown) Lymph % (Auto) (units (unknown) date) 25.8 (25-40) % unknown) (unknown) (no (unknown) (unknown) MCH 23.4 L (units (unk nown) date) (26-34) PG unknown) (unknown) (no (unknown) (unknown) MCHC 31.7 (30-36) (units (unknown) date) % unknown) (unknown) (no (unknown) (unknown) MCV 73.9 L (units (unk nown) date) (80-100) fL unknown) (unknown) (no (unknown) (unknown) MDM - Neuro (units (un known) date) Symptoms/Deficit unknown) (unknown) (no (unknown) (unknown) MDM Narrative (units ( unknown) date) unknown) (unknown) (no (unknown) (unknown) MEDICATION FOR (units (unknown) date) BLOOD CLOTS unknown) Allergy Intermediate Uncoded 07/01/18 09:44 (unknown) (no (unknown) (unknown) MR#: [id number] (units (unknown) date) unknown) (unknown) (no (unknown) (unknown) MUSCULOSKELETAL: (units (unknown) date) Positive for unknown) muscle or bony pain (unknown) (no (unknown) (unknown) Medical History (units (unknown) date) (Reviewed 02/06/22 unknown) @ 14:21 by Demond Ruiz MD) (unknown) (no (unknown) (unknown) Medical decision (units (unknown) date) making narrative: unknown) (unknown) (no (unknown) (unknown) Medication (units (unk nown) date) Instructions unknown) Recorded Confirmed (unknown) (no (unknown) (unknown) Mode of arrival: (units (unknown) date) Ambulatory unknown) (unknown) (no (unknown) (unknown) [place] # (Auto) 300 (units (unknown) date) (0-900) /uL unknown) (unknown) (no (unknown) (unknown) [place] % (Auto) 4.8 (units (unknown) date) (3-14) % unknown) (unknown) (no (unknown) (unknown) NECK CT (units (unkno wn) date) ANGIOGRAPHY:? unknown) (unknown) (no (unknown) (unknown) NECK: Trachea (units ( unknown) date) midline. No unknown) midline tenderness or step-off. (unknown) (no (unknown) (unknown) NEURO: AOx4. (units (u nknown) date) Slightly slurred unknown) speech, no facial droop, light touch left face (unknown) (no (unknown) (unknown) NEUROLOGIC: (units (un known) date) Positive for unknown) slurred speech/confusion/w eakness, numbness (unknown) (no (unknown) (unknown) NIH Stroke Scale (units (unknown) date) unknown) (unknown) (no (unknown) (unknown) Narrative (units (unkn own) date) unknown) (unknown) (no (unknown) (unknown) Narrative: (units (unk nown) date) unknown) (unknown) (no (unknown) (unknown) Neut # (Auto) (units ( unknown) date) 4300 (7338-7984) unknown) /uL (unknown) (no (unknown) (unknown) Neut % (Auto) (units ( unknown) date) 67.5 (50-75) % unknown) (unknown) (no (unknown) (unknown) No Action (units (unkn own) date) unknown) (unknown) (no (unknown) (unknown) No acute (units (unkno wn) date) intracranial unknown) process is seen.? (unknown) (no (unknown) (unknown) No findings neck (units (unknown) date) artery dissection unknown) can be seen. (unknown) (no (unknown) (unknown) No significant (units (unknown) date) intracranial unknown) arterial abnormality is seen.? (unknown) (no (unknown) (unknown) Noncontrast 3 mm (units (unknown) date) axial sections unknown) acquired through the bony pelvis, with coronal (unknown) (no (unknown) (unknown) Normal sinus (units (u nknown) date) rhythm rate 86 no unknown) ST elevation or depression (unknown) (no (unknown) (unknown) Obesity (BMI (units (u nknown) date) 30.0-34.9) unknown) (unknown) (no (unknown) (unknown) On (units (unkno wn) date) Anticoagulants: No unknown) (unknown) (no (unknown) (unknown) Open/close eyes, (units (unknown) date) close hand: unknown) Performs both tasks correctly (unknown) (no (unknown) (unknown) Orbits appear (units ( unknown) date) normal.? unknown) Incidental note is made of hyperostosis frontalis. This (unknown) (no (unknown) (unknown) Ordered: (units (unkno wn) date) unknown) (unknown) (no (unknown) (unknown) Ordering (units (unkno wn) date) Provider: unknown) Demond Ruiz MD (unknown) (no (unknown) (unknown) Orders (units (unkno wn) date) unknown) (unknown) (no (unknown) (unknown) Oxygen Delivery (units (unknown) date) Method 02/06/22 unknown) 13:13 (unknown) (no (unknown) (unknown) Oxygen Delivery (units (unknown) date) Method Room Air unknown) (unknown) (no (unknown) (unknown) PROCEDURE:? CT (units (unknown) date) ANGIO HEAD AND unknown) NECK (unknown) (no (unknown) (unknown) PROCEDURE:? CT (units (unknown) date) PEL WO CON unknown) (unknown) (no (unknown) (unknown) PROCEDURE:? XR (units (unknown) date) SHOULDER LT MIN 2V unknown) (unknown) (no (unknown) (unknown) PSYCH: Not (units (unk nown) date) anxious, is unknown) cooperative (unknown) (no (unknown) (unknown) Patient (units (unkno wn) date) Disposition: Left unknown) Against Medical Advice (unknown) (no (unknown) (unknown) Patient History (units (unknown) date) unknown) (unknown) (no (unknown) (unknown) Patient has (units (un known) date) decided to leave unknown) against medical advice. Implored with patient to (unknown) (no (unknown) (unknown) Patient here with (units (unknown) date) a friend. Brought unknown) here by her friend. Complains slurred (unknown) (no (unknown) (unknown) Patient: (units (unkno wn) date) MuhammadCaitie A unknown) MR#: [id number] (unknown) (no (unknown) (unknown) Patient: (units (unkno wn) date) Muhammad,Caitie A unknown) (unknown) (no (unknown) (unknown) Peptic ulcer (units (u nknown) date) unknown) (unknown) (no (unknown) (unknown) Plt Count 223 (units ( unknown) date) (150-400) X103/uL unknown) (unknown) (no (unknown) (unknown) Posterior (units (unkno wn) date) circulation:? The unknown) origins of the vertebral arteries both appear widely (unknown) (no (unknown) (unknown) Posterior (units (unkn own) date) circulation:? unknown) Visualized portions of the vertebral arteries (unknown) (no (unknown) (unknown) Potassium 3.7 (units ( unknown) date) (3.4-5.1) mmol/L unknown) (unknown) (no (unknown) (unknown) Pre-contrast 4.5 (units (unknown) date) mm thick sections unknown) acquired from the foramen magnum to the (unknown) (no (unknown) (unknown) Test (units (unknown) date) Serum,Qual Stat unknown) (unknown) (no (unknown) (unknown) Prescriptions: (units (unknown) date) unknown) (unknown) (no (unknown) (unknown) Procedure: CT (units ( unknown) date) angio head and unknown) neck (unknown) (no (unknown) (unknown) Procedure: CT (units ( unknown) date) pelvis wo con unknown) (unknown) (no (unknown) (unknown) Procedure: XR (units ( unknown) date) shoulder LT min 2V unknown) (unknown) (no (unknown) (unknown) Pulse Oximetry (units (unknown) date) 100 02/06/22 13:13 unknown) (unknown) (no (unknown) (unknown) Pulse Oximetry (units (unknown) date) 100 unknown) (unknown) (no (unknown) (unknown) Pulse Rate 106 H (units (unknown) date) 02/06/22 13:13 unknown) (unknown) (no (unknown) (unknown) Pulse Rate 106 H (units (unknown) date) unknown) (unknown) (no (unknown) (unknown) RBC 4.22 (units (unkno wn) date) (4.0-5.2) X106/uL unknown) (unknown) (no (unknown) (unknown) RDW 18.2 H (units (unk nown) date) (11.6-14.8) % unknown) (unknown) (no (unknown) (unknown) RESPIRATORY: Clear (units (unknown) date) to auscultation. unknown) Breath sounds equal bilaterally. No wheezes, (unknown) (no (unknown) (unknown) RESPIRATORY: (units (u nknown) date) Denies dyspnea, unknown) cough (unknown) (no (unknown) (unknown) ROS Unobtainable: (units (unknown) date) All systems unknown) reviewed + are unremarkable except as noted in HPI (unknown) (no (unknown) (unknown) Radiologist's (units ( unknown) date) Impression: unknown) (unknown) (no (unknown) (unknown) Reevaluation #1: (units (unknown) date) unknown) (unknown) (no (unknown) (unknown) Reevaluation(s) (units (unknown) date) unknown) (unknown) (no (unknown) (unknown) Referrals: (units (unk nown) date) unknown) (unknown) (no (unknown) (unknown) Related Data (units (u nknown) date) unknown) (unknown) (no (unknown) (unknown) Respiratory Rate (units (unknown) date) 15 02/06/22 13:13 unknown) (unknown) (no (unknown) (unknown) Respiratory Rate (units (unknown) date) 15 unknown) (unknown) (no (unknown) (unknown) Restless leg (units (u nknown) date) syndrome unknown) (unknown) (no (unknown) (unknown) Result diagrams: (units (unknown) date) unknown) (unknown) (no (unknown) (unknown) Return immediately (units (unknown) date) if you change your unknown) mind to be admitted for further evaluation (unknown) (no (unknown) (unknown) Review of Systems (units (unknown) date) unknown) (unknown) (no (unknown) (unknown) Right arm drift: (units (unknown) date) No drift for full unknown) 10 sec (unknown) (no (unknown) (unknown) Right leg drift: (units (unknown) date) No drift for full unknown) 5 sec (unknown) (no (unknown) (unknown) SKIN: Denies (units (u nknown) date) rash, skin lesions unknown) (unknown) (no (unknown) (unknown) SKIN: Warm and (units (unknown) date) dry unknown) (unknown) (no (unknown) (unknown) Scores (units (unkno wn) date) unknown) (unknown) (no (unknown) (unknown) Sensory on (units (unk nown) date) face/arms/legs: unknown) Mild to moderate sensory loss, can tell touch (unknown) (no (unknown) (unknown) Serum , (units (unknown) date) Qual Negative unknown) (Negative) (unknown) (no (unknown) (unknown) Signed By: (units (unk nown) date) unknown) (unknown) (no (unknown) (unknown) Signed (units (unkno wn) date) unknown) (unknown) (no (unknown) (unknown) Sinuses:? Sinuses (units (unknown) date) and mastoids are unknown) clear.? (unknown) (no (unknown) (unknown) Skull and face:? (units (unknown) date) Calvarium and unknown) facial bones appear intact, without suspicious (unknown) (no (unknown) (unknown) Smoking Status: (units (unknown) date) Never smoker unknown) (unknown) (no (unknown) (unknown) Social History (units (unknown) date) (Reviewed 02/06/22 unknown) @ 14:21 by Demond Ruiz MD) (unknown) (no (unknown) (unknown) Sodium 139 (units (unk nown) date) (137-145) mmol/L unknown) (unknown) (no (unknown) (unknown) Sodium Chloride (units (unknown) date) (Normal Saline unknown) 0.9%) 500 mls @ 1,000 mls/hr IV BOLUS ONE (unknown) (no (unknown) (unknown) Soft tissues:? No (units (unknown) date) suspicious soft unknown) tissue calcifications.? (unknown) (no (unknown) (unknown) Soft tissues:? (units ( unknown) date) Visualized bowel unknown) in the pelvis is normal.? No hematoma, free air, (unknown) (no (unknown) (unknown) Soft tissues:? (units (unknown) date) Visualized neck unknown) soft tissues demonstrate no suspicious (unknown) (no (unknown) (unknown) Source: patient (units (unknown) date) unknown) (unknown) (no (unknown) (unknown) Stand Alone (units (un known) date) Forms: Against unknown) Medical Advice (unknown) (no (unknown) (unknown) Stated Complaint: (units (unknown) date) PT. unknown) fell/confused/hx of stroke/lt. side drooping (unknown) (no (unknown) (unknown) Status post (units (un known) date) gastric bypass for unknown) obesity (unknown) (no (unknown) (unknown) Stop: 02/06/22 (units (unknown) date) 13:51 unknown) (unknown) (no (unknown) (unknown) Substance Use (units ( unknown) date) Type: does not use unknown) (unknown) (no (unknown) (unknown) Surgical History (units (unknown) date) (Reviewed 02/06/22 unknown) @ 14:21 by Demond Ruiz MD) (unknown) (no (unknown) (unknown) TECHNIQUE:? 3 (units ( unknown) date) views of the unknown) shoulder were acquired.? (unknown) (no (unknown) (unknown) TECHNIQUE:? (units (un known) date) unknown) (unknown) (no (unknown) (unknown) Temperature 98.5 (units (unknown) date) F 02/06/22 13:13 unknown) (unknown) (no (unknown) (unknown) Temperature 98.5 (units (unknown) date) F unknown) (unknown) (no (unknown) (unknown) The flow within (units (unknown) date) the middle unknown) cerebral arteries is normal and symmetric.? The (unknown) (no (unknown) (unknown) The more superior (units (unknown) date) extracranial unknown) portions of both vertebral arteries also (unknown) (no (unknown) (unknown) This is (units (unkno wn) date) attributed to a unknown) type origin of the right posterior cerebral (unknown) (no (unknown) (unknown) Bravo Schmitz (units (unknown) date) MD Demond [Primary unknown) Care Provider] (unknown) (no (unknown) (unknown) Time Seen by (units (u nknown) date) Provider: 02/06/22 unknown) 13:20 (unknown) (no (unknown) (unknown) Time: 16:24 (units (un known) date) unknown) (unknown) (no (unknown) (unknown) Total Bilirubin (units (unknown) date) 0.3 (0.2-1.3) unknown) mg/dL (unknown) (no (unknown) (unknown) Total Creatine (units (unknown) date) Kinase 132 unknown) (30-135) U/L (unknown) (no (unknown) (unknown) Total NIH Stroke (units (unknown) date) scale score: 6 unknown) (unknown) (no (unknown) (unknown) Total Protein 7.5 (units (unknown) date) (6.3-8.2) g/dL unknown) (unknown) (no (unknown) (unknown) Troponin + CK (units ( unknown) date) Cardiac Panel Stat unknown) (unknown) (no (unknown) (unknown) Troponin I < (units (u nknown) date) 0.012 (0.01-0.034) unknown) ng/mL (unknown) (no (unknown) (unknown) Visual francis: No (units (unknown) date) visual loss unknown) (unknown) (no (unknown) (unknown) Vital Signs - 8 (units (unknown) date) hr unknown) (unknown) (no (unknown) (unknown) Vital Signs (units (un known) date) unknown) (unknown) (no (unknown) (unknown) Vital signs: (units (u nknown) date) unknown) (unknown) (no (unknown) (unknown) WBC 6.4 (units (unkno wn) date) (4.5-11.0) X103/uL unknown) (unknown) (no (unknown) (unknown) Within the (units (unk nown) date) arteries of the unknown) neck, no hemodynamically significant stenosis can be (unknown) (no (unknown) (unknown) XR shoulder LT (units (unknown) date) min 2V Stat unknown) (unknown) (no (unknown) (unknown) XRay Report (units (un known) date) unknown) (unknown) (no (unknown) (unknown) [Embedded Image (units (unknown) date) Not Available] unknown) (unknown) (no (unknown) (unknown) abnormalities.? (units (unknown) date) unknown) (unknown) (no (unknown) (unknown) acetaminophen (units ( unknown) date) [From VICODIN] unknown) Allergy Unknown Verified 02/06/22 13:13 (unknown) (no (unknown) (unknown) acquired (units (unkno wn) date) unknown) (unknown) (no (unknown) (unknown) alcohol intake (units (unknown) date) frequency: unknown) holidays/special occasions only (unknown) (no (unknown) (unknown) aligned.? (units (unkn own) date) unknown) (unknown) (no (unknown) (unknown) and below (units (unkn own) date) unknown) (unknown) (no (unknown) (unknown) and helped her (units (unknown) date) down to her unknown) bedroom to lay down and she went to sleep. At 11:00 (unknown) (no (unknown) (unknown) and neck (units (unkno wn) date) separately. For unknown) radiation dose reduction, the following was used:? (unknown) (no (unknown) (unknown) and testing. 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 (units (unknown) date) unknown) (unknown) (no (unknown) (unknown) appears intact.? (units (unknown) date) unknown) (unknown) (no (unknown) (unknown) arch through the (units (unknown) date) [place].? unknown) Post-contrast 4.5 mm thick sections then re (unknown) (no (unknown) (unknown) arise from (units (unk nown) date) unknown) (unknown) (no (unknown) (unknown) artery, which (units ( unknown) date) unknown) (unknown) (no (unknown) (unknown) artery.? (units (unkno wn) date) unknown) (unknown) (no (unknown) (unknown) automated (units (unkn own) date) unknown) (unknown) (no (unknown) (unknown) back at any time, (units (unknown) date) she is welcome unknown) back if she changes her mind to return (unknown) (no (unknown) (unknown) be admitted for (units (unknown) date) further evaluation unknown) and treatment for her symptoms. Risk of (unknown) (no (unknown) (unknown) both widely (units (un known) date) patent.? The unknown) internal carotid arteries demonstrate normal calibers (unknown) (no (unknown) (unknown) caliber, and join (units (unknown) date) to form a normal unknown) appearing basilar artery. There is a (unknown) (no (unknown) (unknown) carotid arteries (units (unknown) date) demonstrate normal unknown) caliber and courses.? The bifurcation (unknown) (no (unknown) (unknown) causes pain. (units (u nknown) date) unknown) (unknown) (no (unknown) (unknown) ceftriaxone (units (un known) date) [CEFTRIAXONE] unknown) Allergy Intermediate Verified 02/06/22 13:13 (unknown) (no (unknown) (unknown) clonazepam, she (units (unknown) date) did make unknown) corrections to her assigned primary care with her (unknown) (no (unknown) (unknown) common (units (unkno wn) date) unknown) (unknown) (no (unknown) (unknown) communicating (units ( unknown) date) artery is seen.? unknown) No aneurysms are seen.? (unknown) (no (unknown) (unknown) complaints. (units (un known) date) Patient states unknown) last night she felt very dizzy and she passed out in (unknown) (no (unknown) (unknown) condition loss of (units (unknown) date) limb or organ. She unknown) is awake alert oriented x4. She states (unknown) (no (unknown) (unknown) consequence.? (units ( unknown) date) unknown) (unknown) (no (unknown) (unknown) considered to be (units (unknown) date) pathologic in a unknown) woman of this age.? In this patient with a (unknown) (no (unknown) (unknown) courses.? (units (unkn own) date) unknown) (unknown) (no (unknown) (unknown) heart (units (un known) date) attack strokes unknown) loss of limb or organ or permanent injury or (unknown) (no (unknown) (unknown) decision. (units (unkn own) date) unknown) (unknown) (no (unknown) (unknown) demonstrate (units (un known) date) normal unknown) (unknown) (no (unknown) (unknown) demonstrate (units (un known) date) unknown) (unknown) (no (unknown) (unknown) enoxaparin [From (units (unknown) date) LOVENOX] Allergy unknown) Unknown Verified 02/06/22 13:13 (unknown) (no (unknown) (unknown) exposure control, (units (unknown) date) adjustment of mA unknown) and/or kV according to patient size.? (unknown) (no (unknown) (unknown) extend at the (units ( unknown) date) wrist. Strong unknown) radial pulse. Examination of the left lower (unknown) (no (unknown) (unknown) extra-axial fluid (units (unknown) date) collections.? unknown) (unknown) (no (unknown) (unknown) extremity. (units (unk nown) date) Nontender knee and unknown) ankle. However attempts to flex the left hip (unknown) (no (unknown) (unknown) fall in the (units (un known) date) bathroom. Did not unknown) hit her head. Her daughter heard her fall down (unknown) (no (unknown) (unknown) feels different (units (unknown) date) from the right. unknown) Left telephone ad taker slightly weaker than right. Light (unknown) (no (unknown) (unknown) flow.? The flow (units (unknown) date) within the paired unknown) anterior cerebral arteries is normal and (unknown) (no (unknown) (unknown) fluid, or (units (unkn own) date) evidence of unknown) hemorrhage. (unknown) (no (unknown) (unknown) free (units (unkno wn) date) unknown) (unknown) (no (unknown) (unknown) from the foramen (units (unknown) date) magnum to the unknown) vertex.? 3-dimensional (unknown) (no (unknown) (unknown) given history (units ( unknown) date) unknown) (unknown) (no (unknown) (unknown) gross deformity. (units (unknown) date) Limited range of unknown) motion due to pain as well as weakness. (unknown) (no (unknown) (unknown) her neuro (units (unkn own) date) complaints. unknown) Implored with her to stay, she would not. She (unknown) (no (unknown) (unknown) household (units (unkn own) date) members: children unknown) (unknown) (no (unknown) (unknown) hydrocodone [From (units (unknown) date) VICODIN] Allergy unknown) Unknown Verified 02/06/22 13:13 (unknown) (no (unknown) (unknown) in the past/TIA (units (unknown) date) with the similar unknown) symptoms slurred speech and slow speech. (unknown) (no (unknown) (unknown) including (units (unkn own) date) unknown) (unknown) (no (unknown) (unknown) insurance and she (units (unknown) date) will be able to unknown) get follow-up. Informed her she is welcome (unknown) (no (unknown) (unknown) interface (units (unkn own) date) unknown) (unknown) (no (unknown) (unknown) is considered to (units (unknown) date) be a normal unknown) developmental variant of typically no clinical (unknown) (no (unknown) (unknown) is not (units (unkno wn) date) unknown) (unknown) (no (unknown) (unknown) ketorolac (units (unkn own) date) [KETOROLAC] unknown) Allergy Intermediate Verified 02/06/22 13:13 (unknown) (no (unknown) (unknown) leaving against (units (unknown) date) medical advice unknown) reviewed with her. Includes but not limited to (unknown) (no (unknown) (unknown) lesions.? (units (unkn own) date) unknown) (unknown) (no (unknown) (unknown) maximum-intensity (units (unknown) date) -projection (MIP) unknown) (unknown) (no (unknown) (unknown) multivitamin 1 (units (unknown) date) tab PO DAILY unknown) 07/01/18 07/01/18 (unknown) (no (unknown) (unknown) multivitamin (units (u nknown) date) Tablet unknown) (unknown) (no (unknown) (unknown) multivitamin with (units (unknown) date) minerals 1 tab PO unknown) DAILY 07/01/18 07/01/18 (unknown) (no (unknown) (unknown) multivitamin with (units (unknown) date) minerals unknown) [Hair,Skin and Nails] Tablet (unknown) (no (unknown) (unknown) night. Over 12 (units (unknown) date) hours ago. Awoke unknown) at 10:00 a.m. this morning with these (unknown) (no (unknown) (unknown) normal courses (units (unknown) date) and calibers.? unknown) They join to form a normal appearing basilar (unknown) (no (unknown) (unknown) of hip, left (units (u nknown) date) unknown) (unknown) (no (unknown) (unknown) or bloody stools. (units (unknown) date) No cough cold or unknown) congestion. Patient states has had a stroke (unknown) (no (unknown) (unknown) p.m.. Patient (units ( unknown) date) denies any recent unknown) illness. No nausea vomiting diarrhea no black (unknown) (no (unknown) (unknown) patent.? No (units (un known) date) unknown) (unknown) (no (unknown) (unknown) patent.? (units (unkno wn) date) unknown) (unknown) (no (unknown) (unknown) posterior (units (unkn own) date) communicating unknown) artery seen, with an accompanying diminutive right P1 (unknown) (no (unknown) (unknown) prednisone (units (unk nown) date) [PREDNISONE] unknown) Allergy Unknown Verified 02/06/22 13:13 (unknown) (no (unknown) (unknown) prominent right (units (unknown) date) unknown) (unknown) (no (unknown) (unknown) rales, or (units (unkn own) date) rhonchi. unknown) (unknown) (no (unknown) (unknown) regions are (units (un known) date) unknown) (unknown) (no (unknown) (unknown) ribs (units (unkno wn) date) unknown) (unknown) (no (unknown) (unknown) right facial (units (u nknown) date) droop, scrutiny is unknown) given to the course of the right facial nerve, (unknown) (no (unknown) (unknown) sagittal (units (unkno wn) date) reformatting.? unknown) (unknown) (no (unknown) (unknown) seen, to (units (unkno wn) date) unknown) (unknown) (no (unknown) (unknown) seen. ? (units (unkno wn) date) unknown) (unknown) (no (unknown) (unknown) seen.? (units (unkno wn) date) unknown) (unknown) (no (unknown) (unknown) segment. (units (unkno wn) date) unknown) (unknown) (no (unknown) (unknown) she feels like a (units (unknown) date) lot of this is her unknown) anxiety. She has been weaning off of her (unknown) (no (unknown) (unknown) speech confusion (units (unknown) date) and left-sided unknown) weakness. Last well-known 11:00 p.m. last (unknown) (no (unknown) (unknown) symmetric.? (units (un known) date) unknown) (unknown) (no (unknown) (unknown) the (units (unkno wn) date) administration of unknown) intravenous contrast, 1 mm thick sections acquired from (unknown) (no (unknown) (unknown) the aortic arch.? (units (unknown) date) The origins of the unknown) common carotid arteries appear patent.? The (unknown) (no (unknown) (unknown) the aortic (units (unk nown) date) unknown) (unknown) (no (unknown) (unknown) the bathroom. She (units (unknown) date) states she hurt unknown) her left shoulder and left hip during the (unknown) (no (unknown) (unknown) the limits of CT. (units (unknown) date) unknown) (unknown) (no (unknown) (unknown) touch intact to (units (unknown) date) left hand and unknown) foot. (unknown) (no (unknown) (unknown) transient (units (unkn own) date) cerebral ischemia unknown) and other (Anxiety) (unknown) (no (unknown) (unknown) understands risk (units (unknown) date) of heart unknown) attack stroke permanent injury worsening (unknown) (no (unknown) (unknown) vasculature (units (un known) date) unknown) (unknown) (no (unknown) (unknown) vertex.? After (units (unknown) date) unknown) (unknown) (no (unknown) (unknown) want to be (units (unk nown) date) admitted hospital unknown) for continued evaluation and testing for TIA and (unknown) (no (unknown) (unknown) within the right (units (unknown) date) parotid gland.? No unknown) ghazal masses or abnormal enhancement can be (unknown) (no (unknown) (unknown) worsening (units (unkn own) date) conditions. She is unknown) awake alert oriented x4 at time of making this Result panel 12 (unknown) (no (unknown) (unknown) (no value) (units (unk nown) date) unknown) (unknown) (no (unknown) (unknown) <Electronically (units (unknown) date) signed by Demond unknown) MD Sara> (unknown) (no (unknown) (unknown) (Hair,Skin and (units (unknown) date) Nails tablet) unknown) (unknown) (no (unknown) (unknown) [id number] (units (unkno wn) date) unknown) (unknown) (no (unknown) (unknown) 02/06/22 02/06/22 (units (unknown) date) 02/06/22 unknown) Range/Units (unknown) (no (unknown) (unknown) 02/06/22 13:21 (units (unknown) date) unknown) (unknown) (no (unknown) (unknown) 02/06/22 13:30 (units (unknown) date) unknown) (unknown) (no (unknown) (unknown) 02/06/22 14:17 (units (unknown) date) unknown) (unknown) (no (unknown) (unknown) 02/06/22 1655 (units ( unknown) date) unknown) (unknown) (no (unknown) (unknown) 02/06/22 (units (unkno wn) date) unknown) (unknown) (no (unknown) (unknown) 1 dose PO (units (u nknown) date) DIRECTED unknown) (unknown) (no (unknown) (unknown) 1 tab PO DAILY (units (unknown) date) unknown) (unknown) (no (unknown) (unknown) [address] [place] [address] (units (unknown) date) unknown) (unknown) (no (unknown) (unknown) 13:13 02/06/22 (units (unknown) date) unknown) (unknown) (no (unknown) (unknown) 13:30 13:30 13:30 (units (unknown) date) unknown) (unknown) (no (unknown) (unknown) 16:30 (units (unkno wn) date) unknown) (unknown) (no (unknown) (unknown) 07/01/2018, 9:41. (units (unknown) date) unknown) (unknown) (no (unknown) (unknown) ? (units (unkno wn) date) unknown) (unknown) (no (unknown) (unknown) ?[facility], (units (unknown) date) MR, MR HEAD/BRAIN unknown) WO CON, 2018, 15:17. (unknown) (no (unknown) (unknown) ALT 16 (<35) IU/L (units (unknown) date) unknown) (unknown) (no (unknown) (unknown) AST 24 (14-36) (units (unknown) date) IU/L unknown) (unknown) (no (unknown) (unknown) Able to flex (units (u nknown) date) fully at the elbow unknown) but has pain at the shoulder. Able to flex and (unknown) (no (unknown) (unknown) Accession Number: (units (unknown) date) [id number] ?? unknown) (unknown) (no (unknown) (unknown) Accession Number: (units (unknown) date) [id number] ?? unknown) (unknown) (no (unknown) (unknown) Accession Number: (units (unknown) date) [id number] ?? unknown) (unknown) (no (unknown) (unknown) Acct:[id number] (units (unknown) date) unknown) (unknown) (no (unknown) (unknown) Activity (units (unkno wn) date) Restrictions/Addit unknown) ional Instructions: (unknown) (no (unknown) (unknown) Age/Sex: 46 / F (units (unknown) date) unknown) (unknown) (no (unknown) (unknown) Albumin 4.0 (units (un known) date) (3.5-5.0) g/dL unknown) (unknown) (no (unknown) (unknown) Albumin/Globulin (units (unknown) date) Ratio 1.1 unknown) (1.0-2.8) (unknown) (no (unknown) (unknown) Alkaline (units (unkno wn) date) Phosphatase 94 unknown) (38-126) U/L (unknown) (no (unknown) (unknown) Allergies (units (unkn own) date) unknown) (unknown) (no (unknown) (unknown) Allergy/AdvReac (units (unknown) date) Type Severity unknown) Reaction Status Date / Time (unknown) (no (unknown) (unknown) [place], [place] (units ( unknown) date) [address] unknown) (unknown) (no (unknown) (unknown) Anterior (units (unkno wn) date) circulation:? unknown) Intracranial internal carotid arteries are normal in size (unknown) (no (unknown) (unknown) Any quantitative (units (unknown) date) measurements of unknown) stenosis were performed using NASCET criteria.? (unknown) (no (unknown) (unknown) Approved by: (units (u nknown) date) [place] Castro, unknown) Jacob on 02/06/2022 at 15:30 ? (unknown) (no (unknown) (unknown) Approved by: (units (u nknown) date) jimena Cui) Jacob on 02/06/2022 at 15:33 ? (unknown) (no (unknown) (unknown) Approved by: (units (u nknown) date) jimena Roger) Jacob on 02/06/2022 at 13:13 ? (unknown) (no (unknown) (unknown) Ask month/age: (units (unknown) date) Answers both unknown) questions correctly. (unknown) (no (unknown) (unknown) BACK: No flank (units (unknown) date) tenderness. unknown) (unknown) (no (unknown) (unknown) BRAIN:? (units (unkno wn) date) unknown) (unknown) (no (unknown) (unknown) BUN 10 (7-17) (units ( unknown) date) mg/dL unknown) (unknown) (no (unknown) (unknown) BUN/Creatinine (units (unknown) date) Ratio 11.0 (6-22) unknown) (unknown) (no (unknown) (unknown) Baso # (Auto) 0 (units (unknown) date) (0-100) /uL unknown) (unknown) (no (unknown) (unknown) Baso % (Auto) 0.4 (units (unknown) date) (0-2) % unknown) (unknown) (no (unknown) (unknown) Best gaze (units (unkn own) date) horizontal: Normal unknown) (unknown) (no (unknown) (unknown) Best language: No (units (unknown) date) aphasia, normal unknown) (unknown) (no (unknown) (unknown) Blood Pressure (units (unknown) date) 142/82 H 02/06/22 unknown) 13:13 (unknown) (no (unknown) (unknown) Blood Pressure (units (unknown) date) 142/82 H 140/60 unknown) (unknown) (no (unknown) (unknown) Bones:? No (units (unk nown) date) fracture or unknown) dislocation.? No focal osseous lesions. (unknown) (no (unknown) (unknown) Bones:? No (units (unk nown) date) fractures or unknown) dislocations.? No suspicious bony lesions.? Visualized (unknown) (no (unknown) (unknown) Bones:? No (units (unk nown) date) suspicious bony unknown) lesions.? Visualized cervical spine appears normally (unknown) (no (unknown) (unknown) Brain:? No (units (unk nown) date) midline shift.? No unknown) intracranial bleeds or masses.? Mueller-white matter (unknown) (no (unknown) (unknown) CARDIOVASCULAR: (units (unknown) date) Denies chest pain, unknown) palpitations (unknown) (no (unknown) (unknown) CARDIOVASCULAR: (units (unknown) date) Regular rate and unknown) rhythm without murmurs (unknown) (no (unknown) (unknown) CK-MB (CK-2) 3.49 (units (unknown) date) H (<2.37) ng/mL unknown) (unknown) (no (unknown) (unknown) CK-MB (CK-2) Rel (units (unknown) date) Index 2.6 unknown) (1.5-5.0) % (unknown) (no (unknown) (unknown) COMPARISON:? (units (u nknown) date) [facility], unknown) MR, MR STROKE, 07/01/2018, 11:00.? [facility] (unknown) (no (unknown) (unknown) COMPARISON:? (units (u nknown) date) None. unknown) (unknown) (no (unknown) (unknown) CONTRAST, (units (unkn own) date) 05/11/2012, unknown) 20:59.? [facility], CT, CT HEAD/BRAIN WO CON, (unknown) (no (unknown) (unknown) CSF spaces:? (units (u nknown) date) Ventricles are unknown) normal in size and shape.? Basal cisterns are (unknown) (no (unknown) (unknown) CT Scan Report (units (unknown) date) unknown) (unknown) (no (unknown) (unknown) CT angio head and (units (unknown) date) neck Stat unknown) (unknown) (no (unknown) (unknown) CT pelvis wo con (units (unknown) date) Stat unknown) (unknown) (no (unknown) (unknown) CT, BRAIN W/O (units (u nknown) date) CONTRAST, unknown) 06/14/2011, 17:18.? [facility], CT, BRAIN W/O (unknown) (no (unknown) (unknown) CTA - brain/neck: (units (unknown) date) unknown) (unknown) (no (unknown) (unknown) Calcium 8.7 (units (un known) date) (8.4-10.2) mg/dL unknown) (unknown) (no (unknown) (unknown) Carbon Dioxide 24 (units (unknown) date) (22-32) mmol/L unknown) (unknown) (no (unknown) (unknown) Carotid system:? (units (unknown) date) The great vessels unknown) demonstrate a conventional anatomy as they (unknown) (no (unknown) (unknown) delivery (units (unknown) date) delivered unknown) (unknown) (no (unknown) (unknown) Chief Complaint: (units (unknown) date) Neuro unknown) Symptoms/Deficit (unknown) (no (unknown) (unknown) Chloride 104 (units (u nknown) date) (98-107) mmol/L unknown) (unknown) (no (unknown) (unknown) Clinical (units (unkno wn) date) Impression: unknown) (unknown) (no (unknown) (unknown) Complete Blood (units (unknown) date) Count AUTO DIFF unknown) Stat (unknown) (no (unknown) (unknown) Comprehensive (units ( unknown) date) Metabolic Panel unknown) Stat (unknown) (no (unknown) (unknown) Course (units (unkno wn) date) unknown) (unknown) (no (unknown) (unknown) Creatinine 0.91 (units (unknown) date) (0.52-1.04) mg/dL unknown) (unknown) (no (unknown) (unknown) : 1975 (units (unknown) date) Acct:[id number] unknown) (unknown) (no (unknown) (unknown) : 1975 (units (unknown) date) unknown) (unknown) (no (unknown) (unknown) Date of Service: (units (unknown) date) 02/06/22 unknown) (unknown) (no (unknown) (unknown) Decision to Admit (units (unknown) date) Date: 02/06/22 unknown) (unknown) (no (unknown) (unknown) Decision to Admit (units (unknown) date) time: 16:22 unknown) (unknown) (no (unknown) (unknown) Departure (units (unkn own) date) unknown) (unknown) (no (unknown) (unknown) Diabetes (units (unkno wn) date) unknown) (unknown) (no (unknown) (unknown) Dictated by: (units (u nknown) date) Hill Castro, unknown) Jacob on 02/06/2022 at 15:30 ? ? (unknown) (no (unknown) (unknown) Dictated by: (units (u nknown) date) Remington Ordonez, jimena) Jacob on 02/06/2022 at 13:09 ? ? (unknown) (no (unknown) (unknown) Differential (units (u nknown) date) Diagnosis unknown) (unknown) (no (unknown) (unknown) Differential (units (u nknown) date) diagnosis: Likely unknown) cerebrovascular accident (Contusion/fractur e), (unknown) (no (unknown) (unknown) Discharge Plan (units (unknown) date) unknown) (unknown) (no (unknown) (unknown) Discontinued (units (u nknown) date) Medications unknown) (unknown) (no (unknown) (unknown) Documented By: KB (units (unknown) date) unknown) (unknown) (no (unknown) (unknown) Dysarthria: Mild (units (unknown) date) to mod,some unknown) slurring (unknown) (no (unknown) (unknown) ECG Data (units (unkno wn) date) unknown) (unknown) (no (unknown) (unknown) ED Orders (units (unkn own) date) unknown) (unknown) (no (unknown) (unknown) EKG-12 Lead Stat (units (unknown) date) unknown) (unknown) (no (unknown) (unknown) ENT: Mucous (units (un known) date) membranes moist. unknown) (unknown) (no (unknown) (unknown) ER Physician: (units ( unknown) date) Demond Ruiz MD unknown) (unknown) (no (unknown) (unknown) EXTREMITIES: No (units (unknown) date) gross deformities. unknown) Mild tenderness to the left shoulder but no (unknown) (no (unknown) (unknown) EYES: Pupils (units (u nknown) date) equal round No unknown) scleral icterus. (unknown) (no (unknown) (unknown) Emergency Report (units (unknown) date) unknown) (unknown) (no (unknown) (unknown) Eos # (Auto) 100 (units (unknown) date) (0-450) /uL unknown) (unknown) (no (unknown) (unknown) Eos % (Auto) 1.5 (units (unknown) date) L (2-4) % unknown) (unknown) (no (unknown) (unknown) Estimated GFR > (units (unknown) date) 60 (>60) mL/min unknown) (unknown) (no (unknown) (unknown) Exam Narrative: (units (unknown) date) unknown) (unknown) (no (unknown) (unknown) Exam (units (unkno wn) date) unknown) (unknown) (no (unknown) (unknown) Extinction or (units ( unknown) date) inattention: No unknown) abnormality (unknown) (no (unknown) (unknown) Extremity x-ray (units (unknown) date) #1: unknown) (unknown) (no (unknown) (unknown) Extremity x-ray (units (unknown) date) #2: unknown) (unknown) (no (unknown) (unknown) FINDINGS:? (units (unk nown) date) unknown) (unknown) (no (unknown) (unknown) Facial palsy: (units ( unknown) date) Normal symetrical unknown) movement (unknown) (no (unknown) (unknown) Flow within the (units (unknown) date) posterior cerebral unknown) arteries is normal and symmetric.? No (unknown) (no (unknown) (unknown) GASTROINTESTINAL: (units (unknown) date) Abdomen soft, unknown) non-tender (unknown) (no (unknown) (unknown) GASTROINTESTINAL: (units (unknown) date) Denies nausea, unknown) vomiting, abdominal pain (unknown) (no (unknown) (unknown) GENERAL: Denies (units (unknown) date) chills, fatigue, unknown) malaise, fever, sweats. (unknown) (no (unknown) (unknown) GENERAL: in no (units (unknown) date) distress, not unknown) toxic not dyspneic (unknown) (no (unknown) (unknown) : Denies (units (unk nown) date) dysuria, unknown) frequency, hematuria (unknown) (no (unknown) (unknown) General (units (unkno wn) date) unknown) (unknown) (no (unknown) (unknown) Globulin 3.5 (units (u nknown) date) (1.7-4.1) g/dL unknown) (unknown) (no (unknown) (unknown) Glucose 189 H (units ( unknown) date) (70-100) mg/dL unknown) (unknown) (no (unknown) (unknown) HEAD CT (units (unkno wn) date) ANGIOGRAPHY:? unknown) (unknown) (no (unknown) (unknown) HEAD: (units (unkno wn) date) Normocephalic. unknown) Nontender scalp and face. (unknown) (no (unknown) (unknown) HEENT: Denies (units ( unknown) date) sinus pain, ear unknown) pain, sore throat (unknown) (no (unknown) (unknown) HPI - Neuro (units (un known) date) Symptoms/Deficit unknown) (unknown) (no (unknown) (unknown) HPI Narrative: (units (unknown) date) unknown) (unknown) (no (unknown) (unknown) Hct 31.2 L (units (unk nown) date) (36-46) % unknown) (unknown) (no (unknown) (unknown) Hematologic/Lymph (units (unknown) date) atic unknown) (unknown) (no (unknown) (unknown) Hgb 9.9 L (units (unkn own) date) (12.0-16.0) g/dL unknown) (unknown) (no (unknown) (unknown) History of (units (unk nown) date) Present Illness unknown) (unknown) (no (unknown) (unknown) Home Medications (units (unknown) date) unknown) (unknown) (no (unknown) (unknown) Hospital, (units (unkn own) date) unknown) (unknown) (no (unknown) (unknown) Hx of (units (unkno wn) date) cholecystectomy unknown) (unknown) (no (unknown) (unknown) I have reviewed (units (unknown) date) results with unknown) patient. At this time patient states she does not (unknown) (no (unknown) (unknown) IMPRESSION:? No (units (unknown) date) acute intracranial unknown) hemorrhage is seen.? (unknown) (no (unknown) (unknown) IMPRESSION:? No (units (unknown) date) fracture of the unknown) pelvis. (unknown) (no (unknown) (unknown) IMPRESSION:? (units (u nknown) date) Normal left unknown) shoulder (unknown) (no (unknown) (unknown) INDICATIONS:? (units ( unknown) date) Fall/left-sided unknown) pain (unknown) (no (unknown) (unknown) INDICATIONS:? (units ( unknown) date) Slurred unknown) speech/altered mental status (unknown) (no (unknown) (unknown) INDICATIONS:? (units ( unknown) date) pain/injury unknown) (unknown) (no (unknown) (unknown) Image quality:? (units (unknown) date) Excellent.? unknown) (unknown) (no (unknown) (unknown) Image quality:? (units (unknown) date) Mild streak unknown) artifact can be seen through the skull base. (unknown) (no (unknown) (unknown) Imaging Data (units (u nknown) date) unknown) (unknown) (no (unknown) (unknown) Initial Vital (units ( unknown) date) Signs unknown) (unknown) (no (unknown) (unknown) Initial Vital (units ( unknown) date) Signs: unknown) (unknown) (no (unknown) (unknown) Interpretation: (units (unknown) date) unknown) (unknown) (no (unknown) (unknown) [facility] (units (unknown) date) [address] unknown) [place] [address] (unknown) (no (unknown) (unknown) [facility] (units (unknown) date) unknown) (unknown) (no (unknown) (unknown) Lab Data (units (unkno wn) date) unknown) (unknown) (no (unknown) (unknown) Lab Results (units (un known) date) unknown) (unknown) (no (unknown) (unknown) Labs: (units (unkno wn) date) unknown) (unknown) (no (unknown) (unknown) Last Admin: (units (un known) date) 02/06/22 16:38 unknown) Dose: Not Given (unknown) (no (unknown) (unknown) Left against (units (u nknown) date) medical advice, unknown) Brain TIA, Contusion of left shoulder, Contusion (unknown) (no (unknown) (unknown) Left arm drift: (units (unknown) date) Some effort unknown) against gravity, cannot maintain, drifts down to bed (unknown) (no (unknown) (unknown) Left leg drift: (units (unknown) date) Some effort unknown) against gravity, cannot maintain, drifts down to bed (unknown) (no (unknown) (unknown) Level of (units (unkno wn) date) Conciousness: unknown) Alert, keenly responsive (unknown) (no (unknown) (unknown) Limb ataxia: (units (u nknown) date) Absent unknown) (unknown) (no (unknown) (unknown) Liver Cleanse 1 (units (unknown) date) dose PO unknown) DIRECTED 07/01/18 07/01/18 (unknown) (no (unknown) (unknown) Liver Cleanse (units ( unknown) date) unknown) (unknown) (no (unknown) (unknown) Loc: ED (units (unkno wn) date) unknown) (unknown) (no (unknown) (unknown) Lymph # (Auto) (units (unknown) date) 1600 (3745-3244) unknown) /uL (unknown) (no (unknown) (unknown) Lymph % (Auto) (units (unknown) date) 25.8 (25-40) % unknown) (unknown) (no (unknown) (unknown) MCH 23.4 L (units (unk nown) date) (26-34) PG unknown) (unknown) (no (unknown) (unknown) MCHC 31.7 (30-36) (units (unknown) date) % unknown) (unknown) (no (unknown) (unknown) MCV 73.9 L (units (unk nown) date) (80-100) fL unknown) (unknown) (no (unknown) (unknown) MDM - Neuro (units (un known) date) Symptoms/Deficit unknown) (unknown) (no (unknown) (unknown) MDM Narrative (units ( unknown) date) unknown) (unknown) (no (unknown) (unknown) MEDICATION FOR (units (unknown) date) BLOOD CLOTS unknown) Allergy Intermediate Uncoded 07/01/18 09:44 (unknown) (no (unknown) (unknown) MR#: [id number] (units (unknown) date) unknown) (unknown) (no (unknown) (unknown) MUSCULOSKELETAL: (units (unknown) date) Positive for unknown) muscle or bony pain (unknown) (no (unknown) (unknown) Medical History (units (unknown) date) (Reviewed 02/06/22 unknown) @ 14:21 by Demond Ruiz MD) (unknown) (no (unknown) (unknown) Medical decision (units (unknown) date) making narrative: unknown) (unknown) (no (unknown) (unknown) Medication (units (unk nown) date) Instructions unknown) Recorded Confirmed (unknown) (no (unknown) (unknown) Mode of arrival: (units (unknown) date) Ambulatory unknown) (unknown) (no (unknown) (unknown) [place] # (Auto) 300 (units (unknown) date) (0-900) /uL unknown) (unknown) (no (unknown) (unknown) [place] % (Auto) 4.8 (units (unknown) date) (3-14) % unknown) (unknown) (no (unknown) (unknown) NECK CT (units (unkno wn) date) ANGIOGRAPHY:? unknown) (unknown) (no (unknown) (unknown) NECK: Trachea (units ( unknown) date) midline. No unknown) midline tenderness or step-off. (unknown) (no (unknown) (unknown) NEURO: AOx4. (units (u nknown) date) Slightly slurred unknown) speech, no facial droop, light touch left face (unknown) (no (unknown) (unknown) NEUROLOGIC: (units (un known) date) Positive for unknown) slurred speech/confusion/w eakness, numbness (unknown) (no (unknown) (unknown) NIH Stroke Scale (units (unknown) date) unknown) (unknown) (no (unknown) (unknown) Narrative (units (unkn own) date) unknown) (unknown) (no (unknown) (unknown) Narrative: (units (unk nown) date) unknown) (unknown) (no (unknown) (unknown) Neut # (Auto) (units ( unknown) date) 4300 (9516-2563) unknown) /uL (unknown) (no (unknown) (unknown) Neut % (Auto) (units ( unknown) date) 67.5 (50-75) % unknown) (unknown) (no (unknown) (unknown) No Action (units (unkn own) date) unknown) (unknown) (no (unknown) (unknown) No acute (units (unkno wn) date) intracranial unknown) process is seen.? (unknown) (no (unknown) (unknown) No findings neck (units (unknown) date) artery dissection unknown) can be seen. (unknown) (no (unknown) (unknown) No significant (units (unknown) date) intracranial unknown) arterial abnormality is seen.? (unknown) (no (unknown) (unknown) Noncontrast 3 mm (units (unknown) date) axial sections unknown) acquired through the bony pelvis, with coronal (unknown) (no (unknown) (unknown) Normal sinus (units (u nknown) date) rhythm rate 86 no unknown) ST elevation or depression (unknown) (no (unknown) (unknown) Obesity (BMI (units (u nknown) date) 30.0-34.9) unknown) (unknown) (no (unknown) (unknown) On (units (unkno wn) date) Anticoagulants: No unknown) (unknown) (no (unknown) (unknown) Open/close eyes, (units (unknown) date) close hand: unknown) Performs both tasks correctly (unknown) (no (unknown) (unknown) Orbits appear (units ( unknown) date) normal.? unknown) Incidental note is made of hyperostosis frontalis. This (unknown) (no (unknown) (unknown) Ordered: (units (unkno wn) date) unknown) (unknown) (no (unknown) (unknown) Ordering (units (unkno wn) date) Provider: unknown) Demond Ruiz MD (unknown) (no (unknown) (unknown) Orders (units (unkno wn) date) unknown) (unknown) (no (unknown) (unknown) Oxygen Delivery (units (unknown) date) Method 02/06/22 unknown) 13:13 (unknown) (no (unknown) (unknown) Oxygen Delivery (units (unknown) date) Method Room Air unknown) (unknown) (no (unknown) (unknown) PROCEDURE:? CT (units (unknown) date) ANGIO HEAD AND unknown) NECK (unknown) (no (unknown) (unknown) PROCEDURE:? CT (units (unknown) date) PEL WO CON unknown) (unknown) (no (unknown) (unknown) PROCEDURE:? XR (units (unknown) date) SHOULDER LT MIN 2V unknown) (unknown) (no (unknown) (unknown) PSYCH: Not (units (unk nown) date) anxious, is unknown) cooperative (unknown) (no (unknown) (unknown) Patient (units (unkno wn) date) Disposition: Left unknown) Against Medical Advice (unknown) (no (unknown) (unknown) Patient History (units (unknown) date) unknown) (unknown) (no (unknown) (unknown) Patient has (units (un known) date) decided to leave unknown) against medical advice. Implored with patient to (unknown) (no (unknown) (unknown) Patient here with (units (unknown) date) a friend. Brought unknown) here by her friend. Complains slurred (unknown) (no (unknown) (unknown) Patient: (units (unkno wn) date) Caitie Muhammad A unknown) MR#: [id number] (unknown) (no (unknown) (unknown) Patient: (units (unkno wn) date) Muhammad,Caitie A unknown) (unknown) (no (unknown) (unknown) Peptic ulcer (units (u nknown) date) unknown) (unknown) (no (unknown) (unknown) Plt Count 223 (units ( unknown) date) (150-400) X103/uL unknown) (unknown) (no (unknown) (unknown) Posterior (units (unkno wn) date) circulation:? The unknown) origins of the vertebral arteries both appear widely (unknown) (no (unknown) (unknown) Posterior (units (unkn own) date) circulation:? unknown) Visualized portions of the vertebral arteries (unknown) (no (unknown) (unknown) Potassium 3.7 (units ( unknown) date) (3.4-5.1) mmol/L unknown) (unknown) (no (unknown) (unknown) Pre-contrast 4.5 (units (unknown) date) mm thick sections unknown) acquired from the foramen magnum to the (unknown) (no (unknown) (unknown) Test (units (unknown) date) Serum,Qual Stat unknown) (unknown) (no (unknown) (unknown) Prescriptions: (units (unknown) date) unknown) (unknown) (no (unknown) (unknown) Procedure: CT (units ( unknown) date) angio head and unknown) neck (unknown) (no (unknown) (unknown) Procedure: CT (units ( unknown) date) pelvis wo con unknown) (unknown) (no (unknown) (unknown) Procedure: XR (units ( unknown) date) shoulder LT min 2V unknown) (unknown) (no (unknown) (unknown) Pulse Oximetry (units (unknown) date) 100 02/06/22 13:13 unknown) (unknown) (no (unknown) (unknown) Pulse Oximetry (units (unknown) date) 100 98 unknown) (unknown) (no (unknown) (unknown) Pulse Rate 106 H (units (unknown) date) 02/06/22 13:13 unknown) (unknown) (no (unknown) (unknown) Pulse Rate 106 H (units (unknown) date) 80 unknown) (unknown) (no (unknown) (unknown) RBC 4.22 (units (unkno wn) date) (4.0-5.2) X106/uL unknown) (unknown) (no (unknown) (unknown) RDW 18.2 H (units (unk nown) date) (11.6-14.8) % unknown) (unknown) (no (unknown) (unknown) RESPIRATORY: Clear (units (unknown) date) to auscultation. unknown) Breath sounds equal bilaterally. No wheezes, (unknown) (no (unknown) (unknown) RESPIRATORY: (units (u nknown) date) Denies dyspnea, unknown) cough (unknown) (no (unknown) (unknown) ROS Unobtainable: (units (unknown) date) All systems unknown) reviewed + are unremarkable except as noted in HPI (unknown) (no (unknown) (unknown) Radiologist's (units ( unknown) date) Impression: unknown) (unknown) (no (unknown) (unknown) Reevaluation #1: (units (unknown) date) unknown) (unknown) (no (unknown) (unknown) Reevaluation(s) (units (unknown) date) unknown) (unknown) (no (unknown) (unknown) Referrals: (units (unk nown) date) unknown) (unknown) (no (unknown) (unknown) Related Data (units (u nknown) date) unknown) (unknown) (no (unknown) (unknown) Respiratory Rate (units (unknown) date) 15 02/06/22 13:13 unknown) (unknown) (no (unknown) (unknown) Respiratory Rate (units (unknown) date) 15 18 unknown) (unknown) (no (unknown) (unknown) Restless leg (units (u nknown) date) syndrome unknown) (unknown) (no (unknown) (unknown) Result diagrams: (units (unknown) date) unknown) (unknown) (no (unknown) (unknown) Return immediately (units (unknown) date) if you change your unknown) mind to be admitted for further evaluation (unknown) (no (unknown) (unknown) Review of Systems (units (unknown) date) unknown) (unknown) (no (unknown) (unknown) Right arm drift: (units (unknown) date) No drift for full unknown) 10 sec (unknown) (no (unknown) (unknown) Right leg drift: (units (unknown) date) No drift for full unknown) 5 sec (unknown) (no (unknown) (unknown) SKIN: Denies (units (u nknown) date) rash, skin lesions unknown) (unknown) (no (unknown) (unknown) SKIN: Warm and (units (unknown) date) dry unknown) (unknown) (no (unknown) (unknown) Scores (units (unkno wn) date) unknown) (unknown) (no (unknown) (unknown) Sensory on (units (unk nown) date) face/arms/legs: unknown) Mild to moderate sensory loss, can tell touch (unknown) (no (unknown) (unknown) Serum , (units (unknown) date) Qual Negative unknown) (Negative) (unknown) (no (unknown) (unknown) Signed By: (units (unk nown) date) unknown) (unknown) (no (unknown) (unknown) Signed (units (unkno wn) date) unknown) (unknown) (no (unknown) (unknown) Sinuses:? Sinuses (units (unknown) date) and mastoids are unknown) clear.? (unknown) (no (unknown) (unknown) Skull and face:? (units (unknown) date) Calvarium and unknown) facial bones appear intact, without suspicious (unknown) (no (unknown) (unknown) Smoking Status: (units (unknown) date) Never smoker unknown) (unknown) (no (unknown) (unknown) Social History (units (unknown) date) (Reviewed 02/06/22 unknown) @ 14:21 by Demodn Ruiz MD) (unknown) (no (unknown) (unknown) Sodium 139 (units (unk nown) date) (137-145) mmol/L unknown) (unknown) (no (unknown) (unknown) Sodium Chloride (units (unknown) date) (Normal Saline unknown) 0.9%) 500 mls @ 1,000 mls/hr IV BOLUS ONE (unknown) (no (unknown) (unknown) Soft tissues:? No (units (unknown) date) suspicious soft unknown) tissue calcifications.? (unknown) (no (unknown) (unknown) Soft tissues:? (units ( unknown) date) Visualized bowel unknown) in the pelvis is normal.? No hematoma, free air, (unknown) (no (unknown) (unknown) Soft tissues:? (units (unknown) date) Visualized neck unknown) soft tissues demonstrate no suspicious (unknown) (no (unknown) (unknown) Source: patient (units (unknown) date) unknown) (unknown) (no (unknown) (unknown) Stand Alone (units (un known) date) Forms: Against unknown) Medical Advice (unknown) (no (unknown) (unknown) Stated Complaint: (units (unknown) date) PT. unknown) fell/confused/hx of stroke/lt. side drooping (unknown) (no (unknown) (unknown) Status post (units (un known) date) gastric bypass for unknown) obesity (unknown) (no (unknown) (unknown) Stop: 02/06/22 (units (unknown) date) 13:51 unknown) (unknown) (no (unknown) (unknown) Substance Use (units ( unknown) date) Type: does not use unknown) (unknown) (no (unknown) (unknown) Surgical History (units (unknown) date) (Reviewed 02/06/22 unknown) @ 14:21 by Demond Ruiz MD) (unknown) (no (unknown) (unknown) TECHNIQUE:? 3 (units ( unknown) date) views of the unknown) shoulder were acquired.? (unknown) (no (unknown) (unknown) TECHNIQUE:? (units (un known) date) unknown) (unknown) (no (unknown) (unknown) Temperature 98.5 (units (unknown) date) F 02/06/22 13:13 unknown) (unknown) (no (unknown) (unknown) Temperature 98.5 (units (unknown) date) F unknown) (unknown) (no (unknown) (unknown) The flow within (units (unknown) date) the middle unknown) cerebral arteries is normal and symmetric.? The (unknown) (no (unknown) (unknown) The more superior (units (unknown) date) extracranial unknown) portions of both vertebral arteries also (unknown) (no (unknown) (unknown) This is (units (unkno wn) date) attributed to a unknown) type origin of the right posterior cerebral (unknown) (no (unknown) (unknown) Bravo Schmitz (units (unknown) date) MD Demond [Primary unknown) Care Provider] (unknown) (no (unknown) (unknown) Time Seen by (units (u nknown) date) Provider: 02/06/22 unknown) 13:20 (unknown) (no (unknown) (unknown) Time: 16:24 (units (un known) date) unknown) (unknown) (no (unknown) (unknown) Total Bilirubin (units (unknown) date) 0.3 (0.2-1.3) unknown) mg/dL (unknown) (no (unknown) (unknown) Total Creatine (units (unknown) date) Kinase 132 unknown) (30-135) U/L (unknown) (no (unknown) (unknown) Total NIH Stroke (units (unknown) date) scale score: 6 unknown) (unknown) (no (unknown) (unknown) Total Protein 7.5 (units (unknown) date) (6.3-8.2) g/dL unknown) (unknown) (no (unknown) (unknown) Troponin + CK (units ( unknown) date) Cardiac Panel Stat unknown) (unknown) (no (unknown) (unknown) Troponin I < (units (u nknown) date) 0.012 (0.01-0.034) unknown) ng/mL (unknown) (no (unknown) (unknown) Visual francis: No (units (unknown) date) visual loss unknown) (unknown) (no (unknown) (unknown) Vital Signs - 8 (units (unknown) date) hr unknown) (unknown) (no (unknown) (unknown) Vital Signs (units (un known) date) unknown) (unknown) (no (unknown) (unknown) Vital signs: (units (u nknown) date) unknown) (unknown) (no (unknown) (unknown) WBC 6.4 (units (unkno wn) date) (4.5-11.0) X103/uL unknown) (unknown) (no (unknown) (unknown) Within the (units (unk nown) date) arteries of the unknown) neck, no hemodynamically significant stenosis can be (unknown) (no (unknown) (unknown) XR shoulder LT (units (unknown) date) min 2V Stat unknown) (unknown) (no (unknown) (unknown) XRay Report (units (un known) date) unknown) (unknown) (no (unknown) (unknown) [Embedded Image (units (unknown) date) Not Available] unknown) (unknown) (no (unknown) (unknown) abnormalities.? (units (unknown) date) unknown) (unknown) (no (unknown) (unknown) acetaminophen (units ( unknown) date) [From VICODIN] unknown) Allergy Unknown Verified 02/06/22 13:13 (unknown) (no (unknown) (unknown) acquired (units (unkno wn) date) unknown) (unknown) (no (unknown) (unknown) alcohol intake (units (unknown) date) frequency: unknown) holidays/special occasions only (unknown) (no (unknown) (unknown) aligned.? (units (unkn own) date) unknown) (unknown) (no (unknown) (unknown) and below (units (unkn own) date) unknown) (unknown) (no (unknown) (unknown) and helped her (units (unknown) date) down to her unknown) bedroom to lay down and she went to sleep. At 11:00 (unknown) (no (unknown) (unknown) and neck (units (unkno wn) date) separately. For unknown) radiation dose reduction, the following was used:? (unknown) (no (unknown) (unknown) and testing. 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 (units (unknown) date) unknown) (unknown) (no (unknown) (unknown) appears intact.? (units (unknown) date) unknown) (unknown) (no (unknown) (unknown) arch through the (units (unknown) date) [place].? unknown) Post-contrast 4.5 mm thick sections then re (unknown) (no (unknown) (unknown) arise from (units (unk nown) date) unknown) (unknown) (no (unknown) (unknown) artery, which (units ( unknown) date) unknown) (unknown) (no (unknown) (unknown) artery.? (units (unkno wn) date) unknown) (unknown) (no (unknown) (unknown) automated (units (unkn own) date) unknown) (unknown) (no (unknown) (unknown) back at any time, (units (unknown) date) she is welcome unknown) back if she changes her mind to return (unknown) (no (unknown) (unknown) be admitted for (units (unknown) date) further evaluation unknown) and treatment for her symptoms. Risk of (unknown) (no (unknown) (unknown) both widely (units (un known) date) patent.? The unknown) internal carotid arteries demonstrate normal calibers (unknown) (no (unknown) (unknown) caliber, and join (units (unknown) date) to form a normal unknown) appearing basilar artery. There is a (unknown) (no (unknown) (unknown) carotid arteries (units (unknown) date) demonstrate normal unknown) caliber and courses.? The bifurcation (unknown) (no (unknown) (unknown) causes pain. (units (u nknown) date) unknown) (unknown) (no (unknown) (unknown) ceftriaxone (units (un known) date) [CEFTRIAXONE] unknown) Allergy Intermediate Verified 02/06/22 13:13 (unknown) (no (unknown) (unknown) clonazepam, she (units (unknown) date) did make unknown) corrections to her assigned primary care with her (unknown) (no (unknown) (unknown) common (units (unkno wn) date) unknown) (unknown) (no (unknown) (unknown) communicating (units ( unknown) date) artery is seen.? unknown) No aneurysms are seen.? (unknown) (no (unknown) (unknown) complaints. (units (un known) date) Patient states unknown) last night she felt very dizzy and she passed out in (unknown) (no (unknown) (unknown) condition loss of (units (unknown) date) limb or organ. She unknown) is awake alert oriented x4. She states (unknown) (no (unknown) (unknown) consequence.? (units ( unknown) date) unknown) (unknown) (no (unknown) (unknown) considered to be (units (unknown) date) pathologic in a unknown) woman of this age.? In this patient with a (unknown) (no (unknown) (unknown) courses.? (units (unkn own) date) unknown) (unknown) (no (unknown) (unknown) heart (units (un known) date) attack strokes unknown) loss of limb or organ or permanent injury or (unknown) (no (unknown) (unknown) decision. (units (unkn own) date) unknown) (unknown) (no (unknown) (unknown) demonstrate (units (un known) date) normal unknown) (unknown) (no (unknown) (unknown) demonstrate (units (un known) date) unknown) (unknown) (no (unknown) (unknown) enoxaparin [From (units (unknown) date) LOVENOX] Allergy unknown) Unknown Verified 02/06/22 13:13 (unknown) (no (unknown) (unknown) exposure control, (units (unknown) date) adjustment of mA unknown) and/or kV according to patient size.? (unknown) (no (unknown) (unknown) extend at the (units ( unknown) date) wrist. Strong unknown) radial pulse. Examination of the left lower (unknown) (no (unknown) (unknown) extra-axial fluid (units (unknown) date) collections.? unknown) (unknown) (no (unknown) (unknown) extremity. (units (unk nown) date) Nontender knee and unknown) ankle. However attempts to flex the left hip (unknown) (no (unknown) (unknown) fall in the (units (un known) date) bathroom. Did not unknown) hit her head. Her daughter heard her fall down (unknown) (no (unknown) (unknown) feels different (units (unknown) date) from the right. unknown) Left telephone ad taker slightly weaker than right. Light (unknown) (no (unknown) (unknown) flow.? The flow (units (unknown) date) within the paired unknown) anterior cerebral arteries is normal and (unknown) (no (unknown) (unknown) fluid, or (units (unkn own) date) evidence of unknown) hemorrhage. (unknown) (no (unknown) (unknown) free (units (unkno wn) date) unknown) (unknown) (no (unknown) (unknown) from the foramen (units (unknown) date) magnum to the unknown) vertex.? 3-dimensional (unknown) (no (unknown) (unknown) given history (units ( unknown) date) unknown) (unknown) (no (unknown) (unknown) gross deformity. (units (unknown) date) Limited range of unknown) motion due to pain as well as weakness. (unknown) (no (unknown) (unknown) her neuro (units (unkn own) date) complaints. unknown) Implored with her to stay, she would not. She (unknown) (no (unknown) (unknown) household (units (unkn own) date) members: children unknown) (unknown) (no (unknown) (unknown) hydrocodone [From (units (unknown) date) VICODIN] Allergy unknown) Unknown Verified 02/06/22 13:13 (unknown) (no (unknown) (unknown) in the past/TIA (units (unknown) date) with the similar unknown) symptoms slurred speech and slow speech. (unknown) (no (unknown) (unknown) including (units (unkn own) date) unknown) (unknown) (no (unknown) (unknown) insurance and she (units (unknown) date) will be able to unknown) get follow-up. Informed her she is welcome (unknown) (no (unknown) (unknown) interface (units (unkn own) date) unknown) (unknown) (no (unknown) (unknown) is considered to (units (unknown) date) be a normal unknown) developmental variant of typically no clinical (unknown) (no (unknown) (unknown) is not (units (unkno wn) date) unknown) (unknown) (no (unknown) (unknown) ketorolac (units (unkn own) date) [KETOROLAC] unknown) Allergy Intermediate Verified 02/06/22 13:13 (unknown) (no (unknown) (unknown) leaving against (units (unknown) date) medical advice unknown) reviewed with her. Includes but not limited to (unknown) (no (unknown) (unknown) lesions.? (units (unkn own) date) unknown) (unknown) (no (unknown) (unknown) maximum-intensity (units (unknown) date) -projection (MIP) unknown) (unknown) (no (unknown) (unknown) multivitamin 1 (units (unknown) date) tab PO DAILY unknown) 07/01/18 07/01/18 (unknown) (no (unknown) (unknown) multivitamin (units (u nknown) date) Tablet unknown) (unknown) (no (unknown) (unknown) multivitamin with (units (unknown) date) minerals 1 tab PO unknown) DAILY 07/01/18 07/01/18 (unknown) (no (unknown) (unknown) multivitamin with (units (unknown) date) minerals unknown) [Hair,Skin and Nails] Tablet (unknown) (no (unknown) (unknown) night. Over 12 (units (unknown) date) hours ago. Awoke unknown) at 10:00 a.m. this morning with these (unknown) (no (unknown) (unknown) normal courses (units (unknown) date) and calibers.? unknown) They join to form a normal appearing basilar (unknown) (no (unknown) (unknown) of hip, left (units (u nknown) date) unknown) (unknown) (no (unknown) (unknown) or bloody stools. (units (unknown) date) No cough cold or unknown) congestion. Patient states has had a stroke (unknown) (no (unknown) (unknown) p.m.. Patient (units ( unknown) date) denies any recent unknown) illness. No nausea vomiting diarrhea no black (unknown) (no (unknown) (unknown) patent.? No (units (un known) date) unknown) (unknown) (no (unknown) (unknown) patent.? (units (unkno wn) date) unknown) (unknown) (no (unknown) (unknown) posterior (units (unkn own) date) communicating unknown) artery seen, with an accompanying diminutive right P1 (unknown) (no (unknown) (unknown) prednisone (units (unk nown) date) [PREDNISONE] unknown) Allergy Unknown Verified 02/06/22 13:13 (unknown) (no (unknown) (unknown) prominent right (units (unknown) date) unknown) (unknown) (no (unknown) (unknown) rales, or (units (unkn own) date) rhonchi. unknown) (unknown) (no (unknown) (unknown) regions are (units (un known) date) unknown) (unknown) (no (unknown) (unknown) ribs (units (unkno wn) date) unknown) (unknown) (no (unknown) (unknown) right facial (units (u nknown) date) droop, scrutiny is unknown) given to the course of the right facial nerve, (unknown) (no (unknown) (unknown) sagittal (units (unkno wn) date) reformatting.? unknown) (unknown) (no (unknown) (unknown) seen, to (units (unkno wn) date) unknown) (unknown) (no (unknown) (unknown) seen. ? (units (unkno wn) date) unknown) (unknown) (no (unknown) (unknown) seen.? (units (unkno wn) date) unknown) (unknown) (no (unknown) (unknown) segment. (units (unkno wn) date) unknown) (unknown) (no (unknown) (unknown) she feels like a (units (unknown) date) lot of this is her unknown) anxiety. She has been weaning off of her (unknown) (no (unknown) (unknown) speech confusion (units (unknown) date) and left-sided unknown) weakness. Last well-known 11:00 p.m. last (unknown) (no (unknown) (unknown) symmetric.? (units (un known) date) unknown) (unknown) (no (unknown) (unknown) the (units (unkno wn) date) administration of unknown) intravenous contrast, 1 mm thick sections acquired from (unknown) (no (unknown) (unknown) the aortic arch.? (units (unknown) date) The origins of the unknown) common carotid arteries appear patent.? The (unknown) (no (unknown) (unknown) the aortic (units (unk nown) date) unknown) (unknown) (no (unknown) (unknown) the bathroom. She (units (unknown) date) states she hurt unknown) her left shoulder and left hip during the (unknown) (no (unknown) (unknown) the limits of CT. (units (unknown) date) unknown) (unknown) (no (unknown) (unknown) touch intact to (units (unknown) date) left hand and unknown) foot. (unknown) (no (unknown) (unknown) transient (units (unkn own) date) cerebral ischemia unknown) and other (Anxiety) (unknown) (no (unknown) (unknown) understands risk (units (unknown) date) of heart unknown) attack stroke permanent injury worsening (unknown) (no (unknown) (unknown) vasculature (units (un known) date) unknown) (unknown) (no (unknown) (unknown) vertex.? After (units (unknown) date) unknown) (unknown) (no (unknown) (unknown) want to be (units (unk nown) date) admitted hospital unknown) for continued evaluation and testing for TIA and (unknown) (no (unknown) (unknown) within the right (units (unknown) date) parotid gland.? No unknown) ghaazl masses or abnormal enhancement can be (unknown) (no (unknown) (unknown) worsening (units (unkn own) date) conditions. She is unknown) awake alert oriented x4 at time of making this Social History No information. Vital Signs No information.
[2022-02-09 18:36] VITALS: BP 134/101
--- NOTE | 2022-02-09 18:52 | ED Physician Documentation ---
PD HPI UPPER EXT INJURY - Stated complaint Stated Complaint: R FINGER LAC - Chief complaint Chief Complaint: Laceration - History obtained from History obtained from: Patient (Left-handed woman who is up-to-date on tetanus cut her right middle finger with a box knife while working at home just prior to arrival.) Review of Systems Constitutional: reports: Reviewed and negative Cardiac: reports: Reviewed and negative Respiratory: reports: Reviewed and negative PD PAST MEDICAL HISTORY - Past Medical History Cardiovascular: None Respiratory: None Neuro: Migraines Endocrine/Autoimmune: Type 2 diabetes GI: Other : None HEENT: None Psych: Anxiety, Post traumatic stress disorder Musculoskeletal: Rheumatoid arthritis, Other Derm: None - Past Surgical History Past Surgical History: Yes General: Cholecystectomy, 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, 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 - Present Medications Home Medications: Ambulatory Orders Medication Instructions Recorded Confirmed clonazePAM [Clonazepam] 0.5 - 1 mg PO BID PRN 01/13/20 02/18/21 Gabapentin 600 mg PO TID 02/18/21 02/19/21 Benzonatate [Tessalon] 200 mg PO TID PRN #30 cap 03/03/21 - Allergies Allergies/Adverse Reactions: Allergies Allergy/AdvReac Type Severity Reaction Status Date / Time ketorolac tromethamine * Allergy Itching Verified 02/09/22 18:32 [From Toradol] prednisone Allergy Respiratory Verified 02/09/22 18:32 hydrocodone bitartrate * AdvReac Itching Verified 02/09/22 18:32 [From Vicodin] - Social History Does the pt smoke?: No Smoking Status: Never smoker Does the pt drink ETOH?: No Does the pt have substance abuse?: No - Immunizations Immunizations are current?: Yes - POLST Patient has POLST: No POLST Status: Full Code PD ED PE NORMAL - Vitals Vital signs reviewed: Yes - General General: Alert and oriented X 3, No acute distress - Extremities Extremities: Other (There is a 1 cm laceration into the pulp of the right middle finger without distal neurovascular compromise, no gaping or active bleeding.) - Neuro Neuro: Alert and oriented X 3, Normal speech Results - Vitals Vitals: Vital Signs - 24 hr 02/09/22 18:32 Temperature 36 C L Heart Rate 87 Respiratory 16 Rate Blood Pressure 134/101 H O2 Saturation 100 Oxygen O2 Source Room air Procedures - Laceration (location) R 3rd finger Length in cm: 1 Wound type: Linear Neurovascular status: Sensory intact, Motor intact, Vascular intact Wound preparation: Irrigated copiously NS Skin layer closure: Dermabond Other: Dressing applied, Tetanus UTD - Splint (location) R 3rd finger Splint applied by: Physician Type of splint: Metal foam finger splint Other: Patient tolerated well, Neurovascular intact PD MEDICAL DECISION MAKING - ED course ED course: She adamantly refused sutures so after discussion we note that usually we do not Dermabond fingers because of their mobility but given that she refused sutures we went ahead and did that and put her in a splint. Departure - Departure Disposition: 01 Home, Self Care Clinical Impression: Finger laceration Qualifiers: Encounter type: initial encounter Finger: middle finger Damage to nail status: without damage Foreign body presence: without foreign body Laterality: right Qualified Code(s): S61.212A - Laceration without foreign body of right middle finger without damage to nail, initial encounter Condition: Good Record reviewed to determine appropriate education?: Yes Instructions: ED Laceration Ext Skin Glue
== END 2022-02-09 19:00 | disposition home or self-care (01) ==
LOC: ED 18:27
DX: S61.212A Laceration without foreign body of right middle finger without damage to nail, initial encounter (principal); W27.8XXA Contact with other nonpowered hand tool, initial encounter; Y92.009 Unspecified place in unspecified non-institutional (private) residence as the place of occurrence of the external cause; Y99.8 Other external cause status
CPT/HCPCS: 12001; 99281

== ENCOUNTER 2022-07-11 18:12 | Emergency (ER) | payer MEDICAID ==
[2022-07-11] MEDS ORDERED: HALOPERIDOL 5 MG/ML VIAL IM STA (18:53)
[2022-07-11] MEDS ORDERED: clonazePAM 0.5 MG TABLET PO STA (18:53)
--- NOTE | 2022-07-11 18:55 | ED Physician Documentation ---
PD HPI SEIZURE - Stated complaint Stated Complaint: LT SIDE DROOP/SLURRED SPEACH - Chief complaint Chief Complaint: Neuro - History obtained from History obtained from: Patient - Additional information Additional information: 47-year-old woman with history of hemiplegic migraines and TIAs without headaches ran out of her clonazepam due to a change in primary care from providers. She is been out for about 4 days. She has a history of pseudoseizures and think she has had 2 pseudoseizures over the last 2 days and today feels like her whole left side is full of lidocaine. Its not completely numbed, just diminished. There is no headache with it. 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, 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 - Present Medications Home Medications: Ambulatory Orders Medication Instructions Recorded Confirmed clonazePAM [Clonazepam] 0.5 - 1 mg PO BID PRN 01/13/20 02/18/21 Gabapentin 600 mg PO TID 02/18/21 02/19/21 Benzonatate [Tessalon] 200 mg PO TID PRN #30 cap 03/03/21 Amoxicillin 500 mg PO TID #30 cap 07/11/22 clonazePAM [Klonopin] 1 mg PO TID PRN #30 tablet 07/11/22 - Allergies Allergies/Adverse Reactions: Allergies Allergy/AdvReac Type Severity Reaction Status Date / Time ketorolac tromethamine * Allergy Itching Verified 02/09/22 18:32 [From Toradol] prednisone Allergy Respiratory Verified 02/09/22 18:32 albuterol AdvReac Hives Verified 07/11/22 18:28 heparin AdvReac Hives Verified 07/11/22 18:28 hydrocodone bitartrate * AdvReac Itching Verified 02/09/22 18:32 [From Vicodin] nitroglycerin AdvReac Anaphylaxis Verified 07/11/22 18:28 [From Nitrostat] - Social History Does the pt smoke?: No Smoking Status: Never smoker Does the pt drink ETOH?: No Does the pt have substance abuse?: No - Immunizations Immunizations are current?: Yes - POLST Patient has POLST: No POLST Status: Full Code PD ED PE NORMAL - Vitals Vital signs reviewed: Yes - General General: Alert and oriented X 3, No acute distress - HEENT HEENT: PERRL, EOMI - Neck Neck: Supple, no meningeal sign, No bony TTP - Cardiac Cardiac: RRR, No murmur - Respiratory Respiratory: No respiratory distress, Clear bilaterally - Abdomen Abdomen: Non tender - Back Back: No CVA TTP, No spinal TTP - Derm Derm: Normal color, Warm and dry - Neuro Neuro: Alert and oriented X 3, No motor deficit, Normal speech, Other (Mildly diminished sensation throughout the left side without motor deficit.) Eye Opening: Spontaneous Motor: Obeys Commands Verbal: Oriented GCS Score: 15 Results - Vitals Vitals: Vital Signs - 24 hr 07/11/22 18:20 Temperature 36.8 C Heart Rate 108 H Respiratory 16 Rate Blood Pressure 142/88 H O2 Saturation 95 Oxygen O2 Source Room air PD Medical Decision Making - ED course ED course: 47-year-old woman presents with diminished sensation on the left side today associated with pseudoseizures over the last few days and clonazepam withdrawal. No motor deficits. Initial recommendation was for CT angiography of the head and neck with labs. She declined IV and labs so we will trial some Haldol for potential migrainous etiology, give her one of her clonazepam and perform a Noncon head CT as initial work-up. CT of the head was negative with the exception of sinusitis. She is symptomatic from that perspective. After the administration of Haldol and clonazepam her numbness had resolved. She was feeling better, but did develop some shakiness after the Haldol but declined further treatment. Departure - Departure Disposition: 01 Home, Self Care Clinical Impression: Migraine, hemiplegic, Sinusitis Condition: Good Record reviewed to determine appropriate education?: Yes Instructions: ED Sinusitis Abx Tx, ED Headache Migraine Prescriptions: Amoxicillin 500 mg PO TID #30 cap clonazePAM [Klonopin] 1 mg PO TID PRN #30 tablet PRN Reason: Anxiety Comments: I sent your prescriptions electronically to [facility] in [place]. Do not drink or drive while taking clonazepam or tonight. In addition to the refill of the clonazepam I wrote for prescription for amoxicillin for the sinus infection. Return for new or worsening symptoms.
--- NOTE | 2022-07-11 19:21 | CT Report ---
PROCEDURE: HEAD WO INDICATIONS: L side numb TECHNIQUE: Noncontrast 4.5 mm thick angled axial sections acquired from the foramen magnum to the vertex. For r adiation dose reduction, the following was used: automated exposure control, adjustment of mA and/or kV according to patient size. COMPARISON: 02/18/2021 FINDINGS: Image quality: Excellent. CSF spaces: Basal cisterns are patent. No extra-axial fluid collections. Ventricles are normal in size and shape. Brain: No midline shift. No intracranial masses or hemorrhage. Mueller-white matter interface is norm al. Skull and face: Calvarium and visualized facial bones are intact, without suspicious lesions. Sinuses: Bilateral maxillary sinus air-fluid levels and mucosal thickening. Patchy bilateral ethmoid opacification. IMPRESSION: 1. No evidence acute intracranial process. 2. Acute on chronic sinusitis. Reviewed by: Rod Begum MD on 07/11/2022 7:19 PM PST Approved by: Rod Begum MD on 07/11/2022 7:19 PM PST Station ID: [id number]
[2022-07-11 19:54] VITALS: BP 135/90
== END 2022-07-11 19:54 | disposition home or self-care (01) ==
LOC: ED 18:12
DX: G43.409 Hemiplegic migraine, not intractable, without status migrainosus (principal); J01.80 Other acute sinusitis; J32.8 Other chronic sinusitis
CPT/HCPCS: 70450; 96372; 99284; A9270

== ENCOUNTER 2022-07-26 18:23 | Emergency (ER) | payer MEDICAID ==
[2022-07-26 18:35] VITALS: BP 151/95
--- NOTE | 2022-07-26 19:35 | ED Physician Documentation ---
History of Present Illness - Stated complaint Stated Complaint: SOA/CONGESTION - Chief complaint Chief Complaint: General - History obtained from History obtained from: Patient - Additonal information Additional information: 47-year-old woman presents with 2 chief complaints. She has ongoing cellulitis sinusitis and is on a second round of amoxicillin and doing better. That said she has swelling around the eyes. Secondly she is out of her clonazepam with first appointment follow-up with her new primary care physician next week. No SI or HI. 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, 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 - Present Medications Home Medications: Ambulatory Orders Medication Instructions Recorded Confirmed clonazePAM [Clonazepam] 0.5 - 1 mg PO BID PRN 01/13/20 02/18/21 Gabapentin 600 mg PO TID 02/18/21 02/19/21 Benzonatate [Tessalon] 200 mg PO TID PRN #30 cap 03/03/21 Amoxicillin 500 mg PO TID #30 cap 07/11/22 clonazePAM [Klonopin] 1 mg PO TID PRN #30 tablet 07/11/22 Fluticasone [Flonase] 1 sprays ALPESH BID #16 gm 07/26/22 clonazePAM [Klonopin] 1 mg PO TID #21 tablet 07/26/22 - Allergies Allergies/Adverse Reactions: Allergies Allergy/AdvReac Type Severity Reaction Status Date / Time ketorolac tromethamine * Allergy Itching Verified 07/26/22 18:36 [From Toradol] prednisone Allergy Respiratory Verified 07/26/22 18:36 albuterol AdvReac Hives Verified 07/26/22 18:36 heparin AdvReac Hives Verified 07/26/22 18:36 hydrocodone bitartrate * AdvReac Itching Verified 07/26/22 18:36 [From Vicodin] nitroglycerin AdvReac Anaphylaxis Verified 07/26/22 18:36 [From Nitrostat] - Social History Does the pt smoke?: No Smoking Status: Never smoker Does the pt drink ETOH?: No Does the pt have substance abuse?: No - Immunizations Immunizations are current?: Yes - POLST Patient has POLST: No POLST Status: Full Code PD ED PE NORMAL - Vitals Vital signs reviewed: Yes - General General: Alert and oriented X 3, No acute distress - HEENT HEENT: Ears normal (TMs normal.), Other (Mild periorbital edema with maxillary sinus tenderness. Oropharynx normal.) - Neck Neck: Supple, no meningeal sign, No bony TTP - Neuro Neuro: Alert and oriented X 3, [employer] 2-12 intact, No motor deficit, No sensory deficit, Normal speech Eye Opening: Spontaneous Motor: Obeys Commands Verbal: Oriented GCS Score: 15 Results - Vitals Vitals: Vital Signs - 24 hr 07/26/22 18:29 Temperature 36.8 C Heart Rate 103 H Respiratory 16 Rate Blood Pressure 151/95 H O2 Saturation 100 Oxygen O2 Source Room air PD Medical Decision Making - ED course ED course: 47-year-old woman with ongoing sinusitis. She is on appropriate antibiotics. Will add a nasal steroid. She is also out of her clonazepam. We do not want her to withdraw, that could be dangerous so I am prescribing a very short course of a refill. But discussed with her that further refills from the emergency department would be limited. She does have an appropriate follow-up with her new primary care physician in a week. Departure - Departure Disposition: 01 Home, Self Care Clinical Impression: Benzodiazepine dependence Sinusitis Qualifiers: Sinusitis location: maxillary Chronicity: acute Recurrence: non-recurrent Qualified Code(s): J01.00 - Acute maxillary sinusitis, unspecified Condition: Good Record reviewed to determine appropriate education?: Yes Instructions: ED Sinusitis Abx Tx Prescriptions: Fluticasone [Flonase] 1 sprays ALPESH BID #16 gm clonazePAM [Klonopin] 1 mg PO TID #21 tablet Comments: Followup with [facility] Schuster on the as scheduled Return if worse. Further prescriptions from the ED for controlled substances will be limited. [facility] Discharge Date/Time: 07/26/22 19:44
[2022-07-26] MEDS ORDERED: clonazePAM 0.5 MG TABLET PO STA (19:36)
== END 2022-07-26 19:44 | disposition home or self-care (01) ==
LOC: ED 18:23
DX: J01.00 Acute maxillary sinusitis, unspecified (principal); F13.20 Sedative, hypnotic or anxiolytic dependence, uncomplicated; E11.9 Type 2 diabetes mellitus without complications; Z79.899 Other long term (current) drug therapy
CPT/HCPCS: 99282; 99283; A9270

== ENCOUNTER 2022-08-06 16:25 | Outpatient (CLI) | payer MEDICAID ==
[2022-08-06 16:30] LABS: MUDS CUTOFF CONCENTRATIONS CUTOFF CONC BELOW:
[2022-08-06 18:18] LABS: HCG UR QUAL NEGATIVE
[2022-08-06 18:23] LABS: AMPHETAMINE SCREEN,URINE NEGATIVE (NEGATIVE); BARBITURATE SCREEN,UR NEGATIVE (NEGATIVE); BENZODIAZEPINES SCREEN, URINE NEGATIVE (NEGATIVE); COCAINE SCREEN URINE NEGATIVE (NEGATIVE); METHADONE SCREEN, URINE NEGATIVE (NEGATIVE); METHAMPHETAMINES SCREEN, URINE NEGATIVE (NEGATIVE); OPIATE SCREEN, URINE NEGATIVE (NEGATIVE); OXYCODONE SCREEN, URINE NEGATIVE (NEGATIVE); PROPOXYPHENE SCREEN, URINE NEGATIVE (NEGATIVE); THC CANNABINOID SCREEN, URINE NEGATIVE (NEGATIVE); TRICYCLIC ANTIDEPRESSANT,URINE NEGATIVE (NEGATIVE)
== END 2022-08-06 16:26 | disposition home or self-care (01) ==
LOC: LAB.N 16:25
PROVIDERS: ATTEND Physician Assistant
DX: N91.2 Amenorrhea, unspecified (principal); Z79.899 Other long term (current) drug therapy
CPT/HCPCS: 80306; 81025

== ENCOUNTER 2023-08-28 08:00 | Outpatient (CLI) | payer MEDICAID | END 2023-08-28 23:59 | disposition home or self-care (01) | LOC: LAB.N 08:00 | PROVIDERS: ATTEND Physician Assistant | DX: L03.116 Cellulitis of left lower limb (principal) | CPT/HCPCS: 87070; 87181; 87205 ==

== ENCOUNTER 2023-10-14 23:18 | Emergency (ER) | payer MEDICAID ==
[2023-10-14 23:30] VITALS: BP 150/100; O2SAT 100
--- NOTE | 2023-10-14 23:47 | ED Physician Documentation ---
PD HPI WOUND RECHECK - Stated complaint Stated Complaint: L LEG PX - Chief complaint Chief Complaint: Wound - Histroy obtained from History obtained from: Patient - Additional information Additional information: Patient is a 48-year-old female with a history of diet-controlled diabetes presenting for evaluation of wound to the left calf that has been present for 2 months and has not been healing. She has been seen at the walk-in clinic for this and reports completing 2 rounds of antibiotics, cephalexin and Bactrim at separate times. She states she has not been on antibiotics for the last 3 week s.She states that the wound has not healed and she continues to have drainage from the wound. No reported fevers. It does feel that the redness has slightly spread tonight. 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, 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 - Present Medications Home Medications: Ambulatory Orders Medication Instructions Recorded Confirmed clonazePAM [Clonazepam] 0.5 - 1 mg PO BID PRN 01/13/20 02/18/21 Gabapentin 600 mg PO TID 02/18/21 02/19/21 Benzonatate [Tessalon] 200 mg PO TID PRN #30 cap 03/03/21 Amoxicillin 500 mg PO TID #30 cap 07/11/22 clonazePAM [Klonopin] 1 mg PO TID PRN #30 tablet 07/11/22 Fluticasone [Flonase] 1 sprays ALPESH BID #16 gm 07/26/22 clonazePAM [Klonopin] 1 mg PO TID #21 tablet 07/26/22 Ondansetron Odt [Zofran] 4 mg TL Q6H PRN #10 tablet 10/14/23 Sulfamethox/Trimeth 800/160 1 each PO BID #14 tablet 10/14/23 [Bactrim Ds 800/160] cephALEXin [Keflex] 500 mg PO Q6H #28 cap 10/14/23 - Allergies Allergies/Adverse Reactions: Allergies Allergy/AdvReac Type Severity Reaction Status Date / Time ketorolac tromethamine * Allergy Itching Verified 10/14/23 23:22 [From Toradol] prednisone Allergy Respiratory Verified 10/14/23 23:22 albuterol AdvReac Hives Verified 10/14/23 23:22 heparin AdvReac Hives Verified 10/14/23 23:22 hydrocodone bitartrate * AdvReac Itching Verified 10/14/23 23:22 [From Vicodin] nitroglycerin AdvReac Anaphylaxis Verified 10/14/23 23:22 [From Nitrostat] - Social History Does the pt smoke?: No Smoking Status: Never smoker Does the pt drink ETOH?: No Does the pt have substance abuse?: No - Immunizations Immunizations are current?: Yes - POLST Patient has POLST: No POLST Status: Full Code PD ED PE NORMAL - General General: Alert and oriented X 3, No acute distress, Well developed/nourished - HEENT HEENT: Atraumatic - Cardiac Cardiac: Strong equal pulses - Respiratory Respiratory: No respiratory distress - Extremities Extremities: Other (1 cm ulceration to L posterior calf; serous drainage; faint surrounding erythema/warmth with no fluctuance; Bilateral lower extremity pitting edema, ) Results - Vitals Vitals: Vital Signs - 24 hr 10/14/23 23:22 Temperature 36.8 C Heart Rate 97 Respiratory 16 Rate Blood Pressure 150/100 H O2 Saturation 100 Oxygen O2 Source Room air PD Medical Decision Making - ED course ED course: Patient with wound to left posterior calf for 2 months which has not healed. No fluctuance to suggest abscess. There is serous drainage but some surrounding redness and warmth. Culture was obtained. No signs of sepsis or necrotizing infection. Will start on both cephalexin and Bactrim. Patient does have mild pitting edema to bilateral lower extremities and states that she is on her feet most of the time. Discussed trial of also using compression stockings to see if this helps with the swelling in her legs and recommend follow-up with the wound care clinic. Patient advised on concerning symptoms to return for. Departure - Departure Disposition: 01 Home, Self Care Clinical Impression: Leg ulcer, left, Cellulitis of left leg Condition: Stable Instructions: ED Infec Skin Cellulitis Follow-Up: [facility] Wound Care [Provider Group] Prescriptions: Sulfamethox/Trimeth 800/160 [Bactrim Ds 800/160] 1 each PO BID #14 tablet cephALEXin [Keflex] 500 mg PO Q6H #28 cap Ondansetron Odt [Zofran] 4 mg TL Q6H PRN #10 tablet PRN Reason: Nausea / Vomiting Comments: I am starting you on 2 antibiotics for the wound on your left leg. We have also sent a culture to see what is causing the infection. I do feel that you would likely benefit from care at the wound care clinic to help in healing the ulcer as it may take some time even after the infection is treated given your history of diabetes as well as swelling in both legs. Please contact the wound care clinic tomorrow to get an appointment. Please continue to have close follow-up with your primary care or walk-in clinic regarding your wound. Your prescriptions were sent to [facility]. Return to the ER with worsening symptoms such as fever, increased swelling. Forms: PCP List Discharge Date/Time: 10/15/23 00:00
[2023-10-14] MEDS: ONDANSETRON ODT 4 MG TABLET TL STA (23:57)
[2023-10-14] MEDS: SULFAMETH/TRIMETH DS 800/160 MG TABLET PO STA (23:57)
[2023-10-14] MEDS: cephALEXin 250 MG CAPSULE PO STA (23:57)
== END 2023-10-15 | disposition home or self-care (01) ==
LOC: ED 23:18
DX: L03.116 Cellulitis of left lower limb (principal); L97.229 Non-pressure chronic ulcer of left calf with unspecified severity; E11.9 Type 2 diabetes mellitus without complications; Z79.899 Other long term (current) drug therapy
CPT/HCPCS: 87070; 87205; 99283; A9270; Q0162

== ENCOUNTER 2023-12-03 | Emergency (ER) | payer MEDICAID ==
[2023-12-03 00:10] VITALS: BP 150/100; O2SAT 100
--- NOTE | 2023-12-03 00:41 | ED Physician Documentation ---
History of Present Illness - Stated complaint Stated Complaint: R SIDE NUMBESS/SYNCOPE - Chief complaint Chief Complaint: General - History obtained from History obtained from: Patient, Family (daughter) - Additonal information Additional information: 48-year-old woman with history of methamphetamine and alcohol abuse, hemiplegic migraine, TIA, anxiety, pseudoseizures, presents with multiple medical complaints tonight. Patient states she is feeling anxious, jittery on the right side of the body for the past couple days, unable to sleep, has a right lower extremity wound that is leaking pus, (on antibiotics 2 weeks ago) supposed to go to wound clinic for follow-up. denies fevers. 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, 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 - Present Medications Home Medications: Ambulatory Orders Medication Instructions Recorded Confirmed clonazePAM [Clonazepam] 0.5 - 1 mg PO BID PRN 01/13/20 02/18/21 Gabapentin 600 mg PO TID 02/18/21 02/19/21 Benzonatate [Tessalon] 200 mg PO TID PRN #30 cap 03/03/21 Amoxicillin 500 mg PO TID #30 cap 07/11/22 clonazePAM [Klonopin] 1 mg PO TID PRN #30 tablet 07/11/22 Fluticasone [Flonase] 1 sprays ALPESH BID #16 gm 07/26/22 clonazePAM [Klonopin] 1 mg PO TID #21 tablet 07/26/22 Ondansetron Odt [Zofran] 4 mg TL Q6H PRN #10 tablet 10/14/23 Sulfamethox/Trimeth 800/160 1 each PO BID #14 tablet 10/14/23 [Bactrim Ds 800/160] cephALEXin [Keflex] 500 mg PO Q6H #28 cap 10/14/23 Doxycycline Hyclate 100 mg PO BID 10 Days #20 tab 12/03/23 Gabapentin [Neurontin] 600 mg PO TID #30 tab 12/03/23 - Allergies Allergies/Adverse Reactions: Allergies Allergy/AdvReac Type Severity Reaction Status Date / Time ketorolac tromethamine * Allergy Itching Verified 12/03/23 00:03 [From Toradol] prednisone Allergy Respiratory Verified 12/03/23 00:03 albuterol AdvReac Hives Verified 12/03/23 00:03 heparin AdvReac Hives Verified 12/03/23 00:03 hydrocodone bitartrate * AdvReac Itching Verified 12/03/23 00:03 [From Vicodin] nitroglycerin AdvReac Anaphylaxis Verified 12/03/23 00:03 [From Nitrostat] - Social History Does the pt smoke?: No Smoking Status: Never smoker Does the pt drink ETOH?: No Does the pt have substance abuse?: No - Immunizations Immunizations are current?: Yes - POLST Patient has POLST: No POLST Status: Full Code PD ED PE NORMAL - Vitals Vital signs reviewed: Yes - General General: Alert and oriented X 3, No acute distress, Well developed/nourished - HEENT HEENT: Atraumatic, PERRL, EOMI - Neck Neck: Supple, no meningeal sign - Cardiac Cardiac: RRR - Respiratory Respiratory: No respiratory distress, Clear bilaterally - Abdomen Abdomen: Non tender, Non distended - Derm Derm: Normal color, Warm and dry, Other (R posterior calf erythema and chronic appearing wound with clear yellowish drainage.) - Extremities Extremities: Other (csm intact all extremities) - Neuro Neuro: Alert and oriented X 3, prop sawyer 2-12 intact, No motor deficit, No sensory deficit, Normal speech Eye Opening: Spontaneous Motor: Obeys Commands Verbal: Oriented GCS Score: 15 Results - Vitals Vitals: Vital Signs - 24 hr 12/03/23 00:03 Temperature 36.8 C Heart Rate 88 Respiratory 16 Rate Blood Pressure 150/100 H O2 Saturation 100 Oxygen O2 Source Room air PD Medical Decision Making - ED course ED course: 48yF p/w jitteriness, insomnia, anxiety, and for wound check of right calf. It appears to be mildly infected therefore I will prescribe a course of doxycycline with MRSA coverage. recommended abstinence from alcohol and to cover up in the sun. Provided one time dose of clonazepam and recommended f/u with her usual prescriber for rx. Refilled gabapentin upon request given her jitteriness and sensations on R side of body. Asked if patient wants alcohol or substance dependence counseling and this was declined. She is in precontemplative stage of change with multiple social determinants of care that may impede health. Advised f/u with pcp and wound care clinic. d/w daughter as well. return precautions given. Departure - Departure Disposition: 01 Home, Self Care Clinical Impression: Anxiety, Insomnia, Chronic wound of extremity Condition: Stable Instructions: ED Wound Care Prescriptions: Doxycycline Hyclate 100 mg PO BID 10 Days #20 tab Gabapentin [Neurontin] 600 mg PO TID #30 tab Comments: You were seen in the emergency department for multiple medical issues. [facility] Please follow-up with your primary care provider and return to the emergency department if you have any new or worsening symptoms or other concerns. Forms: PCP List Discharge Date/Time: 12/03/23 01:21
[2023-12-03] MEDS: clonazePAM 0.5 MG TABLET PO STA (00:58)
== END 2023-12-03 01:21 | disposition home or self-care (01) ==
LOC: ED
DX: F41.9 Anxiety disorder, unspecified (principal); G47.00 Insomnia, unspecified; Z48.00 Encounter for change or removal of nonsurgical wound dressing; E11.9 Type 2 diabetes mellitus without complications; M06.9 Rheumatoid arthritis, unspecified; Z86.73 Personal history of transient ischemic attack (TIA), and cerebral infarction without residual deficits; Z98.84 Bariatric surgery status; Z79.899 Other long term (current) drug therapy
CPT/HCPCS: 99283; A9270